=== PATIENT | female | born 1940 | race Caucasian/White ===

== ENCOUNTER → 2016-11-26 | Outpatient (CLI) | payer BC ==
[~2016-11-26] MED LIST: ALUMSUS2 PO; BIOT1CAP8 PO; CALC600T9 PO; CARV3.122 PO; CARV6.252 PO; CEFD1CAP14 PO; CHOL100010 PO; CMD/25 PO; FRS/40 PO; ISOS60TA25 PO; LEVO1TAB33 PO; METH4PAK PO; MULT-610 PO; NYSS/ PO; NYSS5 PO; OMEGCAP2 PO; POTA20TA16 PO; VNTHFA/IN PO; WARF5TAB90 PO
== END | disposition home or self-care (01) ==
LOC: C.LABSPEC 13:14
PROVIDERS: ATTEND Obstetrics & Gynecology
DX: Z01.89 Encounter for other specified special examinations (principal)

== ENCOUNTER → 2016-12-24 | Outpatient (CLI) | payer BC | END | disposition home or self-care (01) | LOC: C.PAPS 14:25 | PROVIDERS: ATTEND Obstetrics & Gynecology | DX: Z85.42 Personal history of malignant neoplasm of other parts of uterus (principal) ==

== ENCOUNTER → 2017-04-18 | Outpatient (CLI) | payer BC ==
--- NOTE | 2017-04-18 14:05 | MAMMOGRAPHY REPORT ---
BILATERAL DIGITAL DIAGNOSTIC MAMMOGRAM TOMOSYNTHESIS WITH CAD AND TARGETED RIGHT ULTRASOUND: 7 CLINICAL HISTORY: 76-year-old woman who presents with approximately one week of diffuse right breast swelling and redness. No palpable lump or nipple discharge. Recent benign left breast biopsy in Aug. Patient has a pacemaker but reports she usually sleeps on her left side and her CHF is c ontrolled with Lasix. The patient recently started antibiotics but reports the erythema and swelling has not decreased. She denies right breast warmth, pain and fever/chills. TECHNIQUE: Bilateral breast tomosynthesis in addition to standard 2D mammography was performed. Spot magnification left CC and ML views were also performed to reassess groupings of microcalcifications. Current study was also evaluated with a Computer Aided Detection (CAD) system. COMPARISON: Comparison is made to exams dated: 09/15/2016 mammogram, 09/08/2016 ultrasound, 08/31/20 16 mammogram, 08/28/2015 mammogram, 08/27/2014 mammogram, and 06/28/2013 mammogram - [facility]. BREAST COMPOSITION: The tissue of both breasts is heterogeneously dense, which may obscure small mas ses. FINDINGS: A pacemaker projects over the left pectoralis muscle on the MLO view. There is a stable ri bbon shaped metallic biopsy marker in the 12:00 middle one third of the left breast. There are a few scattered round benign-appearing microcalcifications and a coarse calcification in the left breast. There are 3 stable groupings of punctate microcalcifications in the posterior left breast on the spo t magnification CC view, which have not significantly changed compared to the spot magnification view s obtained 09/08/2016. Given the stability on prior full-field mammograms dating back to 2011, these are considered benign. There is new diffuse right breast skin thickening most prominent in the anterior aspect of the breast measuring 7.5 mm in thickness based on the CC view, and there is also diffuse right breast trabecula r edema. There is a subtle area of architectural distortion in the 12:00 anterior right breast, for which further evaluation with ultrasound was performed. There are a few benign coarse calcifications and minimal vascular calcification in the right breast. No suspicious mass, architectural distortio n or cluster of microcalcifications is seen. Targeted ultrasound was performed throughout the right breast, with particular attention to the 12:00 axis. In the 12:00 breast, 2 cm from the nipple, there is a subtle hypoechoic area of architectural distortion. Upon visual inspection this distortion is seen deep to a horizontal 1 cm surgical scar in the skin, confirming that it is postsurgical in nature. No other discrete solid or cystic right b reast mass is identified. There is diffuse skin thickening of the right breast noted on ultrasound, measuring up to 4 mm in the 6:00 axis of the breast. No drainable fluid collection is identified. IMPRESSION: ACR BI-RADS CATEGORY 4: SUSPICIOUS, TARGETED ULTRASOUND ACR BI-RADS CATEGORY 4: SUSPICIO US 1. There is new diffuse right breast skin thickening and trabecular edema without evidence of new simmons spicious breast mass or drainable fluid collection. Differential considerations include diffuse mast itis and inflammatory breast cancer. Given that there is no targetable finding on mammogram or ultra sound, would recommend surgical consultation for a skin punch biopsy for definitive evaluation. 2. Stable mammographic appearance of the left breast including post biopsy changes in the 12:00 axis , and stable groupings of benign-appearing punctate microcalcifications. These might calcifications are stable based on prior spot magnification views from August 2016, and also likely stable dating back to 2011, therefore considered benign. 3. Pending pathology results from skin punch biopsy, if the results are benign, would recommend repe at imaging of the right breast at resolution of symptoms. These results and recommendations were discussed with the patient at the time of the exam. Approximately 10% of breast cancers are not detected with mammography. A negative mammographic report should not delay biopsy if a clinically suggestive mass is present. Heather Nam M.D. ay/:04/18/2017 10:15:20 Boat Oar Maker: Shelley FOX(Yi)(Jacki), [facility] letter sent: Abnormal 4/5 BI-RADS Code: ACR BI-RADS Category 4: Suspicious Ultrasound BI-RADS: ACR BI-RADS Category 4: Suspici ous
== END | disposition home or self-care (01) ==
LOC: C.MAMM 08:48
PROVIDERS: ATTEND Obstetrics & Gynecology
DX: N63 Unspecified lump in breast (principal); R92.8 Other abnormal and inconclusive findings on diagnostic imaging of breast

== ENCOUNTER → 2017-04-25 | Outpatient (CLI) | payer BC | END | disposition home or self-care (01) | LOC: C.PATHSPEC 17:06 | PROVIDERS: ATTEND Surgery | DX: N63 Unspecified lump in breast (principal) ==

== ENCOUNTER → 2017-05-11 | Outpatient (CLI) | payer BC ==
[2017-05-11 18:59] LABS: BLOOD UREA NITROGEN 28 mg/dl (7-18); BUN/CREATININE RATIO 21.5 (10-20); CALCIUM 9.1 mg/dl (8.5-10.1); CARBON DIOXIDE 33 mmol/L (21-32); CHLORIDE 99 mmol/L (98-107); GLUCOSE 104 mg/dl (70-99); MAGNESIUM 2.3 mg/dl (1.8-2.4); POTASSIUM 3.8 mmol/L (3.5-5.1); SODIUM 135 mmol/L (136-145)
== END | disposition home or self-care (01) ==
LOC: C.LAB 18:14
PROVIDERS: ATTEND Physician Assistant Medical
DX: I42.9 Cardiomyopathy, unspecified (principal)

== ENCOUNTER → 2017-05-17 | Outpatient (CLI) | payer BC ==
[2017-05-17 09:55] LABS: ALT/SGPT 28 U/L (12-78); BLOOD UREA NITROGEN 24 mg/dl (7-18); BUN/CREATININE RATIO 26.2 (10-20); CALCIUM 9.1 mg/dl (8.5-10.1); CARBON DIOXIDE 28 mmol/L (21-32); CHLORIDE 104 mmol/L (98-107); CHOLESTEROL 159 mg/dl (0-200); GLUCOSE 90 mg/dl (70-99); POTASSIUM 4.3 mmol/L (3.5-5.1); SODIUM 138 mmol/L (136-145)
[2017-05-17 09:57] LABS: BASO % 0.9 %; BASO ABS # 0.04 K/uL (0-0.2); COMPLETE YES; HEMATOCRIT 36.8 % (37-47); IG% 0.2 %; LYMPH ABS # 1.09 K/uL (1.2-3.4); MEAN CORPUSCULAR HEMOGLOBIN 28.5 pg (25-34); MEAN PLATELET VOLUME 9.9 fL (7.4-10.4); MONO % 16.9 %; PLATELET COUNT 221 K/uL (130-400); RED BLOOD COUNT 4.38 M/uL (4.2-5.4); WHITE BLOOD COUNT 4.55 K/uL (4.8-10.8)
[2017-05-17 10:05] LABS: ALB/GLOB RATIO 0.9 (0.9-2); ALKALINE PHOSPHATASE 77 U/L (45-117); AST/SGOT 28 U/L (15-37); CHOLESTEROL/HDL RATIO 2.2; HDL CHOLESTEROL 73 mg/dl; LDL CHOLESTEROL CALCULATED 77 mg/dl; TRIGLYCERIDES 45 mg/dl (0-150); VERY LOW DENSITY LIPOPROT CALC 9 mg/dl
== END | disposition home or self-care (01) ==
LOC: C.LAB 06:58
PROVIDERS: ATTEND Nurse Practitioner Family
DX: I42.9 Cardiomyopathy, unspecified (principal); I35.1 Nonrheumatic aortic (valve) insufficiency; E04.1 Nontoxic single thyroid nodule; Z13.220 Encounter for screening for lipoid disorders; Z79.01 Long term (current) use of anticoagulants

== ENCOUNTER → 2017-05-26 | Outpatient (CLI) | payer BC ==
--- NOTE | 2017-05-26 15:28 | DIAGNOSTIC IMAGING REPORT ---
TWO VIEW CHEST CLINICAL HISTORY: Cough. FINDINGS: PA and lateral chest radiographs are compared to study dated 06/21/2016 and correlated with chest CT dated 01/27/2016. The PA view is degraded by patient rotation. A 3-lead cardiac pacemaker is unchanged in position and partially secures the left mid chest. The heart is mildly enlarged. The pulmonary vasculature is noncongested. Emphysema and chronic interstitial thickening are similar to previous. There are trace pleural effusions with bibasilar consolidation, right greater than left. There is no pneumothorax. The skeletal structures are osteopenic. Degenerative change and scoliosis are noted in the thoracic spine. IMPRESSION: 1. Cardiomegaly and cardiac pacemaker. There is no radiographic evidence of congestive failure. 2. Emphysema. 3. There are trace pleural effusions with bibasilar consolidation, right greater than left. This could represent atelectasis versus an infectious/inflammatory pneumonitis. Clinical correlation will be required and radiographic follow-up to resolution is recommended. Electronically signed by: Venkat Cole M.D. 05/26/2017 3:27 PM Dictated Date/Time: 05/26/2017 3:25 PM
== END | disposition home or self-care (01) ==
LOC: C.RAD 14:51
PROVIDERS: ATTEND Nurse Practitioner Family
DX: R05 Cough (principal); I51.7 Cardiomegaly; Z95.0 Presence of cardiac pacemaker; J43.9 Emphysema, unspecified; J90 Pleural effusion, not elsewhere classified

== ENCOUNTER 2017-05-28 03:39 | Inpatient (IN) | payer BC, OTHER ==
[~2017-05-28] VITALS: Ht 162.6 cm; Wt 66.1 kg
[2017-05-28] VITALS (12 sets, daily range): BP systolic 121–143; BP diastolic 67–83; PULSE 76–91; TEMP 36.3–37; O2SAT 85–95; Ht 162.6 cm; Wt 66.1 kg
[~2017-05-28 03:39] MED LIST changes: -CARV6.252 PO; -CEFD1CAP14 PO; -METH4PAK PO; -NYSS5 PO; -VNTHFA/IN PO
--- NOTE | 2017-05-28 04:13 | EMERGENCY ROOM VISIT NOTE ---
History Report prepared by Shannon: Kingsley Garcias Under the Supervision of: Dr. Obinna Roberts D.O. First contact with patient: 03:56 Chief Complaint: RESPIRATORY PROBLEMS Stated Complaint: SOB,CONGESTION,LUNGS FULL History of Present Illness The patient is a 76 year old female who presents to the Emergency Room with complaints of worsening respiratory symptoms that began 5 days ago. At this time , the patient began to run a fever with a clear sputum productive cough and congestion. Two days ago, she went to her PCP, received a chest x-ray, and was diagnosed with pneumonia in her lower right lobe. She was placed on Levaquin. Her noticed her condition worsening secondary to the patient unable to lie down and sleep. She denies any other symptoms. Source of History: patient Onset: 5 days ago Position: other (Respiratory System) Symptom Intensity: moderate Quality: other (Shortness of breath) Timing: worsening Modifying Factors (Worsening): rest Associated Symptoms: + fevers, + cough Note: She denies any other complaints. Review of Systems See HPI for pertinent positives and negatives. A total of ten systems were reviewed and were otherwise negative. 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 (3) Lyme disease (4) Mitral valve regurgitation (5) Nonischemic cardiomyopathy (6) Pacemaker (7) Pneumonia Family History Cancer Social History Smoking Status: Never Smoker Alcohol Use: none Drug Use: none Marital Status: Housing Status: lives alone Occupation Status: unemployed Current/Historical Medications Scheduled Carvedilol (Coreg), 6.25 MG PO BID Furosemide (Lasix), 40 MG PO Q2D Levofloxacin (Levaquin), 500 MG PO DAILY Nystatin (Nystatin Suspension), 1 DOSE PO UD Potassium Ext Rel (Klor-Con), 20 MEQ PO Q2D Warfarin Sod (Coumadin), 2.5 MG PO DAILY Scheduled PRN Albuterol Hfa (Ventolin Hfa), 2 PUFFS PO QID PRN for SOB/Wheezing Allergies Coded Allergies: Sulfamethoxazole w/Trimethoprim (Verified Allergy, Severe, MOUTH SORES, 05/28/17) Adhesives (Verified Allergy, Unknown, "Adhesive tape" -- blisters, 05/28/17) Physical Exam Vital Signs Date Time Temp Pulse Resp B/P (MAP) Pulse Ox O2 Delivery O2 Flow Rate FiO2 05/28/17 05:09 81 14 92 Room Air 05/28/17 05:00 126/83 05/28/17 04:39 77 13 93 Room Air 05/28/17 04:30 132/71 05/28/17 04:16 82 05/28/17 04:08 130/76 05/28/17 04:07 91 Room Air 05/28/17 04:00 91 Room Air 05/28/17 03:45 36.7 91 22 133/75 91 Room Air Physical Exam GENERAL: Awake, alert, well-appearing, in no distress HENT: Normocephalic, atraumatic. Oropharynx unremarkable. EYES: Normal conjunctiva. Sclera non-icteric. NECK: Supple. No nuchal rigidity. FROM. No JVD. RESPIRATORY: Rhonchi bilaterally, right greater than left. CARDIAC: Regular rate, normal rhythm. Extremities warm and well perfused. Pulses equal. ABDOMEN: Soft, non-distended. No tenderness to palpation. No rebound or guarding. No masses. RECTAL: Deferred. MUSCULOSKELETAL: Chest examination reveals no tenderness. The back is symmetrical on inspection without obvious abnormality. There is no CVA tenderness to palpation. No joint edema. LOWER EXTREMITIES: Calves are equal size bilaterally and non-tender. No edema. No discoloration. NEURO: Normal sensorium. No sensory or motor deficits noted. SKIN: No rash or jaundice noted. Medical Decision & Procedures ER Provider Diagnostic Interpretation: Radiology results as stated below per my review: CHEST X-RAY 1 VIEW: RLL infiltrate, pacemaker in place. Per me. Laboratory Results 05/28/17 04:11 Red Blood Count 4.30, Mean Corpuscular Volume 83.7, Mean Corpuscular Hemoglobin 27.9, Mean Corpuscular Hemoglobin Concent 33.3, Mean Platelet Volume 9.3, Neutrophils (%) (Auto) 60.2, Lymphocytes (%) (Auto) 18.0, Monocytes (%) (Auto) 19.4, Eosinophils (%) (Auto) 1.9, Basophils (%) (Auto) 0.3, Neutrophils # (Auto ) 3.50, Lymphocytes # (Auto) 1.05, Monocytes # (Auto) 1.13, Eosinophils # (Auto ) 0.11, Basophils # (Auto) 0.02 05/28/17 04:11 Test 05/28/17 04:09 05/28/17 04:11 Bedside Troponin I < 0.030 ng/ml (0-0.045) White Blood Count 5.82 K/uL (4.8-10.8) Red Blood Count 4.30 M/uL (4.2-5.4) Hemoglobin 12.0 g/dL (12.0-16.0) Hematocrit 36.0 % (37-47) Mean Corpuscular Volume 83.7 fL (80-100) Mean Corpuscular Hemoglobin 27.9 pg (25-34) Mean Corpuscular Hemoglobin Concent 33.3 g/dl (32-36) Platelet Count 314 K/uL (130-400) Mean Platelet Volume 9.3 fL (7.4-10.4) Neutrophils (%) (Auto) 60.2 % Lymphocytes (%) (Auto) 18.0 % Monocytes (%) (Auto) 19.4 % Eosinophils (%) (Auto) 1.9 % Basophils (%) (Auto) 0.3 % Neutrophils # (Auto) 3.50 K/uL (1.4-6.5) Lymphocytes # (Auto) 1.05 K/uL (1.2-3.4) Monocytes # (Auto) 1.13 K/uL (0.11-0.59) Eosinophils # (Auto) 0.11 K/uL (0-0.5) Basophils # (Auto) 0.02 K/uL (0-0.2) RDW Standard Deviation 42.6 fL (36.4-46.3) RDW Coefficient of Variation 13.8 % (11.5-14.5) Immature Granulocyte % (Auto) 0.2 % Immature Granulocyte # (Auto) 0.01 K/uL (0.00-0.02) Anion Gap 7.0 mmol/L (3-11) Est Creatinine Clear Calc Drug Dose 55.0 ml/min Estimated GFR () 90.6 Estimated GFR (Non- 78.1 BUN/Creatinine Ratio 25.5 (10-20) Calcium Level 8.6 mg/dl (8.5-10.1) Total Bilirubin 0.3 mg/dl (0.2-1) Aspartate Amino Transf (AST/SGOT) 26 U/L (15-37) Alanine Aminotransferase (ALT/SGPT) 27 U/L (12-78) Alkaline Phosphatase 71 U/L (45-117) Pro-B-Type Natriuretic Peptide 433 pg/ml (0-1800) Total Protein 7.2 gm/dl (6.4-8.2) Albumin 2.7 gm/dl (3.4-5.0) Globulin 4.5 gm/dl (2.5-4.0) Albumin/Globulin Ratio 0.6 (0.9-2) Laboratory results reviewed by me Medications Administered Medications (Trade) Dose Ordered Sig/Marcellus Route Start Time Stop Time Status Last Admin Dose Admin Albuterol/ Ipratropium (Duoneb) 3 ml ONE STAT INH 05/28/17 05:14 05/28/17 05:15 DC 05/28/17 05:27 3 ML Ceftriaxone Sodium (Rocephin Inj) 1 gm NOW STAT IV 05/28/17 05:15 05/28/17 05:17 DC 05/28/17 05:27 1 GM ECG Indication: SOB/dyspnea Rate (beats per minute): 89 Rhythm: other (Paced rhythm) Findings: PVC, no acute ischemic change ED Course 0356: The patient was evaluated in room C8. A complete history and physical exam was performed. 0514: Ordered DuoNeb 3 ml INH 0515: Ordered Azithromycin 500 mg/ Dextrose 255 ml @ 125 mls/hr IV, Rocephin Inj 1 gm IV 0526: Upon reexamination, the patient was resting. I discussed the test results and treatment plan with her. I discussed the patient's case with Dr. Mark of the [facility] [place]. The patient will be evaluated for further management. Medical Decision Differential diagnosis: Etiologies such as infections, reactive airway disease, pneumonia, pneumothorax , COPD, CHF, cardiac ischemia, pulmonary embolism, musculoskeletal, gastrointestinal, as well as others were entertained. Started on iv antibx; low pulse ox; not better; offered admit; spoke with hospitalist for admit 545am Medication Reconcilliation Current Medication List: was personally reviewed by me Blood Pressure Screening Patient's blood pressure: Normal blood pressure Blood pressure disposition: Did not require urgent referral Consults Time Called: 0520 Consulting Physician: Dr. Mark - [facility] [place] Returned Call: 0526 Discussed the patient's case. The patient will be evaluated for further treatment and disposition. Impression Primary Impression: RLL pneumonia Scribe Attestation The scribe's documentation has been prepared under my direction and personally reviewed by me in its entirety. I confirm that the note above accurately reflects all work, treatment, procedures, and medical decision making performed by me. Departure Information Dispostion Being Evaluated By Hospitalist Referrals Say Garcia III, CRNP (PCP) Patient Instructions [facility]
[2017-05-28 04:31] LABS: BASO % 0.3 %; BASO ABS # 0.02 K/uL (0-0.2); COMPLETE YES; EOS % 1.9 %; IG% 0.2 %; LYMPH ABS # 1.05 K/uL (1.2-3.4); MEAN CELL VOLUME 83.7 fL (80-100); MEAN CORPUSCULAR HEMOGLOBIN 27.9 pg (25-34); MEAN CORPUSCULAR HGB CONC 33.3 g/dl (32-36); MEAN PLATELET VOLUME 9.3 fL (7.4-10.4); MONO % 19.4 %; NEUT % 60.2 %; PLATELET COUNT 314 K/uL (130-400); WHITE BLOOD COUNT 5.82 K/uL (4.8-10.8)
[2017-05-28 04:49] LABS: BUN/CREATININE RATIO 25.5 (10-20); CALCIUM 8.6 mg/dl (8.5-10.1); CREATININE 0.74 mg/dl (0.60-1.20); POTASSIUM 4.3 mmol/L (3.5-5.1)
[2017-05-28 04:54] LABS: ALB/GLOB RATIO 0.6 (0.9-2)
[2017-05-28] MEDS ORDERED: ALBUT/IPRATROP 3MG/0.5MG NEB 3 ML VIAL INH STA (05:14)
[2017-05-28] MEDS ORDERED: CEFTRIAXONE SOD INJ 1 GM ADDVIAL IV STA (05:15)
[2017-05-28] MEDS ORDERED: AZITHROMYCIN IV 500 MG in DEXTROSE 5% 250ML 250 ML IV ONE (05:15)
[2017-05-28] MEDS ORDERED: CARV6.252 PO (05:25)
[2017-05-28] MEDS ORDERED: VNTHFA/IN PO (05:27)
[2017-05-28] MEDS ORDERED: NITROGLYCERIN 0.4 MG SL PER TAB CHARGE SL PRN (05:45)
[2017-05-28] MEDS ORDERED: ACETAMINOPHEN 325 MG TAB PO PRN (05:45)
[2017-05-28] MEDS ORDERED: ZOLPIDEM TARTRATE 5 MG TAB PO PRN (05:45)
[2017-05-28] MEDS ORDERED: ONDANSETRON INJ 2 MG/ML 2 ML VIAL IV PRN (06:00)
[2017-05-28] MEDS ORDERED: IPRATROPIUM BROMIDE NEB SOLN 0.02% 2.5 ML VIAL INH PRN (06:15)
[2017-05-28] MEDS ORDERED: LEVALBUTEROL 1.25MG/0.5ML NEB INH PRN (06:15)
--- NOTE | 2017-05-28 06:35 | History and Physical ---
History & Physical Date & Time of Service: May 28, 2017 at 06:29 Chief Complaint: Sob,Congestion,Lungs Full Primary Care Physician: Say Garcia III, CRNP History of Present Illness Source: patient, hospital records The patient is a 76-year-old female who presents emergency department with worsening shortness of breath and harsh cough over the past 5 days. Today she developed a fever and worsening congestion, despite being started on levofloxacin for right lower lobe pneumonia diagnosed at her PCPs office 2 days ago. Past Medical/Surgical History Medical Problems: (1) Deep venous thrombosis of left upper extremity Status: Resolved (2) Lyme disease Status: Resolved (3) Mitral valve regurgitation Status: Chronic (4) Pacemaker Status: Chronic Family History Cancer Social History Smoking Status: Never Smoker Smokeless Tobacco Use: No Alcohol Use: none Drug Use: none Marital Status: Housing status: lives with significant other Occupational Status: unemployed Immunizations History of Influenza Vaccine: No History of Tetanus Vaccine?: No History of Pneumococcal: Yes History of Hepatitis B Vaccine: No Multi-Drug Resistant Organisms History of MDRO: No Allergies Coded Allergies: Sulfamethoxazole w/Trimethoprim (Verified Allergy, Severe, MOUTH SORES, 05/28/17) Adhesives (Verified Allergy, Unknown, "Adhesive tape" -- blisters, 05/28/17) Home Medications Scheduled Carvedilol (Coreg), 6.25 MG PO BID Furosemide (Lasix), 40 MG PO Q2D Levofloxacin (Levaquin), 500 MG PO DAILY Nystatin (Nystatin Suspension), 1 DOSE PO UD Potassium Ext Rel (Klor-Con), 20 MEQ PO Q2D Warfarin Sod (Coumadin), 2.5 MG PO DAILY Scheduled PRN Albuterol Hfa (Ventolin Hfa), 2 PUFFS PO QID PRN for SOB/Wheezing Review of Systems The patient denies palpitations, lower extremity swelling, vision change, hearing change, sore throat, chills, sweats, weight change, fatigue, nausea, vomiting, diarrhea or constipation, abdominal pain, pelvic pain, blood in urine or stool, dysuria, urinary frequency or urgency, lightheadedness, dizziness, headache, memory loss, rash, abnormal bruising or bleeding, imbalance, focal or generalized weakness, numbness or tingling in arms or legs, generalized arthralgias or myalgias, back or neck pain, night sweats. The review of systems is otherwise negative other than for that already noted above, and at least 10 systems have been reviewed. Physical Exam Vital Signs Date Time Temp Pulse Resp B/P (MAP) Pulse Ox O2 Delivery O2 Flow Rate FiO2 05/28/17 05:09 81 14 92 Room Air 05/28/17 05:00 126/83 05/28/17 04:39 77 13 93 Room Air 05/28/17 04:30 132/71 05/28/17 04:16 82 05/28/17 04:08 130/76 05/28/17 04:07 91 Room Air 05/28/17 04:00 91 Room Air 05/28/17 03:45 36.7 91 22 133/75 91 Room Air The patient is awake, well-developed and adequately nourished, alert and oriented 3, normocephalic and atraumatic, lying in bed and in moderate acute distress during paroxysmal coughing. HEENT--PERRL, EOMI, mucous membranes and oropharynx dry. Neck--supple, no JVD or bruits, thyroid normal, trachea midline, no adenopathy. Heart--normal S1 and S2, no extra beats, no murmurs, rubs or gallops. Lungs--coarse breath sounds at right base, scattered wheezes bilaterally, no respiratory distress, no accessory muscle use. Abdomen--normal bowel sounds and soft, nontender and nondistended, no hernias or masses, no organomegaly. Extremities--no cyanosis, clubbing or edema. There are good distal pulses b/l. Dermatologic--normal skin turgor, normal color, warm and dry, no abnormal lymph nodes, no rash. Neurologic--cranial nerves II through XII grossly intact, motor and sensory examination normal. Rheumatologic--normal range of motion, nontender, muscles and joints. Psychiatric--normal affect. Diagnostics Laboratory Results Results Past 24 Hours Test 05/28/17 04:09 05/28/17 04:11 Range/Units Bedside Troponin I < 0.030 0-0.045 ng/ml White Blood Count 5.82 4.8-10.8 K/uL Red Blood Count 4.30 4.2-5.4 M/uL Hemoglobin 12.0 12.0-16.0 g/dL Hematocrit 36.0 37-47 % Mean Corpuscular Volume 83.7 80-100 fL Mean Corpuscular Hemoglobin 27.9 25-34 pg Mean Corpuscular Hemoglobin Concent 33.3 32-36 g/dl Platelet Count 314 130-400 K/uL Mean Platelet Volume 9.3 7.4-10.4 fL Neutrophils (%) (Auto) 60.2 % Lymphocytes (%) (Auto) 18.0 % Monocytes (%) (Auto) 19.4 % Eosinophils (%) (Auto) 1.9 % Basophils (%) (Auto) 0.3 % Neutrophils # (Auto) 3.50 1.4-6.5 K/uL Lymphocytes # (Auto) 1.05 1.2-3.4 K/uL Monocytes # (Auto) 1.13 0.11-0.59 K/uL Eosinophils # (Auto) 0.11 0-0.5 K/uL Basophils # (Auto) 0.02 0-0.2 K/uL RDW Standard Deviation 42.6 36.4-46.3 fL RDW Coefficient of Variation 13.8 11.5-14.5 % Immature Granulocyte % (Auto) 0.2 % Immature Granulocyte # (Auto) 0.01 0.00-0.02 K/uL Sodium Level 131 136-145 mmol/L Potassium Level 4.3 3.5-5.1 mmol/L Chloride Level 100 98-107 mmol/L Carbon Dioxide Level 24 21-32 mmol/L Anion Gap 7.0 3-11 mmol/L Blood Urea Nitrogen 19 7-18 mg/dl Creatinine 0.74 0.60-1.20 mg/dl Est Creatinine Clear Calc Drug Dose 55.0 ml/min Estimated GFR () 90.6 Estimated GFR (Non- 78.1 BUN/Creatinine Ratio 25.5 10-20 Random Glucose 103 70-99 mg/dl Calcium Level 8.6 8.5-10.1 mg/dl Total Bilirubin 0.3 0.2-1 mg/dl Aspartate Amino Transf (AST/SGOT) 26 15-37 U/L Alanine Aminotransferase (ALT/SGPT) 27 12-78 U/L Alkaline Phosphatase 71 45-117 U/L Pro-B-Type Natriuretic Peptide 433 0-1800 pg/ml Total Protein 7.2 6.4-8.2 gm/dl Albumin 2.7 3.4-5.0 gm/dl Globulin 4.5 2.5-4.0 gm/dl Albumin/Globulin Ratio 0.6 0.9-2 Microbiology Results 05/28/17 Blood Culture, Received Pending 05/28/17 Blood Culture, Received Pending Impression Assessment and Plan Right middle and right lower lobe pneumonia-- Patient will be admitted to the telemetry unit for close oxygen monitoring. Ceftriaxone 1 g IV daily Levofloxacin 500 mg IV every 24 hours Xopenex/Atrovent nebulizer to use every 6 hours while awake and every 2 hours when necessary. Guaifenesin extended release 600 mg by mouth twice a day. Solu-Medrol 40 mg IV every 8 hours. Nasal cannula 2 L of oxygen, titrating to keep pulse ox greater than or equal to 94%. CAD/hypertension/nonischemic cardiomyopathy/ status post AICD-- Continue carvedilol 6.25 mg by mouth twice a day, isosorbide mononitrate ER 60 mg by mouth every morning, Klor-Con 20 mEq by mouth daily, furosemide 120 mg by mouth daily. DVT history--continue warfarin, check a PT and INR. Level of Care Telemetry Advanced Directives Existing Advance Directive: No Existing Living Will: No Existing Power of Hall Tender: No Resuscitation Status FULL RESUSCITATION VTE Prophylaxis VTE Risk Assessment Done? Y/N: Yes Risk Level: Moderate Given or contraindicated: Warfarin (Coumadin) Social Service Consult None Apply
--- NOTE | 2017-05-28 06:51 | DIAGNOSTIC IMAGING REPORT ---
CHEST ONE VIEW PORTABLE CLINICAL HISTORY: sob dyspnea COMPARISON STUDY: 05/26/2017 FINDINGS: Bipolar cardiac pacemaker in good position. No evidence for cardiac enlargement. Moderate improvement in aeration right lung base. Minimal residual infiltrative change medially. Lungs otherwise appear clear. IMPRESSION: 1. Improved aeration right base. 2. Residual infiltrative change medial right base. The above report was generated using voice recognition software. It may contain grammatical, syntax or spelling errors. Electronically signed by: Bakari Moctezuma M.D. 05/28/2017 6:49 AM Dictated Date/Time: 05/28/2017 6:49 AM
[2017-05-28 06:53] LABS: INR 2.8 (0.9-1.1); PROTHROMBIN TIME (PATIENT) 31.5 SECONDS (9.0-12.0)
[2017-05-28] MEDS: METHYLPREDNISOLONE IV 40 MG in SYRINGE 0 ML IV SCH ×3 (08:10→23:12)
[2017-05-28] MEDS: GUAIFENESIN 600 MG TABCR PO SCH ×2 (08:10→21:08)
[2017-05-28] MEDS: LEVOFLOXACIN / D5W 500 MG in PREMIXED IN D5W 100 ML IV SCH (08:10)
[2017-05-28] MEDS: NYSTATIN SUSP 500,000 U/5 ML UDC PO SCH ×4 (08:10→21:09)
[2017-05-28] MEDS: CARVEDILOL 6.25 MG TAB PO SCH ×2 (08:10→21:09)
[2017-05-28] MEDS: LEVALBUTEROL 1.25MG/0.5ML NEB INH SCH ×3 (08:16→19:45)
[2017-05-28] MEDS: IPRATROPIUM BROMIDE NEB SOLN 0.02% 2.5 ML VIAL INH SCH ×3 (08:16→19:45)
[2017-05-28] MEDS ORDERED: LEVALBUTEROL/IPRATROPIUM NEB INH SCH (09:00)
[2017-05-28 09:33] LABS: MANUAL MICROSCOPIC REQUIRED? NO; REVIEW REQ? NO; URINE APPEARANCE CLEAR (CLEAR); URINE BILIRUBIN NEG (NEG); URINE COLOR YELLOW; URINE EPITHELIAL CELL AUTO >30 /lpf (0-5); URINE NITRITE NEG (NEG); URINE PH 5.5 (4.5-7.5); UROBILINOGEN NEG (NEG)
[2017-05-28] MEDS ORDERED: WARFARIN SOD 2.5 MG TAB PO SCH (16:00)
[2017-05-29] VITALS (12 sets, daily range): BP systolic 123–150; BP diastolic 73–77; PULSE 62–98; TEMP 36.4–36.6; O2SAT 91–93
[2017-05-29] MEDS: IPRATROPIUM BROMIDE NEB SOLN 0.02% 2.5 ML VIAL INH SCH ×3 (02:17→14:04)
[2017-05-29] MEDS: LEVALBUTEROL 1.25MG/0.5ML NEB INH SCH ×3 (02:17→14:04)
[2017-05-29] MEDS ORDERED: CEFTRIAXONE SOD INJ 1 GM in DEXTROSE 5% ADD-VANTAGE 50ML 50 ML IV SCH (06:00)
[2017-05-29] MEDS: LEVOFLOXACIN / D5W 500 MG in PREMIXED IN D5W 100 ML IV SCH (07:58)
[2017-05-29] MEDS: METHYLPREDNISOLONE IV 40 MG in SYRINGE 0 ML IV SCH (07:58)
[2017-05-29] MEDS: CARVEDILOL 6.25 MG TAB PO SCH (07:58)
[2017-05-29] MEDS: GUAIFENESIN 600 MG TABCR PO SCH (07:58)
[2017-05-29] MEDS: NYSTATIN SUSP 500,000 U/5 ML UDC PO SCH ×2 (07:59→13:05)
[2017-05-29 08:03] LABS: BASO % 0.1 %; BASO ABS # 0.01 K/uL (0-0.2); COMPLETE YES; HEMATOCRIT 36.6 % (37-47); IG% 0.3 %; LYMPH % 11.6 %; LYMPH ABS # 0.81 K/uL (1.2-3.4); MEAN CELL VOLUME 82.2 fL (80-100); MEAN CORPUSCULAR HEMOGLOBIN 28.5 pg (25-34); MEAN CORPUSCULAR HGB CONC 34.7 g/dl (32-36); MEAN PLATELET VOLUME 9.2 fL (7.4-10.4); PLATELET COUNT 389 K/uL (130-400); RED BLOOD COUNT 4.45 M/uL (4.2-5.4); WHITE BLOOD COUNT 6.98 K/uL (4.8-10.8)
[2017-05-29 08:22] LABS: INR 3.3 (0.9-1.1); PARTIAL THROMBOPLASTIN RATIO 1.8; PROTHROMBIN TIME (PATIENT) 36.6 SECONDS (9.0-12.0)
[2017-05-29 08:42] LABS: BUN/CREATININE RATIO 23.2 (10-20); CALCIUM 9.2 mg/dl (8.5-10.1); CREATININE 0.77 mg/dl (0.60-1.20); MAGNESIUM 2.4 mg/dl (1.8-2.4)
[2017-05-29] MEDS ORDERED: CEFD1CAP14 PO (12:35)
[2017-05-29] MEDS ORDERED: METH4PAK PO (12:35)
--- NOTE | 2017-05-29 12:38 | Discharge Instructions ---
Discharge Instructions Date of Service May 29, 2017. Admission Reason for Admission: Rll Pneumonia Discharge Discharge Diagnosis / Problem: Pneumonia Discharge Goals Goal(s): Decrease discomfort, Improve function, Increase independence, Improve disease control, Learn about illness, Diagnostic testing, Therapeutic intervention, Prevent Disease Progression Activity Recommendations Activity Limitations: resume your previous activity Exercise/Sports Limitations: as tolerated . Instructions / Follow-Up Instructions / Follow-Up Patient to be discharged home Patient found to have right lower lobe pneumonia Please take omnicef antibiotic 300 mg tablet twice a day for next 7 days Please also take prednisone taper as directed Follow up with Say Garcia in 1-2 weeks Follow up with Dr Lena Parker in 1-2 weeks as well If worsening shortness of breath, fever or chest pain please report to ER Current Hospital Diet Patient's current hospital diet: AHA Diet (Heart Healthy) Discharge Diet Recommended Diet: AHA Diet (Heart Healthy) Pending Studies Studies pending at discharge: no Laboratory Results Lipid Panel Test 05/17/17 07:06 Range/Units Triglycerides Level 45 0-150 mg/dl Cholesterol Level 159 0-200 mg/dl HDL Cholesterol 73 mg/dl Cholesterol/HDL Ratio 2.2 LDL Cholesterol, Calculated 77 mg/dl Medical Emergencies . Who to Call and When: Medical Emergencies: If at any time you feel your situation is an emergency, please call 911 immediately. . Non-Emergent Contact Non-Emergency issues call your: Primary Care Provider Call Non-Emergent contact if: you have a fever, your pain is worsening . . "Provider Documentation" section prepared by Jose Warner. . VTE Core Measure Inpt VTE Proph given/why not?: Warfarin (Coumadin)
[2017-05-29] MEDS ORDERED: NYSS5 PO (14:29)
--- NOTE | 2017-05-29 15:34 | Discharge Summary ---
Discharge Summary Date of Service May 29, 2017. Discharge Summary Admission Date: May 28, 2017 at 05:44 Discharge Date: May 29, 2017 Discharge Disposition: Home Principal Diagnosis: Right lower lobe PNA Immunizations: Have You Had Influenza Vaccine: No History of Tetanus Vaccine?: No History of Pneumococcal: Yes History of Hepatitis B Vaccine: No Medication Reconciliation New Medications: Cefdinir (Omnicef) 300 Mg Cap 300 MG PO Q12H for 7 Days, #14 CAP Methylprednisolone (Medrol Dosepak) 4 Mg Leno 0 PO DAILY, #1 PKT Nystatin (Nystatin) 5 Ml Susp 5 ML PO QID for 7 Days, #1 BTL Continued Medications: Albuterol Hfa (Ventolin Hfa) 200 Puffs/75798 Mcg Aers 2 PUFFS PO QID PRN for SOB/Wheezing Carvedilol (Coreg) 6.25 Mg Tab 6.25 MG PO BID Furosemide (Lasix) 40 Mg Tab 40 MG PO Q2D Nystatin (Nystatin Suspension) 1 Ml Susp 1 DOSE PO UD for 3 Days Potassium Ext Rel (Klor-Con) 20 Meq Tabcr 20 MEQ PO Q2D Warfarin Sod (Coumadin) 2.5 Mg Tab 2.5 MG PO DAILY, 3 Refills Discontinued Medications: Levofloxacin (Levaquin) 500 Mg Tab 500 MG PO DAILY, #10 Discharge Exam Review of Systems: Constitutional: No fever, No chills, No sweats, No weakness ENT: No hearing loss, No unusual epistaxis, No nasal symptoms, No sore throat Respiratory: + cough, No sputum, No wheezing, No shortness of breath Cardiovascular: No chest pain, No orthopnea, No PND, No edema Abdomen: No pain, No nausea, No vomiting, No diarrhea Musculoskeletal: No joint pain, No muscle pain, No swelling, No calf pain Genitourinary - Female: No dysuria, No urinary frequency, No urinary urgency , No urinary incontinence Neurologic: No memory loss, No paralysis, No weakness, No numbness/tingling Psychiatric: No depression symptoms, No anhedonism, No anxiety, No insomnia Endocrine: No fatigue, No excessive thirst Integumentary: No rash, No itch Physical Exam: General Appearance: WD/WN, no apparent distress Eyes: normal inspection, PERRL, EOMI, sclerae normal Neck: supple, no adenopathy, thyroid normal, no JVD Respiratory/Chest: chest non-tender, lungs clear, normal breath sounds, no respiratory distress Cardiovascular: regular rate, rhythm, no edema, no gallop, no JVD Abdomen / GI: normal bowel sounds, non tender, soft, no organomegaly Extremities: normal inspection, no calf tenderness, normal capillary refill , no pedal edema Neurologic/Psychiatric: no motor/sensory deficits, alert, normal mood/affect , oriented x 3 Skin: normal color, warm/dry, no rash Lymphatic: no adenopathy Hospital Course Right middle and right lower lobe pneumonia-- Patient was admitted to the telemetry unit for close oxygen monitoring. Ceftriaxone 1 g IV daily Levofloxacin 500 mg IV every 24 hours Xopenex/Atrovent nebulizer to use every 6 hours while awake and every 2 hours when necessary. Guaifenesin extended release 600 mg by mouth twice a day. Solu-Medrol 40 mg IV every 8 hours. Nasal cannula 2 L of oxygen, titrating to keep pulse ox greater than or equal to 94%. No leukocytosis or fevers noted, DC home on omnicef 300 mg PO BID for 7 days in addition to pred taper CAD/hypertension/nonischemic cardiomyopathy/ status post AICD-- Continue carvedilol 6.25 mg by mouth twice a day, isosorbide mononitrate ER 60 mg by mouth every morning, Klor-Con 20 mEq by mouth daily, furosemide 120 mg by mouth daily. DVT history--continue warfarin, check a PT and INR. Total Time Spent: Greater than 30 minutes This includes examination of the patient, discharge planning, medication reconciliation, and communication with other providers. Discharge Instructions Please refer to the electronic Patient Visit Report (Discharge Instructions) for additional information. Additional Copies To Say Garcia III, CRNP
[2017-06-04] MEDS ORDERED: CEFD1CAP14 PO (10:24)
[2017-06-04] MEDS ORDERED: FRS/40 PO (10:24)
[2017-06-04] MEDS ORDERED: POTA20TA16 PO (10:24)
== END 2017-05-29 14:42 | disposition home or self-care (01) | DRG 194 ==
LOC: C.EDB 03:41 → C.MED 05:44 → ENRESERV 06:37
PROVIDERS: ADMIT Hospitalist; ATTEND Hospitalist
DX: J18.9 Pneumonia, unspecified organism (principal); I42.9 Cardiomyopathy, unspecified; Z86.718 Personal history of other venous thrombosis and embolism; I25.10 Atherosclerotic heart disease of native coronary artery without angina pectoris; I34.0 Nonrheumatic mitral (valve) insufficiency; Z95.810 Presence of automatic (implantable) cardiac defibrillator; Z87.01 Personal history of pneumonia (recurrent); I51.7 Cardiomegaly; Z95.0 Presence of cardiac pacemaker; J43.9 Emphysema, unspecified; J90 Pleural effusion, not elsewhere classified

== ENCOUNTER 2017-05-31 05:10 | Inpatient (IN) | payer BC, OTHER ==
[~2017-05-31] VITALS: Ht 162.6 cm; Wt 63.1 kg
[~2017-05-31 05:10] MED LIST changes: -ALUMSUS2 PO; -BIOT1CAP8 PO; -CALC600T9 PO; -CARV3.122 PO; +CARV6.252 PO; +CEFD1CAP14 PO; -CHOL100010 PO; -ISOS60TA25 PO; -LEVO1TAB33 PO; +METH4PAK PO; -MULT-610 PO; +NYSS5 PO; -OMEGCAP2 PO; +VNTHFA/IN PO; -WARF5TAB90 PO
[2017-05-31] MEDS ORDERED: ALBUT/IPRATROP 3MG/0.5MG NEB 3 ML VIAL INH STA (05:27)
[2017-05-31] MEDS ORDERED: SODIUM CHLORIDE 0.9% 1000ML 1,000 ML IV STA (05:27)
--- NOTE | 2017-05-31 05:44 | EMERGENCY ROOM VISIT NOTE ---
History Report prepared by Shannon: Jose Painter Under the Supervision of: Dr. Obinna Choi M.D. First contact with patient: 05:20 Chief Complaint: RESPIRATORY PROBLEMS Stated Complaint: CAN'T BREATHE,THROAT HURTS History of Present Illness The patient is a 76 year old female who presents to the Emergency Room with complaints of worsening shortness of breath beginning the other day. The patient states that she was just discharged from the hospital yesterday. She reports that she was diagnosed with pneumonia. The patient notes that she is very anxious and cannot lie down or walk without her symptoms worsening. She states that she does not have oxygen at home, and she does not feel better while on 2L of NC oxygen in the room. The patient reports that she developed chest pain around 30 minutes ago. She denies a history of COPD, lung problems, and abdominal pain. She notes that she has not had her Lasix in over a week. The patient states her face, breast, and arms are all experiencing edema which are consistent with her CHF. She reports that she took a dose of Lasix this morning, but she did not urinate. EMR states that patient was discharged yesterday on Omnicef and Prednisone. It reports she is currently on Coumadin. Source of History: patient Onset: the other day Position: chest Quality: other (SOB) Timing: worsening Modifying Factors (Worsening): movement, other (lying down) Associated Symptoms: + chest pain, No abdominal pain Review of Systems See HPI for pertinent positives & negatives. A total of 10 systems reviewed and were otherwise negative. 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 (3) Lyme disease (4) Mitral valve regurgitation (5) Nonischemic cardiomyopathy (6) Pacemaker (7) Pneumonia Family History Cancer Social History Smoking Status: Never Smoker Alcohol Use: none Drug Use: none Marital Status: Housing Status: lives alone Occupation Status: unemployed Current/Historical Medications Scheduled Carvedilol (Coreg), 6.25 MG PO BID Cefdinir (Omnicef), 300 MG PO Q12H Furosemide (Lasix), 40 MG PO Q2D Methylprednisolone (Medrol Dosepak), 0 PO DAILY Nystatin (Nystatin Suspension), 1 DOSE PO UD Nystatin (Nystatin), 5 ML PO QID Potassium Ext Rel (Klor-Con), 20 MEQ PO Q2D Warfarin Sod (Coumadin), 2.5 MG PO DAILY Scheduled PRN Albuterol Hfa (Ventolin Hfa), 2 PUFFS PO QID PRN for SOB/Wheezing Allergies Coded Allergies: Sulfamethoxazole w/Trimethoprim (Verified Allergy, Severe, MOUTH SORES, 09/04) Adhesives (Verified Allergy, Unknown, "Adhesive tape" -- blisters, 05/31/17 ) Physical Exam Vital Signs Date Time Temp Pulse Resp B/P (MAP) Pulse Ox O2 Delivery O2 Flow Rate FiO2 05/31/17 08:49 86 20 141/79 92 Nasal Cannula 3.0 05/31/17 07:45 82 16 153/88 95 Nasal Cannula 05/31/17 07:30 82 16 154/81 94 Nasal Cannula 3.0 05/31/17 06:59 91 14 158/93 93 Nasal Cannula 3.0 05/31/17 06:58 87 Room Air 05/31/17 06:04 96 Nasal Cannula 2.0 05/31/17 06:03 83 20 142/88 96 Nebulizer 5.0 05/31/17 05:40 93 Nasal Cannula 2.0 05/31/17 05:22 97 05/31/17 05:14 36.4 93 28 146/85 90 Room Air Physical Exam GENERAL: Patient is anxious appearing and in moderate distress. HEENT: No acute trauma, normocephalic atraumatic, mucous membranes moist, no nasal congestion, no scleral icterus. NECK: No stridor, no adenopathy, no meningismus, trachea is midline. LUNGS: Dyspneic and typhinic. Diffuse wheezing with tight lung sounds, no rhonchi. HEART: Regular rate and rhythm. No murmurs, rubs, gallops appreciated. ABDOMEN: Soft, nontender, bowel sounds positive, no masses appreciated, no peritonitis. BACK: No midline tenderness, no CVA tenderness EXTREMITIES: Normal motion all extremities, no cyanosis, edema to the arms bilaterally. NEUROLOGIC: Alert and oriented, no acute motor or sensory deficits, no focal weakness, cranial nerves grossly intact. SKIN: No rash, no jaundice, no diaphoresis. Medical Decision & Procedures ER Provider Diagnostic Interpretation: X ray results are stated below per my interpretation: Chest: 1 view: Increasing bilateral congestion worsening from previous chest x- ray on 05/28/17. ICD with leads intact, unchanged mediastinum, no pneumothorax. Laboratory Results 05/31/17 05:42 Red Blood Count 4.45, Mean Corpuscular Volume 82.7, Mean Corpuscular Hemoglobin 28.8, Mean Corpuscular Hemoglobin Concent 34.8, Mean Platelet Volume 8.9, Neutrophils (%) (Auto) 68.9, Lymphocytes (%) (Auto) 14.3, Monocytes (%) (Auto) 14.8, Eosinophils (%) (Auto) 1.6, Basophils (%) (Auto) 0.2, Neutrophils # (Auto ) 5.91, Lymphocytes # (Auto) 1.23, Monocytes # (Auto) 1.27, Eosinophils # (Auto ) 0.14, Basophils # (Auto) 0.02 Test 05/31/17 05:42 05/31/17 05:46 05/31/17 05:51 White Blood Count 8.59 K/uL (4.8-10.8) Red Blood Count 4.45 M/uL (4.2-5.4) Hemoglobin 12.8 g/dL (12.0-16.0) Hematocrit 36.8 % (37-47) Mean Corpuscular Volume 82.7 fL (80-100) Mean Corpuscular Hemoglobin 28.8 pg (25-34) Mean Corpuscular Hemoglobin Concent 34.8 g/dl (32-36) Platelet Count 391 K/uL (130-400) Mean Platelet Volume 8.9 fL (7.4-10.4) Neutrophils (%) (Auto) 68.9 % Lymphocytes (%) (Auto) 14.3 % Monocytes (%) (Auto) 14.8 % Eosinophils (%) (Auto) 1.6 % Basophils (%) (Auto) 0.2 % Neutrophils # (Auto) 5.91 K/uL (1.4-6.5) Lymphocytes # (Auto) 1.23 K/uL (1.2-3.4) Monocytes # (Auto) 1.27 K/uL (0.11-0.59) Eosinophils # (Auto) 0.14 K/uL (0-0.5) Basophils # (Auto) 0.02 K/uL (0-0.2) RDW Standard Deviation 41.8 fL (36.4-46.3) RDW Coefficient of Variation 13.7 % (11.5-14.5) Immature Granulocyte % (Auto) 0.2 % Immature Granulocyte # (Auto) 0.02 K/uL (0.00-0.02) Activated Partial Thromboplast Time 47.0 SECONDS (21.0-31.0) Partial Thromboplastin Ratio 1.8 Pro-B-Type Natriuretic Peptide 316 pg/ml (0-1800) Bedside Lactic Acid Venous 0.59 mmol/L (0.90-1.70) Bedside Hemoglobin 13.3 g/dl (12.0-16.0) Bedside Hematocrit 39 % (37-47) Bedside Sodium 131 mEq/L (135-144) Bedside Potassium 4.0 mEq/L (3.3-5.0) Bedside Chloride 96 mEq/L (101-112) Bedside Total CO2 24 mEq/l (24-31) Bedside Blood Urea Nitrogen 22 mg/dl (7-18) Bedside Creatinine 0.8 mg/dl (0.6-1.3) Bedside Glucose (other) 93 mg/dl (70-99) Bedside Ionized Calcium ([place]) 1.17 mmol/l (1.12-1.32) Laboratory results as reviewed by me. Medications Administered Medications (Trade) Dose Ordered Sig/Marcellus Route Start Time Stop Time Status Last Admin Dose Admin Sodium Chloride 1,000 ml @ 75 mls/hr [id number] STAT IV 05/31/17 05:27 05/31/17 11:12 DC 05/31/17 06:00 75 MLS/HR Albuterol/ Ipratropium (Duoneb) 3 ml NOW STAT INH 05/31/17 05:27 05/31/17 05:28 DC 05/31/17 05:59 3 ML ECG Indication: SOB/dyspnea Rate (beats per minute): 87 Rhythm: other (Atrial-sensed vetnricular paced) Findings: no acute ischemic change, no ectopy ED Course 0523: The patient was evaluated in room A02. A complete history and physical exam was performed. 0527: Ordered Duoneb 3ml INH, Sodium Chloride 1000 ml @ 75 mls/hr IV 0623: I reevaluated the patient. She has shown improvement in her lung exam, but she is still somewhat dyspneic. I discussed the pros and cons of a CT of the chest. She has agreed to proceed. 0652: The patient ambulated to the restroom. On return, she had worsening shortness of breath, and her O2Sat was 87 on room air. 0710: I discussed the patient's case with [facility] Hospitalist Service. The patient will be evaluated for further treatment. Medical Decision Differential: Infectious, CHF, COPD, ACS, Pulmonary Embolism, amongst other etiologies entertained. 76 yr old female arrives for shortness of breath evaluation. Patient with 1 week worsening SHOB. Initially treated with Levaquin, no improvement and thus admitted with further abx and discharged 2 days ago on Omnicef and Prednisone. Notes stopping lasix last week when this started. Worsening facial, arm, chest swelling. Now to point where unable to lay flat nor ambulate without severe SHOB. Admits some mild CP with exertion this morning. Did have some mild diffuse wheezing on arrival which improved though minimal lung sounds remain. CXR with worsening CHF findings. With persistent symptoms went ahead with CT chest revealing moderated bilateral effusion, superior vena cava syndrome, diffuse edema. Given her becoming hypoxic and requiring NC O2 will bring in for further evaluation/treatment. I do not feel this is PE given therapeutic INR. No evidence this is ACS as trop negative and this is ongoing x 1 week. No clear evidence infection at this time thus hold further abx. As just got IV contrast will defer decision on Lasix/dosing to hospitalist. Medication Reconcilliation Current Medication List: was personally reviewed by me Blood Pressure Screening Patient's blood pressure: Elevated blood pressure Blood pressure disposition: Elevated BP felt to be situational Consults Consulting Physician: [facility] Hospitalist Service Returned Call: 0710 I discussed the patient's case with [facility] Hospitalist Service. The patient will be evaluated for further treatment. Impression Primary Impression: Pleural effusion, bilateral Additional Impressions: Congestive heart failure Superior vena cava syndrome Hypoxia Scribe Attestation The scribe's documentation has been prepared under my direction and personally reviewed by me in its entirety. I confirm that the note above accurately reflects all work, treatment, procedures, and medical decision making performed by me. Departure Information Dispostion Being Evaluated By Hospitalist Referrals Say Garcia III, CRNP (PCP) Patient Instructions My [facility] Problem Qualifiers Additional Impressions: Congestive heart failure Congestive heart failure chronicity: acute
[2017-05-31 05:54] LABS: BASO % 0.2 %; BASO ABS # 0.02 K/uL (0-0.2); COMPLETE YES; EOS % 1.6 %; HEMATOCRIT 36.8 % (37-47); IG% 0.2 %; LYMPH % 14.3 %; LYMPH ABS # 1.23 K/uL (1.2-3.4); MEAN CELL VOLUME 82.7 fL (80-100); MEAN CORPUSCULAR HEMOGLOBIN 28.8 pg (25-34); MEAN CORPUSCULAR HGB CONC 34.8 g/dl (32-36); MEAN PLATELET VOLUME 8.9 fL (7.4-10.4); MONO % 14.8 %; NEUT % 68.9 %; PLATELET COUNT 391 K/uL (130-400); RED BLOOD COUNT 4.45 M/uL (4.2-5.4); WHITE BLOOD COUNT 8.59 K/uL (4.8-10.8)
[2017-05-31 06:04] LABS: ISTAT CREATININE 0.8 mg/dl (0.6-1.3); ISTAT HEMOGLOBIN 13.3 g/dl (12.0-16.0); ISTAT IONIZED CALCIUM 1.17 mmol/l (1.12-1.32)
[2017-05-31 06:11] LABS: PARTIAL THROMBOPLASTIN RATIO 1.8; PROTHROMBIN TIME (PATIENT) 40.5 SECONDS (9.0-12.0)
[2017-05-31 06:14] LABS: BLOOD UREA NITROGEN 23 mg/dl (7-18); CALCIUM 8.7 mg/dl (8.5-10.1); CARBON DIOXIDE 26 mmol/L (21-32); CHLORIDE 99 mmol/L (98-107); CREATININE 0.78 mg/dl (0.60-1.20); GLUCOSE 96 mg/dl (70-99); SODIUM 132 mmol/L (136-145)
[2017-05-31 06:18] LABS: INR 3.6 (0.9-1.1)
[2017-05-31] MEDS ORDERED: OPTIRAY 320 IV PRN (06:30)
--- NOTE | 2017-05-31 06:33 | DIAGNOSTIC IMAGING REPORT ---
CHEST ONE VIEW PORTABLE CLINICAL HISTORY: Atypical chest pain and shortness of breath COMPARISON STUDY: 05/28/2017 FINDINGS: The heart is the upper limits of normal in size. There is a left subclavian dual-chamber central venous pacemaker present. There are increasing bilateral pleural effusions. There are associated basal airspace opacities. Mild pulmonary vascular congestion is suspected.[ IMPRESSION: Mild pulmonary vascular congestion with increasing bilateral pleural effusions and associated basilar airspace opacities Electronically signed by: Ovi Verma M.D. 05/31/2017 6:32 AM Dictated Date/Time: 05/31/2017 6:31 AM
--- NOTE | 2017-05-31 07:03 | DIAGNOSTIC IMAGING REPORT ---
CT OF THE CHEST WITH IV CONTRAST CLINICAL HISTORY: Shortness of breath. Hypoxia. COMPARISON STUDY: Chest x-ray dated 05/31/2017, CT scan dated 01/27/2016 TECHNIQUE: Following the IV administration of 92 mL of Optiray-320, CT of the thorax was performed from the thoracic inlet to the lung bases. Images are reviewed in the axial, sagittal, and coronal planes. IV contrast was administered without complication. A dose lowering technique was utilized adhering to the principles of ALARA. CT DOSE: 231.60 mGy.cm FINDINGS: Thyroid: There is a multinodular thyroid gland including a dominant 27 mm right lobe nodule. Thoracic aorta: The ascending thoracic aorta measures 35 mm in diameter. Pulmonary vasculature: The pulmonary trunk is normal in caliber. There are no central filling defects identified to suggest pulmonary embolus. Note that this examination was not protocoled for the evaluation of pulmonary emboli. HEART: There is a left subclavian dual-chamber central venous pacemaker present. There is suspected occlusion superior vena cava with multiple mediastinal and chest wall collaterals. Lungs and pleural spaces: There are moderate bilateral pleural effusions right greater than left. There is mild respiratory motion artifact. Dependent airspace opacities likely representing compressive atelectasis. Mediastinum: There is no mediastinal lymphadenopathy. Kaylin: There is no evidence of pathologic hilar adenopathy Axilla: Clear. Upper abdomen: Partially visualized upper abdominal viscera is within normal limits. Skeletal structures: There is diffuse body wall edema/anasarca. No destructive lesions are visualized. IMPRESSION: 1. Multinodular thyroid goiter 2. 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 3. Suspected fluid overload/congestive failure with moderate bilateral pleural effusions] and left. Bibasilar opacities are likely atelectatic 4. Generalized body wall edema Electronically signed by: Ovi Verma M.D. 05/31/2017 7:02 AM Dictated Date/Time: 05/31/2017 6:55 AM
[2017-05-31] MEDS ORDERED: ALBUT/IPRATROP 3MG/0.5MG NEB 3 ML VIAL INH PRN (08:45)
[2017-05-31] MEDS ORDERED: ALUMINUM/MAGNESIUM/SIMETH (MAALOX MAX) 30 ML UDC PO PRN (08:45)
[2017-05-31] MEDS ORDERED: POTASSIUM CHLORIDE 20 MEQ TABCR PO SCH (08:45)
[2017-05-31] MEDS ORDERED: ONDANSETRON INJ 2 MG/ML 2 ML VIAL IV PRN (08:45)
[2017-05-31] MEDS ORDERED: ACETAMINOPHEN 325 MG TAB PO PRN (08:45)
[2017-05-31] MEDS ORDERED: METHYLPREDNISOLONE 4MG TAB, 6 DAY TAPER PO SCH (08:45)
[2017-05-31] MEDS ORDERED: ALBUTEROL HFA 8 GM INHALER INH PRN (08:45)
[2017-05-31] MEDS ORDERED: MAGNESIUM HYDROXIDE SUSP 30 ML UDC PO PRN (08:45)
[2017-05-31] MEDS ORDERED: NITROGLYCERIN 0.4 MG SL PER TAB CHARGE SL PRN (08:45)
[2017-05-31] MEDS ORDERED: POLYETHYLENE (MIRALAX) 17 GM PACK PO PRN (08:45)
--- NOTE | 2017-05-31 09:21 | History and Physical ---
History & Physical Date & Time of Service: May 31, 2017 at 09:03 Chief Complaint: Can't Breathe,Throat Hurts Primary Care Physician: Say Garcia III, CRNP History of Present Illness Source: patient, clinic records, hospital records Patient is a pleasant 76 y/o female, with PMHx of CAD, nonischemic cardiomyopathy, heart block s/p AICD, HTN, and h/o DVT, who presented to the ED because of worsening SOB that started last PM. Patient was most recently admitted to [facility] on 05/28-05/29 for RLL PNA. She was discharged home on Tuesday with Omnicef x7 days and Medrol dose leno. She has not started her Medrol Dose Leno yet. She did NOT receive any Lasix during her admission. She states it has been about 1 week since taking Lasix. She did take her dose of Lasix yesterday morning, with little UO. She admits to associated facial swelling and R breast swelling. She notes symptoms are similar to past presentations of CHF. She follows w Dr. Webber. +cough. +chest pressure that comes and goes. Patient denies any fever, chills, sweats, lightheadedness, dizziness, vision changes, palpitations, wheezing, abdominal pain, nausea, vomiting, diarrhea, urinary symptoms, melena, numbness/tingling, weakness, muscle/joint pain, anxiety/ depression, active bleeding, or new skin discoloration/changes. Past Medical/Surgical History Medical Problems: CAD nonischemic cardiomyopathy heart block s/p AICD HTN h/o DVT Surgical History: R knee replacement Hysterectomy s/p AICD Family History Cancer Social History Smoking Status: Never Smoker Alcohol Use: none Drug Use: none Marital Status: Housing status: lives with significant other Occupational Status: unemployed Immunizations History of Influenza Vaccine: No History of Tetanus Vaccine?: No History of Pneumococcal: Yes History of Hepatitis B Vaccine: No Multi-Drug Resistant Organisms History of MDRO: No Allergies Coded Allergies: Sulfamethoxazole w/Trimethoprim (Verified Allergy, Severe, MOUTH SORES, 09/04) Adhesives (Verified Allergy, Unknown, "Adhesive tape" -- blisters, 05/31/17 ) Home Medications Scheduled Carvedilol (Coreg), 6.25 MG PO BID Cefdinir (Omnicef), 300 MG PO Q12H Furosemide (Lasix), 40 MG PO Q2D Methylprednisolone (Medrol Dosepak), 0 PO DAILY Nystatin (Nystatin Suspension), 1 DOSE PO UD Nystatin (Nystatin), 5 ML PO QID Potassium Ext Rel (Klor-Con), 20 MEQ PO Q2D Warfarin Sod (Coumadin), 2.5 MG PO DAILY Scheduled PRN Albuterol Hfa (Ventolin Hfa), 2 PUFFS PO QID PRN for SOB/Wheezing Physical Exam Vital Signs Date Time Temp Pulse Resp B/P (MAP) Pulse Ox O2 Delivery O2 Flow Rate FiO2 05/31/17 08:49 86 20 141/79 92 Nasal Cannula 3.0 05/31/17 07:45 82 16 153/88 95 Nasal Cannula 05/31/17 07:30 82 16 154/81 94 Nasal Cannula 3.0 05/31/17 06:59 91 14 158/93 93 Nasal Cannula 3.0 05/31/17 06:58 87 Room Air 05/31/17 06:04 96 Nasal Cannula 2.0 05/31/17 06:03 83 20 142/88 96 Nebulizer 5.0 05/31/17 05:40 93 Nasal Cannula 2.0 05/31/17 05:22 97 05/31/17 05:14 36.4 93 28 146/85 90 Room Air General Appearance: no apparent distress Head: normocephalic, atraumatic Eyes: PERRL, + pertinent finding (swollen face ) ENT: hearing grossly normal Neck: supple Respiratory/Chest: lungs clear, no respiratory distress, no accessory muscle use Cardiovascular: regular rate, rhythm Abdomen/GI: normal bowel sounds, non tender, soft Back: normal inspection Extremities/Musculoskelatal: no calf tenderness, no pedal edema Neurologic/Psych: alert, normal mood/affect, oriented x 3 Skin: normal color, warm/dry, no rash Diagnostics Laboratory Results Results Past 24 Hours Test 05/31/17 05:42 05/31/17 05:46 05/31/17 05:51 Range/Units White Blood Count 8.59 4.8-10.8 K/uL Red Blood Count 4.45 4.2-5.4 M/uL Hemoglobin 12.8 12.0-16.0 g/dL Hematocrit 36.8 37-47 % Mean Corpuscular Volume 82.7 80-100 fL Mean Corpuscular Hemoglobin 28.8 25-34 pg Mean Corpuscular Hemoglobin Concent 34.8 32-36 g/dl Platelet Count 391 130-400 K/uL Mean Platelet Volume 8.9 7.4-10.4 fL Neutrophils (%) (Auto) 68.9 % Lymphocytes (%) (Auto) 14.3 % Monocytes (%) (Auto) 14.8 % Eosinophils (%) (Auto) 1.6 % Basophils (%) (Auto) 0.2 % Neutrophils # (Auto) 5.91 1.4-6.5 K/uL Lymphocytes # (Auto) 1.23 1.2-3.4 K/uL Monocytes # (Auto) 1.27 0.11-0.59 K/uL Eosinophils # (Auto) 0.14 0-0.5 K/uL Basophils # (Auto) 0.02 0-0.2 K/uL RDW Standard Deviation 41.8 36.4-46.3 fL RDW Coefficient of Variation 13.7 11.5-14.5 % Immature Granulocyte % (Auto) 0.2 % Immature Granulocyte # (Auto) 0.02 0.00-0.02 K/uL Prothrombin Time 40.5 9.0-12.0 SECONDS Prothromb Time International Ratio 3.6 0.9-1.1 Activated Partial Thromboplast Time 47.0 21.0-31.0 SECONDS Partial Thromboplastin Ratio 1.8 Sodium Level 132 136-145 mmol/L Potassium Level 4.0 3.5-5.1 mmol/L Chloride Level 99 98-107 mmol/L Carbon Dioxide Level 26 21-32 mmol/L Anion Gap 7.0 16.0 16-25 mmol/L Blood Urea Nitrogen 23 7-18 mg/dl Creatinine 0.78 0.60-1.20 mg/dl Est Creatinine Clear Calc Drug Dose 57.8 ml/min Estimated GFR () 85.0 Estimated GFR (Non- 73.3 BUN/Creatinine Ratio 29.0 10-20 Random Glucose 96 70-99 mg/dl Calcium Level 8.7 8.5-10.1 mg/dl Troponin I < 0.015 0-0.045 ng/ml Pro-B-Type Natriuretic Peptide 316 0-1800 pg/ml Bedside Lactic Acid Venous 0.59 0.90-1.70 mmol/L Bedside Hemoglobin 13.3 12.0-16.0 g/dl Bedside Hematocrit 39 37-47 % Bedside Sodium 131 135-144 mEq/L Bedside Potassium 4.0 3.3-5.0 mEq/L Bedside Chloride 96 101-112 mEq/L Bedside Total CO2 24 24-31 mEq/l Bedside Blood Urea Nitrogen 22 7-18 mg/dl Bedside Creatinine 0.8 0.6-1.3 mg/dl Bedside Glucose (other) 93 70-99 mg/dl Bedside Ionized Calcium ([place]) 1.17 1.12-1.32 mmol/l Diagnostic Radiology CT OF THE CHEST WITH IV CONTRAST CLINICAL HISTORY: Shortness of breath. Hypoxia. COMPARISON STUDY: Chest x-ray dated 05/31/2017, CT scan dated 01/27/2016 TECHNIQUE: Following the IV administration of 92 mL of Optiray-320, CT of the thorax was performed from the thoracic inlet to the lung bases. Images are reviewed in the axial, sagittal, and coronal planes. IV contrast was administered without complication. A dose lowering technique was utilized adhering to the principles of ALARA. CT DOSE: 231.60 mGy.cm FINDINGS: Thyroid: There is a multinodular thyroid gland including a dominant 27 mm right lobe nodule. Thoracic aorta: The ascending thoracic aorta measures 35 mm in diameter. Pulmonary vasculature: The pulmonary trunk is normal in caliber. There are no central filling defects identified to suggest pulmonary embolus. Note that this examination was not protocoled for the evaluation of pulmonary emboli. HEART: There is a left subclavian dual-chamber central venous pacemaker present. There is suspected occlusion superior vena cava with multiple mediastinal and chest wall collaterals. Lungs and pleural spaces: There are moderate bilateral pleural effusions right greater than left. There is mild respiratory motion artifact. Dependent airspace opacities likely representing compressive atelectasis. Mediastinum: There is no mediastinal lymphadenopathy. Kaylin: There is no evidence of pathologic hilar adenopathy Axilla: Clear. Upper abdomen: Partially visualized upper abdominal viscera is within normal limits. Skeletal structures: There is diffuse body wall edema/anasarca. No destructive lesions are visualized. IMPRESSION: 1. Multinodular thyroid goiter 2. 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 3. Suspected fluid overload/congestive failure with moderate bilateral pleural effusions] and left. Bibasilar opacities are likely atelectatic 4. Generalized body wall edema Electronically signed by: Ovi Verma M.D. 05/31/2017 7:02 AM Dictated Date/Time: 05/31/2017 6:55 AM The status of this report is Signed. Draft = Not yet reviewed or approved by Radiologist. Signed = Reviewed and approved by Radiologist. CHEST ONE VIEW PORTABLE CLINICAL HISTORY: Atypical chest pain and shortness of breath COMPARISON STUDY: 05/28/2017 FINDINGS: The heart is the upper limits of normal in size. There is a left subclavian dual-chamber central venous pacemaker present. There are increasing bilateral pleural effusions. There are associated basal airspace opacities. Mild pulmonary vascular congestion is suspected.[ IMPRESSION: Mild pulmonary vascular congestion with increasing bilateral pleural effusions and associated basilar airspace opacities Electronically signed by: Ovi Verma M.D. 05/31/2017 6:32 AM Dictated Date/Time: 05/31/2017 6:31 AM The status of this report is Signed. Draft = Not yet reviewed or approved by Radiologist. Signed = Reviewed and approved by Radiologist. EKG JAMES CANNONJA ID:[id number] 31-MAY-2017 05:46:10 [facility] Atrial-sensed ventricular-paced rhythm with intrinsic complexes Abnormal ECG When compared with ECG of 29-MAY-2017 09:05, Vent. rate has decreased BY 13 BPM 25mm/s 10mm/mV 150Hz 8.0 SP2 12SL 241 RACHELLE: 10 Referred by: Referred Self Unconfirmed Vent. rate 87 BPM ME interval 130 ms QRS duration 130 ms QT/QTc 416/500 ms P-R-T axes 58 235 52 1940 (76 yr) Female 74in 1lb Room:A2 Loc:15 Pmo Manager:TRACE Michelle ind: Impression Assessment and Plan Patient is a pleasant 76 y/o female, with PMHx of CAD, nonischemic cardiomyopathy, heart block s/p AICD, HTN, and h/o DVT, who presented to the ED because of worsening SOB that started last PM. 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 Franklin to discuss w/ vascular surgery CAD, nonischemic cardiomyopathy, heart block s/p AICD, HTN- follows w/ Dr. Webber: - Continue Coreg 6.25 mg BID - KCL 20 mEq Q2D increased to daily due to IV Lasix as above RLL PNA: - Continue Omnicef 300 mg BID- last day of treatment 06/04 - Start Medrol Dose Leno - Continue Albuterol QID PRN, and DuoNebs PRN Thrush: Continue Nystatin QID x3 more days of treatment h/o DVT: - Hold Coumadin 2.5 mg daily due to supratherapeutic INR at 3.6 - Follow PT/INR and adjust Coumadin PRN for INR goal of 2-3 Multinodular goiter: Per patient, biopsied in past and benign DVT prophylaxis: Coumadin Code Status: LEVEL I, FULL Dispo: From home, lives w/ - no discharge needs anticipated Level of Care Telemetry Resuscitation Status FULL RESUSCITATION VTE Prophylaxis VTE Risk Assessment Done? Y/N: Yes Risk Level: Moderate Given or contraindicated: Warfarin (Coumadin), T.E.D. Stockings, SCD's Note Attending Admission Note & Attestation: Pt seen/examined, chart reviewed, care plan d/w TAIWO Fernando. I agree w/ the ortega components of her admission documentation except - patient is s/p pacemaker for complete heart block, not AICD. 76yo female with prior h/o systolic CHF, now with normalized EF but has chronic diastolic dysfunction, complete heart block s/p pacemaker, chronic coumadin usage due to prior LUE DVT following her pacemaker placement, HTN, and recent hospital stay for suspected RLL pneumonia - presenting with worsening dyspnea, weight gain, and orthopnea. Has not had any lasix for about 7 days. She also reports 2 months of facial swelling and b/l breast swelling, worse in the morning when she awakens. Her skin color has also changed on the face. In the ER today had CT chest showing CHF (effusions, interstitial edema) as well as ? of SVC occlusion. PMH, PSH, allergies, meds, sochx, famhx, ros - reviewed VSS no fever gen - NAD, no respiratory distress face - generalized swelling, mild plethora neck - JVD present heart - RRR, s1, s2 lungs - decreased BS bases, mild rales, no wheeze abd - soft, NT, no HSM ext - no edema skin - face, neck, upper chest with mild plethora vs other parts of her body labs - Na 131 IN[address] chest - pertinent findings as above EKG - atrial sensed ventricular paced rhythm A/P: 1. acute/chronic diastolic CHF 2. ? SVC syndrome; if present - cause? 3. question of recent RLL pneumonia 4. pacemaker status 5. hyponatremia 6. h/o LUE DVT complicating pacemaker placement, on coumadin, with supratherapeutic INR agree with IV diuretics continue all home cardiac meds finish abx course +/- steroids spoke with Dr. James with vascular; he recommends MRV or CTV of Superior vena cava to r/o SVC syndrome; pacer is not MRI compatible will order CTV tomorrow if creatinine is stable repeat labs in am updated Philippe Franklin MD
[2017-05-31] MEDS ORDERED: IV FLUIDS COMPLETED PRN (10:30)
[2017-05-31 11:04] VITALS: BP 148/75; PULSE 94; TEMP 36.5; O2SAT 94; Ht 162.6 cm; Wt 63.1 kg
[2017-05-31 12:00] VITALS: O2SAT 94
[2017-05-31] MEDS ORDERED: POTASSIUM CHLORIDE 20 MEQ TABCR PO ONE (12:00)
[2017-05-31] MEDS ORDERED: FUROSEMIDE INJ 40 MG in SYRINGE 0 ML IV SCH ×2 (12:00→17:00)
[2017-05-31] MEDS ORDERED: CEFDINIR 300 MG CAP PO ONE (12:00)
[2017-05-31] MEDS: METHYLPREDNISOLONE 4 MG TAB PO SCH ×4 (12:02→23:04)
[2017-05-31] MEDS: NYSTATIN SUSP 500,000 U/5 ML UDC PO SCH ×3 (12:03→20:56)
[2017-05-31 15:09] VITALS: BP 132/78; PULSE 88; TEMP 36.7; O2SAT 91
[2017-05-31 19:09] VITALS: BP 100/60; PULSE 101; TEMP 37; O2SAT 93
[2017-05-31] MEDS: CARVEDILOL 6.25 MG TAB PO SCH (20:57)
[2017-05-31] MEDS: CEFDINIR 300 MG CAP PO SCH (20:57)
[2017-05-31 21:00] VITALS: BP 128/79; PULSE 97; O2SAT 93
[2017-05-31 23:58] VITALS: BP 144/67; PULSE 82; TEMP 36.6; O2SAT 97
[2017-06-01 03:49] VITALS: BP 125/73; PULSE 77; TEMP 36.9; O2SAT 94
[2017-06-01] MEDS ORDERED: NURSING DECISION MEDICATION ORDER SCH (04:30)
[2017-06-01 06:09] LABS: INR 2.5 (0.9-1.1); PROTHROMBIN TIME (PATIENT) 27.3 SECONDS (9.0-12.0)
[2017-06-01 06:29] LABS: BUN/CREATININE RATIO 28.2 (10-20); CALCIUM 8.9 mg/dl (8.5-10.1); CREATININE 0.68 mg/dl (0.60-1.20); MAGNESIUM 2.3 mg/dl (1.8-2.4); POTASSIUM 4.1 mmol/L (3.5-5.1)
[2017-06-01] MEDS ORDERED: SODIUM CHLORIDE 0.65% NA SOLN 45 ML (OCEAN) PRN (06:30)
[2017-06-01] MEDS: METHYLPREDNISOLONE 4 MG TAB PO SCH ×3 (06:38→18:23)
[2017-06-01 08:08] VITALS: BP 117/73; PULSE 97; TEMP 36.5; O2SAT 93
[2017-06-01] MEDS: NYSTATIN SUSP 500,000 U/5 ML UDC PO SCH ×4 (08:10→20:27)
[2017-06-01] MEDS: POTASSIUM CHLORIDE 20 MEQ TABCR PO SCH (08:10)
[2017-06-01] MEDS: CEFDINIR 300 MG CAP PO SCH ×2 (08:10→20:27)
[2017-06-01] MEDS: FUROSEMIDE INJ 40 MG in SYRINGE 0 ML IV SCH (08:10)
[2017-06-01] MEDS: CARVEDILOL 6.25 MG TAB PO SCH ×2 (08:10→20:28)
[2017-06-01] MEDS ORDERED: OPTIRAY 320 IV PRN (10:15)
--- NOTE | 2017-06-01 10:38 | DIAGNOSTIC IMAGING REPORT ---
CT CHEST VENOGRAM WITH INTRAVENOUS CONTRAST HISTORY: Possible SVC syndrome. Abnormal chest CT. TECHNIQUE: Multiaxial CT images of the chest were performed following the use of intravenous contrast to evaluate the major venous structures. Maximal intensity projection images of the chest were performed at the workstation by the radiologist. COMPARISON STUDY: Chest CT 05/31/2017. FINDINGS: Multinodular thyroid gland is again noted. Dominant nodule on the right measures 2.3 cm. Focal filling defect within the left internal jugular vein may represent nonocclusive thrombus. Left-sided pacemaker. No contrast identified within the left brachiocephalic vein which could be chronically occluded. Filling defect within the superior vena cava surrounding the pacemaker wires. This measures 1.7 diameter. This favors thrombosis. This results in complete occlusion of the SVC. Venous drainage is through multiple right peritracheal collaterals and the azygos/hemiazygos vein with contrast extending to the left renal vein and IVC. Moderate right and small left pleural effusions persist. The central pulmonary arteries are patent. The ascending thoracic aorta measures up to 3.5 cm in diameter. No evidence for aortic dissection. The heart is normal in size. Small to moderate anterior pericardial effusion has increased in size. This demonstrates a maximal thickness of 1 cm. No significant mediastinal or hilar lymphadenopathy. Soft tissue edema within the mediastinum may be due to the abnormal venous drainage. Multiple chest wall collaterals and diffuse body wall edema. No acute fractures within the visualized osseous structures. No pneumothorax. Bibasilar densities favor atelectasis. This remains unchanged. Mild interlobular septal thickening suggestive of mild pulmonary edema. This remains unchanged. IMPRESSION: 1. Confirmation of the occlusive filling defect within the distended IVC which measures 1.8 cm in diameter. This filling defect surrounds the pacemaker wires and is suggestive of an acute thrombus. 2. Nonocclusive filling defect within the left internal jugular vein which may represent an additional site of thrombus. 3. Diminutive/nonvisualized left brachiocephalic vein which may be chronically thrombosed. 4. Multiple mediastinal and chest wall venous collaterals with body wall and mediastinal edema consistent with the SVC thrombosis/syndrome. 5. Moderate right and small left pleural effusions as well as mild edema persist. 6. Increase in the small to moderate anterior pericardial effusion. 7. Multinodular thyroid gland is again noted. Electronically signed by: Jaxson Velasco M.D. 06/01/2017 10:36 AM Dictated Date/Time: 06/01/2017 10:26 AM
[2017-06-01 11:33] VITALS: BP 113/69; PULSE 59; TEMP 36.8; O2SAT 97
--- NOTE | 2017-06-01 13:20 | ECHOCARDIOGRAM REPORT ---
*NOTICE TO RECEIVING DEMOCRAT AGENCY This information is strictly Confidential and protected under [place] law. [place] law prohibits you from making any further disclosure of this information unless further disclosure is expressly permitted by the written consent of the person to whom it pertains or is authorized by law. A general authorization for the release of medical or other information is not sufficient for this purpose. Hospital accepts no responsibility if the information is made available to any other person, INCLUDING THE PATIENT. Interpretation Summary * Name: MARIPOSA CANNON Study Date: 06/01/2017 07:20 AM BP: 125/73 mmHg * Patient Location: [facility]\S\N281\S\1 HR: 113 * : 1940 (M/d/yyyy) Gender: Female Height: 64 in * Age: 76 yrs Ethnicity: CA Weight: 153 lb * Ordering Physician: Steph Fernando * Performed By: Meagan Vazquez * * Reason For Study: CHF * BSA: 1.7 m2 * -- Conclusions -- * There is mild asymmetric left ventricular hypertrophy. * Left ventricular systolic function is normal. * The right ventricular systolic function is reduced as assessed by tricuspid annular plane systolic excursion (TAPSE) (TAPSE <1.6 cm). * There is moderate mitral annular calcification. * Right ventricular systolic pressure is normal. * Small pericardial effusion. * Compared to a study from 11/2015, there is now a small pericardial effusion. No mitral regurgitation is identified currently. Procedure Details * A complete two-dimensional transthoracic echocardiogram was performed (2D, M-mode, Doppler and color flow Doppler). Left Ventricle * The left ventricle is normal in size. * There is mild asymmetric left ventricular hypertrophy. * Ejection Fraction = >70 %. * Left ventricular systolic function is normal. * The left ventricular wall motion is normal. Right Ventricle * The right ventricular cavity size is normal (basal dimension <4.2 cm in right ventricular apical 4-chamber view). * There is a pacemaker lead in the right ventricle. * The right ventricular systolic function is mildly reduced. * The right ventricular systolic function is reduced as assessed by tricuspid annular plane systolic excursion (TAPSE) (TAPSE <1.6 cm). Atria * The left atrial size is normal. * Right atrial size is normal. * There is a catheter/pacemaker lead seen in the right atrium. Mitral Valve * There is moderate mitral annular calcification. * Significant mitral regurgitation is absent. Tricuspid Valve * The tricuspid valve is not well visualized, but is grossly normal. * There is trace tricuspid regurgitation. * Right ventricular systolic pressure is normal. Aortic Valve * The aortic valve is normal in structure and function. * No hemodynamically significant valvular aortic stenosis. * There is no significant aortic regurgitation. * Trace aortic regurgitation. Pericardium/Pleural * Small pericardial effusion. * There are no echocardiographic indications of cardiac tamponade. Great Vessels * Normal inferior vena cava diameter and respiratory variation suggests normal central venous pressure. MMode 2D Measurements and Calculations IVSd 1.1 cm IVSs 2.0 cm LVIDd 3.4 cm LVIDs 1.9 cm LVPWd 1.4 cm LVPWs 1.8 cm IVS/LVPW 0.79 FS 43.5 % EDV(Teich) 49.0 ml ESV(Teich) 11.9 ml EF(Teich) 75.8 % EDV(cubed) 40.9 ml ESV(cubed) 7.4 ml EF(cubed) 82.0 % % IVS thick 75.0 % % LVPW thick 25.5 % LV mass(C)d 144.7 grams LV mass(C)dI 82.9 grams/m\S\2 LV mass(C)s 147.1 grams LV mass(C)sI 84.3 grams/m\S\2 SV(Teich) 37.1 ml SI(Teich) 21.3 ml/m\S\2 SV(cubed) 33.5 ml SI(cubed) 19.2 ml/m\S\2 ACS 1.6 cm LA dimension 3.0 cm LVOT diam 1.9 cm LVOT area 2.8 cm\S\2 LVAd ap4 20.8 cm\S\2 LVLd ap4 6.5 cm EDV(MOD-sp4) 54.5 ml EDV(sp4-el) 55.9 ml LVAs ap4 10.3 cm\S\2 LVLs ap4 5.0 cm ESV(MOD-sp4) 19.0 ml ESV(sp4-el) 18.0 ml EF(MOD-sp4) 65.1 % EF(sp4-el) 67.8 % LVAd ap2 23.1 cm\S\2 LVLd ap2 6.5 cm EDV(MOD-sp2) 70.4 ml EDV(sp2-el) 70.0 ml LVAs ap2 10.8 cm\S\2 LVLs ap2 5.5 cm ESV(MOD-sp2) 17.1 ml ESV(sp2-el) 18.1 ml EF(MOD-sp2) 75.8 % EF(sp2-el) 74.1 % LVLd %diff -1.13 % EDV(MOD-bp) 62.1 ml LVLs %diff 8.2 % ESV(MOD-bp) 18.5 ml EF(MOD-bp) 70.2 % SV(MOD-sp4) 35.5 ml SI(MOD-sp4) 20.3 ml/m\S\2 SV(MOD-sp2) 53.4 ml SI(MOD-sp2) 30.6 ml/m\S\2 SV(MOD-bp) 43.6 ml SI(MOD-bp) 25.0 ml/m\S\2 SV(sp4-el) 37.9 ml SI(sp4-el) 21.7 ml/m\S\2 SV(sp2-el) 51.9 ml SI(sp2-el) 29.7 ml/m\S\2 Doppler Measurements and Calculations MV E max kimberly 123.5 cm/sec MV dec time 0.22 sec Ao V2 max 112.5 cm/sec Ao max PG 5.1 mmHg Ao max PG (full) 2.2 mmHg NISHI(V,A) 2.1 cm\S\2 NISHI(V,D) 2.1 cm\S\2 AI max kimberly 313.7 cm/sec AI max PG 39.4 mmHg AI dec slope 218.1 cm/sec\S\2 AI P1/2t 421.2 msec LV V1 max PG 2.9 mmHg LV V1 max 85.2 cm/sec PA V2 max 57.7 cm/sec PA max PG 1.3 mmHg TR max kimberly 244.5 cm/sec
--- NOTE | 2017-06-01 13:41 | Hospitalist Progress Note ---
Hospitalist Progress Note Date of Service Jun 01, 2017. (Steph Fernando ., PA-C) Subjective Pt evaluation today including: conversation w/ patient, physical exam, lab review, review of studies, review of inpatient medication list Voiding: no voiding problems Patient states she feels slightly better than at admission. Slept better throughout the night. Still requiring O2 supplementation. +SOB Eating and drinking OK. Discussed SVC syndrome. Has had facial/right breast swelling since shortly after pacemaker implantation. On Coumadin due to extensive DVT from procedure. States her INR is usually in goal range 2-3, but during last admission it was supratherapeutic. Denies frequent subtherapeutic INR. Patient denies any fever, chills, sweats, lightheadedness, dizziness, vision changes, CP, palpitations, edema, wheezing, cough, abdominal pain, nausea, vomiting, diarrhea, urinary symptoms, melena, numbness/tingling, weakness, muscle/joint pain, anxiety/depression, active bleeding, or new skin discoloration/changes. (Steph Fernando ., TAIWO-C) Medications Current Inpatient Medications Medications (Trade) Dose Ordered Sig/Marcellus Route Start Time Stop Time Status Last Admin Dose Admin Ioversol (Optiray 320) 100 ml UD PRN IV 05/31/17 06:30 06/04/17 06:29 Acetaminophen (Tylenol Tab) 650 mg Q4H PRN PO 05/31/17 08:45 06/30/17 08:44 Al Hydrox/Mg Hydrox/Simethicone (Maalox Max Susp) 15 ml Q4H PRN PO 05/31/17 08:45 06/30/17 08:44 Magnesium Hydroxide (Milk Of Magnesia Susp) 30 ml Q12H PRN PO 05/31/17 08:45 06/30/17 08:44 Ondansetron HCl (Zofran Inj) 4 mg Q6H PRN IV 05/31/17 08:45 06/30/17 08:44 Nitroglycerin (Nitrostat Tab) 0.4 mg UD PRN SL 05/31/17 08:45 06/30/17 08:44 Polyethylene (Miralax Powder Packet) 17 gm DAILY PRN PO 05/31/17 08:45 06/30/17 08:44 Albuterol/ Ipratropium (Duoneb) 3 ml Q4R PRN INH 05/31/17 08:45 06/30/17 08:44 Furosemide 40 mg/ Syringe 4 ml @ 4 mls/min DAILY IV 06/01/17 09:00 07/01/17 08:59 06/01/17 08:10 4 MLS/MIN Albuterol (Ventolin Hfa Inhaler) 2 puffs QID PRN INH 05/31/17 08:45 06/30/17 08:44 Carvedilol (Coreg Tab) 6.25 mg BID PO 05/31/17 21:00 06/30/17 20:59 06/01/17 08:10 6.25 MG Cefdinir (Omnicef Cap) 300 mg Q12 PO 05/31/17 21:00 06/04/17 23:59 06/01/17 08:10 300 MG Nystatin (Mycostatin Susp) 5 ml QID PO 05/31/17 13:00 06/10/17 12:59 06/01/17 08:10 5 ML Potassium Chloride (Klor-Con Tab) 20 meq DAILY PO 06/01/17 09:00 07/01/17 08:59 06/01/17 08:10 20 MEQ Miscellaneous (Iv Fluids Completed) 1 ea PRN PRN N/A 05/31/17 10:30 05/31/18 10:29 Methylprednisolone (Medrol Tab) 4 mg 07,13,18 PO 06/01/17 07:00 06/01/17 18:01 06/01/17 06:38 4 MG Methylprednisolone (Medrol Tab) 8 mg HS PO 06/01/17 21:00 06/01/17 21:01 Methylprednisolone (Medrol Tab) 4 mg 07,13,18,21 PO 06/02/17 07:00 06/02/17 21:01 Methylprednisolone (Medrol Tab) 4 mg 07,13,21 PO 06/03/17 07:00 06/03/17 21:01 Methylprednisolone (Medrol Tab) 4 mg 07,21 PO 06/04/17 07:00 06/04/17 21:01 Methylprednisolone (Medrol Tab) 4 mg 07 PO 06/05/17 07:00 06/05/17 07:01 Sodium Chloride (Theodore Nasal [place]) 1 sprays PRN PRN NA 06/01/17 06:30 07/01/17 06:29 Ioversol (Optiray 320) 100 ml UD PRN IV 06/01/17 10:15 06/05/17 10:14 Warfarin Sodium (Coumadin Tab) 2.5 mg DAILY@1600 PO 06/01/17 16:00 07/01/17 15:59 (Steph Fernando, TAIWO-C) Objective Vital Signs Date Time Temp Pulse Resp B/P (MAP) Pulse Ox O2 Delivery O2 Flow Rate FiO2 06/01/17 12:00 Nasal Cannula 3.0 06/01/17 11:33 36.8 59 16 113/69 (84) 97 Nasal Cannula 3.0 06/01/17 08:08 36.5 97 18 117/73 (88) 93 Nasal Cannula 3.0 06/01/17 08:00 Nasal Cannula 3.0 06/01/17 04:00 Nasal Cannula 3.0 06/01/17 03:49 36.9 77 18 125/73 (90) 94 3.0 06/01/17 00:00 Nasal Cannula 3.0 05/31/17 23:58 36.6 82 20 144/67 (92) 97 Nasal Cannula 3.0 05/31/17 21:00 97 16 128/79 (95) 93 Nasal Cannula 3.0 05/31/17 20:00 Nasal Cannula 3.0 05/31/17 19:09 37.0 101 20 100/60 (73) 93 Nasal Cannula 3.0 05/31/17 16:00 Nasal Cannula 3.0 05/31/17 15:09 36.7 88 18 132/78 (96) 91 Nasal Cannula 3.0 (Steph Fernando, TAIWO-C) Physical Exam General Appearance: no apparent distress, + pertinent finding (3L O2 NC ) Eyes: normal inspection, PERRL, + pertinent finding (Swollen face ) ENT: hearing grossly normal Neck: supple Respiratory/Chest: lungs clear, no respiratory distress, no accessory muscle use, + decreased breath sounds (bilateral lung bases ) Cardiovascular: regular rate, rhythm Abdomen: normal bowel sounds, non tender, soft Extremities: no pedal edema, no calf tenderness Neurologic/Psychiatric: alert, normal mood/affect, oriented x 3 Skin: normal color, warm/dry, no rash (Steph Fernando, TAIWO-C) Laboratory Results Last 24 Hours Test 06/01/17 05:22 Prothrombin Time 27.3 SECONDS Prothromb Time International Ratio 2.5 Sodium Level 133 mmol/L Potassium Level 4.1 mmol/L Chloride Level 99 mmol/L Carbon Dioxide Level 27 mmol/L Anion Gap 7.0 mmol/L Blood Urea Nitrogen 19 mg/dl Creatinine 0.68 mg/dl Est Creatinine Clear Calc Drug Dose 66.3 ml/min Estimated GFR () 97.8 Estimated GFR (Non- 84.4 BUN/Creatinine Ratio 28.2 Random Glucose 114 mg/dl Calcium Level 8.9 mg/dl Magnesium Level 2.3 mg/dl (Steph Fernando, YESSY) Diagnostic Results CT CHEST VENOGRAM WITH INTRAVENOUS CONTRAST HISTORY: Possible SVC syndrome. Abnormal chest CT. TECHNIQUE: Multiaxial CT images of the chest were performed following the use of intravenous contrast to evaluate the major venous structures. Maximal intensity projection images of the chest were performed at the workstation by the radiologist. COMPARISON STUDY: Chest CT 05/31/2017. FINDINGS: Multinodular thyroid gland is again noted. Dominant nodule on the right measures 2.3 cm. Focal filling defect within the left internal jugular vein may represent nonocclusive thrombus. Left-sided pacemaker. No contrast identified within the left brachiocephalic vein which could be chronically occluded. Filling defect within the superior vena cava surrounding the pacemaker wires. This measures 1.7 diameter. This favors thrombosis. This results in complete occlusion of the SVC. Venous drainage is through multiple right peritracheal collaterals and the azygos/hemiazygos vein with contrast extending to the left renal vein and IVC. Moderate right and small left pleural effusions persist. The central pulmonary arteries are patent. The ascending thoracic aorta measures up to 3.5 cm in diameter. No evidence for aortic dissection. The heart is normal in size. Small to moderate anterior pericardial effusion has increased in size. This demonstrates a maximal thickness of 1 cm. No significant mediastinal or hilar lymphadenopathy. Soft tissue edema within the mediastinum may be due to the abnormal venous drainage. Multiple chest wall collaterals and diffuse body wall edema. No acute fractures within the visualized osseous structures. No pneumothorax. Bibasilar densities favor atelectasis. This remains unchanged. Mild interlobular septal thickening suggestive of mild pulmonary edema. This remains unchanged. IMPRESSION: 1. Confirmation of the occlusive filling defect within the distended IVC which measures 1.8 cm in diameter. This filling defect surrounds the pacemaker wires and is suggestive of an acute thrombus. 2. Nonocclusive filling defect within the left internal jugular vein which may represent an additional site of thrombus. 3. Diminutive/nonvisualized left brachiocephalic vein which may be chronically thrombosed. 4. Multiple mediastinal and chest wall venous collaterals with body wall and mediastinal edema consistent with the SVC thrombosis/syndrome. 5. Moderate right and small left pleural effusions as well as mild edema persist. 6. Increase in the small to moderate anterior pericardial effusion. 7. Multinodular thyroid gland is again noted. Electronically signed by: Jaxson Velasco M.D. 06/01/2017 10:36 AM Dictated Date/Time: 06/01/2017 10:26 AM The status of this report is Signed. Draft = Not yet reviewed or approved by Radiologist. Signed = Reviewed and approved by Radiologist. (Steph Fernando, PA-C) Assessment and Plan Patient is a pleasant 76 y/o female, with PMHx of CAD, nonischemic cardiomyopathy, heart block s/p AICD, HTN, and h/o DVT, who presented to the ED because of worsening SOB that started last PM. Acute on chronic diastolic CHF: - Admit to tele for cardiac monitoring - Trend cardiac enzymes x2- negative - ECHO: * There is mild asymmetric left ventricular hypertrophy. * Left ventricular systolic function is normal. * The right ventricular systolic function is reduced as assessed by tricuspid annular plane systolic excursion (TAPSE) (TAPSE <1.6 cm). * There is moderate mitral annular calcification. * Right ventricular systolic pressure is normal. * Small pericardial effusion. * Compared to a study from 11/2015, there is now a small pericardial effusion. No mitral regurgitation is identified currently. 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 Webber: - Continue Coreg 6.25 mg BID - KCL 20 mEq Q2D increased to daily due to IV Lasix as above RLL PNA: - Continue Omnicef 300 mg BID- last day of treatment 06/04 - Start Medrol Dose Leno - Continue Albuterol QID PRN, and DuoNebs PRN Thrush: Continue Nystatin QID- last day of treatment 06/03 h/o DVT: Follow PT/INR and adjust Coumadin PRN for INR goal of 2-3- currently on 2.5 mg daily at home Multinodular goiter: Per patient, biopsied in past and benign DVT prophylaxis: Coumadin Code Status: LEVEL I, FULL Dispo: From home, lives w/ - no discharge needs anticipated (Steph Fernando ., PA-C) Attending Attestation: Pt seen/examined, chart reviewed, care plan d/w TAIWO Fernando. I agree w/ the ortega components of her documentation. Pt states "I'm feeling better" Less dyspnea and orthopnea Tele with paced rhythm VSS no fever net neg fluid balance gen - NAD neck - JVD present face - swollen, plethoric heart - RRR, s1, s2, 2/6 systolic murmur lungs - crackles w/ decreased BS bases abd - soft, NT, no HSM ext - no edema labs - Cr stable Na 133 INR 2.5 A/P: 1. acute/chronic diastolic CHF - improving. cont IV lasix, BB 2. hyponatremia - improving with Rx of #1 - daily BMP 3. 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
[2017-06-01 15:16] VITALS: BP 132/75; PULSE 93; TEMP 37; O2SAT 96
--- NOTE | 2017-06-01 15:16 | Surgery Consultation ---
Consultation Date of Service Jun 01, 2017. (Yandy Pedro, YESSY) Chief Complaint SVC syndrome (Yandy Pedro PA-C) History of Present Illness The patient is a 76 year old female with hx of CAD, CHF, pacemaker, seen in consultation today for SVC syndrome after CT scan confirmation of SVC occlusion. Pt states she was told of a "clot" in the veins around her pacemaker wires shortly after having her pacemaker inserted in 2014 and was started on coumadin, but it was stopped at a later time. After developing another clot in her L arm, she was restarted on coumadin and kept on it currently. States after her pacemaker insertion, had some facial swelling, but has waxed and waned since that time. States recently had worsening of her facial edema, but also had not been taking her lasix for about 1 week prior to admission. Denies TIAN, fever, chills, chest pain, abd pain, N/V, rest pain, claudication, other complaints. (Yandy Pedro, YESSY) Vitals Vital Signs Past 12 Hours Date Time Temp Pulse Resp B/P (MAP) Pulse Ox O2 Delivery O2 Flow Rate FiO2 06/01/17 12:00 Nasal Cannula 3.0 06/01/17 11:33 36.8 59 16 113/69 (84) 97 Nasal Cannula 3.0 06/01/17 08:08 36.5 97 18 117/73 (88) 93 Nasal Cannula 3.0 06/01/17 08:00 Nasal Cannula 3.0 06/01/17 04:00 Nasal Cannula 3.0 06/01/17 03:49 36.9 77 18 125/73 (90) 94 3.0 (Yandy Pedro, LUIS FELIPEC) Allergies Coded Allergies: Sulfamethoxazole w/Trimethoprim (Verified Allergy, Severe, MOUTH SORES, 09/04) Adhesives (Verified Allergy, Unknown, "Adhesive tape" -- blisters, 05/31/17 ) Home Medications Scheduled Carvedilol (Coreg), 6.25 MG PO BID Cefdinir (Omnicef), 300 MG PO Q12H Furosemide (Lasix), 40 MG PO Q2D Methylprednisolone (Medrol Dosepak), 0 PO DAILY Nystatin (Nystatin Suspension), 1 DOSE PO UD Nystatin (Nystatin), 5 ML PO QID Potassium Ext Rel (Klor-Con), 20 MEQ PO Q2D Warfarin Sod (Coumadin), 2.5 MG PO DAILY Scheduled PRN Albuterol Hfa (Ventolin Hfa), 2 PUFFS PO QID PRN for SOB/Wheezing Problem List Medical Problems: (1) Chest pain (2) Deep venous thrombosis of left upper extremity (3) Lyme disease (4) Mitral valve regurgitation (5) Nonischemic cardiomyopathy (6) Pacemaker (7) Pneumonia (Yandy Pedro, LUIS FELIPEC) Surgical / Medical History Hx Cardiac Surgery: Yes (Pacemaker) Hx Abdominal Surgery: Yes (Hysterectomy) Hx Cancer Surgery: No Hx Thoracic Surgery: No Hx Orthopedic: Yes (Knee Replacement.) Hx Urinary Tract Surgery: No HX Other Surgery: No Past Medical/Surgical History: Heart Disease, Hypertension, Pacemaker (Yandy Pedro, LUIS FELIPEC) Family History Cancer (Yandy Pedro PA-C) Cancer (Elvis James M.D.) Social History Smoking Status: Never Smoker Hx Tobacco Use In Past Year?: No Hx Alcohol Use - Type & Amnt: No Hx Substance Use -Type & Amnt: No (Yandy Pedro, LUIS FELIPEC) Review of Systems Constitutional: No chills, No fever, No malaise Skin: No change in color Eyes: No visual changes ENMT: No sore throat Respiratory: + cough, + PURVIS, + short of breath, No hemoptysis Cardiovascular: No chest pain, No palpitations, No syncope Gastrointestinal: No abdominal pain, No nausea, No vomiting Genitourinary - Female: No dysuria, No hematuria Neurologic: No dizziness, No lethargy, No numbness, No tingling (Yandy Pedro, PAMariselaC) Physical Exam Constitutional: General Apperance: well-nourished, well-developed Level of Distress: NAD, chronically ill Psychiatric: Mental Status: active & alert, normal mood, normal affect Orientation: oriented except where noted, to time, to place, to person Memory: recent memory normal, remote memory normal Head: normocephalic, atraumatic Eyes: EOM: EOMI ENMT: normal ENT inspection, hearing grossly normal Neck: supple, trachea midline Lungs: Respiratory effort: no dyspnea Auscultation: no wheezing, no rhonchi, decreased breath sounds Cardiovascular: Apical Impulse: not displaced Heart Auscultation: RRR, no rubs, no gallops Peripheral Pulses: Pulses: full and equal, in all extremities except if noted Bruits: none appreciated Carotid Pulse: normal on the left, normal on the right Brachial Pulses: normal on the left, normal on the right Radial Pulse: normal on the left, normal on the right Femoral Pulse: normal on the left, normal on the right Posterior Tibialis Pulse: decreased on the left, decreased on the right Dorsalis Pedis Pulse: decreased on the left, decreased on the right Abdomen: Bowel Sounds: normal Inspection & Palpation: soft, non-distended, no tenderness, guarding & rebound Musculoskeletal: normal strength (5/5 throughout), normal tone Extremities: Upper Right: no cyanosis, no edema, no varicosities Upper Left: no cyanosis, no edema, no varicosities Lower Right: no cyanosis, no edema, no varicosities Lower Left: no cyanosis, no edema, no varicosities Neurologic: Cranial Nerves: grossly intact Sensation: grossly intact (Yandy Pedro, PA-C) Assessment and Plan ASSESSMENT and PLAN: 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 After discussion with Dr James, does not recommend vacular surgical intervention at this time. Pt aware. Please call if needed. (Yandy Pedro, PA-C) Patient was seen, examined, and chart reviewed. Agree with exam and treatment plan of the Vascular PA. Thank you very much for letting me participate in the care of this patient. (Elvis James M.D.)
[2017-06-01] MEDS: WARFARIN SOD 2.5 MG TAB PO SCH (16:13)
[2017-06-01 20:02] VITALS: BP 111/69; PULSE 102; TEMP 36.8; O2SAT 92
[2017-06-01 20:30] VITALS: BP 106/66; PULSE 90
[2017-06-01] MEDS ORDERED: METHYLPREDNISOLONE 4 MG TAB PO SCH (21:00)
[2017-06-02] VITALS (12 sets, daily range): BP systolic 114–145; BP diastolic 63–83; PULSE 79–100; TEMP 36.4–36.9; O2SAT 90–96
[2017-06-02] MEDS: METHYLPREDNISOLONE 4 MG TAB PO SCH ×4 (06:04→20:09)
--- NOTE | 2017-06-02 06:59 | DIAGNOSTIC IMAGING REPORT ---
CHEST ONE VIEW PORTABLE CLINICAL HISTORY: 76 years-old Female presenting with ?worsening pulmonary edema / pleural effusions. TECHNIQUE: Portable upright AP view of the chest was obtained. COMPARISON: 05/31/2017. FINDINGS: Left-sided cardiac pacer with leads to the right atrium and right ventricular apex and coronary sinus. Cardiac silhouette normal in size. Persistent bibasilar opacities. Interval increase in right pleural effusion. No pneumothorax. Osseous structures normal. Upper abdomen normal. IMPRESSION: 1. Persistent bibasilar opacities with interval increase in right pleural effusion. This most likely represents pulmonary edema, although underlying infection cannot be excluded. Electronically signed by: Shivam Thorne M.D. 06/02/2017 6:57 AM Dictated Date/Time: 06/02/2017 6:56 AM
[2017-06-02 07:02] LABS: INR 2.2 (0.9-1.1); PROTHROMBIN TIME (PATIENT) 24.3 SECONDS (9.0-12.0)
[2017-06-02 07:20] LABS: CALCIUM 8.9 mg/dl (8.5-10.1); CREATININE 0.66 mg/dl (0.60-1.20); POTASSIUM 4.1 mmol/L (3.5-5.1)
[2017-06-02] MEDS: CEFDINIR 300 MG CAP PO SCH ×2 (08:00→20:09)
[2017-06-02] MEDS: CARVEDILOL 6.25 MG TAB PO SCH ×2 (08:00→20:09)
[2017-06-02] MEDS: NYSTATIN SUSP 500,000 U/5 ML UDC PO SCH ×4 (08:00→20:08)
[2017-06-02] MEDS: FUROSEMIDE INJ 40 MG in SYRINGE 0 ML IV SCH ×2 (08:00→17:46)
[2017-06-02] MEDS: POTASSIUM CHLORIDE 20 MEQ TABCR PO SCH (08:00)
--- NOTE | 2017-06-02 13:34 | Hospitalist Progress Note ---
Hospitalist Progress Note Date of Service Jun 02, 2017. (Steph Fernando ., PA-C) Subjective Pt evaluation today including: conversation w/ patient, physical exam, lab review, review of studies, review of inpatient medication list Voiding: no voiding problems Patient feeling well. SOB continues- still requiring 2-3L O2 supplement Repeat CXR shows mild-moderate bilateral pleural effusions Feel cough is improving and able to produce more sputum production- sputum white in color. Eating and drinking OK. +daily BMs. Discussed SVC occlusion- no questions/concerns Patient denies any fever, chills, sweats, lightheadedness, dizziness, vision changes, CP, palpitations, edema, wheezing, abdominal pain, nausea, vomiting, diarrhea, urinary symptoms, melena, numbness/tingling, weakness, muscle/joint pain, anxiety/depression, active bleeding, or new skin discoloration/changes. (Steph Fernando ., PA-C) Medications Current Inpatient Medications Medications (Trade) Dose Ordered Sig/Marcellus Route Start Time Stop Time Status Last Admin Dose Admin Ioversol (Optiray 320) 100 ml UD PRN IV 05/31/17 06:30 06/04/17 06:29 Acetaminophen (Tylenol Tab) 650 mg Q4H PRN PO 05/31/17 08:45 06/30/17 08:44 Al Hydrox/Mg Hydrox/Simethicone (Maalox Max Susp) 15 ml Q4H PRN PO 05/31/17 08:45 06/30/17 08:44 Magnesium Hydroxide (Milk Of Magnesia Susp) 30 ml Q12H PRN PO 05/31/17 08:45 06/30/17 08:44 Ondansetron HCl (Zofran Inj) 4 mg Q6H PRN IV 05/31/17 08:45 06/30/17 08:44 Nitroglycerin (Nitrostat Tab) 0.4 mg UD PRN SL 05/31/17 08:45 06/30/17 08:44 Polyethylene (Miralax Powder Packet) 17 gm DAILY PRN PO 05/31/17 08:45 06/30/17 08:44 Albuterol/ Ipratropium (Duoneb) 3 ml Q4R PRN INH 05/31/17 08:45 06/30/17 08:44 06/02/17 05:26 3 ML Albuterol (Ventolin Hfa Inhaler) 2 puffs QID PRN INH 05/31/17 08:45 06/30/17 08:44 Carvedilol (Coreg Tab) 6.25 mg BID PO 05/31/17 21:00 06/30/17 20:59 06/02/17 08:00 6.25 MG Cefdinir (Omnicef Cap) 300 mg Q12 PO 05/31/17 21:00 06/04/17 23:59 06/02/17 08:00 300 MG Nystatin (Mycostatin Susp) 5 ml QID PO 05/31/17 13:00 06/10/17 12:59 06/02/17 12:36 5 ML Potassium Chloride (Klor-Con Tab) 20 meq DAILY PO 06/01/17 09:00 07/01/17 08:59 06/02/17 08:00 20 MEQ Miscellaneous (Iv Fluids Completed) 1 ea PRN PRN N/A 05/31/17 10:30 05/31/18 10:29 Methylprednisolone (Medrol Tab) 4 mg 07,13,18,21 PO 06/02/17 07:00 06/02/17 21:01 06/02/17 12:36 4 MG Methylprednisolone (Medrol Tab) 4 mg 07,13,21 PO 06/03/17 07:00 06/03/17 21:01 Methylprednisolone (Medrol Tab) 4 mg 07,21 PO 06/04/17 07:00 06/04/17 21:01 Methylprednisolone (Medrol Tab) 4 mg 07 PO 06/05/17 07:00 06/05/17 07:01 Sodium Chloride ([place] Nasal Purcell) 1 sprays PRN PRN NA 06/01/17 06:30 07/01/17 06:29 Ioversol (Optiray 320) 100 ml UD PRN IV 06/01/17 10:15 06/05/17 10:14 Warfarin Sodium (Coumadin Tab) 2.5 mg DAILY@1600 PO 06/01/17 16:00 07/01/17 15:59 06/01/17 16:13 2.5 MG Furosemide 40 mg/ Syringe 4 ml @ 4 mls/min BID17 IV 06/02/17 17:00 07/02/17 16:59 (Murarik, Steph ., PA-C) Objective Vital Signs Date Time Temp Pulse Resp B/P (MAP) Pulse Ox O2 Delivery O2 Flow Rate FiO2 06/02/17 11:26 36.9 79 18 119/70 (86) 93 Nasal Cannula 3.0 06/02/17 08:00 Nasal Cannula 3.0 06/02/17 07:40 36.7 95 16 114/69 (84) 96 Nasal Cannula 3.0 06/02/17 05:45 36.4 84 19 145/82 (103) 91 Nasal Cannula 4.0 06/02/17 05:27 87 22 96 Nasal Cannula 4.0 06/02/17 04:00 Nasal Cannula 3.0 06/02/17 00:21 36.5 81 20 121/63 (82) 93 2.0 06/02/17 00:00 Nasal Cannula 3.0 06/01/17 20:30 90 106/66 (79) 06/01/17 20:02 36.8 102 18 111/69 (83) 92 Nasal Cannula 3.0 06/01/17 20:00 Nasal Cannula 3.0 06/01/17 16:00 Nasal Cannula 3.0 06/01/17 15:16 37.0 93 16 132/75 (94) 96 Nasal Cannula 3.0 (Steph Fernando PA-C) Physical Exam General Appearance: no apparent distress, + obese, + pertinent finding (3L O2 NC; facial swelling ) Eyes: normal inspection, PERRL ENT: hearing grossly normal Neck: supple Respiratory/Chest: lungs clear, no respiratory distress, no accessory muscle use, + decreased breath sounds, + crackles (fine crackles to bilateral lung bases ) Cardiovascular: regular rate, rhythm Abdomen: normal bowel sounds, non tender, soft Extremities: no pedal edema, no calf tenderness Neurologic/Psychiatric: alert, normal mood/affect, oriented x 3 Skin: normal color, warm/dry, no rash (Steph Fernando, LUIS FELIPEC) Laboratory Results Last 24 Hours Test 06/02/17 06:12 Prothrombin Time 24.3 SECONDS Prothromb Time International Ratio 2.2 Sodium Level 131 mmol/L Potassium Level 4.1 mmol/L Chloride Level 99 mmol/L Carbon Dioxide Level 28 mmol/L Anion Gap 4.0 mmol/L Blood Urea Nitrogen 18 mg/dl Creatinine 0.66 mg/dl Est Creatinine Clear Calc Drug Dose 67.8 ml/min Estimated GFR () 98.8 Estimated GFR (Non- 85.2 BUN/Creatinine Ratio 27.0 Random Glucose 104 mg/dl Calcium Level 8.9 mg/dl (Steph Fernando, PAMariselaC) Assessment and Plan Patient is a pleasant 76 y/o female, with PMHx of CAD, nonischemic cardiomyopathy, heart block s/p AICD, HTN, and h/o DVT, who presented to the ED because of worsening SOB that started last PM. Acute on chronic diastolic CHF: - Admit to tele for cardiac monitoring- no acute events, transfer to med/surg - Trend cardiac enzymes x2- negative - ECHO: * There is mild asymmetric left ventricular hypertrophy. * Left ventricular systolic function is normal. * The right ventricular systolic function is reduced as assessed by tricuspid annular plane systolic excursion (TAPSE) (TAPSE <1.6 cm). * There is moderate mitral annular calcification. * Right ventricular systolic pressure is normal. * Small pericardial effusion. * Compared to a study from 11/2015, there is now a small pericardial effusion. No mitral regurgitation is identified currently. 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 Webber: - Continue Coreg 6.25 mg BID - KCL 20 mEq Q2D increased to daily due to IV Lasix as above RLL PNA: - Continue Omnicef 300 mg BID- last day of treatment 06/04 - Start Medrol Dose Leno - Continue Albuterol QID PRN, and DuoNebs PRN Thrush: Continue Nystatin QID- last day of treatment 06/03 h/o DVT: Follow PT/INR and adjust Coumadin PRN for INR goal of 2-3- currently on 2.5 mg daily at home Multinodular goiter: Per patient, biopsied in past and benign DVT prophylaxis: Coumadin Code Status: LEVEL I, FULL Dispo: From home, lives w/ - no discharge needs anticipated (Steph Fernando ., PAMariselaC) Attending Attestation: Pt seen/examined, chart reviewed, care plan d/w TAIWO Fernando. I agree w/ the ortega components of her documentation. During my visit her O2 was off and she felt well. Eating dinner. No significant dyspnea. VSS no fever tele stable (paced rhythm) gen - NAD neck - JVD resolved face - swollen, plethoric heart - RRR, s1, s2, 2/6 systolic murmur lungs - crackles w/ decreased BS bases - modestly improved abd - soft, NT, no HSM ext - no edema labs - Cr stable Na 131 INR 2.2 A/P: 1. acute/chronic diastolic CHF - improving. cont IV lasix but increase to BID dosing; daily labs; continue beta jud 2. hyponatremia - 2nd to #1 - repeat BMP am 3. 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 h/o multiple upper extremity DVTs - coumadin for life due to SVC syndrome ok to d/c tele grand-daughter updated at bedside Philippe Franklin MD (Philippe Franklin MD)
[2017-06-02] MEDS: WARFARIN SOD 2.5 MG TAB PO SCH (15:48)
[2017-06-03 06:52] LABS: INR 2.2 (0.9-1.1); PROTHROMBIN TIME (PATIENT) 24.3 SECONDS (9.0-12.0)
[2017-06-03 07:15] LABS: BUN/CREATININE RATIO 30.7 (10-20); CALCIUM 8.7 mg/dl (8.5-10.1); CREATININE 0.86 mg/dl (0.60-1.20); POTASSIUM 4.2 mmol/L (3.5-5.1)
[2017-06-03 07:25] VITALS: BP 147/76; PULSE 81; TEMP 36.8; O2SAT 94
[2017-06-03 08:57] VITALS: O2SAT 92
[2017-06-03] MEDS: CARVEDILOL 6.25 MG TAB PO SCH ×2 (08:58→21:00)
[2017-06-03] MEDS: METHYLPREDNISOLONE 4 MG TAB PO SCH ×3 (08:58→20:59)
[2017-06-03] MEDS: POTASSIUM CHLORIDE 20 MEQ TABCR PO SCH (08:59)
[2017-06-03] MEDS: CEFDINIR 300 MG CAP PO SCH ×2 (08:59→20:59)
[2017-06-03] MEDS: FUROSEMIDE INJ 40 MG in SYRINGE 0 ML IV SCH ×2 (08:59→17:10)
[2017-06-03] MEDS: NYSTATIN SUSP 500,000 U/5 ML UDC PO SCH ×4 (09:00→20:59)
[2017-06-03 11:04] VITALS: O2SAT 93
[2017-06-03 15:35] VITALS: BP 109/69; PULSE 83; TEMP 36.5; O2SAT 90
[2017-06-03 15:49] VITALS: O2SAT 93
[2017-06-03] MEDS: WARFARIN SOD 2.5 MG TAB PO SCH (15:55)
[2017-06-04 00:06] VITALS: BP 114/69; PULSE 85; TEMP 36.8; O2SAT 93
[2017-06-04] MEDS ORDERED: METHYLPREDNISOLONE 4 MG TAB PO SCH (07:00)
[2017-06-04 07:11] VITALS: BP 118/75; PULSE 93; TEMP 36.6; O2SAT 94
[2017-06-04 08:21] LABS: INR 2.2 (0.9-1.1); PROTHROMBIN TIME (PATIENT) 23.8 SECONDS (9.0-12.0)
[2017-06-04 08:41] LABS: BUN/CREATININE RATIO 32.5 (10-20); CALCIUM 9.1 mg/dl (8.5-10.1); CREATININE 0.69 mg/dl (0.60-1.20); MAGNESIUM 2.2 mg/dl (1.8-2.4); POTASSIUM 3.6 mmol/L (3.5-5.1)
--- NOTE | 2017-06-04 08:46 | Progress Note ---
Subjective Date of Service: Jun 03, 2017. Subjective Pt evaluation today including: conversation w/ patient, physical exam, chart review, lab review, review of inpatient medication list Pain: none PO Intake: normal Voiding: no voiding problems feels good denies any cough, sob, dyspnea on exertion, orthopnea, PND swelling in face is better Problem List Medical Problems: (1) Acute kidney injury Status: Acute (2) Atypical chest pain Status: Acute (3) Congestive heart failure Status: Acute (4) Dyspnea Status: Acute (5) Hypokalemia Status: Acute (6) Hypoxia Status: Acute (7) Pleural effusion, bilateral Status: Acute (8) Precordial chest pain Status: Acute (9) RLL pneumonia Status: Acute (10) Superior vena cava syndrome Status: Acute Review of Systems Constitutional: No fever Cardiac: No chest pain Abdomen: No pain Objective Vital Signs Date Time Temp Pulse Resp B/P (MAP) Pulse Ox O2 Delivery O2 Flow Rate FiO2 06/03/17 20:07 Room Air 06/03/17 15:49 93 Room Air 06/03/17 15:35 36.5 83 18 109/69 (82) 90 Room Air 06/03/17 11:04 93 Room Air 06/03/17 08:57 92 Room Air 06/03/17 08:10 Nasal Cannula 2.0 06/03/17 07:25 36.8 81 20 147/76 (99) 94 Nasal Cannula 2.0 06/03/17 00:00 Nasal Cannula 2.0 06/02/17 23:40 36.9 86 17 145/83 (103) 96 Room Air 2.0 Physical Exam General Appearance: no apparent distress ENT: pharynx normal Neck: no JVD Respiratory/Chest: no respiratory distress, no accessory muscle use, + decreased breath sounds (right base) Cardiovascular: regular rate, rhythm, no gallop Abdomen: normal bowel sounds, non tender, soft, no organomegaly Extremities: no pedal edema Neurologic/Psychiatric: alert, oriented x 3 Skin: + pertinent finding (mild plethora of face - improved; edema of face also improved) Laboratory Results Last 24 Hours Test 06/03/17 06:11 Prothrombin Time 24.3 SECONDS Prothromb Time International Ratio 2.2 Sodium Level 135 mmol/L Potassium Level 4.2 mmol/L Chloride Level 99 mmol/L Carbon Dioxide Level 30 mmol/L Anion Gap 6.0 mmol/L Blood Urea Nitrogen 26 mg/dl Creatinine 0.86 mg/dl Est Creatinine Clear Calc Drug Dose 47.3 ml/min Estimated GFR () 75.5 Estimated GFR (Non- 65.2 BUN/Creatinine Ratio 30.7 Random Glucose 93 mg/dl Calcium Level 8.7 mg/dl Assessment and Plan 76yo female - 1. acute/chronic diastolic CHF - approaching euvolemia. 1 more dose of IV lasix later today then stop. Repeat labs in am. Cont BB. 2. hyponatremia - 2nd to #1 - repeat BMP am. Stable. 3. 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 She developed this due to chronic thrombus from prior pacemaker insertion. 4. h/o multiple upper extremity DVTs - coumadin for life due to SVC syndrome INR in am. INR 2.2 today and stable. 5. pacemaker status - stable on tele since admission. 6. recent RLL pneumonia - clinically resolved. Finish abx course Anticipate d/c tomorrow Continued [facility] stay due to: multiple IV medications needed Discharge planning: home
[2017-06-04] MEDS: CEFDINIR 300 MG CAP PO SCH (09:15)
[2017-06-04] MEDS: POTASSIUM CHLORIDE 20 MEQ TABCR PO SCH (09:15)
[2017-06-04] MEDS: CARVEDILOL 6.25 MG TAB PO SCH (09:16)
[2017-06-04] MEDS: NYSTATIN SUSP 500,000 U/5 ML UDC PO SCH (09:16)
--- NOTE | 2017-06-04 10:19 | Progress Note ---
Progress Note Date of Service Jun 04, 2017. Progress Note time - 1015 S: feels good no pulmonary complaints O: VSS weight 138 # = dry baseline weight gen - nad neck - no JVD heart - RRR lungs - no rales, slightly decreased bs right base A/P: 1. acute/chronic diastolic CHF - resolved. d/c home lasix 40mg daily with K/mag supplementation. 2. SVC syndrome - cont coumadin for thrombus, INR 2.2 today spoke with Walter MARAVILLA her primary appeals referee - he will see her next week ok to d/c home Duke RAMIRES MD
[2017-06-04] MEDS ORDERED: CEFD1CAP14 PO (10:24)
[2017-06-04] MEDS ORDERED: POTA20TA16 PO (10:24)
[2017-06-04] MEDS ORDERED: FRS/40 PO (10:24)
[2017-06-04] MEDS ORDERED: FUROSEMIDE 20 MG TAB PO ONE (10:30)
--- NOTE | 2017-06-04 10:34 | Discharge Instructions ---
Discharge Instructions Date of Service Jun 04, 2017. Admission Reason for Admission: Congestive Heart Failure, Superior Vena Cava ("SVC") Syndrome Discharge Discharge Diagnosis / Problem: 1. Congestive Heart Failure - improved. 2. SVC syndrome - ongoing. Discharge Goals Goal(s): Learn about illness, Diagnostic testing, Therapeutic intervention Activity Recommendations Activity Limitations: resume your previous activity . Instructions / Follow-Up Instructions / Follow-Up From Dr. Franklin: 1. Congestive heart failure - * your weight today is 138 pounds which is your baseline "dry weight" * upon return home please check your weight every morning on the same scale * if you notice any weight gain of more than 2-3 pounds over 1-2 days please contact Mr. Walter Monterroso at the cardiology office right away as he may want to increase your lasix * start lasix 40mg once daily TOMORROW MORNING on 06/05/17 * be sure to take your potassium supplement with the lasix * again you can skip any additional lasix today 2. Recent pneumonia - * this appears resolved * take 1 more dose of antibiotic TONIGHT then discontinue it (you can throw away any remaining pills); the antibiotic given was called "omnicef" (cefdinir) * you can stop any remaining steroids - I would also throw away any extra pills 3. Coumadin - * Your INR today is 2.2 which is right where we want it * take your coumadin every day as previous; there is no change in the dose at this time 4. "SVC syndrome" - * the SVC - superior vena cava - is a large vein that drains into the top portion of the heart * the SVC is blocked due to blood clots * you were evaluated by Dr. James and at this time there is no need for surgery or any other intervention * simply continue on your coumadin as previous 5. Other congestive heart failure instructions: Call your Primary Care doctor or program evaluator if any of the following symptoms or problems start or get worse: * Shortness of breath or difficulty breathing * Wake up at night short of breath * Chest pain * Cough * Swelling of your hands, feet, or legs * More fatigued or tired with your normal activity * Palpitations - sudden fast heart beats WEIGHT * Weigh yourself every morning after using the bathroom. * Use the same scale. * Wear the same amount of clothing. * Write your weight down on a chart. * Call the cardiology office if you gain more than 2-3 pounds in 1-2 days. MEDICATIONS * Use this discharge instruction sheet for medication instructions. * Take your medications at the time your doctor ordered. * Do not skip a dose of your medicines. * If you miss a dose of medicine, take it as soon as possible, but DO NOT DOUBLE A DOSE. * Read your medicine information when you get home. * Know all of the side effects of your medicine. If in doubt, ask your pharmacist * Call your Primary Care doctor's office if you have any side effects. * Be sure all of your doctors know what medicine and herbs you take (including cold, flu, and herbal medicine). Take the following with you to your follow-up doctor appointments: * Weight Chart * Medication List * List of questions Do not drink excessive alcohol, beer or wine. 6. Follow-up appointments - * see Say Garcia as scheduled on June 14 * see TAIWO Saldana - cardiology - within 1 week Current Hospital Diet Patient's current hospital diet: AHA Diet (Heart Healthy), Low Sodium Diet (2gm Na) Discharge Diet Recommended Diet: AHA Diet (Heart Healthy), Low Sodium Diet (2gm Na) Fluid Restriction: 1500 ml (6 cups) Procedures Procedures Performed: CAT scan of the chest confirming the presence of "SVC syndrome". Pending Studies Studies pending at discharge: no Laboratory Results Lipid Panel Test 05/17/17 07:06 Range/Units Triglycerides Level 45 0-150 mg/dl Cholesterol Level 159 0-200 mg/dl HDL Cholesterol 73 mg/dl Cholesterol/HDL Ratio 2.2 LDL Cholesterol, Calculated 77 mg/dl Medical Emergencies . Who to Call and When: Call 911 or go to the Emergency Room if: * If at any time you feel your situation is an emergency * You have tightness or pain in your chest that does not go away with rest or Nitroglycerin * You are very short of breath even with rest . Non-Emergent Contact Non-Emergency issues call your: Primary Care Provider, Cash Processor Call Non-Emergent contact if: you have any medication questions . . "Provider Documentation" section prepared by Philippe Franklin. . VTE Core Measure Inpt VTE Proph given/why not?: Warfarin (Coumadin), T.E.D. Stockings, SCD's
[2017-06-04 11:28] VITALS: BP 118/75; PULSE 93; TEMP 36.6; O2SAT 94
[2017-06-05] MEDS ORDERED: METHYLPREDNISOLONE 4 MG TAB PO SCH (07:00)
--- NOTE | 2017-06-06 11:16 | Discharge Summary ---
Discharge Summary Date of Service Jun 06, 2017. Discharge Summary Admission Date: May 31, 2017 at 20:53 Discharge Date: Jun 04, 2017 Discharge Disposition: Home Principal Diagnosis: acute/chronic diastolic CHF Problems/Secondary Diagnoses: 1. 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 chronic coumadin use due to left arm DVT following pacemaker insertion 2 years ago 3. hyponatremia 4. pacemaker status 5. HTN 6. recent RLL pneumonia Immunizations: Have You Had Influenza Vaccine: No History of Tetanus Vaccine?: No History of Pneumococcal: Yes History of Hepatitis B Vaccine: No Procedures: 1. echocardiogram: * -- Conclusions -- * There is mild asymmetric left ventricular hypertrophy. * Left ventricular systolic function is normal. * The right ventricular systolic function is reduced as assessed by tricuspid annular plane systolic excursion (TAPSE) (TAPSE <1.6 cm). * There is moderate mitral annular calcification. * Right ventricular systolic pressure is normal. * Small pericardial effusion. * Compared to a study from 11/2015, there is now a small pericardial effusion. No mitral regurgitation is identified currently. 2. CT chest: IMPRESSION: 1. Multinodular thyroid goiter 2. 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 3. Suspected fluid overload/congestive failure with moderate bilateral pleural effusions. Bibasilar opacities are likely atelectatic 4. Generalized body wall edema 3. CT venogram of the chest: IMPRESSION: 1. Confirmation of the occlusive filling defect within the distended IVC which measures 1.8 cm in diameter. This filling defect surrounds the pacemaker wires and is suggestive of an acute thrombus. 2. Nonocclusive filling defect within the left internal jugular vein which may represent an additional site of thrombus. 3. Diminutive/nonvisualized left brachiocephalic vein which may be chronically thrombosed. 4. Multiple mediastinal and chest wall venous collaterals with body wall and mediastinal edema consistent with the SVC thrombosis/syndrome. 5. Moderate right and small left pleural effusions as well as mild edema persist. 6. Increase in the small to moderate anterior pericardial effusion. 7. Multinodular thyroid gland is again noted. Consultations: vascular surgery - Elvis James MD PT, OT Medication Reconciliation Changed Medications: Cefdinir (Omnicef) 300 Mg Cap 300 MG PO once, #1 CAP (Changed from: Q12H; 14; Removed Days) take evening of 06/04/17 then stop. Furosemide (Lasix) 40 Mg Tab 40 MG PO QAM, #30 TAB 5 Refills (Changed from: Q2D; Refills: ) Potassium Ext Rel (Klor-Con) 20 Meq Tabcr 20 MEQ PO QAM, #30 TAB 5 Refills (Changed from: Q2D; Refills: ) Continued Medications: Albuterol Hfa (Ventolin Hfa) 200 Puffs/81259 Mcg Aers 2 PUFFS PO QID PRN for SOB/Wheezing Carvedilol (Coreg) 6.25 Mg Tab 6.25 MG PO BID Warfarin Sod (Coumadin) 2.5 Mg Tab 2.5 MG PO DAILY, 3 Refills Discontinued Medications: Methylprednisolone (Medrol Dosepak) 4 Mg Leno 0 PO DAILY, #1 PKT Nystatin (Nystatin Suspension) 1 Ml Susp 1 DOSE PO UD for 3 Days Nystatin (Nystatin) 5 Ml Susp 5 ML PO QID for 7 Days, #1 BTL Referrals At Discharge Follow up Referrals: Special Educator Referral - Within 1 Week with Walter MonterrosoPMyaAMya Discharge Exam Physical Exam: General Appearance: WD/WN, no apparent distress ENT: pharynx normal, + pertinent finding (facial swelling - improved; with mild plethora) Neck: no JVD Respiratory/Chest: lungs clear, no respiratory distress, no accessory muscle use, + decreased breath sounds (right base, mild) Cardiovascular: regular rate, rhythm, no gallop, no murmur, normal peripheral pulses Abdomen / GI: normal bowel sounds, non tender, soft, no organomegaly Extremities: no pedal edema Neurologic/Psychiatric: alert, oriented x 3 Hospital Course HISTORY OF PRESENT ILLNESS: Patient is a pleasant 76 y/o female, with PMHx of nonischemic cardiomyopathy, chronic diastolic CHF, complete heart block s/p pacemaker, HTN, and h/o DVT, who presented to the ED because of worsening SOB that started last PM. Patient was most recently admitted to [facility] on 05/28-05/29 for RLL pneumonia. She was discharged home on Tuesday with Omnicef x7 days and Medrol dose leno. She has not started her Medrol Dose Leno yet. She did NOT receive any Lasix during her admission. She states it has been about 1 week since taking Lasix. She did take her dose of Lasix yesterday morning, with little urine output. She admits to associated facial swelling and R breast swelling. She notes symptoms are similar to past presentations of CHF. She follows w Dr. Webber. +cough. + chest pressure that comes and goes. Patient denies any fever, chills, sweats, lightheadedness, dizziness, vision changes, palpitations, wheezing, abdominal pain, nausea, vomiting, diarrhea, urinary symptoms, melena, numbness/tingling, weakness, muscle/joint pain, anxiety/depression, active bleeding, or new skin discoloration/changes. HOSPITAL COURSE: The patient's acute/chronic diastolic CHF responded nicely to IV diuretic therapy. She lost at least 10 pounds while hospitalized and was 138 pounds on day of discharge which is her chronic dry weight. We recommended that she continue her beta jud and resume lasix 40mg once daily until she sees her primary registered dental hygienist, Mr. Walter Monterroso. Cardiac enzymes and telemetry were normal while here. ECHO was completed with findings as noted above. The patient was formally diagnosed with SVC syndrome during this admission although it has been present for quite some time. We suspect that she had thrombosed the SVC in the past, perhaps when she developed DVTs in the left arm following her pacemaker insertion. She remains on chronic coumadin and INR on day of discharge was 2.2. She was seen in consult by Dr. Elvis James, vascular surgery, who did NOT recommend surgical intervention given the chronic nature of the problem as well as the presence of compensating collaterals seen on imaging. Imaging did NOT show evidence of a tumor process causing the SVC syndrome. The patient was continued on her omnicef for her recently diagnosed RLL pneumonia. She had no infectious symptoms her entire stay. All other medical problems remained stable during her stay. PT/OT evaluated the patient and cleared her for home. Total Time Spent: Greater than 30 minutes This includes examination of the patient, discharge planning, medication reconciliation, and communication with other providers. Discharge Instructions Please refer to the electronic Patient Visit Report (Discharge Instructions) for additional information. Follow-Up 1. PATEL Cyr - TuesdayJune 14 at 11:00 AM 2. TAIWO Saldana - June 08 Additional Copies To Say Garcia III, CRNP; Walter Monterroso,P.AMya; Elvis James M.D.
== END 2017-06-04 12:03 | disposition home or self-care (01) | DRG 291 ==
LOC: C.EDB 05:11 → C.MED 09:02 → ENRESERV 10:06 → OBSVTOIN 20:53 → C.MS4W 06-02 18:29
PROVIDERS: ADMIT Internal Medicine; ATTEND Internal Medicine
DX: I50.33 Acute on chronic diastolic (congestive) heart failure (principal); J18.9 Pneumonia, unspecified organism; E87.1 Hypo-osmolality and hyponatremia; I82.210 Acute embolism and thrombosis of superior vena cava; B37.0 Candidal stomatitis; I87.1 Compression of vein; I82.502 Chronic embolism and thrombosis of unspecified deep veins of left lower extremity; I42.0 Dilated cardiomyopathy; I11.0 Hypertensive heart disease with heart failure; I25.10 Atherosclerotic heart disease of native coronary artery without angina pectoris; Z95.810 Presence of automatic (implantable) cardiac defibrillator; Z79.01 Long term (current) use of anticoagulants; Z79.899 Other long term (current) drug therapy

== ENCOUNTER → 2017-06-20 | Outpatient (CLI) | payer BC, OTHER ==
[~2017-06-20] MED LIST changes: -METH4PAK PO; -NYSS/ PO; -NYSS5 PO
--- NOTE | 2017-06-22 09:39 | POLYSOMNOGRAPH REPORT ---
CLINICAL DATA: 76-year-old female with BMI of 25 referred by Walter Monterroso PA-C for evaluation of possible sleep apnea. She does have a pacemaker. She has history of snoring and witnessed apnea. On the evening of 06/20/2017, a home sleep apnea test was performed using a ExoYou type 3 monitor. RECORDING RESULTS: Total recording time was 10 hours. The patient's monitoring time and estimated sleep time was 6.4 hours. RESPIRATORY DATA: Severe sleep apnea was documented. The ALIREZA was 34.5. There were 95 obstructive, 109 mixed, and 3 central apneic episodes. There were 14 hypopneic episodes. The longest respiratory event was 60 seconds. OXIMETRY DATA: Nocturnal hypoxemia was seen. Oxygen alber was 81%. Mean saturation was 93%. Time below 89% was 9 minutes. HEART RATE DATA: Heart rates ranged from 47-79 beats per minute. SNORING DATA: Snoring was recorded throughout the night. HEEL CUTTER'S COMMENTS: The patient did demonstrate snoring throughout the test. Hypopneas and apneas, many mixed, were seen. IMPRESSION: Severe sleep apnea/hypopnea with mild nocturnal hypoxemia. RECOMMENDATIONS: The patient may benefit from sleep medicine consultation or a repeat sleep study with CPAP. Clinical correlation is needed. SHELLIE
== END | disposition home or self-care (01) ==
LOC: C.NEUR 13:52
PROVIDERS: ATTEND Physician Assistant Medical
DX: G47.30 Sleep apnea, unspecified (principal)

== ENCOUNTER → 2017-08-02 | Outpatient (CLI) | payer BC ==
--- NOTE | 2017-08-03 06:14 | PAP/PSG TECHNICIAN REPORT ---
[facility] Revenue Stamp Clerk Polysomnogram Report Study name: None Report date: 08/03/2017 Study date: 08/02/2017 Referring Physician: DR. GREEN Name: MARIPOSA CANNON Interpreting Physician: Olivier Green M.D. Date of : 1940 Revenue Stamp Clerk: CRISS Winston. Sex: Female Age: 76 StudyType: PSG PAP Weight: 141 lbs 15 INCHES Height: 76 years, Height 5' 4.5" Neck Circum: BMI: 23.83 Medications: CARVEDILOL 6.25 MG, FUROSEMIDE 40 MG, METOLAZONE 5 MG, POTASSIUM CHLORIDE SYD ER 20 MEQ, VENTOLIN HFA 108 90 BASE, WARFARIN SODIUM 2.5 MG Patient History PATIENT HAS HISTORY OF WITNESSED APNEAS, LOUD SNORING AND DAYTIME FATIGUE. SHE HAD A HOME SLEEP STUDY THAT SHOWED SEVERE APNEA. SHE IS HERE TODAY FOR A CPAP TITRATION. RM 3 Parameters Monitored NPSG: E1-M2, E2-M1, Fp1-M2, Fp2-M1, F3-M2, F4-M2, F4-M1, C3-M2, C4-M2, C4-M1, O1-M2, O2-M2, O2-M1, T3-M2, T4-M1, P3-M2, P4-M1, CHIN1, CHIN2, HR, EKG, Legs, PFLOW, SNOR, FLOW, CFLOW, Tidal Volume, THOR, ABDO, SpO2, PLTH, CPRESS, ETCO2 Wave, ETCO2, pH Sleep Architecture Sleep Stages Time at Lights Off 10:45:44 PM STAGES Time (min.) TST (%) Time at Lights On 5:48:14 AM Wake 168.5 -- Total Recording Time (TRT) 423.00 min. N1 28.5 11 Total Sleep Period (TSP) 395.5 min. N2 135.5 53 Total Sleep Time (TST) 254.0min. N3 17.0 7 Awake Time 168.5 min. REM 73.0 29 Wake after Sleep Onset 141.5 min. Sleep Efficiency (SE) 60 % Sleep Onset Latency (LEE) 27.0 min. Number of Stage 1 Shifts None Awakenings 56 Stage Changes 139 Number of REM periods 3 REM 73.0 29 REM Latency 79.5 min. NREM 181.0 71 Body Position Analysis Supine Right Left Side Prone Vertical Total Sleep Time (min.) 70.3 69.7 161.0 230.72 0.0 0.0 Total Sleep Time (%) 9% 27% 63% 91 0% N/A% Total Sleep Time REM (min.) 0.0 12.0 61.0 None 0.0 0.0 Total Sleep Time NREM (min.) 23.3 57.7 100.0 None 0.0 0.0 Intermittent Wake (min.) 47.0 71.5 50.0 None 0.0 0.0 Total Sleep Period (%) 17% None None None None None Arousals Myoclonus (PLM) * Events Count Index Events Count Index Spontaneous 18 4 Events Awake (PLMW) 82 29.2 Respiratory 36 8.7 Events Asleep w/ Arousal (PLMA) 9 2.1 PLM 8 2 Events Asleep w/o Arousal (PLMS) 121 28.6 Snoring 8 2 Total Asleep 130 30.7 Total 70 17 Total 212 30 Respiratory Analysis * CA OA MA CH H RERA Total Count 14 11 22 0 11 2 58 Index 3.3 2.6 5.2 0 2.6 0 14.2 Mean Duration 20.1 24.2 44.9 0.00 26.1 21.2 31.1 Longest Duration 28.7 38.7 68.4 0.00 68.4 21.7 68.4 Respiratory Event Summary Total Supine ~Supine Right Left Prone REM NREM Apneas Count 47 21 26 6 20 N/A 0 47 Index 11.1 54 7 5.2 7.5 N/A 0 16 Hypopneas (4% Desat) Count 11 0 11 6 5 N/A 1 10 Index 2.6 0.0 3 5.2 1.9 N/A 0.8 3.3 Apneas & All Hypopneas Count 58 21 37 12 25 N/A 1 57 Index 13.7 54 10 10 9 N/A 0.8 18.9 Respiratory Events (Food Mixer Assembler+All Hyp+RERA) Count 58 21 39 12 27 N/A 1 57 Index 14.2 54 10 10.3 10.1 N/A 0.8 19.6 Respiratory Related Arousal Count 36 21 24 6 18 N/A 0 37 Index 8.7 34 6 5 7 N/A 0 12 Snoring Analysis Supine Right Left Prone REM NREM Total Snore duration 12.3 min Snores count 54 51 405 N/A 17 493 510 Snore mean duration 1.4 Sec Snores index 139 44 151 N/A 14.0 163.4 120.5 TST with snoring (%) 4.8% Desaturation Event Summary: Minimum %SpO2 Event Count Mean/Min/Max Duration(sec.) Desaturation Index % Time In Bed > 90 76 38.9 / 12.8 / 98.7 11.4 97.1 86 - 90 0 N/A 0.0 2.9 81 - 85 0 N/A 0.0 0.0 76 - 80 0 N/A 0.0 0.0 71 - 75 0 N/A 0.0 0.0 66 - 70 0 N/A 0.0 0.0 61 - 65 0 N/A 0.0 0.0 56 - 60 0 N/A 0.0 0.0 51 - 55 0 N/A 0.0 0.0 < 50 0 N/A 0.0 0.0 Total REM NREM Awake <50% 0.0 min. 0.0 min. 0.0 min. 0.0 min. 51 - 60% 0.0 min. 0.0 min. 0.0 min. 0.0 min. 61 - 70% 0.0 min. 0.0 min. 0.0 min. 0.0 min. 71 - 80% 0.0 min. 0.0 min. 0.0 min. 0.0 min. 81 - 90% 11.8 min. 0.0 min. 2.9 min. 8.9 min. 91 - 100% 400.3 min. 73.0 min. 175.6 min. 151.8 min. Average 94 93 94 94 Minimum SpO2 86 91 87 86 Desaturation Event Index 10.8 0.8 21.2 5.0 # Desat. Events below 89% 13 N/A 12 1 Time(%) with Saturation below 89% 0.7 0.0 0.2 0.5 Time(min.) with Saturation below 89% 2.9 0.0 0.7 2.3 Time (mins) REM (mins) NREM (mins) % of TST SpO2 Below 90% 31 N/A N31 0.6 SpO2 Below 88% 6 0 0 0 Heart Rate Analysis Min (bpm) Max (bpm) Average (bpm) Awake 48 107 79 NREM 50 100 78 REM 53 96 80 Overall 50 100 78 Supplemental O2 Values Minimum O2 level: None Value Start Time End Time Revenue Stamp Clerk Comments Mrs. Cannon slept in the right, left and supine positions. Irregular EKG noted at times. Leg movements noted. No bruxism noted. CPAP was initiated at +4 CMH2O and up-titrated to a level of 7CMH2O, BIPAP was started around 1:30 am due to the majority of events seen were mixed and central related. BIPAP was started at 8/4 and up-titrated to 16/11. A rate of 14 was added around 3:13 and was increased to 16 due to continued mixed apneas. A [employer] Simplus size small full face mask was used during titration Mrs. Cannon awoke to use the restroom 1 time during the night. Mrs. Cannon stated I did not sleep as well as I do when I am in my own bed. The final report will be interpreted and signed by a sleep physician. The completed physician report will then be placed in the patient medical record. Therapy Event: Therapy (cm H20) 4 6 7 8 8/4 9/5 10/6 Total Time at Pressure (min.) 49.5 13.9 79.0 31.7 46.4 47.7 6.5 TST at Pressure (min.) 7.0 2.9 71.0 8.6 5.4 7.7 5.0 # Periods 1 1 1 1 1 1 1 Sleep Onset (min.) 27.0 0.0 0.0 0.0 3.0 0.0 0.0 REM Onset (min.) N/A N/A 43.1 N/A N/A N/A N/A Sleep Efficiency % 14 20 89 27 11 16 77 Wakefulness (%) 85.8 79.3 10.1 72.8 88.3 83.8 22.9 Wakefulness (min.) 42.5 11.0 8.0 23.0 41.0 40.0 1.5 NREM 1 (%) 13.1 10.2 2.0 12.6 10.8 11.5 7.6 NREM 1 (min.) 6.5 1.4 1.6 4.0 5.0 5.5 0.5 NREM 2 (%) 1.1 10.5 43.5 14.6 0.9 4.6 69.5 NREM 2 (min.) 0.5 1.5 34.4 4.6 0.4 2.2 4.5 NREM 3 (%) 0.0 0.0 16.5 0.0 0.0 0.0 0.0 NREM 3 (min.) 0.0 0.0 13.0 0.0 0.0 0.0 0.0 REM (%) 0.0 0.0 27.9 0.0 0.0 0.0 0.0 REM (min.) 0.0 0.0 22.0 0.0 0.0 0.0 0.0 # Arousals 8 1 4 12 5 5 4 Arousal Index 68.1 20.9 3.4 83.5 55.5 38.9 47.5 # Snore 3 1 70 6 4 6 6 Snore Index 25.5 20.9 59.2 41.8 44.4 46.7 71.3 AHI 59.6 83.6 4.2 34.8 33.3 62.3 59.4 AHI Supine 87.9 63.0 N/A 53.1 128.3 51.3 N/A AHI Non-Supine 48.0 93.9 4.2 28.3 13.4 79.2 59.4 NREM AHI 59.6 83.6 6.1 34.8 33.3 62.3 59.4 REM AHI N/A N/A 0.0 N/A N/A N/A N/A RDI 59.6 83.6 5.1 34.8 33.3 62.3 59.4 # Obstructive 2 0 1 3 1 0 1 # Central Ap 2 3 1 1 2 5 0 # Mixed 2 1 2 1 0 3 2 # Hypopneas 1 0 1 0 0 0 2 RERAS 0 0 1 0 0 0 0 Total Respiratory Events 7 4 6 5 3 8 5 Time Below SpO2 89.00% (min.) 0.0 0.0 0.0 0.2 0.0 0.2 0.1 Mean NREM SpO2 (%) 93 94 93 94 93 93 94 Mean REM SpO2 (%) N/A N/A 93 N/A N/A N/A N/A Mean Sleep SpO2 (%) 93 94 93 94 93 93 94 Min NREM SpO2 (%) 90 92 89 87 89 87 88 Min REM SpO2 (%) N/A N/A 92 N/A N/A N/A N/A Position Supine (min.) 2.0 1.0 0.0 2.3 0.9 4.7 0.0 Position Non-supine (min.) 5.0 1.9 71.0 6.4 4.5 3.0 5.0 LM Index Sleep 8.5 0.0 54.1 27.8 33.3 15.6 0.0 LM Index NREM 8.5 0.0 38.0 27.8 33.3 15.6 0.0 LM Index REM N/A N/A 90.0 N/A N/A N/A N/A Mean Heart Rate (bpm) 74 76 78 81 77 74 72 Min Heart Rate (bpm) 59 60 53 51 59 60 62 Therapy (cm H20) 07/26 12 13 13 14 15 1611 Total Time at Pressure (min.) 8.6 8.3 63.4 5.6 16.2 18.4 27.4 TST at Pressure (min.) 8.6 8.3 62.4 5.6 15.7 18.4 27.4 # Periods 1 1 1 1 1 1 1 Sleep Onset (min.) 0.0 0.0 0.0 0.0 0.0 0.0 0.0 REM Onset (min.) N/A N/A 16.9 N/A N/A N/A 15.4 Sleep Efficiency % 100 100 98 100 96 100 100 Wakefulness (%) 0.0 0.0 1.6 0.0 3.1 0.0 0.0 Wakefulness (min.) 0.0 0.0 1.0 0.0 0.5 0.0 0.0 NREM 1 (%) 5.8 0.0 2.4 0.0 6.2 5.4 0.0 NREM 1 (min.) 0.5 0.0 1.5 0.0 1.0 1.0 0.0 NREM 2 (%) 94.2 100.0 28.2 100.0 90.8 94.6 56.1 NREM 2 (min.) 8.1 8.3 17.9 5.6 14.7 17.4 15.4 NREM 3 (%) 0.0 0.0 6.3 0.0 0.0 0.0 0.0 NREM 3 (min.) 0.0 0.0 4.0 0.0 0.0 0.0 0.0 REM (%) 0.0 0.0 61.5 0.0 0.0 0.0 43.9 REM (min.) 0.0 0.0 39.0 0.0 0.0 0.0 12.0 # Arousals 2 0 9 3 5 11 1 Arousal Index 14.0 0.0 8.7 32.3 19.1 35.9 2.2 # Snore 51 88 199 20 34 22 0 Snore Index 355.9 635.7 191.3 215.5 129.6 71.8 0.0 AHI 14.0 0.0 6.7 43.1 19.1 9.8 0.0 AHI Supine N/A N/A 43.8 43.1 43.9 N/A N/A AHI Non-Supine 14.0 0.0 4.1 N/A 13.8 9.8 0.0 NREM AHI 14.0 0.0 15.4 43.1 19.1 9.8 0.0 REM AHI N/A N/A 1.5 N/A N/A N/A 0.0 RDI 20.9 0.0 6.7 43.1 19.1 9.8 0.0 # Obstructive 1 0 1 0 0 1 0 # Central Ap 0 0 0 0 0 0 0 # Mixed 0 0 5 4 2 0 0 # Hypopneas 1 0 1 0 3 2 0 RERAS 1 0 0 0 0 0 0 Total Respiratory Events 3 0 7 4 5 3 0 Time Below SpO2 89.00% (min.) 0.1 0.0 0.0 0.0 0.0 0.0 0.0 Mean NREM SpO2 (%) 93 93 93 94 95 95 95 Mean REM SpO2 (%) N/A N/A 93 N/A N/A N/A 95 Mean Sleep SpO2 (%) 93 93 93 94 95 95 95 Min NREM SpO2 (%) 88 91 90 90 92 91 93 Min REM SpO2 (%) N/A N/A 91 N/A N/A N/A 94 Position Supine (min.) 0.0 0.0 4.1 5.6 2.7 0.0 0.0 Position Non-supine (min.) 8.6 8.3 58.3 0.0 13.0 18.4 27.4 LM Index Sleep 0.0 0.0 5.8 0.0 0.0 13.1 100.9 LM Index NREM 0.0 0.0 0.0 0.0 0.0 13.1 113.3 LM Index REM N/A N/A 9.2 N/A N/A N/A 85.0 Mean Heart Rate (bpm) 74 77 79 76 79 81 81 Min Heart Rate (bpm) 56 62 53 60 59 64 50
--- NOTE | 2017-08-05 13:44 | POLYSOMNOGRAPH REPORT ---
CLINICAL DATA: A 76-year-old female with BMI of 23.83 referred by myself and Walter Monterroso and Say Garcia for severe sleep apnea and underlying cardiac disease. She has witnessed apnea, loud snoring, and daytime fatigue. She had a home sleep apnea test which showed severe sleep apnea. SLEEP ARCHITECTURE: Total sleep period was 395.5 minutes. Total sleep time was 254 minutes divided between 181 minutes of non-REM sleep and 73 minutes of REM sleep. Sleep onset latency was 27 minutes. REM latency was 79.5 minutes. Sleep efficiency was 60%. Awake after sleep onset was elevated at 141.5 minutes. Sleep consisted of stage N1 11%, stage N2 53%, stage N3 7%, and REM 29%. AROUSAL DATA: Seventy arousals recorded for an index of 17 per hour. PLM DATA: Mildly elevated limb movements during sleep were noted. There are 130 limb movements during sleep noted for an index of 30.7 per hour with arousal index of 2.1 per hour. RESPIRATORY DATA: The AHI was 13.7. There were 14 central, 11 obstructive, and 22 mixed apneic episodes. The longest duration of apnea was 68.4 seconds. There were 11 hypopneic episodes. The mean duration of hypopnea was 26.1 seconds. OXIMETRY DATA: Mild nocturnal hypoxemia was seen. Oxygen alber was 87% during non-REM sleep. The mean saturation was 94%. Time below 88% was 6 minutes. EKG: Heart rates ranged from 50 to 100 beats per minute. TOWER ERECTOR'S COMMENTS AND TREATMENT SUMMARY: The patient slept in the right, left, and supine positions. CPAP was started at 4 cm of water pressure and was titrated to 7 cm water pressure. However, she had mixed and central apneic episodes indicating treatment onset central apnea so she was switched to BIPAP initially 8/4 and then eventually titrated up to 16/11 with a backup rate of 14 which was eventually increased to 16 due to mixed apneic episodes. She used a [employer] Simplus size small full facemask. At her final pressure setting of BiPAP 16/11 with backup rate of 16 the patient slept for 27.4 minutes with an AHI of 0. 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 RECOMMENDATIONS: The patient could be started on BiPAP at the above noted rate. However, auto CPAP as a trial for 4-6 weeks with review of compliance and effectiveness data may be effective. Clinical correlation is needed.
== END | disposition home or self-care (01) ==
LOC: C.NEUR 21:00
PROVIDERS: ATTEND Internal Medicine Pulmonary Disease
DX: I50.32 Chronic diastolic (congestive) heart failure (principal); G47.19 Other hypersomnia; G47.30 Sleep apnea, unspecified

== ENCOUNTER 2017-09-30 10:58 | Emergency (ER) | payer BC ==
[~2017-09-30] VITALS: Ht 167.6 cm; Wt 65.0 kg
[2017-09-30 11:00] VITALS: TEMP 36.9; Ht 167.6 cm; Wt 65.0 kg
[2017-09-30] MEDS ORDERED: GI COCKTAIL PO STA (11:11)
--- NOTE | 2017-09-30 11:20 | EMERGENCY ROOM VISIT NOTE ---
History Report prepared by Shannon: Kathy Lowery Under the Supervision of: Faizan LezamaO. First contact with patient: 11:09 Chief Complaint: CHEST PAIN Stated Complaint: CHEST PAINS History of Present Illness The patient is a 76 year old female who presents to the Emergency Room with complaints of persistent left chest pain that began at 0300. The patient states her pain is to the left of her sternum and does not radiate. The patient denies any shortness of breath or abdominal pain. The patient states she took Maalox prior to arrival, noting it did not relieve her symptoms. She notes she had a cardiac catheterization and stress test within the last year, denying any stents. The patient notes she has a place maker in place. She denies any heart attacks. Source of History: patient Onset: 0300 Position: chest (left) Quality: other (chest pain) Timing: other (persisent) Associated Symptoms: No SOB, No abdominal pain Review of Systems See HPI for pertinent positives & negatives. A total of 10 systems reviewed and were otherwise negative. 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 (3) Lyme disease (4) Mitral valve regurgitation (5) Nonischemic cardiomyopathy (6) Pacemaker (7) Pneumonia Family History Cancer Social History Smoking Status: Never Smoker Alcohol Use: none Drug Use: none Marital Status: Housing Status: lives alone Occupation Status: unemployed Current/Historical Medications Scheduled Carvedilol (Coreg), 6.25 MG PO BID Furosemide (Lasix), 40 MG PO QAM Potassium Ext Rel (Klor-Con), 20 MEQ PO QAM Warfarin Sod (Coumadin), 2.5 MG PO DAILY Allergies Coded Allergies: Sulfamethoxazole w/Trimethoprim (Verified Allergy, Severe, MOUTH SORES, 09/05) Adhesives (Verified Allergy, Unknown, "Adhesive tape" -- blisters, 09/30/17 ) Physical Exam Vital Signs Date Time Temp Pulse Resp B/P (MAP) Pulse Ox O2 Delivery O2 Flow Rate FiO2 09/30/17 12:30 71 18 125/75 98 Room Air 09/30/17 12:02 74 09/30/17 11:41 93 Room Air 09/30/17 11:00 36.9 93 18 118/74 94 Physical Exam GENERAL: Patient is awake, alert, and in no acute distress. Patient is resting comfortably and showing no signs of anxiety EYES: The conjunctivae are clear. The pupils are round and reactive. EARS, NOSE, MOUTH AND THROAT: The nose is without any evidence of any deformity. Mucous membranes are moist tongue is midline NECK: The neck is nontender and supple. RESPIRATORY: Normal respiratory effort is noted there is no evidence of wheezing rhonchi or rales CARDIOVASCULAR: Regular rate and rhythm noted there no murmurs rubs or gallops normal S1 normal S2 GASTROINTESTINAL: The abdomen is soft. Bowel sounds are present in all quadrants. Abdomen is nontender MUSCULOSKELETAL/EXTREMITIES: There is no evidence of gross deformity full range of motion is noted in the hips and shoulders SKIN: There is no obvious evidence of any rash. There are no petechiae, pallor or cyanosis noted. NEUROLOGIC: Patient is awake alert and oriented x3 strength is symmetric patellar reflexes are 2+ bilaterally Medical Decision & Procedures ER Provider Diagnostic Interpretation: Radiology results as stated below per my review and radiologist interpretation: CHEST ONE VIEW PORTABLE CLINICAL HISTORY: Pain, radiating to the abdomen. COMPARISON STUDY: 06/02/2017 FINDINGS: The heart is normal in size. There is a scoliosis. There is a left subclavian dual-chamber central venous pacemaker. There is no focal pulmonary consolidation. There are no significant pleural effusions. There is no failure. There is no free intraperitoneal air.[ IMPRESSION: No active disease in the chest. Electronically signed by: Ovi Verma M.D. 09/30/2017 11:41 AM Dictated Date/Time: 09/30/2017 11:41 AM Laboratory Results 09/30/17 11:24 Red Blood Count 4.59, Mean Corpuscular Volume 82.6, Mean Corpuscular Hemoglobin 28.3, Mean Corpuscular Hemoglobin Concent 34.3, Mean Platelet Volume 9.5, Neutrophils (%) (Auto) 51.6, Lymphocytes (%) (Auto) 31.4, Monocytes (%) (Auto) 14.2, Eosinophils (%) (Auto) 2.2, Basophils (%) (Auto) 0.6, Neutrophils # (Auto ) 2.62, Lymphocytes # (Auto) 1.59, Monocytes # (Auto) 0.72, Eosinophils # (Auto ) 0.11, Basophils # (Auto) 0.03 09/30/17 11:24 Test 09/30/17 11:24 09/30/17 12:30 White Blood Count 5.07 K/uL (4.8-10.8) Red Blood Count 4.59 M/uL (4.2-5.4) Hemoglobin 13.0 g/dL (12.0-16.0) Hematocrit 37.9 % (37-47) Mean Corpuscular Volume 82.6 fL (80-100) Mean Corpuscular Hemoglobin 28.3 pg (25-34) Mean Corpuscular Hemoglobin Concent 34.3 g/dl (32-36) Platelet Count 237 K/uL (130-400) Mean Platelet Volume 9.5 fL (7.4-10.4) Neutrophils (%) (Auto) 51.6 % Lymphocytes (%) (Auto) 31.4 % Monocytes (%) (Auto) 14.2 % Eosinophils (%) (Auto) 2.2 % Basophils (%) (Auto) 0.6 % Neutrophils # (Auto) 2.62 K/uL (1.4-6.5) Lymphocytes # (Auto) 1.59 K/uL (1.2-3.4) Monocytes # (Auto) 0.72 K/uL (0.11-0.59) Eosinophils # (Auto) 0.11 K/uL (0-0.5) Basophils # (Auto) 0.03 K/uL (0-0.2) RDW Standard Deviation 43.8 fL (36.4-46.3) RDW Coefficient of Variation 14.5 % (11.5-14.5) Immature Granulocyte % (Auto) 0.0 % Immature Granulocyte # (Auto) 0.00 K/uL (0.00-0.02) Prothrombin Time 26.1 SECONDS (9.0-12.0) Prothromb Time International Ratio 2.5 (0.9-1.1) Activated Partial Thromboplast Time 40.7 SECONDS (21.0-31.0) Partial Thromboplastin Ratio 1.6 Anion Gap 4.0 mmol/L (3-11) Est Creatinine Clear Calc Drug Dose 50.7 ml/min Estimated GFR () 74.5 Estimated GFR (Non- 64.3 BUN/Creatinine Ratio 31.3 (10-20) Calcium Level 8.7 mg/dl (8.5-10.1) Total Bilirubin 0.4 mg/dl (0.2-1) Direct Bilirubin < 0.1 mg/dl (0-0.2) Aspartate Amino Transf (AST/SGOT) 25 U/L (15-37) Alanine Aminotransferase (ALT/SGPT) 22 U/L (12-78) Alkaline Phosphatase 88 U/L (45-117) Troponin I < 0.015 ng/ml (0-0.045) Total Protein 7.1 gm/dl (6.4-8.2) Albumin 3.5 gm/dl (3.4-5.0) Lipase 306 U/L (73-393) Urine Color YELLOW Urine Appearance CLEAR (CLEAR) Urine pH 8.0 (4.5-7.5) Urine Specific [place] 1.010 (1.000-1.030) Urine Protein NEG (NEG) Urine Glucose (UA) NEG (NEG) Urine Ketones NEG (NEG) Urine Occult Blood NEG (NEG) Urine Nitrite NEG (NEG) Urine Bilirubin NEG (NEG) Urine Urobilinogen NEG (NEG) Urine Leukocyte Esterase NEG (NEG) Laboratory results per my review. Medications Administered Medications (Trade) Dose Ordered Sig/Marcellus Route Start Time Stop Time Status Last Admin Dose Admin Lidocaine HCl (Viscous Lidocaine 2% Soln) 20 ml STK-MED ONCE .ROUTE 09/30/17 11:38 09/30/17 11:39 DC 09/30/17 11:40 20 ML Al Hydroxide/Mg Hydroxide (Maalox Susp) 30 ml STK-MED ONCE .ROUTE 09/30/17 11:38 09/30/17 11:39 DC 09/30/17 11:41 30 ML ECG Indication: chest pain Rate (beats per minute): 73 Rhythm: other (ventricular pace maker) Findings: PVC (no PVC's noted), other (No rosebud beats noted) Change: no significant change (06/02/17) ED Course 1110: The patient was evaluated in room C5. A complete history and physical examination were performed. 1111: Ordered GI cocktail 24ml PO. 1222: I reevaluated the patient, who was resting comfortably. I discussed the results and treatment plan with her. She verbalized agreement of the treatment plan. The patient was discharged home. Medical Decision Prior records/ancillary studies reviewed. Triage Nursing notes reviewed. The patient's history was concerning for chest pain. Differential diagnosis: Etiologies such as cardiac ischemia, aortic dissection, pulmonary embolism, pneumonia, pneumothorax, musculoskeletal, infections, pericarditis, myocarditis , esophageal rupture, gastrointestinal, as well as others were entertained. The patient is a 76-year-old female who presented to the emergency department for an evaluation of chest discomfort. The patient has had similar episodes in the past with gastric pain but when she took her usual medications for this it did not improve. The patient had a catheterization which did not reveal any acute disease and this report was reviewed. I discussed the patient's laboratory and radiographic studies with her. Despite having ongoing pain her cardiac bio markers were not elevated and Her EKG did not show any acute changes. The patient was encouraged to rest and avoid any strenuous activity. I discussed the limitations of the emergency department workup for chest pain with her. She was encouraged to rest and avoid any strenuous activity. She was also encouraged to follow-up with her primary care physician for further evaluation but return to the emergency department immediately if symptoms change worsen or the need arises. Medication Reconcilliation Current Medication List: was personally reviewed by me Impression Primary Impression: Substernal chest pain Scribe Attestation The scribe's documentation has been prepared under my direction and personally reviewed by me in its entirety. I confirm that the note above accurately reflects all work, treatment, procedures, and medical decision making performed by me. Departure Information Dispostion Home / Self-Care Referrals Say Garcia III, CRNP (PCP) Forms Call Back Authorization, HOME CARE DOCUMENTATION FORM, IMPORTANT VISIT INFORMATION Patient Instructions [facility] Additional Instructions Continue all medications as prescribed. Rest and avoid extremes activity. Call your family to schedule a follow-up appointment. Return to the emergency department immediately if symptoms change worsen or need arises.
[2017-09-30] MEDS ORDERED: ALUMINUM/MAGNESIUM SUSP 30 ML UDC ONE (11:38)
[2017-09-30] MEDS ORDERED: LIDOCAINE HCL 2% VISC SOLN 20 ML UDC ONE (11:38)
--- NOTE | 2017-09-30 11:42 | DIAGNOSTIC IMAGING REPORT ---
CHEST ONE VIEW PORTABLE CLINICAL HISTORY: Pain, radiating to the abdomen. COMPARISON STUDY: 06/02/2017 FINDINGS: The heart is normal in size. There is a scoliosis. There is a left subclavian dual-chamber central venous pacemaker. There is no focal pulmonary consolidation. There are no significant pleural effusions. There is no failure. There is no free intraperitoneal air.[ IMPRESSION: No active disease in the chest. Electronically signed by: Ovi Verma M.D. 09/30/2017 11:41 AM Dictated Date/Time: 09/30/2017 11:41 AM
[2017-09-30 11:43] LABS: BASO % 0.6 %; BASO ABS # 0.03 K/uL (0-0.2); EOS % 2.2 %; EOS ABS # 0.11 K/uL (0-0.5); HEMATOCRIT 37.9 % (37-47); LYMPH % 31.4 %; LYMPH ABS # 1.59 K/uL (1.2-3.4); MEAN CELL VOLUME 82.6 fL (80-100); MEAN CORPUSCULAR HEMOGLOBIN 28.3 pg (25-34); MEAN CORPUSCULAR HGB CONC 34.3 g/dl (32-36); MEAN PLATELET VOLUME 9.5 fL (7.4-10.4); MONO % 14.2 %; MONO ABS # 0.72 K/uL (0.11-0.59); NEUT % 51.6 %; NEUT ABS # 2.62 K/uL (1.4-6.5); PLATELET COUNT 237 K/uL (130-400); RED CELL DISTRIBUTION WIDTH CV 14.5 % (11.5-14.5); RED CELL DISTRIBUTION WIDTH SD 43.8 fL (36.4-46.3); WHITE BLOOD COUNT 5.07 K/uL (4.8-10.8)
[2017-09-30 11:47] LABS: INR 2.5 (0.9-1.1); PTT PATIENT 40.7 SECONDS (21.0-31.0)
[2017-09-30 11:56] LABS: ALBUMIN 3.5 gm/dl (3.4-5.0); ALT/SGPT 22 U/L (12-78); AST/SGOT 25 U/L (15-37); BLOOD UREA NITROGEN 27 mg/dl (7-18); CALCIUM 8.7 mg/dl (8.5-10.1); CARBON DIOXIDE 29 mmol/L (21-32); CREATININE 0.87 mg/dl (0.60-1.20); GLUCOSE 98 mg/dl (70-99); LIPASE 306 U/L (73-393); SODIUM 134 mmol/L (136-145)
[2017-09-30 12:06] LABS: ALKALINE PHOSPHATASE 88 U/L (45-117); TOTAL PROTEIN 7.1 gm/dl (6.4-8.2)
[2017-09-30 12:30] VITALS: BP 125/75; PULSE 71; O2SAT 98
== END 2017-09-30 12:48 | disposition home or self-care (01) ==
LOC: C.EDB 10:59 → C.EDC 12:48
DX: R07.2 Precordial pain (principal); Z95.0 Presence of cardiac pacemaker; Z79.01 Long term (current) use of anticoagulants; Z51.81 Encounter for therapeutic drug level monitoring

== ENCOUNTER → 2018-01-17 | Outpatient (CLI) | payer BC ==
[~2018-01-17] MED LIST changes: -CEFD1CAP14 PO; +POTA-639 PO; -POTA20TA16 PO; -VNTHFA/IN PO
[2018-01-17 12:15] LABS: BASO % 0.9 %; BASO ABS # 0.04 K/uL (0-0.2); EOS % 2.6 %; EOS ABS # 0.12 K/uL (0-0.5); HEMATOCRIT 38.3 % (37-47); HEMOGLOBIN 13.3 g/dL (12.0-16.0); IG# 0.01 K/uL (0.00-0.02); LYMPH ABS # 1.36 K/uL (1.2-3.4); MEAN CELL VOLUME 83.1 fL (80-100); MEAN CORPUSCULAR HEMOGLOBIN 28.9 pg (25-34); MEAN CORPUSCULAR HGB CONC 34.7 g/dl (32-36); MEAN PLATELET VOLUME 9.6 fL (7.4-10.4); MONO ABS # 0.77 K/uL (0.11-0.59); NEUT % 49.3 %; NEUT ABS # 2.23 K/uL (1.4-6.5); PLATELET COUNT 237 K/uL (130-400); RED CELL DISTRIBUTION WIDTH CV 14.7 % (11.5-14.5); RED CELL DISTRIBUTION WIDTH SD 44.9 fL (36.4-46.3); WHITE BLOOD COUNT 4.53 K/uL (4.8-10.8)
[2018-01-17 12:32] LABS: ALBUMIN 3.7 gm/dl (3.4-5.0); ALT/SGPT 24 U/L (12-78); AST/SGOT 32 U/L (15-37); BLOOD UREA NITROGEN 27 mg/dl (7-18); CALCIUM 8.7 mg/dl (8.5-10.1); CARBON DIOXIDE 31 mmol/L (21-32); CREATININE 0.92 mg/dl (0.60-1.20); GLUCOSE 88 mg/dl (70-99); POTASSIUM 3.4 mmol/L (3.5-5.1); SODIUM 136 mmol/L (136-145)
[2018-01-17 12:42] LABS: ALKALINE PHOSPHATASE 92 U/L (45-117); TOTAL PROTEIN 7.6 gm/dl (6.4-8.2)
== END | disposition home or self-care (01) ==
LOC: C.LAB1850 11:28
PROVIDERS: ATTEND Nurse Practitioner Family
DX: I35.1 Nonrheumatic aortic (valve) insufficiency (principal); I50.32 Chronic diastolic (congestive) heart failure; I87.1 Compression of vein

== ENCOUNTER → 2018-04-19 | Outpatient (CLI) | payer BC ==
--- NOTE | 2018-04-19 14:55 | MAMMOGRAPHY REPORT ---
BILATERAL DIGITAL SCREENING MAMMOGRAM TOMOSYNTHESIS WITH CAD: 04/19/2018 CLINICAL HISTORY: Routine screening. Patient has no complaints. TECHNIQUE: The study was acquired using full field digital technology and interpreted from soft copy. Breast tomosynthesis in addition to standard 2D mammography was performed. Current study was also ev aluated with a Computer Aided Detection (CAD) system. COMPARISON: Comparison is made to exams dated: 04/18/2017 mammogram, 09/15/2016 mammogram, 09/08/2016 mammogram, 08/31/2016 mammogram, 08/28/2015 mammogram, and 04/18/2017 ultrasound - [facility]. BREAST COMPOSITION: The tissue of both breasts is heterogeneously dense, which may obscure small mass es. FINDINGS: A metallic cardiac device projects over the superior left breast and pectoralis muscle on t he MLO view. There is expected architectural distortion in each breast from prior surgery. Decrease d skin thickening of the right breast comparing to the 2017 mammograms. A stable ribbon-shaped biops y marker clip aligns with an area of architectural distortion in the left breast. There are mild to moderate vascular calcifications bilaterally. No new suspicious mass, developing asymmetry, unexpecte d architectural distortion or cluster of microcalcifications is seen. IMPRESSION: ACR BI-RADS CATEGORY 1: NEGATIVE There is no mammographic evidence of malignancy. A 1 year screening mammogram is recommended.( [id number]) The patient will receive written notification of the results. Some breast cancers are not detected with mammography. A negative mammographic report should not finn y biopsy if a clinically suggestive mass is present. Heather Nam M.D. 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
== END | disposition home or self-care (01) ==
LOC: C.MAMM 10:13
PROVIDERS: ATTEND Obstetrics & Gynecology
DX: Z12.31 Encounter for screening mammogram for malignant neoplasm of breast (principal)

== ENCOUNTER 2022-04-04 18:44 | Observation (INO) ==
[2022-04-04 19:21] LABS: Basophils # (auto) 0.06 K/uL (0-0.2); Basophils % (auto) 1.1 %; Eosinophils # (auto) 0.23 K/uL (0-0.50); Eosinophils % (auto) 4.4 %; Hemoglobin 14.6 g/dl (12.0-16.0); Immature Granulocytes # (auto) 0.01 K/uL (0.00-0.02); Immature Granulocytes % (auto) 0.2 %; Lymphocytes % (auto) 30.5 %; Mean Corpuscular Hgb Conc 33.2 g/dL (32.0-36.0); Mean Corpuscular Volume 87.3 fL (80.0-100.0); Mean Platelet Volume 10.8 fL (9.4-12.3); Monocytes # (auto) 0.56 K/uL (0.24-0.82); Monocytes % (auto) 10.7 %; Neutrophils # (auto) 2.78 K/uL (1.4-6.5); Neutrophils % (auto) 53.1 %; Platelet Count 217 K/uL (130-400); RDW Coefficient of Variation 13.7 % (11.5-14.5); RDW Standard Deviation 43.7 fL (36.4-46.3); Red Blood Count 5.04 M/uL (3.93-5.22); White Blood Count 5.24 K/ul (4.8-10.8)
--- NOTE | 2022-04-04 19:24 | Emergency Department Note ---
History of Present Illness General Chief complaint: Illness Stated complaint: illness x 3 days Time Seen by Provider: 04/04/22 19:01 Source: patient, EMS, RN notes reviewed and old records reviewed Mode of arrival: EMS Limitations: no limitations History of Present Illness Maximum Pain Intensity: 2 This patient is a 81-year-old female who was brought in by EMS after feeling weak and not well. She noticed this about 3 days ago after caring heavy groceries she started having some central chest pain that lasted up to about 5 minutes it went away and since then she says that she has been "lazy". She has been try not to exert herself denies any chest pain she has had some belching. She has felt very thirsty at times as well. She denies any shortness of breath or cough or fever. she has had some nausea. no focal numbness or weakness. feels generally tired though. Denies dysuria or hematuria. No change in vision. no difficulty speaking or swallowing no facial swelling. She has a minimal headache in the morning about 1-2 out of 10. 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 No trauma or injury. No blood or melena in her stool. Home Medications Medication Instructions Recorded Confirmed Type melatonin 5 mg tablet 5 mg PO HS 11/20/20 04/04/22 History metolazone 5 mg tablet 5 mg PO DAILY PRN Edema 11/20/20 04/04/22 History potassium chloride 20 mEq 20 meq PO QAM #90 tabs 12/23/20 04/04/22 Rx tablet,extended release carvedilol 6.25 mg tablet 6.25 mg PO QAM 04/04/22 04/04/22 History warfarin 2.5 mg tablet 2.5 mg PO DIRECTED 04/04/22 04/04/22 History Allergies Allergy/AdvReac Type Severity Reaction Status Date / Time adhesive Allergy Intermediate "Adhesive Verified 04/04/22 20:11 tape" -- blisters sulfamethoxazole Allergy Intermediate MOUTH SORES Verified 04/04/22 20:11 trimethoprim Allergy Intermediate MOUTH SORES Verified 04/04/22 20:11 Past Med/Surg History Medical History Aortic regurgitation Breast cancer ?? pt denies CHF (NYHA class II, ACC/AHA stage C) Complete heart block (10/28/14) ICD/pacer Complex sleep apnea syndrome does not use cpap as ordered Deep venous thrombosis of left upper extremity several yrs ago > post surgical PURVIS (dyspnea on exertion) Hearing deficit History of colon polyps History of deep vein thrombosis (DVT) of lower extremity was just torn muscle, not clot per pt History of endometrial cancer diagnosed 20yrs ago--sx History of kidney stones ICD (implantable cardioverter-defibrillator) in place placed 03/18/2016 @ [facility] by Dr. Webber Left bundle branch block correction current use of anticoagulant warfarin daily Mitral valve insufficiency Narrow angle glaucoma suspect of both eyes Osteoarthritis SNHL (sensorineural hearing loss) Superior vena cava syndrome reason for warfarin Surgical History History of breast biopsy per pt benign History of cardiac cath no stents History of cataract surgery B/L done 06/2021 and 08/2021 History of colonoscopy with polypectomy History of dilatation and curettage History of permanent cardiac pacemaker placement meditronic ICD placed by Dr. Webber at [facility] > last checked in Apr 2021 History of right cataract extraction 07/08/21 at [facility] [place]. Pt made ASA3. Given 2mg versed. History of tonsillectomy History of tooth extraction History of total abdominal hysterectomy and bilateral salpingo-oophorectomy History of total right knee replacement (TKR) History of wisdom tooth extraction S/P thyroid biopsy benign Family History Father Family hx of colon cancer Colorectal cancer Mother Family hx of colon cancer Colorectal cancer Aunt Family hx of colon cancer Other Family history non-contributory No family history of adverse response to anesthesia No significant family history Denies family history of Ovarian cancer Prostate cancer Myocardial infarction Breast cancer Social History Smoking Status: Never smoker Second Hand Exposure: Yes (in childhood); Hx Alcohol Use: No Hx Substance Use: No Preferred Language: German Communication Ability: Effective Visual Impairment: No Limitations Hearing Ability: Use of Hearing Aid 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: No Beliefs That Will Affect Care: None marital status: Current Living Situation: Spouse current occupational status: retired 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 Feels Safe at Home: Yes Childhood Exposure to Second-Hand Smoke: Yes Dental Care, Regularly: Yes Physical Activity Frequency: Does not Exercise Seatbelt Use: always Sunscreen Use: No Assistive Devices: Hearing Aid - Bilateral Review of Systems A total of 10 systems reviewed and were otherwise negative Physical Exam Vital Signs Vital Signs - 24 hr 04/04/22 18:55 04/04/22 19:05 04/04/22 19:25 Temperature 37.4 C Temperature Source Oral Pulse Rate 87 Pulse Rate [Bilateral Apical] 69 Pulse Rhythm Regular Pulse Strength Normal Respiratory Rate 20 20 Respiratory Effort / Characteristics Non-Labored Spontaneous Respiratory Depth Normal Respiratory Pattern Regular Blood Pressure 185/95 H Blood Pressure [Left Arm] 161/84 H Blood Pressure Mean 125 Blood Pressure Mean [Left Arm] 109 Blood Pressure Position Sitting Pulse Oximetry 98 97 96 Oxygen Delivery Method Room Air Room Air Room Air Sepsis Recent Fever Within 48 Hours No Sepsis New/Unexplained Change in Mental Status No Sepsis Action Taken by Nursing No Action Required 04/04/22 20:19 04/04/22 21:04 04/04/22 21:35 Temperature Temperature Source Pulse Rate Pulse Rate [Bilateral Apical] 63 67 65 Pulse Rhythm Pulse Strength Respiratory Rate 20 20 20 Respiratory Effort / Characteristics Respiratory Depth Respiratory Pattern Blood Pressure Blood Pressure [Left Arm] 149/84 H 159/82 H 152/83 H Blood Pressure Mean Blood Pressure Mean [Left Arm] 105 107 106 Blood Pressure Position Pulse Oximetry 95 96 96 Oxygen Delivery Method Room Air Room Air Room Air Sepsis Recent Fever Within 48 Hours Sepsis New/Unexplained Change in Mental Status Sepsis Action Taken by Nursing General: Well developed well nourished not ill-appearing older female who is hard of hearing but answers all questions appropriate is alert orient x3 in no acute distress, breathing comfortably on room air. Normal speech HEENT: Normal cephalic atraumatic. Pupils are equal round and reactive to light. Extraocular movements are intact. Oropharynx is pink with moist mucous membranes. No swelling of the mouth lips or tongue. No visible swelling to the face or neck. Neck: Supple with a midline trachea. No meningeal signs or stiffness, no JVD or bruits. No Stridor. Chest: Clear to auscultation bilaterally. No wheezes or rhonchi. No increased work of breathing. Pacemaker in left chest that is not red or tender or swollen Heart: Regular rate and rhythm without murmurs or gallops. Abdomen: Soft nontender, nondistended without rebound guarding or rigidity. Extremities: No cyanosis clubbing or edema. No calf tenderness or assymetry Spine/Back. Non tender to palpation. No CVA tenderness Skin: Good turgor without rashes. Neurologic exam: Cranial nerves two through 12 are intact. Motor and sensation are intact and symmetrical throughout. Medical Decision Making Differential Diagnosis Acute coronary syndrome, arrhythmia, infection, COVID, superior vena cava syndrome, intracranial process, anemia, GI bleed, vascular disease, CHF Medical Records Attestation: I reviewed the patient's medical records. Home Medications Current Medication List: was personally reviewed by me Laboratory Data Attestation: I reviewed the patient's lab results. Result diagrams: 04/04/22 18:37 04/04/22 18:37 Lab Results 04/04/22 04/04/22 04/04/22 Range/Units 18:37 18:37 18:37 WBC 5.24 (4.8-10.8) K/ul RBC 5.04 (3.93-5.22) M/uL Hgb 14.6 (12.0-16.0) g/dl Hct 44.0 (34.1-44.9) % MCV 87.3 (80.0-100.0) fL MCH 29.0 (25.0-34.0) pg MCHC 33.2 (32.0-36.0) g/dL RDW Std Deviation 43.7 (36.4-46.3) fL RDW Coeff of Blaise 13.7 (11.5-14.5) % Plt Count 217 (130-400) K/uL MPV 10.8 (9.4-12.3) fL Immature Gran % (Auto) 0.2 % Neut % (Auto) 53.1 % Lymph % (Auto) 30.5 % Gilliam % (Auto) 10.7 % Eos % (Auto) 4.4 % Baso % (Auto) 1.1 % Neut # (Auto) 2.78 (1.4-6.5) K/uL Lymph # (Auto) 1.60 (1.2-3.4) K/uL Gilliam # (Auto) 0.56 (0.24-0.82) K/uL Eos # (Auto) 0.23 (0-0.50) K/uL Baso # (Auto) 0.06 (0-0.2) K/uL Immature Gran # (Auto) 0.01 (0.00-0.02) K/uL PT 24.0 H (9.0-12.0) Seconds INR 2.4 H (0.9-1.1) APTT 37.1 H (21.0-31.0) Seconds PTT Ratio 1.3 Sodium 138 (136-145) mmol/L Potassium 3.8 (3.5-5.1) mmol/L Chloride 103 (98-107) mmol/L Carbon Dioxide 27 (21-32) mmol/L Anion Gap 8 (3-11) BUN 26 H (6-23) mg/dl Creatinine 0.98 (0.6-1.2) mg/dl Est Cr Clr Drug Dosing 42.4 ml/min Est GFR ( Amer) 62.3 ml/min Est GFR (Non-Af Amer) 53.7 ml/min BUN/Creatinine Ratio 26.5 H (10-20) Glucose 159 H (70-99(Fasting)) mg/dl Calcium 9.3 (8.5-10.1) mg/dl Total Bilirubin 0.5 (0.2-1.0) mg/dl AST 23 (13-39) U/L ALT 14 (7-52) U/L Alkaline Phosphatase 73 (34-104) U/L Troponin I High Sens 6.7 (0-14) pg/ml B-Natriuretic Peptide (0-100) pg/ml Total Protein 7.6 (6.0-8.3) gm/dl Albumin 4.4 (3.4-5.0) gm/dl Globulin 3.2 (2.5-4.0) gm/dl Albumin/Globulin Ratio 1.4 (0.9-2) Lipase 54 (11-82) U/L Urine Color Urine Appearance (Clear) Urine pH (4.5-7.5) Ur Specific [place] (1.000-1.030) Urine Protein (Negative) Urine Glucose (UA) (Negative) Urine Ketones (Negative) Urine Blood (Negative) Urine Nitrite (Negative) Urine Bilirubin (Negative) Urine Urobilinogen (Negative) Ur Leukocyte Esterase (Negative) SARS-CoV-2, RNA, NAAT (NEGATIVE) 04/04/22 04/04/22 04/04/22 Range/Units 19:28 19:30 19:30 WBC (4.8-10.8) K/ul RBC (3.93-5.22) M/uL Hgb (12.0-16.0) g/dl Hct (34.1-44.9) % MCV (80.0-100.0) fL MCH (25.0-34.0) pg MCHC (32.0-36.0) g/dL RDW Std Deviation (36.4-46.3) fL RDW Coeff of Blaise (11.5-14.5) % Plt Count (130-400) K/uL MPV (9.4-12.3) fL Immature Gran % (Auto) % Neut % (Auto) % Lymph % (Auto) % Gilliam % (Auto) % Eos % (Auto) % Baso % (Auto) % Neut # (Auto) (1.4-6.5) K/uL Lymph # (Auto) (1.2-3.4) K/uL [place] # (Auto) (0.24-0.82) K/uL Eos # (Auto) (0-0.50) K/uL Baso # (Auto) (0-0.2) K/uL Immature Gran # (Auto) (0.00-0.02) K/uL PT (9.0-12.0) Seconds INR (0.9-1.1) APTT (21.0-31.0) Seconds PTT Ratio Sodium (136-145) mmol/L Potassium (3.5-5.1) mmol/L Chloride (98-107) mmol/L Carbon Dioxide (21-32) mmol/L Anion Gap (3-11) BUN (6-23) mg/dl Creatinine (0.6-1.2) mg/dl Est Cr Clr Drug Dosing ml/min Est GFR ( Amer) ml/min Est GFR (Non-Af Amer) ml/min BUN/Creatinine Ratio (10-20) Glucose (70-99(Fasting)) mg/dl Calcium (8.5-10.1) mg/dl Total Bilirubin (0.2-1.0) mg/dl AST (13-39) U/L ALT (7-52) U/L Alkaline Phosphatase (34-104) U/L Troponin I High Sens (0-14) pg/ml B-Natriuretic Peptide 65 (0-100) pg/ml Total Protein (6.0-8.3) gm/dl Albumin (3.4-5.0) gm/dl Globulin (2.5-4.0) gm/dl Albumin/Globulin Ratio (0.9-2) Lipase (11-82) U/L Urine Color Yellow Urine Appearance Clear (Clear) Urine pH 5.0 (4.5-7.5) Ur Specific [place] 1.009 (1.000-1.030) Urine Protein Negative (Negative) Urine Glucose (UA) Negative (Negative) Urine Ketones Negative (Negative) Urine Blood Negative (Negative) Urine Nitrite Negative (Negative) Urine Bilirubin Negative (Negative) Urine Urobilinogen Negative (Negative) Ur Leukocyte Esterase Negative (Negative) SARS-CoV-2, RNA, NAAT NEGATIVE (NEGATIVE) Imaging Data Attestation: I personally reviewed and interpreted this imaging study as follows: My Impression: Chest x-ray Radiologist's Impression: Chest X-Ray 04/04/22 19:14 SINGLE VIEW CHEST CLINICAL HISTORY: Atypical chest pain. FINDINGS: 2 AP, portable, upright chest radiographs are compared to study dated 09/23/2020 and correlated with chest CT dated 04/16/2021. A 3-lead cardiac pacemaker is unchanged in position and largely obscures the left mid chest. The heart is enlarged noting atherosclerotic calcification of the thoracic aorta. The pulmonary vasculature is noncongested. Chronic interstitial thickening is similar to previous. There is bibasilar scarring/atelectasis. No airspace consolidation or large pleural effusion is identified. No pneumothorax is seen. The skeletal structures are osteopenic. The bony thorax is grossly intact. IMPRESSION: 1. Cardiomegaly and cardiac pacemaker without radiographic evidence of congestive failure. 2. No airspace consolidation or large pleural effusion is identified. ACT 112: Negative or not required by law. Electronically signed by: Venkat Cole M.D. 04/04/2022 8:05 PM ECG Data Attestation: I personally reviewed and interpreted this ECG as follows: Indication: + chest pain and + weakness Rate (beats per minute): 67 Rhythm: + other (Ventricular paced rhythm) ECG Intervals/blocks: + Normal QRS ECG [place]: + Left axis deviation ECG ST segments: + Normal ST segments ECG Findings: no PACs or no PVCs Comparison ECG Date: from (09/23/20) Change: no significant change MDM Narrative This patient comes in as described above. She has been feeling weak for the last several days she has a nonfocal neurologic exam she has stable vital signs. Her blood sugar was apparently 240 when checked by EMS she has no reported diabetes history. She did have chest pain several days ago and may have had some belching since then. EKG was obtained and shows a paced rhythm. Blood work was obtained as well as a chest x-ray and head CT. She has a history of having superior vena cava cava syndrome but she does not appear to be significantly swollen in her face or neck. Her troponin is not elevated. She has no significant electrolyte or metabolic abnormality. She has nothing to suggest infection or sepsis. She is not severely anemic. CAT scan of her head is unremarkable. I did interrogate her pacemaker and I talked to the [employer] rep and he told me that she had no significant arrhythmia either ventricle or atrial. I talked to the patient's daughter at length who is a microsoft office instructor and she said that she has not looked well for the last couple days off and on and she is concerned that she has had a lot of ectopy and indigestion and had a severe episode of chest pain a couple days ag.o I do think it would be beneficial to admitting/observing her in the hospital and doing further cardiac work-up and evaluation. I have consulted Dr. Ruma Bryson to see the patient in ER for these measures Continuous cardiac monitoring: An order was placed in the EMR for continuous cardiac monitoring. Upon my interpretation the patient was noted to be in a paced rhythm with a rate of 60 Impression & Plan Chest pain, Pacemaker, Weakness, Lab test negative for COVID-19 virus Discharge Plan Visit Data Chief Complaint: Illness Stated Complaint: illness x 3 days ED Provider: Papi Calvo Discharge Problem: Chest pain, Pacemaker, Weakness, Lab test negative for COVID-19 virus Forms Stand Alone Forms: My [facility] Prescriptions Prescriptions: No Action potassium chloride 20 mEq tablet extended release 20 meq PO QAM Qty: 90 3RF metolazone 5 mg tablet 5 mg PO DAILY PRN (Reason: Edema) melatonin 5 mg Tablet 5 mg PO HS carvedilol 6.25 mg tablet 6.25 mg PO QAM Rx Instructions: PER PT "ONLY TAKE IN AM". PER EXT MED HX ORDERED BID. warfarin 2.5 mg tablet 2.5 mg PO DIRECTED Protocol: Dose Management Condition: Tuesday (Week One) Dose/Route: 1.25 mg Instruction: 0.5 x 2.5 mg tablets Condition: Tuesday Dose/Route: 2.5 mg Instruction: 1 x 2.5 mg tablet Condition: Tuesday Dose/Route: 1.25 mg Instruction: 0.5 x 2.5 mg tablets Condition: Tuesday Dose/Route: 2.5 mg Instruction: 1 x 2.5 mg tablet Condition: Dose/Route: 1.25 mg Instruction: 0.5 x 2.5 mg tablets Condition: Tuesday Dose/Route: 2.5 mg Instruction: 1 x 2.5 mg tablet Condition: Tuesday Dose/Route: 2.5 mg Instruction: 1 x 2.5 mg tablet Condition: Tuesday (Week Two) Dose/Route: 1.25 mg Instruction: 0.5 x 2.5 mg tablets Condition: Tuesday Dose/Route: 2.5 mg Instruction: 1 x 2.5 mg tablet Condition: Tuesday Dose/Route: 2.5 mg Instruction: 1 x 2.5 mg tablet Condition: Tuesday Dose/Route: 2.5 mg Instruction: 1 x 2.5 mg tablet Condition: Dose/Route: 1.25 mg Instruction: 0.5 x 2.5 mg tablets Condition: Tuesday Dose/Route: 2.5 mg Instruction: 1 x 2.5 mg tablet Condition: Tuesday Dose/Route: 2.5 mg Instruction: 1 x 2.5 mg tablet Protocol Text: Adjustment Start Date: Tuesday03/16/22 INR Value: 3.4 INR Date: 03/16/22 Recheck Date: 03/30/22 Rx Instructions: DEPENDS ON INR TO WHAT DOSE SHE TAKES. Referrals Referrals: Say Garcia III, CRNP [Primary Care Provider] -
[2022-04-04 19:33] LABS: INR 2.4 (0.9-1.1); Partial Thromboplastin Ratio 1.3; Partial Thromboplastin Time 37.1 Seconds (21.0-31.0)
[2022-04-04 19:38] LABS: Troponin I High Sensitivity 6.7 pg/ml (0-14)
[2022-04-04 19:41] LABS: Appearance Urine Clear (Clear); Bilirubin Urine Negative (Negative); Blood Urine Negative (Negative); Color Urine Yellow; Glucose Urine UA Negative (Negative); Ketones Urine Negative (Negative); Leukocyte Esterase Urine Negative (Negative); Nitrite Urine Negative (Negative); Protein Urine Negative (Negative); Specific Gravity Urine 1.009 (1.000-1.030); Urobilinogen Urine Negative (Negative)
[2022-04-04 19:41] LABS: Albumin Globulin Ratio 1.4 (0.9-2); Albumin Level 4.4 gm/dl (3.4-5.0); BUN Creatinine Ratio 26.5 (10-20); Bilirubin,Total 0.5 mg/dl (0.2-1.0); Calcium 9.3 mg/dl (8.5-10.1); Creatinine Clr Calc Pharmacy 42.4 ml/min; Est GFR (African American) 62.3 ml/min; Est GFR (Non-African American) 53.7 ml/min; Globulin 3.2 gm/dl (2.5-4.0); Total Protein 7.6 gm/dl (6.0-8.3)
[2022-04-04 19:52] LABS: Potassium 3.8 mmol/L (3.5-5.1)
--- NOTE | 2022-04-04 20:07 | XRay Report ---
SINGLE VIEW CHEST CLINICAL HISTORY: Atypical chest pain. FINDINGS: 2 AP, portable, upright chest radiographs are compared to study dated 09/23/2020 and correlat ed with chest CT dated 04/16/2021. A 3-lead cardiac pacemaker is unchanged in position and largely obs cures the left mid chest. The heart is enlarged noting atherosclerotic calcification of the thoracic aorta. The pulmonary vasculature is noncongested. Chronic interstitial thickening is similar to previ ous. There is bibasilar scarring/atelectasis. No airspace consolidation or large pleural effusion is identified. No pneumothorax is seen. The skeletal structures are osteopenic. The bony thorax is gross ly intact. IMPRESSION: 1. Cardiomegaly and cardiac pacemaker without radiographic evidence of congestive failure. 2. No airspace consolidation or large pleural effusion is identified. ACT 112: Negative or not required by law. Electronically signed by: Venkat Cole M.D. 04/04/2022 8:05 PM
--- NOTE | 2022-04-04 21:56 | History & Physical Report ---
Date of Service April 04, 2022 Assessment & Plan (1) Weakness: Plan: 81yo female presenting with several days of weakness, lethargy, nausea and indigestion following an episode of acute chest pain/diaphoresis and palpitations 3 days ago. Workup thus far largely unremarkable to include HS- troponin within normal limits, no ischemia on EKG, normal electrolytes and negative Covid-19 test Device interrogation without significant arrhythmia, is concerning for possible volume overload - although patient does not appear to be hypervolemic on exam. ?cardiac event three days ago - would expect troponin to still be detectable in that case ?viral illness -Trend troponin -Check 2D echo -Check Mg and PO4 and replete as needed -Will check HgbA1C given report of several elevated blood sugars as well as increased thirst (2) Chest pain: Plan: Patient with isolated episode of chest pain 3 days ago -Repeat troponin -Check echo (3) Superior vena cava syndrome: Plan: Patient on Coumadin anticoagulation and has been compliant with this medication. INR adequate at 2.4 -Continue Coumadin 2.5mg po daily -Check INR in AM (4) Complex sleep apnea syndrome: Plan: Patient is non-compliant with her CPAP. She reports her machine was recalled and she has not been able to get a new machine. She reports waking with a daily headache. -CPAP qHS -Consider Case Management consultation to assist patient with obtaining a new device (5) Nonischemic cardiomyopathy: Plan: Patient appears euvolemic on exam -Continue Carvedilol - written for daily. Consider increasing to BID if patient continues to have frequent PVCs -Monitor I/Os, daily weights History of Present Illness Chief Complaint: Illness Primary Care Provider: Say Garcia III, PATEL Tasneem Kingsley is a pleasant 81yo female with history of heart block with bi- ventricular pacer in place, superior vena cava syndrome/multiple DVTs on Coumadin anticoagulation (INR=2.4), KHADRA (non-compliant with CPAP) presenting with three days of illness. Patient presents with her daughter today who is an EMT and assists with the history. Patient was carrying heavy bags of garbage three days ago when she developed acute substernal chest pain, shortness of breath, diaphoresis and palpitations. The pain lasted several moments then resolved. Since then she has not felt well. She has been extremely fatigued and has been having a lot of nausea and belching. She notified her daughter that she was feeling ill today - was having increased fatigue and lethargy as well as a feeling of impending doom. Her daughter picked her up in the ambulance and brought her to the ER. She noted frequent PVCs on monitor en route to the hospital. Patient additionally with several episodes of diarrhea yesterday as well as morning headache. No additional chest pain. Daughter reports patient's blood sugar has been high on several past occasions - 180 then 240. No history of DM. Patient reports increased thirst (which she attributes to not having her [place] water machine at home) Daughter also reports patient has been noncompliant with her medications at home. Also report of unintentional weight loss since August. Unable to quantify amount. 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 is becoming more difficult to handle at home and sometimes misses her medications due to caring for him. He has just been enrolled in home hospice and the family is hoping for more home support. Allergies Allergy/AdvReac Type Severity Reaction Status Date / Time adhesive Allergy Intermediate "Adhesive Verified 04/04/22 20:11 tape" -- blisters sulfamethoxazole Allergy Intermediate MOUTH SORES Verified 04/04/22 20:11 trimethoprim Allergy Intermediate MOUTH SORES Verified 04/04/22 20:11 Home Medications Medication Instructions Recorded Confirmed Type melatonin 5 mg tablet 5 mg PO HS 11/20/20 04/04/22 History metolazone 5 mg tablet 5 mg PO DAILY PRN Edema 11/20/20 04/04/22 History potassium chloride 20 mEq 20 meq PO QAM #90 tabs 12/23/20 04/04/22 Rx tablet,extended release carvedilol 6.25 mg tablet 6.25 mg PO QAM 04/04/22 04/04/22 History warfarin 2.5 mg tablet 2.5 mg PO DIRECTED 04/04/22 04/04/22 History Past Med/Surg History Medical History Aortic regurgitation Breast cancer ?? pt denies CHF (NYHA class II, ACC/AHA stage C) Complete heart block (10/28/14) ICD/pacer Complex sleep apnea syndrome does not use cpap as ordered Deep venous thrombosis of left upper extremity several yrs ago > post surgical PURVIS (dyspnea on exertion) Hearing deficit History of colon polyps History of deep vein thrombosis (DVT) of lower extremity was just torn muscle, not clot per pt History of endometrial cancer diagnosed 20yrs ago--sx History of kidney stones ICD (implantable cardioverter-defibrillator) in place placed 03/18/2016 @ [facility] by Dr. Webber Left bundle branch block FCI current use of anticoagulant warfarin daily Mitral valve insufficiency Narrow angle glaucoma suspect of both eyes Osteoarthritis SNHL (sensorineural hearing loss) Superior vena cava syndrome reason for warfarin Surgical History History of breast biopsy per pt benign History of cardiac cath no stents History of cataract surgery B/L done 06/2021 and 08/2021 History of colonoscopy with polypectomy History of dilatation and curettage History of permanent cardiac pacemaker placement meditronic ICD placed by Dr. Webber at [facility] > last checked in Apr 2021 History of right cataract extraction 07/08/21 at [facility] [place]. Pt made ASA3. Given 2mg versed. History of tonsillectomy History of tooth extraction History of total abdominal hysterectomy and bilateral salpingo-oophorectomy History of total right knee replacement (TKR) History of wisdom tooth extraction S/P thyroid biopsy benign Family History Father Family hx of colon cancer Colorectal cancer Mother Family hx of colon cancer Colorectal cancer Aunt Family hx of colon cancer Other Family history non-contributory No family history of adverse response to anesthesia No significant family history Denies family history of Ovarian cancer Prostate cancer Myocardial infarction Breast cancer Social History Smoking Status: Never smoker Second Hand Exposure: Yes (in childhood); Hx Alcohol Use: No Hx Substance Use: No Preferred Language: Ukrainian Communication Ability: Effective Visual Impairment: No Limitations Hearing Ability: Use of Hearing Aid Puttier Required: No Beliefs That Will Affect Care: None marital status: Current Living Situation: Spouse current occupational status: retired 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 Feels Safe at Home: Yes Childhood Exposure to Second-Hand Smoke: Yes Dental Care, Regularly: Yes Physical Activity Frequency: Does not Exercise Seatbelt Use: always Sunscreen Use: No Assistive Devices: Hearing Aid - Bilateral Review of Systems Review of Systems: All systems reviewed & are unremarkable except as noted in HPI & below Physical Exam Physical Exam: General: patient resting comfortably, NAD, non-toxic in appearance, AA&O x 4, hard of hearing Skin: warm, dry, intact, no rashes or lesions HEENT: NC/AT, PERRL, EOMI, anicteric sclera, conjunctiva without injection, external ear normal to inspection and nontender, nares patent, moist mucus membranes, dentition intact, no oropharyngeal lesions, neck supple, trachea midline, no LAD, no thyromegaly, no JVD Heart: +S1/S2, regular, 2/6 JASON across precordium, ventricular paced rhythm on monitor Lungs: equal air entry bilaterally, no rales/rhonchi/wheezes Abd: +BS, soft, NT/ND, no masses/organomegaly/ascites. Dilated tortuous vein on left abdomen Ext: warm, 2+ pulses in UE/LE bilaterally, no clubbing/cyanosis or edema Neuro: nonfocal, patient AA&O x 4, speech intact, no facial droop, moving all extremities on command with equal strength 5/5 Results & Data Results & Data ([facility]) Vital Signs (Past 12 Hours) Vital Signs Temp Pulse Pulse Resp BP BP Pulse Ox 04/04/22 21:35 65 20 152/83 H 96 04/04/22 21:04 67 20 159/82 H 96 04/04/22 20:19 63 20 149/84 H 95 04/04/22 19:25 96 04/04/22 19:05 69 20 161/84 H 97 04/04/22 18:55 37.4 C 87 20 185/95 H 98 O2 Del Method 04/04/22 21:35 Room Air 04/04/22 21:04 Room Air 04/04/22 20:19 Room Air 04/04/22 19:25 Room Air 04/04/22 19:05 Room Air 04/04/22 18:55 Room Air Laboratory Results Laboratory Results WBC 5.24 K/ul (4.8-10.8) 04/04/22 18:37 RBC 5.04 M/uL (3.93-5.22) 04/04/22 18:37 Hgb 14.6 g/dl (12.0-16.0) 04/04/22 18:37 Hct 44.0 % (34.1-44.9) 04/04/22 18:37 MCV 87.3 fL (80.0-100.0) 04/04/22 18:37 MCH 29.0 pg (25.0-34.0) 04/04/22 18:37 MCHC 33.2 g/dL (32.0-36.0) 04/04/22 18:37 RDW Std Deviation 43.7 fL (36.4-46.3) 04/04/22 18:37 RDW Coeff of Blaise 13.7 % (11.5-14.5) 04/04/22 18:37 Plt Count 217 K/uL (130-400) 04/04/22 18:37 MPV 10.8 fL (9.4-12.3) 04/04/22 18:37 Immature Gran % (Auto) 0.2 % 04/04/22 18:37 Neut % (Auto) 53.1 % 04/04/22 18:37 Lymph % (Auto) 30.5 % 04/04/22 18:37 [place] % (Auto) 10.7 % 04/04/22 18:37 Eos % (Auto) 4.4 % 04/04/22 18:37 Baso % (Auto) 1.1 % 04/04/22 18:37 Neut # (Auto) 2.78 K/uL (1.4-6.5) 04/04/22 18:37 Lymph # (Auto) 1.60 K/uL (1.2-3.4) 04/04/22 18:37 [place] # (Auto) 0.56 K/uL (0.24-0.82) 04/04/22 18:37 Eos # (Auto) 0.23 K/uL (0-0.50) 04/04/22 18:37 Baso # (Auto) 0.06 K/uL (0-0.2) 04/04/22 18:37 Immature Gran # (Auto) 0.01 K/uL (0.00-0.02) 04/04/22 18:37 PT 24.0 Seconds (9.0-12.0) H 04/04/22 18:37 INR 2.4 (0.9-1.1) H 04/04/22 18:37 APTT 37.1 Seconds (21.0-31.0) H 04/04/22 18:37 PTT Ratio 1.3 04/04/22 18:37 Sodium 138 mmol/L (136-145) 04/04/22 18:37 Potassium 3.8 mmol/L (3.5-5.1) 04/04/22 18:37 Chloride 103 mmol/L (98-107) 04/04/22 18:37 Carbon Dioxide 27 mmol/L (21-32) 04/04/22 18:37 Anion Gap 8 (3-11) 04/04/22 18:37 BUN 26 mg/dl (6-23) H 04/04/22 18:37 Creatinine 0.98 mg/dl (0.6-1.2) 04/04/22 18:37 Est Cr Clr Drug Dosing 42.4 ml/min 04/04/22 18:37 Est GFR ( Amer) 62.3 ml/min 04/04/22 18:37 Est GFR (Non-Af Amer) 53.7 ml/min 04/04/22 18:37 BUN/Creatinine Ratio 26.5 (10-20) H 04/04/22 18:37 Glucose 159 mg/dl (70-99(Fasting)) H 04/04/22 18:37 Calcium 9.3 mg/dl (8.5-10.1) 04/04/22 18:37 Total Bilirubin 0.5 mg/dl (0.2-1.0) 04/04/22 18:37 AST 23 U/L (13-39) 04/04/22 18:37 ALT 14 U/L (7-52) 04/04/22 18:37 Alkaline Phosphatase 73 U/L (34-104) 04/04/22 18:37 Troponin I High Sens 6.7 pg/ml (0-14) 04/04/22 18:37 B-Natriuretic Peptide 65 pg/ml (0-100) 04/04/22 19:28 Total Protein 7.6 gm/dl (6.0-8.3) 04/04/22 18:37 Albumin 4.4 gm/dl (3.4-5.0) 04/04/22 18:37 Globulin 3.2 gm/dl (2.5-4.0) 04/04/22 18:37 Albumin/Globulin Ratio 1.4 (0.9-2) 04/04/22 18:37 Lipase 54 U/L (11-82) 04/04/22 18:37 Urine Color Yellow 04/04/22 19:30 Urine Appearance Clear (Clear) 04/04/22 19:30 Urine pH 5.0 (4.5-7.5) 04/04/22 19:30 Ur Specific [place] 1.009 (1.000-1.030) 04/04/22 19:30 Urine Protein Negative (Negative) 04/04/22 19: Urine Glucose (UA) Negative (Negative) 04/04/22 19: Urine Ketones Negative (Negative) 04/04/22 19:30 Urine Blood Negative (Negative) 04/04/22 19:30 Urine Nitrite Negative (Negative) 04/04/22 19: Urine Bilirubin Negative (Negative) 04/04/22 19:30 Urine Urobilinogen Negative (Negative) 04/04/22 19:30 Ur Leukocyte Esterase Negative (Negative) 04/04/22 19:30 SARS-CoV-2, RNA, NAAT NEGATIVE (NEGATIVE) 04/04/22 19:30 Impressions Chest X-Ray 04/04/22 19:14 SINGLE VIEW CHEST CLINICAL HISTORY: Atypical chest pain. FINDINGS: 2 AP, portable, upright chest radiographs are compared to study dated 09/23/2020 and correlated with chest CT dated 04/16/2021. A 3-lead cardiac pacemaker is unchanged in position and largely obscures the left mid chest. The heart is enlarged noting atherosclerotic calcification of the thoracic aorta. The pulmonary vasculature is noncongested. Chronic interstitial thickening is similar to previous. There is bibasilar scarring/atelectasis. No airspace consolidation or large pleural effusion is identified. No pneumothorax is seen. The skeletal structures are osteopenic. The bony thorax is grossly intact. IMPRESSION: 1. Cardiomegaly and cardiac pacemaker without radiographic evidence of congestive failure. 2. No airspace consolidation or large pleural effusion is identified. ACT 112: Negative or not required by law. Electronically signed by: Venkat Cole M.D. 04/04/2022 8:05 PM Code Status & VTE Plan VTE Prophylaxis Plan VTE Prophylaxis will be ordered: Yes PG Care Time/CCT Total # of Minutes Spent Total Time Spent with Patient: Total time spent is greater than 50% in coordination of care (as documented) at patient's floor/unit and/or counseling patient: Coding Level of Care Code INT OBSERVATION CARE 50M LVL 2 Diagnoses Weakness R53.1 Chest pain R07.9 Chest pain type: unspecified Superior vena cava syndrome I87.1 Complex sleep apnea syndrome G47.31 Nonischemic cardiomyopathy I42.8 (1) Chest pain Chest pain type: unspecified Qualified Code(s): R07.9 - Chest pain, unspecified
[2022-04-04] MEDS ORDERED: ONDANSETRON INJ 2 MG/ML 2 ML VIAL IV PRN (22:58)
[2022-04-04] MEDS ORDERED: FAMOTIDINE 10 MG TABLET PO ONE (22:58)
[2022-04-04] MEDS ORDERED: ACETAMINOPHEN 325 MG TAB PO PRN (22:58)
[2022-04-04] MEDS ORDERED: Nursing to Pharmacy Communication SCH (23:30)
[2022-04-04] MEDS ORDERED: MELATONIN 3 MG TAB PO ONE (23:45)
[2022-04-04 23:50] LABS: Phosphorus 3.3 mg/dl (2.5-4.9)
[2022-04-04 23:54] LABS: Troponin I High Sensitivity 10.2 pg/ml (0-14)
[2022-04-05 07:02] LABS: Basophils # (auto) 0.05 K/uL (0-0.2); Eosinophils # (auto) 0.27 K/uL (0-0.50); Eosinophils % (auto) 5.2 %; Hematocrit (blood only) 39.7 % (34.1-44.9); Hemoglobin 13.5 g/dl (12.0-16.0); Immature Granulocytes # (auto) 0.01 K/uL (0.00-0.02); Immature Granulocytes % (auto) 0.2 %; Lymphocytes # (auto) 1.57 K/uL (1.2-3.4); Lymphocytes % (auto) 30.1 %; Mean Corpuscular Hemoglobin 28.9 pg (25.0-34.0); Mean Platelet Volume 10.9 fL (9.4-12.3); Monocytes # (auto) 0.72 K/uL (0.24-0.82); Monocytes % (auto) 13.8 %; Neutrophils # (auto) 2.59 K/uL (1.4-6.5); Neutrophils % (auto) 49.7 %; Platelet Count 198 K/uL (130-400); RDW Coefficient of Variation 13.6 % (11.5-14.5); RDW Standard Deviation 42.5 fL (36.4-46.3); Red Blood Count 4.67 M/uL (3.93-5.22); White Blood Count 5.21 K/ul (4.8-10.8)
--- NOTE | 2022-04-05 07:10 | CT Scan Report ---
CT head/brain wo con CLINICAL HISTORY: headache COMPARISON STUDY: 09/23/2020 CT DOSE: 687.98 mGy.cm TECHNIQUE: Standard CT of the Brain was performed without IV contrast. A dose lowering technique was utilized adhering to the principles of ALARA. FINDINGS: Extraaxial space: There is no evidence for subdural hematoma. There are no extra-axial fluid collecti ons. Ventricles and cisterns: The ventricles are mildly dilated bilaterally. There is no evidence for midl ine shift or mass effect. Parenchyma: There is no subarachnoid or intraparenchymal hemorrhage. There is no evidence for an acut e infarct or cerebral edema. There is mild cerebral cortical atrophy and decreased attenuation in the periventricular white matter representing remote small vessel disease. There are no gross mass lesio ns. Osseous structures: There is no evidence for an acute fracture. The visualized paranasal sinuses are clear. The mastoid air cells are clear bilaterally. Soft tissues: There is no evidence for focal soft tissue swelling. IMPRESSION: 1. No acute intracerebral pathology. 2. Atrophy and remote small vessel disease are again seen. ACT 112: Negative or not required by law. Electronically signed by: Luis Alberto Andrade M.D. 04/05/2022 7:09 AM
[2022-04-05 07:22] LABS: BUN Creatinine Ratio 31.8 (10-20); Creatinine Clr Calc Pharmacy 46.1 ml/min; Est GFR (Non-African American) 63.8 ml/min; Potassium 3.7 mmol/L (3.5-5.1)
[2022-04-05 07:35] LABS: Estimated Average Glucose 114 mg/dl; Hemoglobin A1C 5.6 % (4.5-5.6)
[2022-04-05] MEDS: FAMOTIDINE 10 MG TABLET PO SCH (07:53)
[2022-04-05 08:08] LABS: INR 2.4 (0.9-1.1); Prothrombin Time 24.1 Seconds (9.0-12.0)
[2022-04-05] MEDS ORDERED: carvediloL 6.25 MG TAB PO SCH (09:00)
--- NOTE | 2022-04-05 11:53 | XCELERA ---
[id number]
--- NOTE | 2022-04-05 12:42 | Electrocardiogram Report ---
Test Reason : Blood Pressure : / mmHG Vent. Rate : 067 BPM Atrial Rate : 068 BPM P-R Int : 130 ms QRS Dur : 144 ms QT Int : 450 ms P-R-T Axes : 083 251 071 degrees QTc Int : 475 ms Poor data quality, interpretation may be adversely affected AV sequential or dual chamber electronic pacemaker Right superior axis deviation Non-specific intra-ventricular conduction block Cannot rule out Anteroseptal infarct , age undetermined Abnormal ECG When compared with ECG of 23-SEP-2020 14:08, No significant change Confirmed by Josué Mayo ([id number]) on 04/05/2022 12:41:55 PM Referred By: REFERRED SELF Confirmed By:Josué Mayo
--- NOTE | 2022-04-05 14:03 | Hospitalist Progress Note ---
Date of Service April 05, 2022 Assessment & Plan (1) Weakness: Plan: Improved, await OT/PT; possible discharge (2) Chest pain: Plan: Troponins negative, echo nonacute,- observe (3) Superior vena cava syndrome: Plan: Patient on Coumadin anticoagulation and has been compliant with this medication. INR adequate at 2.4 -Continue Coumadin 2.5mg po daily -INR therapeutic (4) Complex sleep apnea syndrome: Plan: Patient is non-compliant with her CPAP. She reports her machine was recalled and she has not been able to get a new machine. She reports waking with a daily headache. -CPAP qHS -hotel front office manager consulted but might need to be addressed as outpatient via pulmonary/PCP (5) Nonischemic cardiomyopathy: Plan: Patient appears euvolemic on exam -Continue Carvedilol but switch to twice daily dosing at same total dose Admission and Anticipated Discharge Date Admission Date: April 04, 2022 Subjective Follow-up of presentation with chest pain, nausea: feels wellno symptoms Physical Exam Physical Exam: Constitutional and general: No acute distress, looks biologic age Head and face: No puffiness, atraumatic Eyes: No scleral icterus, extraocular movements normal Neck: Supple, no JVD Musculoskeletal: No acute joint swelling, no bony abnormalities Skin/dermatologic/integument: No rash, no purpura Hematologic and lymphatic: pallor none, no petechia Gastrointestinal/abdomen: Nondistended, soft, nonacute Neurologic: Cranial nerves intact, nonfocal Psychiatry: Awake, alert, pleasant, communicative Cardiovascular: Heart rhythm regular, no rub, no murmur, no gallop Respiratory: Chest movements equal, no use of accessory muscles, no adventitious sounds Extremities: No edema, no cyanosis Results & Data Results & Data ([facility]) Vital Signs (Past 12 Hours) Vital Signs Temp Pulse Pulse Resp BP Pulse Ox O2 Del Method 04/05/22 11:49 36.8 C 69 18 124/77 94 Room Air 04/05/22 08:00 Room Air 04/05/22 08:24 36.7 C 61 18 136/69 94 Room Air 04/05/22 07:15 60 04/05/22 03:27 36.5 C 67 18 119/72 96 Room Air Laboratory Results Laboratory Results - last 24 hr 04/04/22 04/04/22 04/04/22 18:37 18:37 18:37 WBC 5.24 RBC 5.04 Hgb 14.6 Hct 44.0 MCV 87.3 MCH 29.0 MCHC 33.2 RDW Std Deviation 43.7 RDW Coeff of Blaise 13.7 Plt Count 217 MPV 10.8 Immature Gran % (Auto) 0.2 Neut % (Auto) 53.1 Lymph % (Auto) 30.5 [place] % (Auto) 10.7 Eos % (Auto) 4.4 Baso % (Auto) 1.1 Neut # (Auto) 2.78 Lymph # (Auto) 1.60 [place] # (Auto) 0.56 Eos # (Auto) 0.23 Baso # (Auto) 0.06 Immature Gran # (Auto) 0.01 PT 24.0 H INR 2.4 H APTT 37.1 H PTT Ratio 1.3 Sodium 138 Potassium 3.8 Chloride 103 Carbon Dioxide 27 Anion Gap 8 BUN 26 H Creatinine 0.98 Est Cr Clr Drug Dosing 42.4 Est GFR ( Amer) 62.3 Est GFR (Non-Af Amer) 53.7 BUN/Creatinine Ratio 26.5 H Glucose 159 H Estimat Average Glucose Hemoglobin A1c Calcium 9.3 Phosphorus Magnesium Total Bilirubin 0.5 AST 23 ALT 14 Alkaline Phosphatase 73 Troponin I High Sens 6.7 B-Natriuretic Peptide Total Protein 7.6 Albumin 4.4 Globulin 3.2 Albumin/Globulin Ratio 1.4 Lipase 54 Urine Color Urine Appearance Urine pH Ur Specific [place] Urine Protein Urine Glucose (UA) Urine Ketones Urine Blood Urine Nitrite Urine Bilirubin Urine Urobilinogen Ur Leukocyte Esterase SARS-CoV-2, RNA, NAAT 04/04/22 04/04/22 04/04/22 19:28 19:30 19:30 WBC RBC Hgb Hct MCV MCH MCHC RDW Std Deviation RDW Coeff of Blaise Plt Count MPV Immature Gran % (Auto) Neut % (Auto) Lymph % (Auto) [place] % (Auto) Eos % (Auto) Baso % (Auto) Neut # (Auto) Lymph # (Auto) [place] # (Auto) Eos # (Auto) Baso # (Auto) Immature Gran # (Auto) PT INR APTT PTT Ratio Sodium Potassium Chloride Carbon Dioxide Anion Gap BUN Creatinine Est Cr Clr Drug Dosing Est GFR ( Amer) Est GFR (Non-Af Amer) BUN/Creatinine Ratio Glucose Estimat Average Glucose Hemoglobin A1c Calcium Phosphorus Magnesium Total Bilirubin AST ALT Alkaline Phosphatase Troponin I High Sens B-Natriuretic Peptide 65 Total Protein Albumin Globulin Albumin/Globulin Ratio Lipase Urine Color Yellow Urine Appearance Clear Urine pH 5.0 Ur Specific [place] 1.009 Urine Protein Negative Urine Glucose (UA) Negative Urine Ketones Negative Urine Blood Negative Urine Nitrite Negative Urine Bilirubin Negative Urine Urobilinogen Negative Ur Leukocyte Esterase Negative SARS-CoV-2, RNA, NAAT NEGATIVE 04/04/22 04/05/22 04/05/22 23:20 06:30 06:30 WBC 5.21 RBC 4.67 Hgb 13.5 Hct 39.7 MCV 85.0 MCH 28.9 MCHC 34.0 RDW Std Deviation 42.5 RDW Coeff of Blaise 13.6 Plt Count 198 MPV 10.9 Immature Gran % (Auto) 0.2 Neut % (Auto) 49.7 Lymph % (Auto) 30.1 [place] % (Auto) 13.8 Eos % (Auto) 5.2 Baso % (Auto) 1.0 Neut # (Auto) 2.59 Lymph # (Auto) 1.57 [place] # (Auto) 0.72 Eos # (Auto) 0.27 Baso # (Auto) 0.05 Immature Gran # (Auto) 0.01 PT INR APTT PTT Ratio Sodium Potassium Chloride Carbon Dioxide Anion Gap BUN Creatinine Est Cr Clr Drug Dosing Est GFR ( Amer) Est GFR (Non-Af Amer) BUN/Creatinine Ratio Glucose Estimat Average Glucose 114 Hemoglobin A1c 5.6 Calcium Phosphorus 3.3 Magnesium 2.0 Total Bilirubin AST ALT Alkaline Phosphatase Troponin I High Sens 10.2 B-Natriuretic Peptide Total Protein Albumin Globulin Albumin/Globulin Ratio Lipase Urine Color Urine Appearance Urine pH Ur Specific [place] Urine Protein Urine Glucose (UA) Urine Ketones Urine Blood Urine Nitrite Urine Bilirubin Urine Urobilinogen Ur Leukocyte Esterase SARS-CoV-2, RNA, NAAT 04/05/22 04/05/22 04/05/22 06:30 06:30 06:30 WBC RBC Hgb Hct MCV MCH MCHC RDW Std Deviation RDW Coeff of Blaise Plt Count MPV Immature Gran % (Auto) Neut % (Auto) Lymph % (Auto) [place] % (Auto) Eos % (Auto) Baso % (Auto) Neut # (Auto) Lymph # (Auto) [place] # (Auto) Eos # (Auto) Baso # (Auto) Immature Gran # (Auto) PT 24.1 H INR 2.4 H APTT PTT Ratio Sodium 137 Potassium 3.7 Chloride 104 Carbon Dioxide 28 Anion Gap 5 BUN 27 H Creatinine 0.85 Est Cr Clr Drug Dosing 46.1 Est GFR ( Amer) 74.0 Est GFR (Non-Af Amer) 63.8 BUN/Creatinine Ratio 31.8 H Glucose 97 Estimat Average Glucose Hemoglobin A1c Calcium 9.0 Phosphorus Magnesium Total Bilirubin AST ALT Alkaline Phosphatase Troponin I High Sens 7.3 B-Natriuretic Peptide Total Protein Albumin Globulin Albumin/Globulin Ratio Lipase Urine Color Urine Appearance Urine pH Ur Specific [place] Urine Protein Urine Glucose (UA) Urine Ketones Urine Blood Urine Nitrite Urine Bilirubin Urine Urobilinogen Ur Leukocyte Esterase SARS-CoV-2, RNA, NAAT PG Care Time/CCT Total # of Minutes Spent Total Time Spent with Patient: Total time spent is greater than 50% in coordination of care (as documented) at patient's floor/unit and/or counseling patient: Coding Level of Care Code 21378 Subseq Hosp Care Lvl 2 Diagnoses Weakness R53.1 Chest pain R07.9 Chest pain type: unspecified Superior vena cava syndrome I87.1 Complex sleep apnea syndrome G47.31 Nonischemic cardiomyopathy I42.8 (1) Chest pain Chest pain type: unspecified Qualified Code(s): R07.9 - Chest pain, unspecif ied
[2022-04-05] MEDS ORDERED: WARFARIN SOD 2.5 MG TAB PO SCH (16:00)
[2022-04-05] MEDS ORDERED: MELATONIN 3 MG TAB PO SCH (21:00)
[2022-04-06] MEDS: FAMOTIDINE 10 MG TABLET PO SCH (08:24)
[2022-04-06] MEDS ORDERED: carvediloL 3.125 MG TAB PO SCH (09:00)
--- NOTE | 2022-04-06 15:02 | Discharge Summary ---
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 Patient presents with her daughter today who is an EMT and assists with the history. Patient was carrying heavy bags of garbage three days ago when she developed ac [place] substernal chest pain, shortness of breath, diaphoresis and palpitations. The pain lasted several moments then resolved. Since then she has not felt well. She has been extremely fatigued and has been having a lot of nausea and belching. She notified her daughter that she was feeling ill today - was having increased fatigue and lethargy as well as a feeling of impending doom. Her daughter picked her up in the ambulance and brought her to the ER. She noted frequent PVCs on monitor en route to the hospital. Patient additionally with several episodes of diarrhea yesterday as well as mo rning headache. No additional chest pain. Daughter reports patient's blood sugar has been high on several past occasions - 180 then 240. No history of DM. Patient reports increased thirst (which she attributes to not having her [place] water machine at home) Daughter also reports patient has been noncompliant with her medications at home. Also report of unintentional weight loss since August. Unable to quantify amount. 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 is becoming more difficult to handle at home and sometimes misses her medications due to caring for him. He has just been enrolled in home hospice and the family is hoping for more home support. Principal Diagnosis Suspected noncardiac chest pain, weakness Discharge Exam Constitutional and general: No acute distress, looks biologic age Head and face: No puffiness, atraumatic Eyes: No scleral icterus, extraocular movements normal Neck: Supple, no JVD Musculoskeletal: No acute joint swelling, no bony abnormalities Skin/dermatologic/integument: No rash, no purpura Hematologic and lymphatic: pallor none, no petechia Gastrointestinal/abdomen: Nondistended, soft, nonacute Neurologic: Cranial nerves intact, nonfocal Psychiatry: Awake, alert, pleasant, communicative Cardiovascular: Heart rhythm regular, no rub, no murmur, no gallop Respiratory: Chest movements equal, no use of accessory muscles, no adventitious sounds Extremities: No edema, no cyanosis Discharge Data Allergies Allergy/AdvReac Type Severity Reaction Status Date / Time adhesive Allergy Intermediate "Adhesive Verified 04/04/22 20:11 tape" -- blisters sulfamethoxazole Allergy Intermediate MOUTH SORES Verified 04/04/22 20:11 trimethoprim Allergy Intermediate MOUTH SORES Verified 04/04/22 20:11 Consultations 04/04/22 20:59 ED Decision to Admit Stat Ordered Studies 04/04/22 19:14 CT head/brain wo con Urgent Hospital Course (1) Weakness: Improved, seen by OT PT and they recommended discharge to self-care; patient wants to go home (2) Chest pain: Troponins negative, echo nonacute; overall low suspicion for ACSfollow-up with PCP; can consider cardiology referral particularly if recurrencedefer to PCP (3) Superior vena cava syndrome: Patient on Coumadin anticoagulation and has been compliant with this medication. INR adequate at 2.4 -Continue Coumadin 2.5mg po daily -INR therapeutic (4) Complex sleep apnea syndrome: Patient is non-compliant with her CPAP. She reports her machine was recalled and she has not been able to get a new machine. may need reevaluationoutpatient pulmonary (5) Nonischemic cardiomyopathy: Apparent history of same but at present echo shows normal ejection fraction; was on as needed metolazonenot continued; reevaluate; as noted above, can consider cardiology referral (I do not see that she sees cardiology regularly) -Continued home Carvedilol but switch to twice daily dosing at same total dose (6) Pacemaker: Continue appropriate follow-up Total Time Total Time Spent Total Time Spent (In Minutes): 35 Discharge Plan Discharge Items Patient Disposition: Home - Self-Care Reason For Visit: ILLNESS, CHEST PAIN Discharge Diagnosis: Weakness, noncardiac chest pain Activity: Resume your previous activity Non-emergency contact: Primary Care Provider Call non-emergency contact if: your symptoms worsen Follow-up/Referrals: Say Garcia III, CRNP [Primary Care Provider] - (Within 1 week, posthospitalization follow-up) Jose Sandoval MD [Physician] - (History of reported complex sleep apnea syndrome, not on NIV "machine recalled"-likely needs reevaluation; within a month if possible ') Diet: Heart Healthy Addtl Attending Provider Instructions: Follow-up with your PCP in about a week Pending Studies at Discharge: No Stand-Alone Forms: My [facility] [employer], Smoking Cessation Medications and DC Order Prescriptions: New carvedilol 3.125 mg Tablet 3.125 mg PO BID Qty: 60 1RF Rx Instructions: New dose of this medication Continued melatonin 5 mg Tablet 5 mg PO HS warfarin 2.5 mg tablet 2.5 mg PO DIRECTED Protocol: Dose Management Condition: Tuesday (Week One) Dose/Route: 1.25 mg Instruction: 0.5 x 2.5 mg tablets Condition: Tuesday Dose/Route: 2.5 mg Instruction: 1 x 2.5 mg tablet Condition: Tuesday Dose/Route: 1.25 mg Instruction: 0.5 x 2.5 mg tablets Condition: Tuesday Dose/Route: 2.5 mg Instruction: 1 x 2.5 mg tablet Condition: Dose/Route: 1.25 mg Instruction: 0.5 x 2.5 mg tablets Condition: Tuesday Dose/Route: 2.5 mg Instruction: 1 x 2.5 mg tablet Condition: Tuesday Dose/Route: 2.5 mg Instruction: 1 x 2.5 mg tablet Condition: Tuesday (Week Two) Dose/Route: 1.25 mg Instruction: 0.5 x 2.5 mg tablets Condition: Tuesday Dose/Route: 2.5 mg Instruction: 1 x 2.5 mg tablet Condition: Tuesday Dose/Route: 2.5 mg Instruction: 1 x 2.5 mg tablet Condition: Tuesday Dose/Route: 2.5 mg Instruction: 1 x 2.5 mg tablet Condition: Dose/Route: 1.25 mg Instruction: 0.5 x 2.5 mg tablets Condition: Tuesday Dose/Route: 2.5 mg Instruction: 1 x 2.5 mg tablet Condition: Tuesday Dose/Route: 2.5 mg Instruction: 1 x 2.5 mg tablet Protocol Text: Adjustment Start Date: Tuesday03/16/22 INR Value: 3.4 INR Date: 03/16/22 Recheck Date: 03/30/22 Rx Instructions: DEPENDS ON INR TO WHAT DOSE SHE TAKES. Discontinued potassium chloride 20 mEq tablet extended release 20 meq PO QAM Qty: 90 3RF metolazone 5 mg tablet 5 mg PO DAILY PRN (Reason: Edema) carvedilol 6.25 mg tablet 6.25 mg PO QAM Rx Instructions: PER PT "ONLY TAKE IN AM". PER EXT MED HX ORDERED BID. Discharge Orders: Discharge Order (Routine); Ordered 04/06/22 Ordered By: Ervin Oconnor Admission Data Admit Date/Time: 04/04/22 21:55 Attending Provider: Ervin Oconnor Admit Provider: Ruma Bryson Primary Care Provider: Say Garcia III Other Providers: Ruma Bryson Coding Level of Care Code 57051 OBS Care - Discharge Diagnoses Weakness R53.1 Chest pain R07.9 Chest pain type: unspecified Superior vena cava syndrome I87.1 Complex sleep apnea syndrome G47.31 Nonischemic cardiomyopathy I42.8 Pacemaker Z95.0
== END 2022-04-06 15:30 | disposition home or self-care (01) ==
LOC: ED 18:44 → 2N 18:44 → SUATTDRO 21:55 → 2N 22:27

== ENCOUNTER 2022-11-27 05:45 | Inpatient (IN) ==
[2022-11-27] MEDS ORDERED: ONDANSETRON INJ 2 MG/ML 2 ML VIAL IV STA (06:40)
[2022-11-27] MEDS ORDERED: fentaNYL citrate 100 MCG/2 ML VIAL IV PRN (06:40)
[2022-11-27] MEDS ORDERED: ACETAMINOPHEN 1,000 MG/100 ML VIAL IV STA (06:40)
[2022-11-27 06:59] LABS: Basophils # (auto) 0.05 K/uL (0-0.2); Basophils % (auto) 0.8 %; Eosinophils # (auto) 0.23 K/uL (0-0.50); Eosinophils % (auto) 3.9 %; Hematocrit (blood only) 38.6 % (37.0-47.0); Hemoglobin 13.6 g/dl (12.0-16.0); Immature Granulocytes # (auto) 0.02 K/uL (0.01-0.20); Immature Granulocytes % (auto) 0.3 %; Lymphocytes # (auto) 1.26 K/uL (1.2-3.4); Lymphocytes % (auto) 21.4 %; Mean Corpuscular Hemoglobin 29.6 pg (25.0-34.0); Mean Corpuscular Hgb Conc 35.2 g/dL (32.0-36.0); Mean Corpuscular Volume 84.1 fL (80.0-100.0); Mean Platelet Volume 10.2 fL (9.4-12.4); Monocytes # (auto) 0.65 K/uL (0.11-0.59); Neutrophils # (auto) 3.68 K/uL (1.40-6.50); Neutrophils % (auto) 62.6 %; Platelet Count 198 K/uL (130-400); RDW Coefficient of Variation 14.3 % (11.5-14.5); RDW Standard Deviation 43.7 fL (36.4-46.3); Red Blood Count 4.59 M/uL (4.20-5.40); White Blood Count 5.89 K/ul (4.8-10.8)
[2022-11-27 07:14] LABS: Alanine Aminotransferase 14 U/L (7-52); Albumin Globulin Ratio 1.5 (0.9-2); Albumin Level 4.1 gm/dl (3.4-5.0); Alkaline Phosphatase 60 U/L (34-104); Anion Gap 4 (3-11); Aspartate Aminotransferase 24 U/L (13-39); BUN Creatinine Ratio 24.5 (10-20); Bilirubin,Total 0.5 mg/dl (0.2-1.0); Blood Urea Nitrogen 24 mg/dl (6-23); Calcium 9.4 mg/dl (8.5-10.1); Carbon Dioxide 28 mmol/L (21-32); Chloride 104 mmol/L (98-107); Est GFR (African American) 61.8 ml/min; Est GFR (Non-African American) 53.3 ml/min; Globulin 2.8 gm/dl (2.5-4.0); Glucose 102 mg/dl (70-99(Fasting)); Potassium 4.3 mmol/L (3.5-5.1); Sodium 136 mmol/L (136-145); Total Protein 6.9 gm/dl (6.0-8.3)
--- NOTE | 2022-11-27 07:17 | Emergency Department Note ---
Impression & Plan Chest pain, Dyspnea, Hypoxia, Subtherapeutic international normalized ratio (INR) ED Provider Note ED Provider Note NAME: MARIPOSA CANNON AGE:82 SEX: Female : 1940 ARRIVES VIA: EMS INFORMANT: Patient ED PROVIDER(s): Sarai Dhaliwal DO CHIEF COMPLAINT: Chest pain, left arm pain HPI: This is an 82-year-old female presents emergency department complaining of chest pain, left arm pain, shortness of breath, nausea. Patient states symptoms first began with nausea around 330 followed by chest pain around 4. Patient states the discomfort actually began in her proximal posterior left upper extremity and then seem to radiate into her chest additionally. She states she also has accompanying left-sided back pain. She denies neck or jaw pain. She states she has been intermittently lightheaded/dizzy over the course of the last month. Patient also noticed increased shortness of breath with any exertion. Family at bedside states they have noticed increased fatigue more recently or patient becomes very winded and tired with any exertion. Patient does have cardiac history including placement of a pacemaker several years ago. She follows with Dr. Álvarez of cardiology and her last visit with him was in April 2022. Patient is anticoagulated due to a history of an SVC clot, last INR per her report is 2.6. She denies fevers, chills, or recent cold. She states she has had a slight cough over the last week although states it is nonproductive. She denies any recent leg swelling. PAST MEDICAL HISTORY:See Below PAST SURGICAL HISTORY:See Below FAMILY HISTORY:See Below SOCIAL HISTORY:See Below HOME MEDICATIONS:See Below ALLERGIES:See Below VITALS:See Below PHYSICAL EXAMINATION: GENERAL: alert, uncomfortable appearing, well nourished, no distress, non-toxic EYE EXAM: normal conjunctiva, PERRL and EOM's grossly intact OROPHARYNX: no exudate, no erythema, lips, buccal mucosa, and tongue normal and mucous membranes are moist NECK: supple, no nuchal rigidity, no adenopathy, non-tender LUNGS: Clear to auscultation. Normal chest wall mechanics, no w/r/r, tachypnea with conversation, dyspnea with conversation HEART: no murmurs, S1 normal and S2 normal, no pain with palpation over the chest wall ABDOMEN: abdomen soft, non-tender, normo-active bowel sounds, no masses, no r ebound or guarding. BACK: Back is symmetrical on inspection and there is no deformity, no midline t enderness, no CVA tenderness. SKIN: no rashes, petechiae, orbruising UPPER EXTREMITIES: upper extremities are grossly normal. FROM, nml pulses b/l. No pain with palpation over the proximal left upper extremity. No deformities or evidence of trauma. LOWER EXTREMITIES: No pitting edema. FROM, nml pulses b/l. NEURO EXAM: Normal sensorium, cranial nerves II-XII grossly intact, normal speech, no facial droop,nogross weakness of arms, no gross weakness of legs. Gross sensation intact. No ataxia. Vital Signs: reviewed and remarkable Differential Diagnosis: Differential diagnoses includes but is not limited to acute coronary syndrome, p ericarditis, pulmonary embolus, aortic dissection, pneumonia, pneumothorax, musculoskeletal pain, GERD, occult trauma MEDICAL DECISION MAKING: This is an 82-year-old female presents to abrupt onset of chest pain as well as recently worsening shortness of breath with exertion as well as cough. Labs drawn and sent, IV established, EKG performed and interpreted by me at bedside, chest x-ray performed and interpreted by me at bedside, patient placed on telemetry. Patient with significant heart history including cardiomyopathy as well as pacer/AICD. Patient given minimal medication here with improvement of her pain although continued to have conversational dyspnea and was noted to drop to 87% while at rest. Labs reassuring although INR noted to be slightly subtherapeutic and given prior history of DVT, patient sent for CT angiography of the chest. CT angiography without any acute infiltrate, pulmonary edema, or PE noted. Patient's troponin negative and she had no recurrent pain while in the emergency room. Nasal swab negative for acute infectious etiology. Due to concern for dyspnea, abrupt onset chest pain, mild hypoxia noted, and patient significant cardiac history, case discussed with hospitalist for additional evaluation and management. All results discussed with patient and family at bedside who verbalized understanding and were in agreement with the plan. Consultation(s): 1011: Discussed with Dr. Trujillo ER Treatment Provided: See below 0750: Patient noted to drop her oxygen sats into the upper 80s when resting. Repeat evaluation at bedside, all well hypoxia appears improved on 2 L via nasal cannula, patient appears more dyspneic. We discussed all results at bedside and the need for additional imaging. Diagnostics Interpreted By Me: -ECG: Paced rhythm at 81, right bundle branch block, normal QTc, rightward axis, nonspecific ST/T wave changes; EKG from April 04, 2022 appears mostly AV paced, no other changes in morphology -Cardiac Monitoring: An order was placed for continuous cardiac monitoring. The monitor shows a rate of 78 with paced rhythm. -Laboratory studies: As stated above and show below. -Imaging studies: X-ray: Chest: A single view study of the chest was reviewed and was negative for cardiomegaly, focal infiltrate, effusion, pulmonary edema, or wide mediastinum. Pacer noted. Patient rotated. Triage Nursing Note Reviewed Prior/Outside Records Reviewed - reviewed cardiology visit from April Procedures: [] Critical Care: [] Past Med/Surg History Medical History Aortic regurgitation Breast cancer ?? pt denies Chest pain CHF (NYHA class II, ACC/AHA stage C) Complete heart block (10/28/14) ICD/pacer Complex sleep apnea syndrome does not use cpap as ordered Deep venous thrombosis of left upper extremity several yrs ago > post surgical PURVIS (dyspnea on exertion) Hearing deficit History of colon polyps History of deep vein thrombosis (DVT) of lower extremity was just torn muscle, not clot per pt History of endometrial cancer diagnosed 20yrs ago--sx History of kidney stones ICD (implantable cardioverter-defibrillator) in place placed 03/18/2016 @ [facility] by Dr. 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 Webber at [facility] > last checked in Apr 2021 History of right cataract extraction 07[place]08/21 [place] [facility] Pt made ASA3. Given 2mg versed. History of tonsillectomy History of tooth extraction History of total abdominal hysterectomy and bilateral salpingo-oophorectomy History of total right knee replacement (TKR) History of wisdom tooth extraction S/P thyroid biopsy benign Family History Father Family hx of colon cancer Colorectal cancer Mother Family hx of colon cancer Colorectal cancer Aunt Family hx of colon cancer Other Family history non-contributory No family history of adverse response to anesthesia No significant family history Denies family history of Ovarian cancer Prostate cancer Myocardial infarction Breast cancer Social History Smoking Status: Never smoker Second Hand Exposure: Yes (in childhood); Hx Alcohol Use: No Hx Substance Use: No Preferred Language: Senegalese Communication Ability: Effective Visual Impairment: No Limitations 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 Beliefs That Will Affect Care: None marital status: Current Living Situation: Spouse Current Living Situation Comment: daughter and her grandson also live with her right now current occupational status: retired 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 Feels Safe at Home: Yes Childhood Exposure to Second-Hand Smoke: Yes Dental Care, Regularly: Yes Physical Activity Frequency: Does not Exercise Seatbelt Use: always Sunscreen Use: No Assistive Devices: Glasses Allergies Allergies Allergy/AdvReac Type Severity Reaction Status Date / Time adhesive Allergy Intermediate "Adhesive Verified 11/27/22 10:06 tape" -- blisters sulfamethoxazole Allergy Intermediate MOUTH SORES Verified 11/27/22 10:06 trimethoprim Allergy Intermediate MOUTH SORES Verified 11/27/22 10:06 Home Meds Home Medications Medication Instructions Recorded Confirmed melatonin 5 mg tablet 5 mg PO HS 11/20/20 11/27/22 acetaminophen 500 mg tablet 500 mg PO QID PRN Back Pain 11/27/22 11/27/22 (Acetaminophen Extra Strength) cholecalciferol (vitamin D3) 10 10 mcg PO QPM 11/27/22 11/27/22 mcg (400 unit) capsule (Vitamin D3) multivitamin 1 tab PO QPM 11/27/22 11/27/22 potassium chloride 20 mEq 20 meq PO BID 11/27/22 11/27/22 tablet,extended release warfarin 2.5 mg tablet 0 mg PO DIRECTED 11/27/22 11/27/22 Previous Rx's Medication Instructions Recorded albuterol sulfate 2.5 mg/3 mL 2.5 mg (3 mL) inhalation QID PRN 09/14/22 (0.083 %) solution for nebulization shortness of breath or wheezing #90 mL carvedilol 6.25 mg tablet 6.25 mg PO BID #180 tabs 10/29/22 Results & Data (ED) Vital Signs Vital Signs - 24 hr 11/27/22 05:48 11/27/22 05:59 11/27/22 06:05 Temperature 36.4 C L Temperature Source Temporal Artery Scan Pulse Rate 89 71 Pulse Rate from SpO2 Sensor Respiratory Rate 18 Respiratory Effort / Characteristics Non-Labored Spontaneous Respiratory Depth Normal Respiratory Pattern Regular Blood Pressure 175/98 H Blood Pressure Mean 123 Blood Pressure Position Sitting Pulse Oximetry 95 Oxygen Delivery Method Room Air Oxygen Flow Rate Sepsis Recent Fever Within 48 Hours No Sepsis New/Unexplained Change in Mental Status N/A Sepsis Action Taken by Nursing No Action Required Oxygen Flow Rate - Titration Pulse Oximetry Post Tiitration 11/27/22 06:00 11/27/22 06:15 11/27/22 06:30 Temperature Temperature Source Pulse Rate 78 72 74 Pulse Rate from SpO2 Sensor Respiratory Rate 23 22 19 Respiratory Effort / Characteristics Respiratory Depth Respiratory Pattern Blood Pressure Blood Pressure Mean Blood Pressure Position Pulse Oximetry 94 93 94 Oxygen Delivery Method Room Air Room Air Room Air Oxygen Flow Rate Sepsis Recent Fever Within 48 Hours Sepsis New/Unexplained Change in Mental Status Sepsis Action Taken by Nursing Oxygen Flow Rate - Titration Pulse Oximetry Post Tiitration 11/27/22 06:32 11/27/22 06:45 11/27/22 07:22 Temperature Temperature Source Pulse Rate 75 77 Pulse Rate from SpO2 Sensor Respiratory Rate 19 21 Respiratory Effort / Characteristics Respiratory Depth Respiratory Pattern Blood Pressure 171/87 H Blood Pressure Mean 115 Blood Pressure Position Pulse Oximetry 94 93 87 L Oxygen Delivery Method Room Air Room Air Nasal Cannula Oxygen Flow Rate 0 Sepsis Recent Fever Within 48 Hours Sepsis New/Unexplained Change in Mental Status Sepsis Action Taken by Nursing Oxygen Flow Rate - Titration 2 Pulse Oximetry Post Tiitration 97 11/27/22 06:46 11/27/22 07:15 11/27/22 09:52 Temperature Temperature Source Pulse Rate 69 74 70 Pulse Rate from SpO2 Sensor 69 73 Respiratory Rate 17 16 Respiratory Effort / Characteristics Respiratory Depth Respiratory Pattern Blood Pressure 176/86 H 155/82 H Blood Pressure Mean 116 106 Blood Pressure Position Pulse Oximetry 96 90 Oxygen Delivery Method Oxygen Flow Rate Sepsis Recent Fever Within 48 Hours Sepsis New/Unexplained Change in Mental Status Sepsis Action Taken by Nursing Oxygen Flow Rate - Titration Pulse Oximetry Post Tiitration 11/27/22 07:30 11/27/22 08:00 11/27/22 08:30 Temperature Temperature Source Pulse Rate 65 65 68 Pulse Rate from SpO2 Sensor 68 66 66 Respiratory Rate 12 20 10 L Respiratory Effort / Characteristics Respiratory Depth Respiratory Pattern Blood Pressure 159/76 H 135/89 168/80 H Blood Pressure Mean 103 104 109 Blood Pressure Position Pulse Oximetry 97 96 94 Oxygen Delivery Method Oxygen Flow Rate Sepsis Recent Fever Within 48 Hours Sepsis New/Unexplained Change in Mental Status Sepsis Action Taken by Nursing Oxygen Flow Rate - Titration Pulse Oximetry Post Tiitration 11/27/22 09:00 11/27/22 09:30 11/27/22 10:00 Temperature Temperature Source Pulse Rate 70 69 65 Pulse Rate from SpO2 Sensor 71 69 64 Respiratory Rate 17 23 12 Respiratory Effort / Characteristics Respiratory Depth Respiratory Pattern Blood Pressure 156/90 H 142/80 H 159/80 H Blood Pressure Mean 112 100 106 Blood Pressure Position Pulse Oximetry 95 96 96 Oxygen Delivery Method Oxygen Flow Rate Sepsis Recent Fever Within 48 Hours Sepsis New/Unexplained Change in Mental Status Sepsis Action Taken by Nursing Oxygen Flow Rate - Titration Pulse Oximetry Post Tiitration 11/27/22 10:30 11/27/22 10:48 11/27/22 10:45 Temperature Temperature Source Pulse Rate 69 71 Pulse Rate from SpO2 Sensor 72 71 Respiratory Rate 17 20 Respiratory Effort / Characteristics Respiratory Depth Respiratory Pattern Blood Pressure 169/102 H 140/81 Blood Pressure Mean 124 100 Blood Pressure Position Pulse Oximetry 98 96 98 Oxygen Delivery Method Nasal Cannula Oxygen Flow Rate 2 Sepsis Recent Fever Within 48 Hours Sepsis New/Unexplained Change in Mental Status Sepsis Action Taken by Nursing Oxygen Flow Rate - Titration 1 Pulse Oximetry Post Tiitration 94 Laboratory Data 11/27/22 06:36 11/27/22 06:36 Lab Results 11/27/22 11/27/22 11/27/22 Range/Units 06:36 06:36 06:36 WBC 5.89 (4.8-10.8) K/ul RBC 4.59 (4.20-5.40) M/uL Hgb 13.6 (12.0-16.0) g/dl Hct 38.6 (37.0-47.0) % MCV 84.1 (80.0-100.0) fL MCH 29.6 (25.0-34.0) pg MCHC 35.2 (32.0-36.0) g/dL RDW Std Deviation 43.7 (36.4-46.3) fL RDW Coeff of Blaise 14.3 (11.5-14.5) % Plt Count 198 (130-400) K/uL MPV 10.2 (9.4-12.4) fL Immature Gran % (Auto) 0.3 % Neut % (Auto) 62.6 % Lymph % (Auto) 21.4 % Creek % (Auto) 11.0 % Eos % (Auto) 3.9 % Baso % (Auto) 0.8 % Neut # (Auto) 3.68 (1.40-6.50) K/uL Lymph # (Auto) 1.26 (1.2-3.4) K/uL Creek # (Auto) 0.65 H (0.11-0.59) K/uL Eos # (Auto) 0.23 (0-0.50) K/uL Baso # (Auto) 0.05 (0-0.2) K/uL Immature Gran # (Auto) 0.02 (0.01-0.20) K/uL PT 19.6 H (9.0-12.0) Seconds INR 1.9 H (0.9-1.1) Sodium 136 (136-145) mmol/L Potassium 4.3 (3.5-5.1) mmol/L Chloride 104 (98-107) mmol/L Carbon Dioxide 28 (21-32) mmol/L Anion Gap 4 (3-11) BUN 24 H (6-23) mg/dl Creatinine 0.98 (0.6-1.2) mg/dl Est Cr Clr Drug Dosing Not Reportable Est GFR ( Amer) 61.8 ml/min Est GFR (Non-Af Amer) 53.3 ml/min BUN/Creatinine Ratio 24.5 H (10-20) Glucose 102 H (70-99(Fasting)) mg/dl Calcium 9.4 (8.5-10.1) mg/dl Magnesium 2.0 (1.7-2.4) mg/dl Total Bilirubin 0.5 (0.2-1.0) mg/dl AST 24 (13-39) U/L ALT 14 (7-52) U/L Alkaline Phosphatase 60 (34-104) U/L Troponin I High Sens 9.3 (0-14) pg/ml B-Natriuretic Peptide (0-100) pg/ml Total Protein 6.9 (6.0-8.3) gm/dl Albumin 4.1 (3.4-5.0) gm/dl Globulin 2.8 (2.5-4.0) gm/dl Albumin/Globulin Ratio 1.5 (0.9-2) TSH (0.300-4.500) uIu/ml 11/27/22 11/27/22 Range/Units 06:36 06:36 WBC (4.8-10.8) K/ul RBC (4.20-5.40) M/uL Hgb (12.0-16.0) g/dl Hct (37.0-47.0) % MCV (80.0-100.0) fL MCH (25.0-34.0) pg MCHC (32.0-36.0) g/dL RDW Std Deviation (36.4-46.3) fL RDW Coeff of Blaise (11.5-14.5) % Plt Count (130-400) K/uL MPV (9.4-12.4) fL Immature Gran % (Auto) % Neut % (Auto) % Lymph % (Auto) % Creek % (Auto) % Eos % (Auto) % Baso % (Auto) % Neut # (Auto) (1.40-6.50) K/uL Lymph # (Auto) (1.2-3.4) K/uL Creek # (Auto) (0.11-0.59) K/uL Eos # (Auto) (0-0.50) K/uL Baso # (Auto) (0-0.2) K/uL Immature Gran # (Auto) (0.01-0.20) K/uL PT (9.0-12.0) Seconds INR (0.9-1.1) Sodium (136-145) mmol/L Potassium (3.5-5.1) mmol/L Chloride (98-107) mmol/L Carbon Dioxide (21-32) mmol/L Anion Gap (3-11) BUN (6-23) mg/dl Creatinine (0.6-1.2) mg/dl Est Cr Clr Drug Dosing Est GFR ( Amer) ml/min Est GFR (Non-Af Amer) ml/min BUN/Creatinine Ratio (10-20) Glucose (70-99(Fasting)) mg/dl Calcium (8.5-10.1) mg/dl Magnesium (1.7-2.4) mg/dl Total Bilirubin (0.2-1.0) mg/dl AST (13-39) U/L ALT (7-52) U/L Alkaline Phosphatase (34-104) U/L Troponin I High Sens (0-14) pg/ml B-Natriuretic Peptide 59 (0-100) pg/ml Total Protein (6.0-8.3) gm/dl Albumin (3.4-5.0) gm/dl Globulin (2.5-4.0) gm/dl Albumin/Globulin Ratio (0.9-2) TSH 1.598 (0.300-4.500) uIu/ml Administered Medications Carvedilol (Carvedilol 6.25 Mg Tab) 6.25 mg PO BID STEPHEN Stop: 12/27/22 12:57 Last Admin: 11/27/22 15:42 Dose: 6.25 mg Documented By: JUAN JOSE Discontinued Medications Albuterol (Albut/Ipratrop 3mg/0.5mg Neb 3 Ml Vial) 12 ml NEB ONE ONE; Protocol Stop: 11/27/22 10:52 Last Admin: 11/27/22 11:16 Dose: 12 ml Documented By: JAYSHREE Acetaminophen (Ofirmev) 1,000 mg in 100 mls @ 400 mls/hr IV NOW STA Stop: 11/27/22 06:54 Last Infusion: 11/27/22 07:15 Dose: 0 mls/hr Documented By: Admin: 11/27/22 06:57 Dose: 400 mls/hr Documented By: HARJIT Ioversol (Optiray 320 500ml) 114 ml IV ONCE ONE Stop: 11/27/22 08:17 Last Admin: 11/27/22 08:16 Dose: 114 ml Documented By: MOO Lidocaine (Lidocaine 5% 1 Patch) 1 patch TD NOW STA Stop: 11/27/22 11:46 Last Admin: 11/27/22 15:42 Dose: 1 patch Documented By: JUAN JOSE Ondansetron HCl (Ondansetron Inj 2 Mg/Ml 2 Ml Vial) 4 mg IV NOW STA Stop: 11/27/22 06:41 Last Admin: 11/27/22 06:57 Dose: 4 mg Documented By: HARJIT Pantoprazole Sodium (Pantoprazole 40 Mg Tab) 40 mg PO NOW ONE Stop: 11/27/22 12:01 Last Admin: 11/27/22 15:42 Dose: 40 mg Documented By: JUAN JOSE Warfarin Sodium (Warfarin Sod 5 Mg Tab) 5 mg PO NOW ONE Stop: 11/27/22 11:22 Last Admin: 11/27/22 15:41 Dose: 5 mg Documented By: JUAN JOSE Imaging Data Radiologist's Impression: Chest X-Ray 11/27/22 06:40 XR chest 1V portable CLINICAL HISTORY: cp TECHNIQUE: Single frontal radiograph of the chest was obtained. Comparison: Comparison is made to chest radiograph 04/04/2022 FINDINGS: Dual lead pacemaker is seen. The cardiomediastinal silhouette is normal. The lungs are clear. No evidence of pleural effusion or pneumothorax. IMPRESSION: No acute chest disease. ACT 112: Negative or not required by law. Electronically signed by: Yrn Rinaldi M.D. 11/27/2022 7:55 AM Chest CTA 11/27/22 07:45 CT angio chest PE protocol CLINICAL HISTORY: SOB/cp, INR 1.9, hx SVC clot TECHNIQUE: Multidetector row helical CT of the chest was performed with angiographic protocol. Coronal and sagittal reformations were obtained. Coronal and sagittal MIPS were obtained from the axial data set and were submitted for review. Automated dose lowering techniques and/or adjustment according to patient size were utilized for this exam. CT DOSE: 276.19 mGy.cm Comparison: Comparison is made to CT chest 04/16/2021 FINDINGS: Lungs and pleura: Atelectasis versus scarring is seen in the dependent portions of the lungs. No suspicious pulmonary nodules are seen. Heart and pericardium: Heart size is normal. No pericardial effusion. Vessels: No evidence of pulmonary embolism. Pulmonary trunk measures 33 mm in diameter. Incidental note is made of numerous venous collaterals in the chest wall likely due to narrowing left subclavian vein at the level of the first rib. Mediastinum and maninder: Numerous enlarged lymph nodes are seen measuring 12 mm in the right lower paratracheal station and 14 mm in subcarinal station. Chest wall and lower neck: Numerous thyroid nodules measure up to 19 mm. Abdomen: Unremarkable. Bones: Degenerative changes of the thoracic spine. Old healed rib fractures are seen. IMPRESSION: 1. No pulmonary embolus is seen. 2. Pulmonary hypertension is seen. 3. Thyroid nodules as above, nonemergent thyroid ultrasound is recommended if not previously evaluated. 4. Mediastinal lymph nodes may be reactive. ACT 112: Negative or not required by law. Electronically signed by: Yrn Rinaldi M.D. 11/27/2022 8:34 AM Discharge Plan Visit Data Chief Complaint: Chest Pain Stated Complaint: CHEST PAIN, SOB ED Provider: Sarai Dhaliwal Discharge Problem: Chest pain, Dyspnea, Hypoxia, Subtherapeutic international normalized ratio (INR) Patient Disposition: Admitted As Inpatient Discharge Instructions Interventions: ED Discharge Assessment Last Done: 11/27/22 11:48
[2022-11-27 07:20] LABS: Troponin I High Sensitivity 9.3 pg/ml (0-14)
[2022-11-27 07:32] LABS: INR 1.9 (0.9-1.1); Prothrombin Time 19.6 Seconds (9.0-12.0)
--- NOTE | 2022-11-27 07:56 | XRay Report ---
XR chest 1V portable CLINICAL HISTORY: cp TECHNIQUE: Single frontal radiograph of the chest was obtained. Comparison: Comparison is made to chest radiograph 04/04/2022 FINDINGS: Dual lead pacemaker is seen. The cardiomediastinal silhouette is normal. The lungs are clear. No evid ence of pleural effusion or pneumothorax. IMPRESSION: No acute chest disease. ACT 112: Negative or not required by law. Electronically signed by: Yrn Rinaldi M.D. 11/27/2022 7:55 AM
[2022-11-27] MEDS ORDERED: OPTIRAY 320 500ml IV ONE (08:16)
--- NOTE | 2022-11-27 08:37 | CT Scan Report ---
CT angio chest PE protocol CLINICAL HISTORY: SOB/cp, INR 1.9, hx SVC clot TECHNIQUE: Multidetector row helical CT of the chest was performed with angiographic protocol. Lucia l and sagittal reformations were obtained. Coronal and sagittal MIPS were obtained from the axial ayesha a set and were submitted for review. Automated dose lowering techniques and/or adjustment according to patient size were utilized for this exam. CT DOSE: 276.19 mGy.cm Comparison: Comparison is made to CT chest 04/16/2021 FINDINGS: Lungs and pleura: Atelectasis versus scarring is seen in the dependent portions of the lungs. No susp icious pulmonary nodules are seen. Heart and pericardium: Heart size is normal. No pericardial effusion. Vessels: No evidence of pulmonary embolism. Pulmonary trunk measures 33 mm in diameter. Incidental no te is made of numerous venous collaterals in the chest wall likely due to narrowing left subclavian v ein at the level of the first rib. Mediastinum and maninder: Numerous enlarged lymph nodes are seen measuring 12 mm in the right lower parat yolanda station and 14 mm in subcarinal station. Chest wall and lower neck: Numerous thyroid nodules measure up to 19 mm. Abdomen: Unremarkable. Bones: Degenerative changes of the thoracic spine. Old healed rib fractures are seen. IMPRESSION: 1. No pulmonary embolus is seen. 2. Pulmonary hypertension is seen. 3. Thyroid nodules as above, nonemergent thyroid ultrasound is recommended if not previously evaluat ed. 4. Mediastinal lymph nodes may be reactive. ACT 112: Negative or not required by law. Electronically signed by: Yrn Rinaldi M.D. 11/27/2022 8:34 AM
[2022-11-27 08:47] LABS: Influenza A virus by PCR Negative (Neg); Influenza B virus by PCR Negative (Neg); RSV by PCR Negative (Neg); SARS CoV2 RNA(COVID-19) Ceph NEGATIVE (Negative)
--- NOTE | 2022-11-27 10:14 | History & Physical Report ---
Date of Service November 27, 2022 Assessment & Plan (1) Hypoxia: Plan: -Admit to med/tele -The patient is currently afebrile, hemodynamically stable, and stable on 1L NC -At this time the etiology of her acute hypoxia is unknown but the differential includes and is not limited to viral URI, CHF, ACS, arrhythmia, anxiety, pacemaker malfunction -Chest xray and CTA of the chest were negative for focal consolidations, volume overload, CTA negative for PE but did show mediastinal lymphadenopathy thought to be reactive, no leukocytosis, inial high sensitivity trop WNL -Will obtain a repeat 2 hour high sen trop due to the length of her chest pain, full respiratory biofire, sputum culture and gram stain, repeat TTE, and pacemaker interrogation -Will give the patient an hour DuoNeb treatment now and monitor for improvement -Incentive spirometry, flutter therapy, prn Robitussin for cough, prn DuoNebs for wheezing -Will obtain speech eval to monitor for aspiration risk -Continue prn O2 to keep SpO2 at or above 95% -Continue to monitor on continuous ox and tele -BL SCDs, and Warfarin for DVT PPX -AM CBC, BMP, Mag, PT/INR (2) Chest pain: Plan: -See Hypoxia -Will repeat trop, interrogate pacer and speak with cardiology -Continue to monitor on tele (3) Superior vena cava syndrome: Plan: -Continue Warfarin for target INR of 2-3 -INR today is 1.9, will give 5 mg Warfarin now and then monitor am PT/INR to base continued dosing (4) Complex sleep apnea syndrome: Plan: -Has been without CPAP for past year due to recall -Will order HS CPAP while admitted Plan The patient was discussed with Dr. 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 In the ED the patient was found to be afebrile, hypertensive at 175/98, and hypoxic at 87% on RA. Labs were remarkable for a CBC WNL, stable cr at 0.98, stable electrolytes, initial high sensitivity trop of 9.3, BNP of 59, INR of 1.9, TSH WNL, and Covid 19/influenza/RSV negative. Chest xray was read as No acute chest disease.. CTA of the chest with PE protocol was read as No pulmonary embolus is seen. 2. Pulmonary hypertension is seen. 3. Thyroid nodules as above, nonemergent thyroid ultrasound is recommended if not previously evaluated. 4. Mediastinal lymph nodes may be reactive.. ECG Prior to admission the patient was given 50 mcg IV fentanyl, 4 mg IV Zofran, and 1gm IV Acetaminophen. AT the time of the exam the patient was sitting in bed in no acute distress with her daughter sitting bedside. History was obtained from both as the patient is hard of hearing and her Daughter is in EMS and is her primary caregiver. Her daughter lives with the patient and her as the patient's has dementia. They state that the patient has been more fatigued recently and not sleeping well. Part of this is due to the patient care for her and being up frequently during the night to care for him. She woke up this am at approximately 0330 with nausea; she has not vomited since the start of her nausea.Shortly after she developed a sharp pain which started in her left armpit and radiated down her left arm, to her left chest, and in her left back. This pain lasted for several hours and persisted upon arrival to the ED. She denies recent fevers, chills, abdominal pain, vomiting, dysuria, hematuria, melena, diarrhea, LE swelling and recent falls. When asked about recent cough, the patient and her daughter state that she has had a mildly productive cough for the past 1-2 months. The patient describes the sputum as yellow-brown. She does not have a history of respiratory disease and was never a smoker. Since arrival to the ED and placement of 2L NC the patient has been stable and her pain has resolved. She still feels SOB but it is much improved compared to being on RA. The patient has been taking all medications as prescribed, including her Warfarin. The patient has a history of KHADRA and was compliant with her HS CPAP until it was recalled approximately one year ago. They have been working for the past year to get a new machine, she has an appointment in the near future to get a new one. We discussed code status, the patient wishes to be a Full Code and for her children to make medical decisions for her if she can not make them herself. Please refer to Dr. Trujillo's attestation for any changes to the treatment plan Allergies Allergy/AdvReac Type Severity Reaction Status Date / Time adhesive Allergy Intermediate "Adhesive Verified 11/27/22 10:06 tape" -- blisters sulfamethoxazole Allergy Intermediate MOUTH SORES Verified 11/27/22 10:06 trimethoprim Allergy Intermediate MOUTH SORES Verified 11/27/22 10:06 Home Medications Medication Instructions Recorded Confirmed Type melatonin 5 mg tablet 5 mg PO HS 11/20/20 11/27/22 History albuterol sulfate 2.5 mg/3 mL 2.5 mg (3 mL) inhalation QID PRN 09/14/22 11/27/22 Rx (0.083 %) solution for nebulization shortness of breath or wheezing #90 mL carvedilol 6.25 mg tablet 6.25 mg PO BID #180 tabs 10/29/22 11/27/22 Rx acetaminophen 500 mg tablet 500 mg PO QID PRN Back Pain 11/27/22 11/27/22 History (Acetaminophen Extra Strength) cholecalciferol (vitamin D3) 10 10 mcg PO QPM 11/27/22 11/27/22 History mcg (400 unit) capsule (Vitamin D3) multivitamin 1 tab PO QPM 11/27/22 11/27/22 History potassium chloride 20 mEq 20 meq PO BID 11/27/22 11/27/22 History tablet,extended release warfarin 2.5 mg tablet 0 mg PO DIRECTED 11/27/22 11/27/22 History Past Med/Surg History Medical History Aortic regurgitation Breast cancer ?? pt denies Chest pain CHF (NYHA class II, ACC/AHA stage C) Complete heart block (10/28/14) ICD/pacer Complex sleep apnea syndrome does not use cpap as ordered Deep venous thrombosis of left upper extremity several yrs ago > post surgical PURVIS (dyspnea on exertion) Hearing deficit History of colon polyps History of deep vein thrombosis (DVT) of lower extremity was just torn muscle, not clot per pt History of endometrial cancer diagnosed 20yrs ago--sx History of kidney stones ICD (implantable cardioverter-defibrillator) in place placed 03/18/2016 @ [facility] by Dr. 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 Webber at [facility] > last checked in Apr 2021 History of right cataract extraction 07/08/21 at [facility] [place]. Pt made ASA3. Given 2mg versed. History of tonsillectomy History of tooth extraction History of total abdominal hysterectomy and bilateral salpingo-oophorectomy History of total right knee replacement (TKR) History of wisdom tooth extraction S/P thyroid biopsy benign Family History Father Family hx of colon cancer Colorectal cancer Mother Family hx of colon cancer Colorectal cancer Aunt Family hx of colon cancer Other Family history non-contributory No family history of adverse response to anesthesia No significant family history Denies family history of Ovarian cancer Prostate cancer Myocardial infarction Breast cancer Social History Smoking Status: Never smoker Second Hand Exposure: Yes (in childhood); Hx Alcohol Use: No Hx Substance Use: No Preferred Language: Polish Communication Ability: Effective Visual Impairment: No Limitations Hearing Ability: Use of Hearing Aid Die Presser Required: No Beliefs That Will Affect Care: None marital status: Current Living Situation: Spouse Current Living Situation Comment: daughter and her grandson also live with her right now current occupational status: retired 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 All systems have been reviewed and are otherwise negative. Physical Exam Physical Exam: Physical Exam: General: In no acute distress, stated age, chronically ill-appearing but non- toxic appearing HEENT: Normocephalic, atraumatic, no scleral icterus, pupils around round, symmetrical, and reactive to light, NC currently in place, moist mucus membranes, trachea midline, no thyromegaly Chest/Pulm: No reproducible chest pain on palpation, No respiratory distress, symmetrical chest expansion, expiratory wheezing noted throughout Cardiac: RRR, no murmurs noted Abdomen: Negative for ascites and bruising, normoactive bowel sounds, soft, non-tender to palpation throughout, no acute trauma noted on exam of the UE's, chest, and back Musculoskeletal: Symmetrical and without signs of acute trauma, upper and lower extremities with full ROM, no atrophy, spasticity, or flaccidity Extremities: Radial, dorsalis pedis, and posterior tibial pulses are intact and symmetrical, no edema noted in the LE's Skin: Warm, dry, no rashes , lesions, or scars noted Neuro: Alert and oriented to person, place, month, year, and president, no focal defects, CN II-XII tested and intact,no tremors noted Psych: No acute distress, calm and cooperative during the exam Results & Data Results & Data ([facility]) Vital Signs (Past 12 Hours) Vital Signs Temp Pulse Resp BP Pulse Ox O2 Del Method O2 Flow Rate 11/27/22 09:52 70 11/27/22 07:15 74 16 155/82 H 90 11/27/22 06:46 69 17 176/86 H 96 11/27/22 07:22 87 L Nasal Cannula 0 11/27/22 06:45 77 21 93 Room Air 11/27/22 06:32 75 19 171/87 H 94 Room Air 11/27/22 06:30 74 19 94 Room Air 11/27/22 06:15 72 22 93 Room Air 11/27/22 06:00 78 23 94 Room Air 11/27/22 06:05 Room Air 11/27/22 05:59 71 11/27/22 05:48 36.4 C L 89 18 175/98 H 95 Laboratory Results Abnormal lab results 11/27/22 11/27/22 11/27/22 Range/Units 06:36 06:36 06:36 Cherry # (Auto) 0.65 H (0.11-0.59) K/uL PT 19.6 H (9.0-12.0) Seconds INR 1.9 H (0.9-1.1) BUN 24 H (6-23) mg/dl BUN/Creatinine Ratio 24.5 H (10-20) Glucose 102 H (70-99(Fasting)) mg/dl Diagnostic Findings Chest X-Ray 11/27/22 06:40 XR chest 1V portable CLINICAL HISTORY: cp TECHNIQUE: Single frontal radiograph of the chest was obtained. Comparison: Comparison is made to chest radiograph 04/04/2022 FINDINGS: Dual lead pacemaker is seen. The cardiomediastinal silhouette is normal. The lungs are clear. No evidence of pleural effusion or pneumothorax. IMPRESSION: No acute chest disease. ACT 112: Negative or not required by law. Electronically signed by: Yrn Rinaldi M.D. 11/27/2022 7:55 AM Chest CTA 11/27/22 07:45 CT angio chest PE protocol CLINICAL HISTORY: SOB/cp, INR 1.9, hx SVC clot TECHNIQUE: Multidetector row helical CT of the chest was performed with angiographic protocol. Coronal and sagittal reformations were obtained. Coronal and sagittal MIPS were obtained from the axial data set and were submitted for review. Automated dose lowering techniques and/or adjustment according to patient size were utilized for this exam. CT DOSE: 276.19 mGy.cm Comparison: Comparison is made to CT chest 04/16/2021 FINDINGS: Lungs and pleura: Atelectasis versus scarring is seen in the dependent portions of the lungs. No suspicious pulmonary nodules are seen. Heart and pericardium: Heart size is normal. No pericardial effusion. Vessels: No evidence of pulmonary embolism. Pulmonary trunk measures 33 mm in diameter. Incidental note is made of numerous venous collaterals in the chest wall likely due to narrowing left subclavian vein at the level of the first rib. Mediastinum and maninder: Numerous enlarged lymph nodes are seen measuring 12 mm in the right lower paratracheal station and 14 mm in subcarinal station. Chest wall and lower neck: Numerous thyroid nodules measure up to 19 mm. Abdomen: Unremarkable. Bones: Degenerative changes of the thoracic spine. Old healed rib fractures are seen. IMPRESSION: 1. No pulmonary embolus is seen. 2. Pulmonary hypertension is seen. 3. Thyroid nodules as above, nonemergent thyroid ultrasound is recommended if not previously evaluated. 4. Mediastinal lymph nodes may be reactive. ACT 112: Negative or not required by law. Electronically signed by: Yrn Rinaldi M.D. 11/27/2022 8:34 AM ECG Additional Comments: Suspect unspecified pacemaker failure Sinus rhythm with Premature supraventricular complexes Right bundle branch block Anterior infarct , age undetermined Abnormal ECG When compared with ECG of 04-APR-2022 19:03, Sinus rhythm has replaced Electronic ventricular pacemaker Code Status & VTE Plan Code Status Full code VTE Prophylaxis Plan VTE Prophylaxis will be ordered: Yes Supervising Physician Co-Signing Physician Notes I personally saw and examined the patient. I verified all ortega points and agree with Chon Raygoza PA-C with the following exceptions and/or additions: 82 year old with chronic cough and progressive worsening shortness of breath. Wakes up in the morning and has to cough up lots of phlegm. No prior PFTs O/E A&Ox3, HS RRR, no murmurs, Chest no significant wheezing, no crackles or rhonchi, Abdo SNT A/P Reactive airway disease - improvement after duoneb, will add Breo Ellipta but no prednisone as do not suspect and acute exacerbation rather just not treating underlying disease. Recommend outpatient PFTs. Shortness of breath - suspect reactive airway disease as above. TTE to assess for cardiomyopathy contributing. Coughing/choking after dairy products - consult SLT to assess for aspirations as cause of her shortness of breath PG Care Time/CCT Total # of Minutes Spent Total Time Spent with Patient: Total time spent is greater than 50% in coordination of care (as documented) at patient's floor/unit and/or counseling patient: [place] [address] INT INP/OBS CARE 3/75MIN Patient Type Established Medical Decision Making High Complexity Diagnoses Hypoxia R09.02 Chest pain R07.9 Superior vena cava syndrome I87.1 Complex sleep apnea syndrome G47.31
[2022-11-27] MEDS ORDERED: ALBUT/IPRATROP 3MG/0.5MG NEB 3 ML VIAL NEB ONE (10:51)
[2022-11-27] MEDS ORDERED: guaiFENesin SUGAR FREE 200 MG/10 ML UDC PO PRN (10:52)
[2022-11-27] MEDS ORDERED: ACETAMINOPHEN 325 MG TAB PO PRN (11:04)
[2022-11-27] MEDS ORDERED: WARFARIN SOD 5 MG TAB PO ONE (11:21)
[2022-11-27] MEDS ORDERED: LIDOCAINE 5% 1 PATCH TD STA (11:45)
[2022-11-27] MEDS ORDERED: PANTOprazole 40 MG TAB PO ONE (12:00)
[2022-11-27 12:47] LABS: Adenovirus PCR Not Detected (NotDetected); Bordetella parapertussis PCR Not Detected (NotDetected); Bordetella pertussis PCR Not Detected (NotDetected); Chlamydia pneumoniae PCR Not Detected (NotDetected); Coronavirus 229E PCR Not Detected (NotDetected); Coronavirus CoV-2 (COVID19)PCR Not Detected (NotDetected); Coronavirus HKU1 PCR Not Detected (NotDetected); Coronavirus NL63 PCR Not Detected (NotDetected); Coronavirus OC43PCR Not Detected (NotDetected); Human Metapneumovirus PCR Not Detected (NotDetected); Influenza A PCR Not Detected (NotDetected); Influenza B PCR Not Detected (NotDetected); Mycoplasma pneumoniae PCR Not Detected (NotDetected); Parainfluenza Virus 1 PCR Not Detected (NotDetected); Parainfluenza Virus 2 PCR Not Detected (NotDetected); Parainfluenza Virus 3 PCR Not Detected (NotDetected); Parainfluenza Virus 4 PCR Not Detected (NotDetected); Respiratory Syncytial VirusPCR Not Detected (NotDetected); Rhinovirus/Enterovirus PCR Not Detected (NotDetected)
--- NOTE | 2022-11-27 14:32 | Electrocardiogram Report ---
Test Reason : Blood Pressure : / mmHG Vent. Rate : 081 BPM Atrial Rate : 081 BPM P-R Int : 132 ms QRS Dur : 138 ms QT Int : 404 ms P-R-T Axes : 075 257 076 degrees QTc Int : 469 ms Suspect unspecified pacemaker failure Sinus rhythm with Premature supraventricular complexes and atrial paced beats Bi V Pacing Abnormal ECG When compared with ECG of 04-APR-2022 19:03, Pac's are new Confirmed by Say Barrios ([id number]) on 11/27/2022 2:31:46 PM Referred By: Confirmed By:Say Barrios
[2022-11-27] MEDS: carvediloL 6.25 MG TAB PO SCH ×2 (15:42→21:10)
[2022-11-27] MEDS ORDERED: WARFARIN SOD 2.5 MG TAB PO SCH (16:00)
[2022-11-27] MEDS ORDERED: ALBUT/IPRATROP 3MG/0.5MG NEB 3 ML VIAL ONE (18:55)
[2022-11-27] MEDS ORDERED: MELATONIN 3 MG TAB PO SCH (21:00)
[2022-11-27] MEDS: POTASSIUM CHLORIDE CRTAB 20 MEQ TABCR PO SCH (21:10)
[2022-11-27] MEDS: FLUTICASONE/VILANTEROL 200/25MCG 14 PUFFS/INHALER INH SCH (21:50)
[2022-11-28] MEDS: ALBUT/IPRATROP 3MG/0.5MG NEB 3 ML VIAL NEB SCH ×2 (06:59→11:15)
[2022-11-28 07:52] LABS: Basophils # (auto) 0.06 K/uL (0-0.2); Basophils % (auto) 1.3 %; Eosinophils # (auto) 0.23 K/uL (0-0.50); Eosinophils % (auto) 4.9 %; Hematocrit (blood only) 38.4 % (37.0-47.0); Immature Granulocytes # (auto) 0.01 K/uL (0.01-0.20); Immature Granulocytes % (auto) 0.2 %; Lymphocytes # (auto) 1.02 K/uL (1.2-3.4); Lymphocytes % (auto) 21.7 %; Mean Corpuscular Hemoglobin 28.9 pg (25.0-34.0); Mean Corpuscular Hgb Conc 33.9 g/dL (32.0-36.0); Mean Corpuscular Volume 85.3 fL (80.0-100.0); Mean Platelet Volume 10.2 fL (9.4-12.4); Monocytes # (auto) 0.63 K/uL (0.11-0.59); Monocytes % (auto) 13.4 %; Neutrophils # (auto) 2.75 K/uL (1.40-6.50); Neutrophils % (auto) 58.5 %; Platelet Count 191 K/uL (130-400); RDW Coefficient of Variation 14.4 % (11.5-14.5); RDW Standard Deviation 45.1 fL (36.4-46.3)
[2022-11-28 08:09] LABS: INR 2.1 (0.9-1.1); Prothrombin Time 21.6 Seconds (9.0-12.0)
[2022-11-28] MEDS: carvediloL 6.25 MG TAB PO SCH (08:26)
[2022-11-28] MEDS: POTASSIUM CHLORIDE CRTAB 20 MEQ TABCR PO SCH (08:26)
[2022-11-28 08:49] LABS: Anion Gap 2 (3-11); BUN Creatinine Ratio 20.5 (10-20); Blood Urea Nitrogen 18 mg/dl (6-23); Calcium 9.1 mg/dl (8.5-10.1); Carbon Dioxide 29 mmol/L (21-32); Chloride 106 mmol/L (98-107); Est GFR (African American) 70.4 ml/min; Est GFR (Non-African American) 60.8 ml/min; Glucose 99 mg/dl (70-99(Fasting)); Potassium 4.4 mmol/L (3.5-5.1); Sodium 137 mmol/L (136-145)
[2022-11-28] MEDS ORDERED: UMECLIDINIUM BROMIDE 62.5MCG/BLISTER 7 PUFFS/INHALER INH SCH (09:00)
[2022-11-28] MEDS ORDERED: PANTOprazole 40 MG TAB PO SCH (09:00)
[2022-11-28] MEDS ORDERED: LIDOCAINE 5% 1 PATCH TD SCH (09:00)
[2022-11-28] MEDS: FLUTICASONE/VILANTEROL 200/25MCG 14 PUFFS/INHALER INH SCH (11:37)
--- NOTE | 2022-11-28 13:23 | Discharge Summary ---
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 In the ED the patient was found to be afebrile, hypertensive at 175/98, and hypoxic at 87% on RA. Labs were remarkable for a CBC WNL, stable cr at 0.98, stable electrolytes, initial high sensitivity trop of 9.3, BNP of 59, INR of 1.9, TSH WNL, and Covid 19/influenza/RSV negative. Chest xray was read as No acute chest disease.. CTA of the chest with PE protocol was read as No pulmonary embolus is seen. 2. Pulmonary hypertension is seen. 3. Thyroid nodules as above, nonemergent thyroid ultrasound is recommended if not previously evaluated. 4. Mediastinal lymph nodes may be reactive.. ECG Prior to admission the patient was given 50 mcg IV fentanyl, 4 mg IV Zofran, and 1gm IV Acetaminophen. AT the time of the exam the patient was sitting in bed in no acute distress with her daughter sitting bedside. History was obtained from both as the patient is hard of hearing and her Daughter is in EMS and is her primary caregiver. Her daughter lives with the patient and her as the patient's has dementia. They state that the patient has been more fatigued recently and not sleeping well. Part of this is due to the patient care for her and being up frequently during the night to care for him. She woke up this am at approximately 0330 with nausea; she has not vomited since the start of her nausea.Shortly after she developed a sharp pain which started in her left armpit and radiated down her left arm, to her left chest, and in her left back. This pain lasted for several hours and persisted upon arrival to the ED. She denies recent fevers, chills, abdominal pain, vomiting, dysuria, hematuria, melena, diarrhea, LE swelling and recent falls. When asked about recent cough, the patient and her daughter state that she has had a mildly productive cough for the past 1-2 months. The patient describes the sputum as yellow-brown. She does not have a history of respiratory disease and was never a smoker. Since arrival to the ED and placement of 2L NC the patient has been stable and her pain has resolved. She still feels SOB but it is much improved compared to being on RA. The patient has been taking all medications as prescribed, including her Warfarin. The patient has a history of KHADRA and was compliant with her HS CPAP until it was recalled approximately one year ago. They have been working for the past year to get a new machine, she has an appointment in the near future to get a new one. We discussed code status, the patient wishes to be a Full Code and for her children to make medical decisions for her if she can not make them herself. Principal Diagnosis Transient Hypoxia Discharge Exam The patient is awake, alert and oriented 3, well developed and well nourished, normocephalic and atraumatic, lying in bed and in no acute distress. HEENT--PERRL, EOMI, mucous membranes and oropharynx mildly dry Neck--supple. No JVD. No bruits. Thyroid normal, trachea midline, no adenopathy. Heart--normal S1 and S2. No murmurs, rubs or gallops. Lungs--clear bilaterally, no respiratory distress, no accessory muscle use. Abdomen--normal bowel sounds and soft. Mild epigastric and left sided abdominal pain Extremities--no cyanosis or clubbing. No edema. Dermatologic--normal skin turgor, normal color, no abnormal lymph nodes, no rash. Neurologic--cranial nerves II through XII grossly intact. Rheumatologic--normal range of motion. Psychiatric--normal affect. Discharge Data Allergies Allergy/AdvReac Type Severity Reaction Status Date / Time adhesive Allergy Intermediate "Adhesive Verified 11/27/22 10:06 tape" -- blisters sulfamethoxazole Allergy Intermediate MOUTH SORES Verified 11/27/22 10:06 trimethoprim Allergy Intermediate MOUTH SORES Verified 11/27/22 10:06 Consultations 11/27/22 10:43 ED Decision to Admit Stat Ordered Studies 11/27/22 07:45 CT angio chest PE protocol Stat Hospital Course (1) Hypoxia: -Transient Hypoxia, now resolved. 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, she has been asked to establish care with a lottery sales clerk for pulmonary function test (2) Chest pain: -Resolved -No ST changes on ekg, tropnins normal (3) Superior vena cava syndrome: -Continue Warfarin for target INR of 2-3 -INR today is 1.9, will give 5 mg Warfarin now and then monitor am PT/INR to base continued dosing (4) Complex sleep apnea syndrome: -Has been without CPAP for past year due to recall -Will order HS CPAP while admitted Plan d/c home Total Time Total Time Spent Total Time Spent (In Minutes): 35 Discharge Plan Discharge Items Patient Disposition: Home - Self-Care Reason For Visit: CHEST PAIN,SOB Discharge Diagnosis: Transient Hypoxia Activity: Resume your previous activity Non-emergency contact: Primary Care Provider and City Solicitor Call non-emergency contact if: you have any medication questions and your symptoms worsen Follow-up/Referrals: Say Garcia III, CRNP [Primary Care Provider] - 12/07/22 9:20 am Diet: Regular Addtl Attending Provider Instructions: Please ask your PCP to give you a referral to see a City Solicitor given your significant 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 Pending Studies at Discharge: No Stand-Alone Forms: My [employer], Smoking Cessation Medications and DC Order Prescriptions: Continued carvedilol 6.25 mg tablet 6.25 mg PO BID Qty: 180 1RF albuterol sulfate 2.5 mg /3 mL (0.083 %) solution for nebulization 2.5 mg inhalation QID PRN (Reason: shortness of breath or wheezing) Qty: 90 0RF melatonin 5 mg Tablet 5 mg PO HS multivitamin Tablet 1 tab PO QPM acetaminophen [Acetaminophen Extra Strength] 500 mg Tablet 500 mg PO QID PRN (Reason: Back Pain) cholecalciferol (vitamin D3) [Vitamin D3] 10 mcg (400 unit) Capsule 10 mcg PO QPM warfarin 2.5 mg tablet 0 mg PO DIRECTED Protocol: Dose Management Condition: Tuesday Dose/Route: 2.5 mg Instruction: 1 x 2.5 mg tablet Condition: Tuesday Dose/Route: 1.25 mg Instruction: 0.5 x 2.5 mg tablets Condition: Tuesday Dose/Route: 2.5 mg Instruction: 1 x 2.5 mg tablet Condition: Tuesday Dose/Route: 1.25 mg Instruction: 0.5 x 2.5 mg tablets Condition: Dose/Route: 2.5 mg Instruction: 1 x 2.5 mg tablet Condition: Tuesday Dose/Route: 1.25 mg Instruction: 0.5 x 2.5 mg tablets Condition: Tuesday Dose/Route: 2.5 mg Instruction: 1 x 2.5 mg tablet Protocol Text: Adjustment Start Date: Tuesday11/10/22 INR Value: 2.8 INR Date: 11/10/22 Recheck Date: 11/24/22 Rx Instructions: Dose depends on INR; Pt takes 1/2 pill 3x wk ( Tue,Tue,Tue) and whole pill 4x a wk (Tue,,,Tue) potassium chloride 20 mEq tablet extended release 20 meq PO BID Discharge Orders: Discharge Order (Routine); Ordered 11/28/22 Ordered By: Emma Oh Admission Data Admit Date/Time: 11/27/22 10:54 Attending Provider: Emma Oh Admit Provider: Philippe Trujillo Primary Care Provider: Say Garcia III Other Providers: Philippe Trujillo Other Interventions: Discharge Summary Assessment (RN) Last Done: 11/28/22 11:42 Coding Level of Care Code 10041 INP/OBS DISCH >30 MIN Diagnoses Hypoxia R09.02 Chest pain R07.9 Superior vena cava syndrome I87.1 Complex sleep apnea syndrome G47.31 Time Spent (min) 35
[2022-11-29] MEDS ORDERED: WARFARIN SOD 1.25 MG TAB PO SCH (16:00)
== END 2022-11-28 12:10 | disposition home or self-care (01) | DRG 206 ==
LOC: ED 05:45 → SUATTDRO 10:54 → 2N 10:54

== ENCOUNTER 2023-01-09 10:59 | Inpatient (IN) ==
[2023-01-09] MEDS ORDERED: cefTRIAXone SODIUM 2,000 MG/70 ML BAG IV STA (11:02)
--- NOTE | 2023-01-09 11:23 | XRay Report ---
XR chest 1V portable HISTORY: 82 years-old Female Sepsis acute sepsis COMPARISON: 01/08/2023 TECHNIQUE: AP view of the chest FINDINGS: Cardiac silhouette is enlarged. Left subclavian pacer. No pneumothorax. Pulmonary vascular congestion with mild interstitial coarsening again noted. Unchanged blunting of the costophrenic angles. Degene rative changes of the shoulders and spine. IMPRESSION: Cardiomegaly with suggestion of mild pulmonary edema and probable trace pleural effusions . ACT 112: Negative or not required by law. The above report was generated using voice recognition software. It may contain grammatical, syntax o r spelling errors. Electronically signed by: Caden Sloan M.D. 01/09/2023 11:22 AM
[2023-01-09] MEDS ORDERED: SODIUM CHLORIDE 0.9% 1000ML 1,000 ML IV ONE (11:30)
--- NOTE | 2023-01-09 11:35 | Emergency Department Note ---
Impression & Plan Infection of prosthetic joint, Bacteremia, Acute hyponatremia ED Provider Note NAME: MARIPOSA CANNON AGE: 82 SEX: F : 1940 ARRIVES VIA: Walk-In INFORMANT: Patient, ED PROVIDER(S): Josué Ch DO CHIEF COMPLAINT: Bacteremia HPI: The patient is an 82-year-old female who presented to the emergency department for an evaluation of bacteremia. The patient has a right knee which has been diagnosed with an infection after an aspiration with her primary orthopedic group through [facility]. The patient had redness in her entire leg. She was started on Keflex last week. The patient was seen by her primary care physician. She was seen in our facility overnight Tuesday into Tuesday. When she presented she had ongoing redness in her leg and was given a dose of Rocephin. The patient also had a septic work-up at that time. The patient has blood cultures that are positive for strep. She was called today and told to return. She states that she has had generalized weakness. She states that she feels lightheaded. Otherwise she has had no further fevers. She is been compliant with her outpatient medications. ROS: See above HPI for pertinent positives & negatives. A total of 10 systems reviewed and were otherwise negative. PAST MEDICAL HISTORY: See Below PAST SURGICAL HISTORY: See Below FAMILY HISTORY: See Below SOCIAL HISTORY: See Below HOME MEDICATIONS: See Below ALLERGIES: See Below VITALS: See Below PHYSICAL EXAMINATION: GENERAL: Patient is awake alert in no acute distress patient is resting comfortably and showing no signs of anxiety EYES: The conjunctivae are clear. The pupils are round and reactive. EARS, NOSE, MOUTH AND THROAT: The nose is without any evidence of any deformity. Mucous membranes are dry. NECK: The neck is nontender and supple. RESPIRATORY: Diminished breath sounds are noted at both bases. There is no tachypnea or conversational dyspnea. CARDIOVASCULAR: Regular rate and rhythm noted there no murmurs rubs or gallops normal S1 normal S2. GASTROINTESTINAL: The abdomen is soft. Abdomen is nontender. MUSCULOSKELETAL/EXTREMITIES: Erythema and joint effusion was noted over the right knee. Range of motion is painful. SKIN: Pedal edema was noted bilaterally. Skin was warm and dry. NEUROLOGIC: Patient is awake alert and oriented x3 MEDICAL DECISION MAKING: The patient is an 82-year-old female who presented to the emergency department for an evaluation of knee pain and swelling. The patient has a septic right knee. This is a known entity at this time and she was on oral antibiotics. The patient started developing worsening symptoms especially over the course of the last week. She was started on Keflex. She was seen in our facility overnight Tuesday into Tuesday. At that time she complained of fever. She had laboratory and radiographic studies obtained including a blood culture. Blood cultures were positive for gram-positive cocci in chains. For this reason she was told to come back to the emergency department. The patient returned and was treated with IV fluids and IV Rocephin. She was reevaluated multiple times. I discussed the patient's laboratory and radiographic studies with her. I discussed her condition with both our local orthopedic group as well as the or thopedic group at [facility] that is supposed to redo her right knee. The patient at this time is still pending disposition as the orthopedic group is deciding what best to do. The patient was reevaluated and is much more comfortable. Triage Nursing notes reviewed. Prior medical records reviewed Vital Signs: reviewed and remarkable for elevated blood pressure. Differential diagnosis: Viral syndrome, otitis, pharyngitis, pneumonia, influenza, meningitis, urinary tract infection, sepsis, bacteremia, as well as other pathologies. ER treatment provided: See below Diagnostics interpreted by me: ECG: EKG was obtained in the emergency department. My interpretation is trickier paced rhythm at 76 bpm. There were no PVCs or quileute beats appreciated. There appears to be some atrial sensing. This was compared to a tracing from January 08, 2023. No changes were noted. Cardiac Monitoring: An order was placed for continuous cardiac monitoring. The monitor shows a rate of 82 bpm with paced rhythm. Laboratory studies: As stated above and show below. Imaging studies: See below. Radiographic imaging was reviewed by myself Consultation(s): I discussed this case with Dr. Rivers who is on for orthopedics at [facility] covering for the patient's primary group. I discussed this case with Dr. Rivera who is on-call for orthopedics at [facility]. I discussed this case with Dr. Trujillo who is on for the [facility] hospitalist group. He is not comfortable keeping the patient in our facility without orthopedic backup. I discussed this case with Dr. Langley who is on-call for internal medicine. They will call back once the orthopedic physician is out of the OR for reconnect to determine at what point they can accept the patient. The case was signed out to Dr. Patterson at change of shift. Please see his note for further disposition. Past Med/Surg History Medical History Aortic regurgitation Breast cancer ?? pt denies Chest pain CHF (NYHA class II, ACC/AHA stage C) Complete heart block (10/28/14) ICD/pacer Complex sleep apnea syndrome does not use cpap as ordered Deep venous thrombosis of left upper extremity several yrs ago > post surgical PURVIS (dyspnea on exertion) Hearing deficit History of colon polyps History of deep vein thrombosis (DVT) of lower extremity was just torn muscle, not clot per pt History of endometrial cancer diagnosed 20yrs ago--sx History of kidney stones ICD (implantable cardioverter-defibrillator) in place placed 03/18/2016 @ [facility] by Dr. 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 Webber at [facility] > last checked in Apr 2021 History of right cataract extraction 07/08/21 at [facility]. Pt made ASA3. Given 2mg versed. History of tonsillectomy History of tooth extraction History of total abdominal hysterectomy and bilateral salpingo-oophorectomy History of total right knee replacement (TKR) History of wisdom tooth extraction S/P thyroid biopsy benign Family History Father Family hx of colon cancer Colorectal cancer Mother Family hx of colon cancer Colorectal cancer Aunt Family hx of colon cancer Other Family history non-contributory No family history of adverse response to anesthesia No significant family history Denies family history of Ovarian cancer Prostate cancer Myocardial infarction Breast cancer Social History Smoking Status: Never smoker Second Hand Exposure: Yes (in childhood); Hx Alcohol Use: No Hx Substance Use: No Preferred Language: Chinese Communication Ability: Effective Communication Ability Comment: [place] -- dog ate hearing aid -- will need family member present to relay info Visual Impairment: No Limitations Hearing Ability: Use of Hearing Aid Rebrander Required: No Beliefs That Will Affect Care: None marital status: Current Living Situation: Spouse Current Living Situation Comment: daughter and her grandson also live with her right now current occupational status: retired 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 Feels Safe at Home: Yes Childhood Exposure to Second-Hand Smoke: Yes Dental Care, Regularly: Yes Physical Activity Frequency: Does not Exercise Seatbelt Use: always Sunscreen Use: No Assistive Devices: Glasses Allergies Allergies Allergy/AdvReac Type Severity Reaction Status Date / Time adhesive Allergy Intermediate "Adhesive Verified 01/08/23 00:34 tape" -- blisters sulfamethoxazole Allergy Intermediate MOUTH SORES Verified 01/08/23 00:34 trimethoprim Allergy Intermediate MOUTH SORES Verified 01/08/23 00:34 Home Meds Home Medications Medication Instructions Recorded Confirmed melatonin 5 mg tablet 5 mg PO HS 11/20/20 01/08/23 acetaminophen 500 mg tablet 500 mg PO QID PRN Back Pain 11/27/22 01/08/23 (Acetaminophen Extra Strength) cholecalciferol (vitamin D3) 10 10 mcg PO QPM 11/27/22 01/08/23 mcg (400 unit) capsule (Vitamin D3) multivitamin 1 tab PO QPM 11/27/22 01/08/23 potassium chloride 20 mEq 20 meq PO BID 11/27/22 01/08/23 tablet,extended release nystatin 100,000 unit/mL oral 1 ml buccal DAILY 12/16/22 01/08/23 suspension Previous Rx's Medication Instructions Recorded carvedilol 6.25 mg tablet 6.25 mg PO BID #180 tabs 10/29/22 albuterol sulfate 2.5 mg/3 mL 2.5 mg (3 mL) inhalation QID PRN 11/30/22 (0.083 %) solution for nebulization shortness of breath or wheezing #90 mL warfarin 2.5 mg tablet See Rx Instructions PO DIRECTED 12/13/22 #100 tabs cephalexin 500 mg capsule 500 mg PO TID #21 caps 01/03/23 Results & Data (ED) Vital Signs Vital Signs - 24 hr 01/09/23 11:06 01/09/23 11:23 01/09/23 11:02 Temperature 36.5 C Temperature Source Temporal Artery Scan Pulse Rate 88 85 73 Pulse Rate from SpO2 Sensor Respiratory Rate 18 14 Blood Pressure 136/69 Blood Pressure Mean 91 Pulse Oximetry 95 92 Oxygen Delivery Method Room Air Sepsis Recent Fever Within 48 Hours No Sepsis New/Unexplained Change in Mental Status N/A Sepsis Action Taken by Nursing No Action Required 01/09/23 11:21 01/09/23 11:30 01/09/23 11:55 Temperature Temperature Source Pulse Rate 85 74 80 Pulse Rate from SpO2 Sensor 75 69 Respiratory Rate 20 22 16 Blood Pressure Blood Pressure Mean Pulse Oximetry 91 93 92 Oxygen Delivery Method Room Air Room Air Room Air Sepsis Recent Fever Within 48 Hours Sepsis New/Unexplained Change in Mental Status Sepsis Action Taken by Nursing 01/09/23 11:55 01/09/23 12:00 01/09/23 12:00 Temperature Temperature Source Pulse Rate 70 Pulse Rate from SpO2 Sensor Respiratory Rate 17 Blood Pressure 128/69 141/61 H Blood Pressure Mean 88 87 Pulse Oximetry Oxygen Delivery Method Sepsis Recent Fever Within 48 Hours Sepsis New/Unexplained Change in Mental Status Sepsis Action Taken by Nursing 01/09/23 12:41 01/09/23 13:00 01/09/23 13:30 Temperature Temperature Source Pulse Rate 75 69 82 Pulse Rate from SpO2 Sensor Respiratory Rate 17 14 14 Blood Pressure 131/79 125/82 142/80 H Blood Pressure Mean 96 96 100 Pulse Oximetry 92 93 91 Oxygen Delivery Method Room Air Room Air Room Air Sepsis Recent Fever Within 48 Hours Sepsis New/Unexplained Change in Mental Status Sepsis Action Taken by Alf Medications Current Medication List: was personally reviewed by me Laboratory Data Attestation: I reviewed the patient's lab results. 01/09/23 11:30 01/09/23 11:30 Lab Results 01/09/23 01/09/23 01/09/23 Range/Units 11:30 11:30 11:30 WBC 8.58 (4.8-10.8) K/ul RBC 3.62 L (4.20-5.40) M/uL Hgb 10.6 L (12.0-16.0) g/dl Hct 30.5 L (37.0-47.0) % MCV 84.3 (80.0-100.0) fL MCH 29.3 (25.0-34.0) pg MCHC 34.8 (32.0-36.0) g/dL RDW Std Deviation 42.9 (36.4-46.3) fL RDW Coeff of Blaise 13.8 (11.5-14.5) % Plt Count 402 H (130-400) K/uL MPV 9.6 (9.4-12.4) fL Immature Gran % (Auto) 0.3 % Neut % (Auto) 74.9 % Lymph % (Auto) 10.5 % [place] % (Auto) 13.9 % Eos % (Auto) 0.1 % Baso % (Auto) 0.3 % Neut # (Auto) 6.42 (1.40-6.50) K/uL Lymph # (Auto) 0.90 L (1.2-3.4) K/uL [place] # (Auto) 1.19 H (0.11-0.59) K/uL Eos # (Auto) 0.01 (0-0.50) K/uL Baso # (Auto) 0.03 (0-0.2) K/uL Immature Gran # (Auto) 0.03 (0.01-0.20) K/uL ESR (0-30) mm/hr PT 40.2 H (9.0-12.0) Seconds INR 4.0 H (0.9-1.1) APTT 54.7 H* (21.0-31.0) Seconds PTT Ratio 1.9 Sodium 128 L (136-145) mmol/L Potassium 4.2 (3.5-5.1) mmol/L Chloride 100 (98-107) mmol/L Carbon Dioxide 22 (21-32) mmol/L Anion Gap 6 (3-11) BUN 14 (6-23) mg/dl Creatinine 0.73 (0.6-1.2) mg/dl Est Cr Clr Drug Dosing 54.8 ml/min Est GFR ( Amer) 88.3 ml/min Est GFR (Non-Af Amer) 76.2 ml/min BUN/Creatinine Ratio 19.2 (10-20) Glucose 126 H (70-99(Fasting)) mg/dl Lactate (0.4-2.0) mmol/L Calcium 8.6 (8.6-10.3) mg/dl Magnesium 2.0 (1.7-2.4) mg/dl Total Bilirubin 0.5 (0.2-1.0) mg/dl Direct Bilirubin TNP AST 46 H (13-39) U/L ALT 53 H (7-52) U/L Alkaline Phosphatase 61 (34-104) U/L Troponin I High Sens 15.7 H D (0-14) pg/ml C-Reactive Protein 24.16 H (0-0.5) mg/dl Total Protein 6.7 (6.0-8.3) gm/dl Albumin 3.0 L (3.4-5.0) gm/dl Procalcitonin (0-0.5) ng/ml Urine Color Urine Appearance (Clear) Urine pH (4.5-7.5) Ur Specific [place] (1.000-1.030) Urine Protein (Negative) Urine Glucose (UA) (Negative) Urine Ketones (Negative) Urine Blood (Negative) Urine Nitrite (Negative) Urine Bilirubin (Negative) Urine Urobilinogen (Negative) Ur Leukocyte Esterase (Negative) SARS-CoV-2, RNA, NAAT (NEGATIVE) 01/09/23 01/09/23 01/09/23 Range/Units 11:30 11:30 11:30 WBC (4.8-10.8) K/ul RBC (4.20-5.40) M/uL Hgb (12.0-16.0) g/dl Hct (37.0-47.0) % MCV (80.0-100.0) fL MCH (25.0-34.0) pg MCHC (32.0-36.0) g/dL RDW Std Deviation (36.4-46.3) fL RDW Coeff of Blaise (11.5-14.5) % Plt Count (130-400) K/uL MPV (9.4-12.4) fL Immature Gran % (Auto) % Neut % (Auto) % Lymph % (Auto) % [place] % (Auto) % Eos % (Auto) % Baso % (Auto) % Neut # (Auto) (1.40-6.50) K/uL Lymph # (Auto) (1.2-3.4) K/uL [place] # (Auto) (0.11-0.59) K/uL Eos # (Auto) (0-0.50) K/uL Baso # (Auto) (0-0.2) K/uL Immature Gran # (Auto) (0.01-0.20) K/uL ESR 89 H (0-30) mm/hr PT (9.0-12.0) Seconds INR (0.9-1.1) APTT (21.0-31.0) Seconds PTT Ratio Sodium (136-145) mmol/L Potassium (3.5-5.1) mmol/L Chloride (98-107) mmol/L Carbon Dioxide (21-32) mmol/L Anion Gap (3-11) BUN (6-23) mg/dl Creatinine (0.6-1.2) mg/dl Est Cr Clr Drug Dosing ml/min Est GFR ( Amer) ml/min Est GFR (Non-Af Amer) ml/min BUN/Creatinine Ratio (10-20) Glucose (70-99(Fasting)) mg/dl Lactate 1.2 (0.4-2.0) mmol/L Calcium (8.6-10.3) mg/dl Magnesium (1.7-2.4) mg/dl Total Bilirubin (0.2-1.0) mg/dl Direct Bilirubin AST (13-39) U/L ALT (7-52) U/L Alkaline Phosphatase (34-104) U/L Troponin I High Sens (0-14) pg/ml C-Reactive Protein (0-0.5) mg/dl Total Protein (6.0-8.3) gm/dl Albumin (3.4-5.0) gm/dl Procalcitonin 0.20 (0-0.5) ng/ml Urine Color Urine Appearance (Clear) Urine pH (4.5-7.5) Ur Specific [place] (1.000-1.030) Urine Protein (Negative) Urine Glucose (UA) (Negative) Urine Ketones (Negative) Urine Blood (Negative) Urine Nitrite (Negative) Urine Bilirubin (Negative) Urine Urobilinogen (Negative) Ur Leukocyte Esterase (Negative) SARS-CoV-2, RNA, NAAT (NEGATIVE) 01/09/23 01/09/23 Range/Units 12:20 12:43 WBC (4.8-10.8) K/ul RBC (4.20-5.40) M/uL Hgb (12.0-16.0) g/dl Hct (37.0-47.0) % MCV (80.0-100.0) fL MCH (25.0-34.0) pg MCHC (32.0-36.0) g/dL RDW Std Deviation (36.4-46.3) fL RDW Coeff of Blaise (11.5-14.5) % Plt Count (130-400) K/uL MPV (9.4-12.4) fL Immature Gran % (Auto) % Neut % (Auto) % Lymph % (Auto) % [place] % (Auto) % Eos % (Auto) % Baso % (Auto) % Neut # (Auto) (1.40-6.50) K/uL Lymph # (Auto) (1.2-3.4) K/uL [place] # (Auto) (0.11-0.59) K/uL Eos # (Auto) (0-0.50) K/uL Baso # (Auto) (0-0.2) K/uL Immature Gran # (Auto) (0.01-0.20) K/uL ESR (0-30) mm/hr PT (9.0-12.0) Seconds INR (0.9-1.1) APTT (21.0-31.0) Seconds PTT Ratio Sodium (136-145) mmol/L Potassium (3.5-5.1) mmol/L Chloride (98-107) mmol/L Carbon Dioxide (21-32) mmol/L Anion Gap (3-11) BUN (6-23) mg/dl Creatinine (0.6-1.2) mg/dl Est Cr Clr Drug Dosing ml/min Est GFR ( Amer) ml/min Est GFR (Non-Af Amer) ml/min BUN/Creatinine Ratio (10-20) Glucose (70-99(Fasting)) mg/dl Lactate (0.4-2.0) mmol/L Calcium (8.6-10.3) mg/dl Magnesium (1.7-2.4) mg/dl Total Bilirubin (0.2-1.0) mg/dl Direct Bilirubin AST (13-39) U/L ALT (7-52) U/L Alkaline Phosphatase (34-104) U/L Troponin I High Sens (0-14) pg/ml C-Reactive Protein (0-0.5) mg/dl Total Protein (6.0-8.3) gm/dl Albumin (3.4-5.0) gm/dl Procalcitonin (0-0.5) ng/ml Urine Color Yellow Urine Appearance Clear (Clear) Urine pH 6.5 (4.5-7.5) Ur Specific [place] 1.013 (1.000-1.030) Urine Protein Negative (Negative) Urine Glucose (UA) Negative (Negative) Urine Ketones Negative (Negative) Urine Blood Negative (Negative) Urine Nitrite Negative (Negative) Urine Bilirubin Negative (Negative) Urine Urobilinogen Negative (Negative) Ur Leukocyte Esterase Negative (Negative) SARS-CoV-2, RNA, NAAT NEGATIVE (NEGATIVE) Administered Medications Discontinued Medications Ceftriaxone Sodium (Rocephin) 2,000 mg in 70 mls @ 140 mls/hr IV NOW STA Stop: 01/09/23 11:31 Last Admin: 01/09/23 11:33 Dose: 140 mls/hr Documented By: GERARD Sodium Chloride (Nss 1000ml) 1,000 mls @ 999 mls/hr IV .Q1H1M ONE Stop: 01/09/23 12:30 Last Admin: 01/09/23 11:53 Dose: 999 mls/hr Documented By: GERARD Imaging Data Attestation: I personally reviewed and interpreted this imaging study as follows: My Impression: 1 view chest x-ray was obtained in the emergency department. My interpretation is cardiomegaly, no definite infiltrate, final report below. Radiologist's Impression: Chest X-Ray 01/09/23 11:02 XR chest 1V portable HISTORY: 82 years-old Female Sepsis acute sepsis COMPARISON: 01/08/2023 TECHNIQUE: AP view of the chest FINDINGS: Cardiac silhouette is enlarged. Left subclavian pacer. No pneumothorax. Pulmonary vascular congestion with mild interstitial coarsening again noted. Unchanged blunting of the costophrenic angles. Degenerative changes of the shoulders and spine. IMPRESSION: Cardiomegaly with suggestion of mild pulmonary edema and probable trace pleural effusions. ACT 112: Negative or not required by law. The above report was generated using voice recognition software. It may contain grammatical, syntax or spelling errors. Electronically signed by: Caden Sloan M.D. 01/09/2023 11:22 AM Discharge Plan Visit Data Chief Complaint: Infection Stated Complaint: RIGHT LEG INFECTION ED Provider: Josué Ch Discharge Problem: Infection of prosthetic joint, Bacteremia, Acute hyponatremia Patient Disposition: Still a Patient Forms Stand Alone Forms: My [facility] [employer] Prescriptions Prescriptions: No Action carvedilol 6.25 mg tablet 6.25 mg PO BID Qty: 180 1RF nystatin 100,000 unit/mL suspension 1 ml buccal DAILY Rx Instructions: administer 1/2 of dose in each side of the mouth warfarin 2.5 mg tablet See Rx Instructions PO DIRECTED Qty: 100 0RF Protocol: Dose Management Condition: Tuesday (Week One) Dose/Route: 2.5 mg Instruction: 1 x 2.5 mg ta blet Condition: Tuesday Dose/Route: 1.25 mg Instruction: 0.5 x 2.5 mg tablets Condition: Tuesday Dose/Route: 2.5 mg Instruction: 1 x 2.5 mg tablet Condition: Tuesday Dose/Route: 1.25 mg Instruction: 0.5 x 2.5 mg tablets Condition: Dose/Route: 5 mg Instruction: 2 x 2.5 mg tablets Condition: Tuesday Dose/Route: 2.5 mg Instruction: 1 x 2.5 mg tablet Condition: Tuesday Dose/Route: 2.5 mg Instruction: 1 x 2.5 mg tablet Condition: Tuesday (Week Two) Dose/Route: 2.5 mg Instruction: 1 x 2.5 mg tablet Condition: Tuesday Dose/Route: 1.25 mg Instruction: 0.5 x 2.5 mg tablets Condition: Tuesday Dose/Route: 2.5 mg Instruction: 1 x 2.5 mg tablet Condition: Tuesday Dose/Route: 1.25 mg Instruction: 0.5 x 2.5 mg tablets Condition: Dose/Route: 2.5 mg Instruction: 1 x 2.5 mg tablet Condition: Tuesday Dose/Route: 1.25 mg Instruction: 0.5 x 2.5 mg tablets Condition: Tuesday Dose/Route: 2.5 mg Instruction: 1 x 2.5 mg tablet Protocol Text: Adjustment Start Date: 12/16/22 INR Value: 1.5 INR Date: 12/16/22 Recheck Date: 12/23/22 Rx Instructions: orally as directed; Dose depends on INR; Pt takes 1/2 pill 3x wk ( Mon,Wed,Tue) and whole pill 4x a wk (Tue,,,Tue) albuterol sulfate 2.5 mg /3 mL (0.083 %) solution for nebulization 2.5 mg inhalation QID PRN (Reason: shortness of breath or wheezing) Qty: 90 3RF cephalexin 500 mg capsule 500 mg PO TID Qty: 21 0RF Rx Instructions: STARTED 01/07/23 FOR 7 DAYS melatonin 5 mg Tablet 5 mg PO HS multivitamin Tablet 1 tab PO QPM acetaminophen [Acetaminophen Extra Strength] 500 mg Tablet 500 mg PO QID PRN (Reason: Back Pain) cholecalciferol (vitamin D3) [Vitamin D3] 10 mcg (400 unit) Capsule 10 mcg PO QPM potassium chloride 20 mEq tablet extended release 20 meq PO BID Referrals Referrals: Say Garcia III, CRNP [Primary Care Provider] - Infection of prosthetic joint Qualifiers: Encounter type: subsequent encounter Qualified Code(s): T84.50XD - Infection and inflammatory reaction due to unspecified internal joint prosthesis, subsequent encounter
[2023-01-09 12:13] LABS: Basophils # (auto) 0.03 K/uL (0-0.2); Basophils % (auto) 0.3 %; Eosinophils # (auto) 0.01 K/uL (0-0.50); Eosinophils % (auto) 0.1 %; Hematocrit (blood only) 30.5 % (37.0-47.0); Hemoglobin 10.6 g/dl (12.0-16.0); Immature Granulocytes # (auto) 0.03 K/uL (0.01-0.20); Immature Granulocytes % (auto) 0.3 %; Lymphocytes % (auto) 10.5 %; Mean Corpuscular Hemoglobin 29.3 pg (25.0-34.0); Mean Corpuscular Hgb Conc 34.8 g/dL (32.0-36.0); Mean Corpuscular Volume 84.3 fL (80.0-100.0); Mean Platelet Volume 9.6 fL (9.4-12.4); Monocytes # (auto) 1.19 K/uL (0.11-0.59); Monocytes % (auto) 13.9 %; Neutrophils # (auto) 6.42 K/uL (1.40-6.50); Neutrophils % (auto) 74.9 %; Platelet Count 402 K/uL (130-400); RDW Coefficient of Variation 13.8 % (11.5-14.5); RDW Standard Deviation 42.9 fL (36.4-46.3); Red Blood Count 3.62 M/uL (4.20-5.40); White Blood Count 8.58 K/ul (4.8-10.8)
[2023-01-09 12:47] LABS: Alanine Aminotransferase 53 U/L (7-52); Alkaline Phosphatase 61 U/L (34-104); Anion Gap 6 (3-11); Aspartate Aminotransferase 46 U/L (13-39); BUN Creatinine Ratio 19.2 (10-20); Bilirubin,Total 0.5 mg/dl (0.2-1.0); Blood Urea Nitrogen 14 mg/dl (6-23); C Reactive Protein 24.16 mg/dl (0-0.5); Calcium 8.6 mg/dl (8.6-10.3); Carbon Dioxide 22 mmol/L (21-32); Chloride 100 mmol/L (98-107); Creatinine Clr Calc Pharmacy 54.8 ml/min; Est GFR (African American) 88.3 ml/min; Est GFR (Non-African American) 76.2 ml/min; Glucose 126 mg/dl (70-99(Fasting)); Potassium 4.2 mmol/L (3.5-5.1); Sodium 128 mmol/L (136-145); Total Protein 6.7 gm/dl (6.0-8.3); Troponin I High Sensitivity 15.7 pg/ml (0-14)
[2023-01-09 12:53] LABS: Partial Thromboplastin Ratio 1.9; Prothrombin Time 40.2 Seconds (9.0-12.0)
[2023-01-09 12:56] LABS: Partial Thromboplastin Time 54.7 Seconds (21.0-31.0)
[2023-01-09 13:33] LABS: Appearance Urine Clear (Clear); Bilirubin Urine Negative (Negative); Blood Urine Negative (Negative); Color Urine Yellow; Glucose Urine UA Negative (Negative); Ketones Urine Negative (Negative); Leukocyte Esterase Urine Negative (Negative); Nitrite Urine Negative (Negative); Protein Urine Negative (Negative); Specific Gravity Urine 1.013 (1.000-1.030); Urobilinogen Urine Negative (Negative); pH Urine 6.5 (4.5-7.5)
[2023-01-09] MEDS ORDERED: SODIUM CHLORIDE 0.9% 1000ML 1,000 ML IV SCH (17:30)
--- NOTE | 2023-01-09 18:03 | Emergency Department Note ---
ED Visit Note I assumed care of the patient from Dr. Ch. The patient had presented due to concern for bacteremia but without overt sepsis who has received IV antibiotics. The patient was currently pending possible transfer to [facility] with the patient is followed with orthopedics as there is concern for a septic joint. Patient has been accepted by the medicine team at [facility] pending orthopedics consultation and possible transfer There was much additional discussion. I did speak with Dr. Rivers the with [facility] orthopedics who stated that if there was this great of a concern he would like the patient to have a washout or drain completed prior to transfer but would not accept the patient at this time. I did speak with Dr. Rivera on with on-call orthopedics and did explain the current circumstances. He did present and evaluated the patient. After further discussion with him he states that the patient has improved with antibiotics and he does not think that the patient requires operative washout at this time. I did rediscussed the case with [facility] orthopedics Dr. Rivers after further discussion he agrees that the patient may be continued on antibiotics at this time and does not think the patient requires transfer down to [place] at this time. I did convey these recommendations from Dr. Rivera as well as Dr. Lore Gomez to the inpatient hospital service. I did speak with Dr. Bryson. Patient was admitted to the medicine service. .
[2023-01-09] MEDS ORDERED: VANCOMYCIN HCL 1,750 MG in SODIUM CHLORIDE 0.9% 500 ML IV ONE (18:04)
[2023-01-09] MEDS ORDERED: VANCOMYCIN CONSULT ACTIVE PRN (18:04)
--- NOTE | 2023-01-09 20:48 | Orthopedic Consultation ---
Date of Consultation January 09, 2023 Assessment & Plan (1) Infection of total right knee replacement: She has a known infected right total knee arthroplasty, with symptoms for at least 2 weeks. She is already under the care of [facility] orthopedics, and has seen Dr. Hope here in [place] and Dr. King in [place]. She just saw Dr. King 3 days ago, and she is scheduled for stage I of a two-stage revision total knee arthroplasty with removal of her total knee components, debridement, and placement of an antibiotic cement spacer this coming Friday 01/12. She has had no worsening of her clinical appearance in the past week, and daughter notes that her knee pain, erythema, and swelling have all significantly improved over the past few days since receiving the Rocephin. She has normal vital signs here in the ER (BP 142/80, P 82), and is afebrile at 36.5C, and has no elevation in her white count (8.58). She was only called to the emergency room due to her blood cultures ordered by Dr. King turning positive today. I spoke with the on-call orthopedic surgeon at [facility] earlier this afternoon, who has refused to accept the patient in transfer prior to a knee washout procedure done here today. I see no indication that any urgent knee washout surgery is required. She needs the definitive revision surgery that is already scheduled for 3 days from now. I am not even sure she meets criteria for admission, since she has had no change in her clinical course over the past week, actually with some improvement. I will leave that decision to the emergency department and internal medicine physicians. [facility] will sign off at this point. She does not require follow-up with us. If she does get admitted here to [facility] and there are further concerns about her knee, please consult [facility] orthoped[facility]. History of Present Illness Reason for Consultation: Right knee infection Requesting Physician: Dr. Ch History of Present Illness Ms. Kingsley is an 82-year-old female with a known right infected total knee arthroplasty, already under the care of [facility] orthopedics. Much of the history is obtained from her daughter, who is an EMT and accompanied her today. She reports that she has had swelling, redness, and pain in her right knee for at least 2 weeks. She originally had her right total knee arthroplasty done by Dr. Mendieta at [facility] in [place]. She has not seen Dr. Mendieta in many years. She initially saw Dr. Diaz at [facility] orthopedics in [place] for these symptoms a little over a week ago on 12/31. This visit was previously unknown, as we do not have the records available from that visit. The daughter states that Dr. Diaz said that the knee looked okay, and that she should follow-up with [facility] orthopedics in [place]. The appearance of her knee and leg then significantly worsened over the following weekend, and she went to her primary care physician on 01/03, where the daughter noted that the knee and leg looked very bad, and she was started on Keflex for cellulitis. She then saw Dr. King at [facility] just 3 days ago on 01/06. He also stated that the knee looked quite bad at that point, and aspirated the knee. He also ordered blood work, but this could not be done at [place] since the appointment was too late in the day. She therefore had her labs drawn here at [facility] on 01/07. She did receive a dose of Rocephin during that visit. The labs were largely unremarkable, except that her blood cultures turned positive today. She was therefore called back to the emergency room due to these positive blood cultures. She and her daughter state that there has been no significant change in her clinical appearance over the past week, and they have actually noted improvement in her knee and leg pain, redness, and swelling over the weekend. Allergies Allergy/AdvReac Type Severity Reaction Status Date / Time adhesive Allergy Intermediate "Adhesive Verified 01/08/23 00:34 tape" -- blisters sulfamethoxazole Allergy Intermediate MOUTH SORES Verified 01/08/23 00:34 trimethoprim Allergy Intermediate MOUTH SORES Verified 01/08/23 00:34 Home Medications Medication Instructions Recorded Confirmed Type melatonin 5 mg tablet 5 mg PO HS 11/20/20 01/09/23 History carvedilol 6.25 mg tablet 6.25 mg PO BID #180 tabs 10/29/22 01/09/23 Rx acetaminophen 500 mg tablet 500 mg PO QID PRN Back Pain 11/27/22 01/09/23 History (Acetaminophen Extra Strength) cholecalciferol (vitamin D3) 10 10 mcg PO QPM 11/27/22 01/09/23 History mcg (400 unit) capsule (Vitamin D3) multivitamin 1 tab PO QPM 11/27/22 01/09/23 History potassium chloride 20 mEq 20 meq PO BID 11/27/22 01/09/23 History tablet,extended release albuterol sulfate 2.5 mg/3 mL 2.5 mg (3 mL) inhalation QID PRN 11/30/22 01/09/23 Rx (0.083 %) solution for nebulization shortness of breath or wheezing #90 mL warfarin 2.5 mg tablet See Rx Instructions PO DIRECTED 12/13/22 01/09/23 Rx #100 tabs nystatin 100,000 unit/mL oral 1 ml buccal DAILY 12/16/22 01/09/23 History suspension cephalexin 500 mg capsule 500 mg PO TID #21 caps 01/03/23 01/09/23 Rx Patient History Medical History Aortic regurgitation Breast cancer ?? pt denies Chest pain CHF (NYHA class II, ACC/AHA stage C) Complete heart block (10/28/14) ICD/pacer Complex sleep apnea syndrome does not use cpap as ordered Deep venous thrombosis of left upper extremity several yrs ago > post surgical PURVIS (dyspnea on exertion) Hearing deficit History of colon polyps History of deep vein thrombosis (DVT) of lower extremity was just torn muscle, not clot per pt History of endometrial cancer diagnosed 20yrs ago--sx History of kidney stones ICD (implantable cardioverter-defibrillator) in place placed 03/18/2016 @ [facility] by Dr. 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 Webber at [facility] > last checked in Apr 2021 History [place] right [place] [facility] [place] made ASA3. Given 2mg versed. History of tonsillectomy History of tooth extraction History of total abdominal hysterectomy and bilateral salpingo-oophorectomy History of total right knee replacement (TKR) History of wisdom tooth extraction S/P thyroid biopsy benign Family History Father Family hx of colon cancer Colorectal cancer Mother Family hx of colon cancer Colorectal cancer Aunt Family hx of colon cancer Other Family history non-contributory No family history of adverse response to anesthesia No significant family history Denies family history of Ovarian cancer Prostate cancer Myocardial infarction Breast cancer Social History Smoking Status: Never smoker Second Hand Exposure: Yes (in childhood); Hx Alcohol Use: No Hx Substance Use: No Preferred Language: Malay Communication Ability: Effective Communication Ability Comment: [place] -- dog ate hearing aid -- will need family member present to relay info Visual Impairment: No Limitations Hearing Ability: Use of Hearing Aid Assistant Business Manager Required: No Beliefs That Will Affect Care: None marital status: Current Living Situation: Spouse Current Living Situation Comment: daughter and her grandson also live with her right now current occupational status: retired 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 Examination of the right knee reveals a large knee effusion. Relatively mild erythema directly over the knee joint area, and no spreading erythema in the upper or lower leg. She has surprisingly good range of motion from at least 20 to 90 degrees with minimal discomfort. Motor and sensory function is intact distally. She is able to raise her leg off the bed with fairly good extension strength, although this is slightly limited due to the large knee effusion. Results & Data Vital Signs (Past 12 Hours) Vital Signs Temp Pulse Resp BP Pulse Ox O2 Del Method O2 Flow Rate 01/09/23 18:30 106 H 32 H 94 Nasal Cannula 2 01/09/23 18:30 124/56 L 01/09/23 18:00 107 H 19 95 Nasal Cannula 2 01/09/23 18:00 146/70 H 01/09/23 17:30 102 H 18 01/09/23 17:30 146/70 H 01/09/23 17:00 70 19 91 Room Air 01/09/23 17:00 163/74 H 01/09/23 16:30 94 H 17 91 Room Air 01/09/23 16:30 148/68 H 01/09/23 16:26 157/76 H 01/09/23 16:26 99 H 22 93 Room Air 01/09/23 16:00 93 H 18 119/72 96 Room Air 01/09/23 15:30 89 16 01/09/23 15:00 71 18 136/79 92 Room Air 01/09/23 14:30 88 14 93 Room Air 01/09/23 14:00 65 12 142/79 H 93 Room Air 01/09/23 13:30 82 14 142/80 H 91 Room Air 01/09/23 13:00 69 14 125/82 93 Room Air 01/09/23 12:41 75 17 131/79 92 Room Air 01/09/23 12:00 70 17 01/09/23 12:00 141/61 H 01/09/23 11:55 128/69 01/09/23 11:55 80 16 92 Room Air 01/09/23 11:30 74 22 93 Room Air 01/09/23 11:21 85 20 91 Room Air 01/09/23 11:02 73 14 92 Room Air 01/09/23 11:23 85 01/09/23 11:06 36.5 C 88 18 136/69 95 Laboratory Results WBC 8.58 Diagnostic Findings Right knee x-rays obtained yesterday reviewed. Total knee arthroplasty components are in place. There is a slight lucency under the lateral component of the tibia, but otherwise no significant osteolysis is noted. There are also calcifications noted on the lateral x-ray, 1 fairly large 1 in the suprapatellar pouch and another 1 in the quadriceps tendon just proximal to the patella. This certainly raises the possibility of patellar fracture and extensor mechanism failure, although she seems to have fairly good quadriceps strength on exam.
[2023-01-09] MEDS ORDERED: NON-FORMULARY MEDICATION (Melatonin 5 mg Tablet) PO SCH (21:00)
[2023-01-09] MEDS ORDERED: carvediloL 6.25 MG TAB PO SCH (21:00)
--- NOTE | 2023-01-09 21:58 | History & Physical Report ---
Date of Service January 09, 2023 Assessment & Plan (1) Bacteremia: Plan: 82yo female presenting with several weeks of generalized illness, intermittent fever/chills as well as nausea, vomiting and diarrhea. Progressive worsening of pain/redness and swelling of right knee - s/p TKA appx 13 years ago. She had fluid aspirated from the right knee joint on 01/06/23 which is consistent with infection, culture POSITIVE for Streptococcus Viridans. Also with POSITIVE Blood cultures from 01/08/23 GPC chains - PCR POSITIVE for Streptococcus species. Patient afebrile, tachycardic with HR of 106. Normal WBC count of 8.58, Normal Procalcitonin of 0.2. Elevated CRP=24.16 (slightly improved from 01/07/23 CRP=25.87). Symptoms of right knee pain have been ongoing x 12 days and were preceded by an acute febrile illness. Patient likely became bacteremic due to her recent febrile illness and seeded her knee - we have seen several cases of streptococcus bacteremia at [facility] recently. Ultimately, patient will need operative management for source control. Retention or removal of the prosthesis to be decided by Orthopedics with guidance from Infectious Disease services. -For now, will admit the patient to medical with telemetry. -Follow repeat cultures sent from the ER -Check RLE doppler for drainable collection, DVT -Continue Ceftriaxone 2gm IV daily -Probiotic at request of family (2) Infection of total right knee replacement: Plan: Right TKA in place. Patient with streptococcus bacteremia as well as streptococcus viridans POSITIVE joint aspirate. She is afebrile and mildly tachycardic on arrival -Ceftriaxone -Tylenol PRN -Orthopedics Surgery consultation placed - patient is known to [facility] Orthopedics -Infectious Disease consultation to be placed in AM (3) CHF (NYHA class II, ACC/AHA stage C): Plan: Patient with NICM. EF is normal size with EF of 55-60% per echo 11/27/22. She has a thickened and angulated basal septum consistent with sigmoid septum with mild LVH. 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 Patient is on CPAP. 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 Supratherapeutic INR=4. No bleeding -Hold Coumadin -Repeat INR in AM F/E/N - Heplock. Electrolytes WNL. Heart Healthy diet as tolerated Ppx - Monitor INR Code - Full per discussion with patient and daughter Dispo - Admit to medical with telemetry History of Present Illness Chief Complaint: Right knee infection Primary Care Provider: Say Garcia, AUDRA, PATEL Tasneem Kingsley is a pleasant 82yo female with history of VTE on Coumadin anticoagulation (supratherapeutic INR of 4), CHF, NICM presenting with redness, swelling and pain in the right knee. Patient is s/p right total knee arthroplasty performed approximately [address] Papi Mendieta in [place]. Patient began feeling ill on TuesdayDecember 29. She called her daughter and said she was feeling dizzy, weak and febrile with some abdominal complaints. She fell and landed on her knees on the carpet and was unable to get up. Her daughter went to her house and reports that the patient was ill in appearance. She helped her get up and get into bed. Patient continued to not feel well over the next couple of days with ongoing fever and chills, vomiting and diarrhea as well as worsening of her right knee pain and swelling. She was seen by [facility] Orthopedic Surgery on 12/31/22. Patient had a 3V X-ray of the right knee on 12/31/22 which revealed a fractured patella and large joint effusion. It was recommended to go to [facility] for further evaluation of the right knee fractured patella as it is likely to require surgery. Patient was scheduled for surgery 01/12/23 at [facility]. Daughter reports that patient's symptoms persisted. She was ill through the weekend with worsening edema and warmth of the RLE with redness extending into the thigh and foot. Patient was seen by her PCP on 01/03/23 with these symptoms. She was prescribed Keflex 500 mg po TID. She was seen at [facility] on 01/06/23 for pre-operative workup. She was seen by Cardiology, Anesthesia as well as Orthopedics - Dr. King. She had fluid aspirated from her right knee which was reported to be turbid upon collection. Sample has since grown Streptococcus viridans. Patient as seen in the ER on 01/08/23 with complaint of ongoing right knee redness, swelling and fever as well as worsening fatigue. ER workup with normal WBC count and Procalcitonin of 0.11. She had blood cultures obtained and was treated with Ceftriaxone 2gm IV. Patient's blood cultures from 01/08/23 have grown GRAM POSITIVE COCCI IN CHAINS in 2/2 ANAEROBIC and 1/2 AEROBIC bottles. Patient was notified of these results and was instructed to return to the ER for IV antibiotics. Orthopedic surgery at [facility] was contacted and refused to accept the patient for transfer to their facility until a knee washout is performed at [facility]. Orthopedic Surgery at [facility] was contacted and reported no urgent indication for a knee washout. Admission to medical service requested. Patient is doing well overall with no complaints. She is extremely hard of hearing. Daughter is an EMT and assists with the history. Patient denies chest pain, cough, SOB, abdominal pain. She has had some ongoing nausea and non-bloody/non-bilious vomiting with diarrhea as well. ER Course: NSS x 2L Ceftraixone 2gm IV Carvedilol 6.25mg po Tylenol 1000 mg Allergies Allergy/AdvReac Type Severity Reaction Status Date / Time adhesive Allergy Intermediate "Adhesive Verified 01/08/23 00:34 tape" -- blisters sulfamethoxazole Allergy Intermediate MOUTH SORES Verified 01/08/23 00:34 trimethoprim Allergy Intermediate MOUTH SORES Verified 01/08/23 00:34 Home Medications Medication Instructions Recorded Confirmed Type melatonin 5 mg tablet 5 mg PO HS 11/20/20 01/09/23 History carvedilol 6.25 mg tablet 6.25 mg PO BID #180 tabs 10/29/22 01/09/23 Rx acetaminophen 500 mg tablet 500 mg PO QID PRN Back Pain 11/27/22 01/09/23 History (Acetaminophen Extra Strength) cholecalciferol (vitamin D3) 10 10 mcg PO QPM 11/27/22 01/09/23 History mcg (400 unit) capsule (Vitamin D3) multivitamin 1 tab PO QPM 11/27/22 01/09/23 History potassium chloride 20 mEq 20 meq PO BID 11/27/22 01/09/23 History tablet,extended release albuterol sulfate 2.5 mg/3 mL 2.5 mg (3 mL) inhalation QID PRN 11/30/22 01/09/23 Rx (0.083 %) solution for nebulization shortness of breath or wheezing #90 mL warfarin 2.5 mg tablet See Rx Instructions PO DIRECTED 12/13/22 01/09/23 Rx #100 tabs nystatin 100,000 unit/mL oral 1 ml buccal DAILY 12/16/22 01/09/23 History suspension cephalexin 500 mg capsule 500 mg PO TID #21 caps 01/03/23 01/09/23 Rx Past Med/Surg History Medical History Aortic regurgitation Breast cancer ?? pt denies Chest pain CHF (NYHA class II, ACC/AHA stage C) Complete heart block (10/28/14) ICD/pacer Complex sleep apnea syndrome does not use cpap as ordered Deep venous thrombosis of left upper extremity several yrs ago > post surgical PURVIS (dyspnea on exertion) Hearing deficit History of colon polyps History of deep vein thrombosis (DVT) of lower extremity was just torn muscle, not clot per pt History of endometrial cancer diagnosed 20yrs ago--sx History of kidney stones ICD (implantable cardioverter-defibrillator) in place placed 03/18/2016 @ [facility] by Dr. Webber Left bundle branch block snf current use of anticoagulant warfarin daily Mitral valve insufficiency Narrow angle glaucoma suspect of both eyes Nonischemic cardiomyopathy Osteoarthritis SNHL (sensorineural hearing loss) Superior vena cava syndrome reason for warfarin Weakness Surgical History History of breast biopsy per pt benign History of cardiac cath no stents History of cataract surgery B/L done 06/2021 and 08/2021 History of colonoscopy with polypectomy History of dilatation and curettage History of permanent cardiac pacemaker placement meditronic ICD placed by Dr. Webber at [facility] > last checked in Apr 2021 History of right cataract [place] [facility] made ASA3. Given 2mg versed. History of tonsillectomy History of tooth extraction History of total abdominal hysterectomy and bilateral salpingo-oophorectomy History of total right knee replacement (TKR) History of wisdom tooth extraction S/P thyroid biopsy benign Family History Father Family hx of colon cancer Colorectal cancer Mother Family hx of colon cancer Colorectal cancer Aunt Family hx of colon cancer Other Family history non-contributory No family history of adverse response to anesthesia No significant family history Denies family history of Ovarian cancer Prostate cancer Myocardial infarction Breast cancer Social History Smoking Status: Never smoker Second Hand Exposure: Yes (in childhood); Hx Alcohol Use: No Hx Substance Use: No Preferred Language: Maori Communication Ability: Effective Communication Ability Comment: diomede -- dog ate hearing aid -- will need family member present to relay info Visual Impairment: No Limitations Hearing Ability: Use of Hearing Aid Dry Man Required: No Beliefs That Will Affect Care: None marital status: Current Living Situation: Spouse Current Living Situation Comment: daughter and her grandson also live with her right now current occupational status: retired 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 Feels Safe at Home: Yes Childhood Exposure to Second-Hand Smoke: Yes Dental Care, Regularly: Yes Physical Activity Frequency: Does not Exercise Seatbelt Use: always Sunscreen Use: No Assistive Devices: Glasses Review of Systems Review of Systems: All systems reviewed & are unremarkable except as noted in HPI & below Physical Exam Physical Exam: General: patient resting comfortably, NAD, non-toxic in appearance, alert, answers questions appropriately, extremely hard of hearing HEENT: NC/AT, PERRL, EOMI, anicteric sclera, conjunctiva without injection, external ear normal to inspection and nontender, nares patent, moist mucus membranes, dentition intact, no oropharyngeal lesions, neck supple, trachea midline, no LAD, no thyromegaly, no JVD Heart: +S1/S2, regular, tachycardic, no m/r/g Lungs: equal air entry bilaterally, no rales/rhonchi/wheezes Abd: +BS, soft, NT/ND, no masses/organomegaly/ascites Ext: warm, 2+ pulses in UE/LE bilaterally, warmth, redness and edema of RLE with swelling and effusion of the right knee Neuro: nonfocal, patient AA&O x 4, speech intact, no facial droop, moving all extremities on command with equal strength 5/5 Results & Data Results & Data Vital Signs (Past 12 Hours) Vital Signs Temp Pulse Resp BP Pulse Ox O2 Del Method O2 Flow Rate 01/09/23 18:30 106 H 32 H 94 Nasal Cannula 2 01/09/23 18:30 124/56 L 01/09/23 18:00 107 H 19 95 Nasal Cannula 2 01/09/23 18:00 146/70 H 01/09/23 17:30 102 H 18 01/09/23 17:30 146/70 H 01/09/23 17:00 70 19 91 Room Air 01/09/23 17:00 163/74 H 01/09/23 16:30 94 H 17 91 Room Air 01/09/23 16:30 148/68 H 01/09/23 16:26 157/76 H 01/09/23 16:26 99 H 22 93 Room Air 01/09/23 16:00 93 H 18 119/72 96 Room Air 01/09/23 15:30 89 16 01/09/23 15:00 71 18 136/79 92 Room Air 01/09/23 14:30 88 14 93 Room Air 01/09/23 14:00 65 12 142/79 H 93 Room Air 01/09/23 13:30 82 14 142/80 H 91 Room Air 01/09/23 13:00 69 14 125/82 93 Room Air 01/09/23 12:41 75 17 131/79 92 Room Air 01/09/23 12:00 70 17 01/09/23 12:00 141/61 H 01/09/23 11:55 128/69 01/09/23 11:55 80 16 92 Room Air 01/09/23 11:30 74 22 93 Room Air 01/09/23 11:21 85 20 91 Room Air 01/09/23 11:02 73 14 92 Room Air 01/09/23 11:23 85 01/09/23 11:06 36.5 C 88 18 136/69 95 Laboratory Results Laboratory Results WBC 8.58 K/ul (4.8-10.8) 01/09/23 11:30 RBC 3.62 M/uL (4.20-5.40) L 01/09/23 11:30 Hgb 10.6 g/dl (12.0-16.0) L 01/09/23 11:30 Hct 30.5 % (37.0-47.0) L 01/09/23 11:30 MCV 84.3 fL (80.0-100.0) 01/09/23 11:30 MCH 29.3 pg (25.0-34.0) 01/09/23 11:30 MCHC 34.8 g/dL (32.0-36.0) 01/09/23 11:30 RDW Std Deviation 42.9 fL (36.4-46.3) 01/09/23 11:30 RDW Coeff of Blaise 13.8 % (11.5-14.5) 01/09/23 11:30 Plt Count 402 K/uL (130-400) H 01/09/23 11:30 MPV 9.6 fL (9.4-12.4) 01/09/23 11:30 Immature Gran % (Auto) 0.3 % 01/09/23 11:30 Neut % (Auto) 74.9 % 01/09/23 11:30 Lymph % (Auto) 10.5 % 01/09/23 11:30 [place] % (Auto) 13.9 % 01/09/23 11:30 Eos % (Auto) 0.1 % 01/09/23 11:30 Baso % (Auto) 0.3 % 01/09/23 11:30 Neut # (Auto) 6.42 K/uL (1.40-6.50) 01/09/23 11:30 Lymph # (Auto) 0.90 K/uL (1.2-3.4) L 01/09/23 11:30 [place] # (Auto) 1.19 K/uL (0.11-0.59) H 01/09/23 11:30 Eos # (Auto) 0.01 K/uL (0-0.50) 01/09/23 11:30 Baso # (Auto) 0.03 K/uL (0-0.2) 01/09/23 11: Immature Gran # (Auto) 0.03 K/uL (0.01-0.20) 01/09/23 11: ESR 89 mm/hr (0-30) H 01/09/23 11:30 PT 40.2 Seconds (9.0-12.0) H 01/09/23 11:30 INR 4.0 (0.9-1.1) H 01/09/23 11:30 APTT 54.7 Seconds (21.0-31.0) H* 01/09/23 11:30 PTT Ratio 1.9 01/09/23 11:30 Sodium 128 mmol/L (136-145) L 01/09/23 11:30 Potassium 4.2 mmol/L (3.5-5.1) 01/09/23 11:30 Chloride 100 mmol/L (98-107) 01/09/23 11:30 Carbon Dioxide 22 mmol/L (21-32) 01/09/23 11:30 Anion Gap 6 (3-11) 01/09/23 11:30 BUN 14 mg/dl (6-23) 01/09/23 11:30 Creatinine 0.73 mg/dl (0.6-1.2) 01/09/23 11:30 Est Cr Clr Drug Dosing 54.8 ml/min 01/09/23 11:30 Est GFR ( Amer) 88.3 ml/min 01/09/23 11:30 Est GFR (Non-Af Amer) 76.2 ml/min 01/09/23 11:30 BUN/Creatinine Ratio 19.2 (10-20) 01/09/23 11:30 Glucose 126 mg/dl (70-99(Fasting)) H 01/09/23 11:30 Lactate 1.2 mmol/L (0.4-2.0) 01/09/23 11:30 Calcium 8.6 mg/dl (8.6-10.3) 01/09/23 11:30 Magnesium 2.0 mg/dl (1.7-2.4) 01/09/23 11:30 Total Bilirubin 0.5 mg/dl (0.2-1.0) 01/09/23 11:30 Direct Bilirubin TNP 01/09/23 11:30 AST 46 U/L (13-39) H 01/09/23 11:30 ALT 53 U/L (7-52) H 01/09/23 11:30 Alkaline Phosphatase 61 U/L (34-104) 01/09/23 11:30 Troponin I High Sens 15.7 pg/ml (0-14) H D 01/09/23 11:30 C-Reactive Protein 24.16 mg/dl (0-0.5) H 01/09/23 11:30 Total Protein 6.7 gm/dl (6.0-8.3) 01/09/23 11:30 Albumin 3.0 gm/dl (3.4-5.0) L 01/09/23 11:30 Procalcitonin 0.20 ng/ml (0-0.5) 01/09/23 11:30 Urine Color Yellow 01/09/23 12:43 Urine Appearance Clear (Clear) 01/09/23 12:43 Urine pH 6.5 (4.5-7.5) 01/09/23 12:43 Ur Specific [place] 1.013 (1.000-1.030) 01/09/23 12:43 Urine Protein Negative (Negative) 01/09/23 12:43 Urine Glucose (UA) Negative (Negative) 01/09/23 12:43 Urine Ketones Negative (Negative) 01/09/23 12:43 Urine Blood Negative (Negative) 01/09/23 12:43 Urine Nitrite Negative (Negative) 01/09/23 12:43 Urine Bilirubin Negative (Negative) 01/09/23 12:43 Urine Urobilinogen Negative (Negative) 01/09/23 12:43 Ur Leukocyte Esterase Negative (Negative) 01/09/23 12:43 SARS-CoV-2, RNA, NAAT NEGATIVE (NEGATIVE) 01/09/23 12:20 Impressions Chest X-Ray 01/09/23 11:02 XR chest 1V portable HISTORY: 82 years-old Female Sepsis acute sepsis COMPARISON: 01/08/2023 TECHNIQUE: AP view of the chest FINDINGS: Cardiac silhouette is enlarged. Left subclavian pacer. No pneumothorax. Pulmonary vascular congestion with mild interstitial coarsening again noted. Unchanged blunting of the costophrenic angles. Degenerative changes of the shoulders and spine. IMPRESSION: Cardiomegaly with suggestion of mild pulmonary edema and probable trace pleural effusions. ACT 112: Negative or not required by law. The above report was generated using voice recognition software. It may contain grammatical, syntax or spelling errors. Electronically signed by: Caden Sloan M.D. 01/09/2023 11:22 AM ECG Additional Comments: EKG with ventricular paced rhythm at 76bpm PG Care Time/CCT Total # of Minutes Spent Total Time Spent with Patient: Total time spent is greater than 50% in coordination of care (as documented) at patient's floor/unit and/or counseling patient: Coding Level of Care Code 43818 INT INP/OBS CARE 375MIN Diagnoses Bacteremia R78.81 Infection of total right knee replacement T84.53XA CHF (NYHA class II, ACC/AHA stage C) I50.9 Complex sleep apnea syndrome G47.31 Superior vena cava syndrome I87.1
[2023-01-09] MEDS ORDERED: ACETAMINOPHEN 500 MG TAB PO STA (22:33)
[2023-01-10] MEDS ORDERED: ONDANSETRON INJ 2 MG/ML 2 ML VIAL IV PRN (02:23)
[2023-01-10] MEDS ORDERED: ACETAMINOPHEN 500 MG TAB PO PRN (02:23)
[2023-01-10] MEDS ORDERED: ALBUTEROL 0.083% NEBU SOLN 3 ML VIAL INH PRN (02:23)
[2023-01-10] MEDS ORDERED: LIDOCAINE 5% 1 PATCH TD SCH (02:35)
[2023-01-10 07:25] LABS: Hematocrit (blood only) 29.5 % (37.0-47.0); Hemoglobin 10.5 g/dl (12.0-16.0); Mean Corpuscular Hemoglobin 29.2 pg (25.0-34.0); Mean Corpuscular Hgb Conc 35.6 g/dL (32.0-36.0); Mean Corpuscular Volume 81.9 fL (80.0-100.0); Mean Platelet Volume 9.4 fL (9.4-12.4); Platelet Count 390 K/uL (130-400); RDW Coefficient of Variation 13.9 % (11.5-14.5); RDW Standard Deviation 41.6 fL (36.4-46.3); White Blood Count 7.45 K/ul (4.8-10.8)
--- NOTE | 2023-01-10 07:25 | Ultrasound Report ---
RIGHT LOWER EXTREMITY VENOUS DOPPLER CLINICAL HISTORY: swelling RLE ?Abscess, DVT? COMPARISON STUDY: Right lower extremity venous Doppler ultrasound November 16, 2014. TECHNIQUE: Sonography of the deep venous system of the right lower extremity was performed. Compress ion and augmentation were evaluated. FINDINGS: The right common femoral, superficial femoral and popliteal veins were compressible. Augme ntation was normal. Flow was shown within the deep calf vessels. Prominent right inguinal lymph nodes have benign imaging characteristics. Note is made of a 7.4 x 1.7 x 3.3 cm complex fluid collection w ithin the right popliteal fossa. IMPRESSION: 1. No evidence of deep venous thrombus within the right lower extremity. 2. Complex 7.4 x 1.7 x 3.3 cm suspected right popliteal cyst. Sterility cannot be assessed by ultraso und. ACT 112: Negative or not required by law. Electronically signed by: Bart Monique M.D. 01/10/2023 7:24 AM
[2023-01-10 07:45] LABS: Albumin Level 2.9 gm/dl (3.4-5.0); BUN Creatinine Ratio 20.3 (10-20); Bilirubin Direct 0.1 mg/dl (0-0.2); Bilirubin,Total 0.5 mg/dl (0.2-1.0); Calcium 8.5 mg/dl (8.6-10.3); Creatinine Clr Calc Pharmacy 63.9 ml/min; Est GFR (African American) 95.6 ml/min; Est GFR (Non-African American) 82.5 ml/min; Potassium 3.5 mmol/L (3.5-5.1); Total Protein 6.3 gm/dl (6.0-8.3)
[2023-01-10 07:50] LABS: Troponin I High Sensitivity 15.7 pg/ml (0-14)
[2023-01-10 07:51] LABS: INR 3.4 (0.9-1.1); Prothrombin Time 34.7 Seconds (9.0-12.0)
--- NOTE | 2023-01-10 08:52 | Ultrasound Report ---
US extremity non-vascular ltd CLINICAL HISTORY: SWELLING RIGHT LOWER EXTREMITY, ?ABSCESS COMPARISON STUDY: Right knee radiograph 01/08/2023. FINDINGS: Real-time sonographic imaging of the right knee was performed. There is a complex suprapate llar collection within the right knee which favors a knee effusion. This measures 9 x 9 x 2 cm. This demonstrates increased peripheral vascularity. IMPRESSION: A moderate to large complex suprapatellar fluid collection which favors a right knee eff usion. Stability cannot be assessed by ultrasound. ACT 112: Negative or not required by law. Electronically signed by: Jaxson Velasco M.D. 01/10/2023 8:50 AM
[2023-01-10] MEDS ORDERED: SACCHAROMYCES BOULARDII 250 MG CAP PO SCH (09:00)
--- NOTE | 2023-01-10 10:32 | Orthopedic Consultation ---
Date of Consultation January 10, 2023 Assessment & Plan (1) Infection of total right knee replacement: Patient is bacteremic, but she is not hemodynamically unstable, has a normal WBC, is afebrile, and no changes to her mental status. Therefore, I don't think an irrigation and debridement of her knee needs to be done today, as this could hold up her transfer to [place], which is where she needs to be for definitive treatment, as he complex problem is outside my area of expertise. Plan is to transfer patient to [facility] for her scheduled upcoming procedure. If medicine feels that is appropriate patient can be admitted to the orthopedic service with Dr. King. However, if they feel the patient should be admitted under medicine at [place] that can be done as well and Dr. King will be consulted. Dr. King would like the patient's INR to be reversed before the transfer. Spoke with Dr. Young. She will see patient this AM and process transfer to [facility]. (2) Extensor mechanism malalignment of knee: Supervising Physician Co-Signing Physician Notes I saw and examined the patient, reviewed her labs, vitals, and imaging and performed the substantive portion of the visit. agree with the above note. History of Present Illness Reason for Consultation: Right knee septic arthritis Requesting Physician: Dr. 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 Patient was seen over the weekend by one of the other orthopedic provider groups in our area. She has been seen by Dr. Kent off in regards to her knee and has also been evaluated at [place] by Dr. King who is planning on scheduling a two-part procedure with removal of orthopedic hardware and antibiotic spacer placement before proceeding with right total knee arthroplasty revision. She was scheduled to have the first part of the surgery performed this coming January 12. Patient states that over the past 3 weeks she has had significant increase in swelling in her knee along with intermittent symptoms including fever, chills, sweats, nausea, vomiting and diar sweta. Today, she states that she is asymptomatic and that her knee feels much better than it had been yesterday. She is currently receiving IV antibiotics (Rocephin). Patient's biggest issue today is the pain that she has in her right shoulder which she states is chronic and due to a rotator cuff injury that she sustained over 20 years ago. Allergies Allergy/AdvReac Type Severity Reaction Status Date / Time adhesive Allergy Intermediate "Adhesive Verified 01/08/23 00:34 tape" -- blisters sulfamethoxazole Allergy Intermediate MOUTH SORES Verified 01/08/23 00:34 trimethoprim Allergy Intermediate MOUTH SORES Verified 01/08/23 00:34 Home Medications Medication Instructions Recorded Confirmed Type melatonin 5 mg tablet 5 mg PO HS 11/20/20 01/09/23 History carvedilol 6.25 mg tablet 6.25 mg PO BID #180 tabs 10/29/22 01/09/23 Rx acetaminophen 500 mg tablet 500 mg PO QID PRN Back Pain 11/27/22 01/09/23 History (Acetaminophen Extra Strength) cholecalciferol (vitamin D3) 10 10 mcg PO QPM 11/27/22 01/09/23 History mcg (400 unit) capsule (Vitamin D3) multivitamin 1 tab PO QPM 11/27/22 01/09/23 History potassium chloride 20 mEq 20 meq PO BID 11/27/22 01/09/23 History tablet,extended release albuterol sulfate 2.5 mg/3 mL 2.5 mg (3 mL) inhalation QID PRN 11/30/22 01/09/23 Rx (0.083 %) solution for nebulization shortness of breath or wheezing #90 mL warfarin 2.5 mg tablet See Rx Instructions PO DIRECTED 12/13/22 01/09/23 Rx #100 tabs Saccharomyces boulardii 250 mg 250 mg PO DAILY #30 caps 01/10/23 Rx capsule (Florastor) ceftriaxone 2 gram solution for 2 g IV DAILY #10 ea 01/10/23 Rx injection Patient History Medical History Aortic regurgitation Breast cancer ?? pt denies Chest pain CHF (NYHA class II, ACC/AHA stage C) Complete heart block (10/28/14) ICD/pacer Complex sleep apnea syndrome does not use cpap as ordered Deep venous thrombosis of left upper extremity several yrs ago > post surgical PURVIS (dyspnea on exertion) Hearing deficit History of colon polyps History of deep vein thrombosis (DVT) of lower extremity was just torn muscle, not clot per pt History of endometrial cancer diagnosed 20yrs ago--sx History of kidney stones ICD (implantable cardioverter-defibrillator) in place placed 03/18/2016 @ [facility] by Dr. Webber Left bundle branch block residential current use of anticoagulant warfarin daily Mitral valve insufficiency Narrow angle glaucoma suspect of both eyes Nonischemic cardiomyopathy Osteoarthritis SNHL (sensorineural hearing loss) Superior vena cava syndrome reason for warfarin Weakness Surgical History History of breast biopsy per pt benign History of cardiac cath no stents History of cataract surgery B/L done 06/2021 and 08/2021 History of colonoscopy with polypectomy History of dilatation and curettage History of permanent cardiac pacemaker placement meditronic ICD placed by Dr. Webber at [facility] > last checked in Apr 2021 History of right [place] [facility] [place] made ASA3. Given 2mg versed. History of tonsillectomy History of tooth extraction History of total abdominal hysterectomy and bilateral salpingo-oophorectomy History of total right knee replacement (TKR) History of wisdom tooth extraction S/P thyroid biopsy benign Family History Father Family hx of colon cancer Colorectal cancer Mother Family hx of colon cancer Colorectal cancer Aunt Family hx of colon cancer Other Family history non-contributory No family history of adverse response to anesthesia No significant family history Denies family history of Ovarian cancer Prostate cancer Myocardial infarction Breast cancer Social History Smoking Status: Never smoker Second Hand Exposure: No; Hx Alcohol Use: No Hx Substance Use: No Preferred Language: Latvian Communication Ability: Effective Communication Ability Comment: SUN'AQ Visual Impairment: No Limitations Hearing Ability: Use of Hearing Aid Professional System Administrator Required: No Beliefs That Will Affect Care: None marital status: Current Living Situation: Spouse and Family Current Living Situation Comment: Lives with , daughter, grandchild current occupational status: retired 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 Passive flexion is to 108 degrees. Patient has difficulty performing an active straight leg raise test. She is able to actively dorsi and plantarflex her foot without issue. Her calf is soft and supple nontender to palpation. She does have a significant sized effusion noted over the superolateral pouch as well as over the medial aspect of the knee near the patellar facet. She does have tenderness to palpation over the patella. Along with some medial joint line tenderness. Patient is neurovascularly intact in right lower extremity. Results & Data Vital Signs (Past 12 Hours) Vital Signs Temp Pulse Pulse Resp BP BP Pulse Ox 01/10/23 07:23 36.9 C 64 20 152/57 H 92 01/10/23 06:04 89 01/10/23 04:01 82 01/10/23 03:00 01/10/23 02:10 36.8 C 84 16 131/68 94 01/10/23 01:30 66 16 143/69 H 94 01/10/23 00:01 62 16 173/68 H 93 01/09/23 23:25 66 20 122/72 95 01/09/23 22:33 65 17 138/53 L 93 O2 Del Method 01/10/23 07:23 Room Air 01/10/23 06:04 01/10/23 04:01 01/10/23 03:00 CPAP 01/10/23 02:10 Room Air 01/10/23 01:30 01/10/23 00:01 CPAP 01/09/23 23:25 CPAP 01/09/23 22:33 CPAP Laboratory Results Blood cultures done over the weekend growing Strep. Diagnostic Findings Laboratory Results WBC 7.45 K/ul (4.8-10.8) 01/10/23 07:09 RBC 3.60 M/uL (4.20-5.40) L 01/10/23 07:09 Hgb 10.5 g/dl (12.0-16.0) L 01/10/23 07:09 Hct 29.5 % (37.0-47.0) L 01/10/23 07:09 MCV 81.9 fL (80.0-100.0) 01/10/23 07:09 MCH 29.2 pg (25.0-34.0) 01/10/23 07:09 MCHC 35.6 g/dL (32.0-36.0) 01/10/23 07:09 RDW Std Deviation 41.6 fL (36.4-46.3) 01/10/23 07:09 RDW Coeff of Blaise 13.9 % (11.5-14.5) 01/10/23 07:09 Plt Count 390 K/uL (130-400) 01/10/23 07:09 MPV 9.4 fL (9.4-12.4) 01/10/23 07:09 Immature Gran % (Auto) 0.3 % 01/09/23 11:30 Neut % (Auto) 74.9 % 01/09/23 11:30 Lymph % (Auto) 10.5 % 01/09/23 11:30 [place] % (Auto) 13.9 % 01/09/23 11:30 Eos % (Auto) 0.1 % 01/09/23 11:30 Baso % (Auto) 0.3 % 01/09/23 11:30 Neut # (Auto) 6.42 K/uL (1.40-6.50) 01/09/23 11:30 Lymph # (Auto) 0.90 K/uL (1.2-3.4) L 01/09/23 11:30 [place] # (Auto) 1.19 K/uL (0.11-0.59) H 01/09/23 11:30 Eos # (Auto) 0.01 K/uL (0-0.50) 01/09/23 11:30 Baso # (Auto) 0.03 K/uL (0-0.2) 01/09/23 11:30 Immature Gran # (Auto) 0.03 K/uL (0.01-0.20) 01/09/23 11:30 ESR 89 mm/hr (0-30) H 01/09/23 11:30 PT 34.7 Seconds (9.0-12.0) H 01/10/23 07:09 INR 3.4 (0.9-1.1) H 01/10/23 07:09 APTT 54.7 Seconds (21.0-31.0) H* 01/09/23 11:30 PTT Ratio 1.9 01/09/23 11:30 Sodium 135 mmol/L (136-145) L 01/10/23 07:09 Potassium 3.5 mmol/L (3.5-5.1) 01/10/23 07:09 Chloride 103 mmol/L (98-107) 01/10/23 07:09 Carbon Dioxide 25 mmol/L (21-32) 01/10/23 07:09 Anion Gap 7 (3-11) 01/10/23 07:09 BUN 13 mg/dl (6-23) 01/10/23 07:09 Creatinine 0.64 mg/dl (0.6-1.2) 01/10/23 07:09 Est Cr Clr Drug Dosing 63.9 ml/min 01/10/23 07:09 Est GFR ( Amer) 95.6 ml/min 01/10/23 07:09 Est GFR (Non-Af Amer) 82.5 ml/min 01/10/23 07:09 BUN/Creatinine Ratio 20.3 (10-20) H 01/10/23 07:09 Glucose 112 mg/dl (70-99(Fasting)) H 01/10/23 07:09 Lactate 1.2 mmol/L (0.4-2.0) 01/09/23 11:30 Calcium 8.5 mg/dl (8.6-10.3) L 01/10/23 07:09 Magnesium 2.0 mg/dl (1.7-2.4) 01/09/23 11:30 Total Bilirubin 0.5 mg/dl (0.2-1.0) 01/10/23 07:09 Direct Bilirubin 0.1 mg/dl (0-0.2) 01/10/23 07:09 AST 53 U/L (13-39) H 01/10/23 07:09 ALT 57 U/L (7-52) H 01/10/23 07:09 Alkaline Phosphatase 52 U/L (34-104) 01/10/23 07:09 Troponin I High Sens 15.7 pg/ml (0-14) H 01/10/23 07:09 C-Reactive Protein 24.16 mg/dl (0-0.5) H 01/09/23 11:30 Total Protein 6.3 gm/dl (6.0-8.3) 01/10/23 07:09 Albumin 2.9 gm/dl (3.4-5.0) L 01/10/23 07:09 Procalcitonin 0.20 ng/ml (0-0.5) 01/09/23 11:30 Urine Color Yellow 01/09/23 12:43 Urine Appearance Clear (Clear) 01/09/23 12:43 Urine pH 6.5 (4.5-7.5) 01/09/23 12:43 Ur Specific Evans 1.013 (1.000-1.030) 01/09/23 12:43 Urine Protein Negative (Negative) 01/09/23 12:43 Urine Glucose (UA) Negative (Negative) 01/09/23 12:43 Urine Ketones Negative (Negative) 01/09/23 12:43 Urine Blood Negative (Negative) 01/09/23 12:43 Urine Nitrite Negative (Negative) 01/09/23 12:43 Urine Bilirubin Negative (Negative) 01/09/23 12:43 Urine Urobilinogen Negative (Negative) 01/09/23 12:43 Ur Leukocyte Esterase Negative (Negative) 01/09/23 12:43 SARS-CoV-2, RNA, NAAT NEGATIVE (NEGATIVE) 01/09/23 12:20 Impressions Chest X-Ray 01/09/23 11:02 XR chest 1V portable HISTORY: 82 years-old Female Sepsis acute sepsis COMPARISON: 01/08/2023 TECHNIQUE: AP view of the chest FINDINGS: Cardiac silhouette is enlarged. Left subclavian pacer. No pneumothorax. Pulmonary vascular congestion with mild interstitial coarsening again noted. Unchanged blunting of the costophrenic angles. Degenerative changes of the shoulders and spine. IMPRESSION: Cardiomegaly with suggestion of mild pulmonary edema and probable trace pleural effusions. ACT 112: Negative or not required by law. The above report was generated using voice recognition software. It may contain grammatical, syntax or spelling errors. Electronically signed by: Caden Sloan M.D. 01/09/2023 11:22 AM Vascular Ultrasound 01/10/23 00:00 US extremity non-vascular ltd CLINICAL HISTORY: SWELLING RIGHT LOWER EXTREMITY, ?ABSCESS COMPARISON STUDY: Right knee radiograph 01/08/2023. FINDINGS: Real-time sonographic imaging of the right knee was performed. There is a complex suprapatellar collection within the right knee which favors a knee effusion. This measures 9 x 9 x 2 cm. This demonstrates increased peripheral vascularity. IMPRESSION: A moderate to large complex suprapatellar fluid collection which favors a right knee effusion. Stability cannot be assessed by ultrasound. ACT 112: Negative or not required by law. Electronically signed by: Jaxson Velasco M.D. 01/10/2023 8:50 AM Venous Doppler Study 01/10/23 02:23 RIGHT LOWER EXTREMITY VENOUS DOPPLER CLINICAL HISTORY: swelling RLE ?Abscess, DVT? COMPARISON STUDY: Right lower extremity venous Doppler ultrasound November 16, 2014. TECHNIQUE: Sonography of the deep venous system of the right lower extremity was performed. Compression and augmentation were evaluated. FINDINGS: The right common femoral, superficial femoral and popliteal veins were compressible. Augmentation was normal. Flow was shown within the deep calf vessels. Prominent right inguinal lymph nodes have benign imaging characteristics. Note is made of a 7.4 x 1.7 x 3.3 cm complex fluid collection within the right popliteal fossa. IMPRESSION: 1. No evidence of deep venous thrombus within the right lower extremity. 2. Complex 7.4 x 1.7 x 3.3 cm suspected right popliteal cyst. Sterility cannot be assessed by ultrasound. ACT 112: Negative or not required by law. Electronically signed by: Bart Monique M.D. 01/10/2023 7:24 AM
[2023-01-10] MEDS ORDERED: cefTRIAXone SODIUM 2,000 MG in DEXTROSE 5% 50 ML IV SCH (11:00)
--- NOTE | 2023-01-10 12:24 | Electrocardiogram Report ---
Test Reason : Blood Pressure : / mmHG Vent. Rate : 076 BPM Atrial Rate : 076 BPM P-R Int : 000 ms QRS Dur : 132 ms QT Int : 442 ms P-R-T Axes : 041 258 061 degrees QTc Int : 497 ms AV sequential or dual chamber electronic pacemaker Abnormal ECG When compared with ECG of 08-JAN-2023 00:04, Vent. rate has increased BY 3 BPM Confirmed by Josué Mayo ([id number]) on 01/10/2023 12:24:17 PM Referred By: REFERRED SELF Confirmed By:Josué Mayo
--- NOTE | 2023-01-10 12:45 | Discharge Summary ---
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 Patient is s/p right total knee arthroplasty performed approximately [address] Papi Mendieta in [place]. Patient began feeling ill on TuesdayDecember 29. She called her daughter and said she was feeling dizzy, weak and febrile with some abdominal complaints. She fell and landed on her knees on the carpet and was unable to get up. Her daughter went to her house and reports that the patient was ill in appearance. She helped her get up and get into bed. Patient continued to not feel well over the next couple of days with ongoing fever and chills, vomiting and diarrhea as well as worsening of her right knee pain and swelling. She was seen by [facility] on 12/31/22. Patient had a 3V X-ray of the right knee on 12/31/22 which revealed a fractured patella and large joint effusion. It was recommended to go to [facility] for further evaluation of the right knee fractured patella as it is likely to require surgery. Patient was scheduled for surgery 01/12/23 at [facility]. Daughter reports that patient's symptoms persisted. She was ill through the weekend with worsening edema and warmth of the RLE with redness extending into the thigh and foot. Patient was seen by her PCP on 01/03/23 with these symptoms. She was prescribed Keflex 500 mg po TID. She was seen at [facility] on 01/06/23 for pre-operative workup. She was seen by Cardiology, Anesthesia as well as Orthopedics - Dr. King. She had fluid aspirated from her right knee which was reported to be turbid upon collection. Sample has since grown Streptococcus viridans. Patient as seen in the ER on 01/08/23 with complaint of ongoing right knee redness, swelling and fever as well as worsening fatigue. ER workup with normal WBC count and Procalcitonin of 0.11. She had blood cultures obtained and was treated with Ceftriaxone 2gm IV. Patient's blood cultures from 01/08/23 have grown GRAM POSITIVE COCCI IN CHAINS in 2/2 ANAEROBIC and 1/2 AEROBIC bottles. Patient was notified of these results and was instructed to return to the ER for IV antibiotics. Orthopedic surgery at [facility] was contacted and refused to accept the patient for transfer to their facility until a knee washout is performed at [facility]. Orthopedic Surgery at [facility] was contacted and reported no urgent indication for a knee washout. Admission to medical service requested. Patient is doing well overall with no complaints. She is extremely hard of hearing. Daughter is an EMT and assists with the history. Patient denies chest pain, cough, SOB, abdominal pain. She has had some ongoing nausea and non-bloody/non-bilious vomiting with diarrhea as well. ER Course: NSS x 2L Ceftraixone 2gm IV Carvedilol 6.25mg po Tylenol 1000 mg Principal Diagnosis Strep bacteremia and right knee infection with prosthesis Discharge Exam Constitutional WD/WN, vitals as above Eyes + anicteric sclerae Respiratory normal respiratory effort, lungs clear to auscultation Cardiovascular Rate/Rhythm: regular rate and regular rhythm Heart Sounds: no murmur Vessels: dorsalis pedis pulses present Extremities: + edema (trace pitting edema right ankle) Chest (Breasts) Additional Comments: left chest wall pacer Musculoskeletal Knee: + knee abnormal to inspection (erythema and large effusion suprapatellar and prepatella) Discharge Data Allergies Allergy/AdvReac Type Severity Reaction Status Date / Time adhesive Allergy Intermediate "Adhesive Verified 01/08/23 00:34 tape" -- blisters sulfamethoxazole Allergy Intermediate MOUTH SORES Verified 01/08/23 00:34 trimethoprim Allergy Intermediate MOUTH SORES Verified 01/08/23 00:34 Consultations 01/09/23 18:45 Consult Orthopedic Surgery Stat 01/09/23 20:45 ED Decision to Admit Stat 01/10/23 02:23 Consult Orthopedic Surgery Routine 01/10/23 11:10 Consult Infectious Diseases Routine Ordered Studies 01/10/23 US extremity non-vascular ltd Routine 01/10/23 02:23 US venous doppler LE RT Routine Hospital Course (1) Bacteremia: 82yo female presenting with several weeks of generalized illness, intermittent fever/chills as well as nausea, vomiting and diarrhea. Progressive worsening of pain/redness and swelling of right knee - s/p TKA appx 13 years ago. She had fluid aspirated from the right knee joint on 01/06/23 which is consistent with infection, culture POSITIVE for Streptococcus Viridans. Also with POSITIVE Blood cultures from 01/08/23 GPC chains - PCR POSITIVE for Streptococcus species. Patient afebrile, tachycardic with HR of 106. Normal WBC count of 8.58, Normal Procalcitonin of 0.2. Elevated CRP=24.16 (slightly improved from 01/07/23 CRP=25.87). Symptoms of right knee pain have been ongoing x 12 days and were preceded by an acute febrile illness. Patient likely became bacteremic due to her recent febrile illness and seeded her knee - we have seen several cases of streptococcus bacteremia at [facility] recently. Ultimately, patient will need operative management for source control. Retention or removal of the prosthesis to be decided by Orthopedics with guidance from Infectious Disease services. -tachycardia improved, no events on tele, BPs stable -transfer to [facility] onto Hospitalist service Dr. Minor accepting physician with Dr. 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 Patient with streptococcus bacteremia as well as streptococcus viridans POSITIVE joint aspirate. She is afebrile and mildly tachycardic on arrival -Ceftriaxone -Tylenol PRN -Orthopedics Surgery consultation placed - patient is known to [facility] -Infectious Disease consultation as above (3) CHF (NYHA class II, ACC/AHA stage C): Patient with NICM. EF is normal size with EF of 55-60% per echo 11/27/22. She has a thickened and angulated basal septum consistent with sigmoid septum with mild LVH. Well compensated -Continue Carvedilol previous reduced EF improved after upgrade to BiV pacer in 2016 (4) Complex sleep apnea syndrome: Chronic. Patient is on CPAP. 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 No bleeding -Hold Coumadin -Repeat INR in AM -needs Vitamin K but defer to [facility] medical team as to when timing of surgery will be etc given high risk for SVC clot Plan Dispo-transfer to [facility] Total Time Total Time Spent Total Time Spent (In Minutes): Spent 60 min in time spent on transfer call with [place] and seeing patient, making arrangements, doing paperwork Discharge Plan Discharge Items Patient Disposition: Transfer Acute Care Hospital Reason For Visit: RIGHT KNEE INFECTION, BACTEREMIA Discharge Diagnosis: Streptococcus bacteremia and knee joint infection Condition on Discharge: Serious Activity: As commented below Exercise/Sports: Rest today Weightbearing: Right weightbearing Weightbearing Comment: as tolerated, with assistance Non-emergency contact: Primary Care Provider and Surgeon Call non-emergency contact if: you have any medication questions and your symptoms worsen Follow-up/Referrals: Say Garcia III, CRNP [Primary Care Provider] - Diet: Heart Healthy Addtl Attending Provider Instructions: Transferred to [facility] Pending Studies at Discharge: Yes Studies:: Blood cultures Stand-Alone Forms: My [facility] Skilled Items Patient informed of condition?: Yes DNR: No Discharge Level of Care: Other Communicable Disease: No Discharge Prognosis: Stable Lines: Peripheral IV Urinary Catheter: No Medications and DC Order Prescriptions: New Saccharomyces boulardii [Florastor] 250 mg Capsule 250 mg PO DAILY Qty: 30 0RF ceftriaxone 2 gram recon soln 2 g IV DAILY Qty: 10 0RF Continued carvedilol 6.25 mg tablet 6.25 mg PO BID Qty: 180 1RF albuterol sulfate 2.5 mg /3 mL (0.083 %) solution for nebulization 2.5 mg inhalation QID PRN (Reason: shortness of breath or wheezing) Qty: 90 3RF melatonin 5 mg Tablet 5 mg PO HS multivitamin Tablet 1 tab PO QPM acetaminophen [Acetaminophen Extra Strength] 500 mg Tablet 500 mg PO QID PRN (Reason: Back Pain) cholecalciferol (vitamin D3) [Vitamin D3] 10 mcg (400 unit) Capsule 10 mcg PO QPM potassium chloride 20 mEq tablet extended release 20 meq PO BID Held warfarin 2.5 mg tablet See Rx Instructions PO DIRECTED Qty: 100 0RF Hold Instructions: Resume on 01/14/23. to be determined when to restart Protocol: Dose Management Condition: Tuesday (Week One) Dose/Route: 2.5 mg Instruction: 1 x 2.5 mg tablet Condition: Tuesday Dose/Route: 1.25 mg Instruction: 0.5 x 2.5 mg tablets Condition: Tuesday Dose/Route: 2.5 mg Instruction: 1 x 2.5 mg tablet Condition: Tuesday Dose/Route: 1.25 mg Instruction: 0.5 x 2.5 mg tablets Condition: Dose/Route: 5 mg Instruction: 2 x 2.5 mg tablets Condition: Tuesday Dose/Route: 2.5 mg Instruction: 1 x 2.5 mg tablet Condition: Tuesday Dose/Route: 2.5 mg Instruction: 1 x 2.5 mg tablet Condition: Tuesday (Week Two) Dose/Route: 2.5 mg Instruction: 1 x 2.5 mg tablet Condition: Tuesday Dose/Route: 1.25 mg Instruction: 0.5 x 2.5 mg tablets Condition: Tuesday Dose/Route: 2.5 mg Instruction: 1 x 2.5 mg tablet Condition: Tuesday Dose/Route: 1.25 mg Instruction: 0.5 x 2.5 mg tablets Condition: Dose/Route: 2.5 mg Instruction: 1 x 2.5 mg tablet Condition: Tuesday Dose/Route: 1.25 mg Instruction: 0.5 x 2.5 mg tablets Condition: Tuesday Dose/Route: 2.5 mg Instruction: 1 x 2.5 mg tablet Protocol Text: Adjustment Start Date: 12/16/22 INR Value: 1.5 INR Date: 12/16/22 Recheck Date: 12/23/22 Rx Instructions: orally as directed; Dose depends on INR; Pt takes 1/2 pill 3x wk ( Tue,Tue,Tue) and whole pill 4x a wk (Tue,,,Tue) Discontinued nystatin 100,000 unit/mL suspension 1 ml buccal DAILY Rx Instructions: administer 1/2 of dose in each side of the mouth cephalexin 500 mg capsule 500 mg PO TID Qty: 21 0RF Rx Instructions: STARTED 01/07/23 FOR 7 DAYS Discharge Orders: Discharge Order (Routine); Ordered 01/10/23 Ordered By: Kristyn Young Admission Data Admit Date/Time: 01/09/23 21:57 Attending Provider: Kristyn Young Admit Provider: Ruma Bryson Primary Care Provider: Say Garcia III Other Providers: Dmitry Rivera ; Ruma Bryson ; Shivam Diaz ; Kira Silva Coding Level of Care Code 74683 INP/OBS DISCH >30 MIN Diagnoses Bacteremia R78.81 Infection of total right knee replacement T84.53XA CHF (NYHA class II, ACC/AHA stage C) I50.9 Complex sleep apnea syndrome G47.31 Superior vena cava syndrome I87.1
[2023-01-10] MEDS: carvediloL 6.25 MG TAB PO SCH ×2 (13:55→17:05)
--- NOTE | 2023-01-10 16:35 | Infectious Disease Progress Nt ---
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 She began feeling ill on 12/29, with dizziness, weakness, fever, GI complaints, then fell and landed on her knees on the carpet and was unable to get up. She continued to feel unwell for the next few days, and noted worsening R knee pain/swelling. She was seen by [facility] on 12/31, where she had an XR that showed a fractured patella and large joint effusion. She was scheduled for surgery 01/12/23 at [facility]. Her symptoms persisted, with worsening RLE edema, warmth, erythema extending into thigh/foot. She saw her PCP on 01/03 and was prescribed cephalexin 500 mg PO TID. She saw ortho again on 01/06 and underwent R knee aspiration which showed cloudy synovial fluid, and culture reportedly grew Strep viridans. She presented to [facility] on 01/08 with fever, increasing erythema, was given ceftriaxone, and BCx collected. She was discharged as there was already a plan in place for upcoming surgery. She was called back to the ED on 01/09 due to blood cultures positive for Strep, and was started on ceftriaxone. After what appears to be multiple conversations with Ortho at [facility] and [facility], pt was admitted to [facility]. Per ortho here, pt is scheduled for stage 1 of a two-stage revision TKA on 01/12, and is clinically stable and does not need an urgent I&D here as this could hold up a transfer to [place], where she should receive definitive treatment. She is now transferring to [facility]. 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 Please send cultures from OR -Follow-up 4/23 BCx for clearance -Will need 6 weeks of IV antibiotics before replacement of knee hardware Admission and Anticipated Discharge Date Admission Date: January 09, 2023 Subjective This patient recommendation is based on a telemedicine consult request which was completed asynchronously through chart review and information provided by the primary physician. The patient was not seen or examined today. The evaluation is consultative in nature and all patient care and treatment decisions can either be accepted or rejected by the patient's primary hospital-based treating physician using their own independent medical judgment for their patient. 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 She fell and landed on her knees on the carpet and was unable to get up. She continued to feel unwell for the next few days, with fevers, chills, vomiting, diarrhea, and worsening R knee pain/swelling. She was seen by [facility] on 12/31, where she had an XR that showed a fractured patella and large joint effusion. She was scheduled for surgery 01/12/23 at [facility]. Her symptoms persisted, with worsening edema and warmth of the RLE, with erythema extending into thigh/foot. She saw her PCP on 01/03 and was prescribed cephalexin 500 mg PO TID. She saw ortho again on 01/06 and underwent R knee aspiration which showed cloudy synovial fluid. There was concern for PJI. The aspiration culture grew Strep viridans. She then presented to the ED on 01/08 due to increasing erythema, fever. On presentation, she was afebrile, VSS. Labs showed WBC 7.55. BCx were collected. She was given a dose of ceftriaxone, then discharged as there was already a plan in place for upcoming surgery. She was called back to the ED on 01/09 due to blood cultures positive for Strep, and was started on ceftriaxone. After what appears to be multiple conversations with Ortho at [facility] and [facility], pt was admitted to [facility]. Per ortho here, pt is scheduled for stage 1 of a two-stage revision TKA on 01/12, and is clinically stable and does not need an urgent I&D here as this could hold up a transfer to [place], where she should receive definitive treatment. Today, US R knee showed a moderate to large complex suprapatellar fluid collection favoring R knee effusion. RLE venous doppler US shows no DVT, and a complex 7.4 x 1.7 x 3.3 cm suspected R popliteal cyst. Pt is transferring to [facility] today. Review of System Pt was not seen Physical Exam Physical Exam: Pt was not seen Results & Data Vital Signs (Past 12 Hours) Vital Signs Temp Pulse Pulse Resp BP BP Pulse Ox 01/10/23 14:15 72 01/10/23 14:54 36.7 C 89 18 152/57 H 146/66 H 90 01/10/23 10:52 36.7 C 89 18 146/66 H 90 01/10/23 07:23 36.9 C 64 20 152/57 H 92 01/10/23 06:04 89 O2 Del Method 01/10/23 14:15 01/10/23 14:54 01/10/23 10:52 Room Air 01/10/23 07:23 Room Air 01/10/23 06:04 Laboratory Results Short CBC 01/10/23 Range/Units 07:09 WBC 7.45 (4.8-10.8) K/ul Hgb 10.5 L (12.0-16.0) g/dl Hct 29.5 L (37.0-47.0) % Plt Count 390 (130-400) K/uL BMP 01/10/23 07:09 Sodium 135 L Potassium 3.5 Chloride 103 Carbon Dioxide 25 BUN 13 Creatinine 0.64 Glucose 112 H Calcium 8.5 L Liver Function 01/10/23 Range/Units 07:09 Total Bilirubin 0.5 (0.2-1.0) mg/dl Direct Bilirubin 0.1 (0-0.2) mg/dl AST 53 H (13-39) U/L ALT 57 H (7-52) U/L Alkaline Phosphatase 52 (34-104) U/L Albumin 2.9 L (3.4-5.0) gm/dl Diagnostic Findings Chest X-Ray 01/09/23 11:02 XR chest 1V portable HISTORY: 82 years-old Female Sepsis acute sepsis COMPARISON: 01/08/2023 TECHNIQUE: AP view of the chest FINDINGS: Cardiac silhouette is enlarged. Left subclavian pacer. No pneumothorax. Pulmonary vascular congestion with mild interstitial coarsening again noted. Unchanged blunting of the costophrenic angles. Degenerative changes of the shoulders and spine. IMPRESSION: Cardiomegaly with suggestion of mild pulmonary edema and probable trace pleural effusions. ACT 112: Negative or not required by law. The above report was generated using voice recognition software. It may contain grammatical, syntax or spelling errors. Electronically signed by: Caden Sloan M.D. 01/09/2023 11:22 AM Vascular Ultrasound 01/10/23 00:00 US extremity non-vascular ltd CLINICAL HISTORY: SWELLING RIGHT LOWER EXTREMITY, ?ABSCESS COMPARISON STUDY: Right knee radiograph 01/08/2023. FINDINGS: Real-time sonographic imaging of the right knee was performed. There is a complex suprapatellar collection within the right knee which favors a knee effusion. This measures 9 x 9 x 2 cm. This demonstrates increased peripheral vascularity. IMPRESSION: A moderate to large complex suprapatellar fluid collection which favors a right knee effusion. Stability cannot be assessed by ultrasound. ACT 112: Negative or not required by law. Electronically signed by: Jaxson Velasco M.D. 01/10/2023 8:50 AM Venous Doppler Study 01/10/23 02:23 RIGHT LOWER EXTREMITY VENOUS DOPPLER CLINICAL HISTORY: swelling RLE ?Abscess, DVT? COMPARISON STUDY: Right lower extremity venous Doppler ultrasound November 16, 2014. TECHNIQUE: Sonography of the deep venous system of the right lower extremity was performed. Compression and augmentation were evaluated. FINDINGS: The right common femoral, superficial femoral and popliteal veins were compressible. Augmentation was normal. Flow was shown within the deep calf vessels. Prominent right inguinal lymph nodes have benign imaging characteristics. Note is made of a 7.4 x 1.7 x 3.3 cm complex fluid collection within the right popliteal fossa. IMPRESSION: 1. No evidence of deep venous thrombus within the right lower extremity. 2. Complex 7.4 x 1.7 x 3.3 cm suspected right popliteal cyst. Sterility cannot be assessed by ultrasound. ACT 112: Negative or not required by law. Electronically signed by: Bart Monique M.D. 01/10/2023 7:24 AM Medications Administered Current Inpatient Medications Acetaminophen (Acetaminophen 500 Mg Tab) 500 mg PO QID PRN PRN Reason: Back Pain Stop: 02/09/23 02:22 Albuterol (Albuterol 0.083% Nebu Soln 3 Ml Vial) 2.5 mg INH QID PRN; Protocol PRN Reason: shortness of breath or wheezing Stop: 02/09/23 02:22 Carvedilol (Carvedilol 6.25 Mg Tab) 6.25 mg PO BIDM [facility] Stop: 02/09/23 12:49 Last Admin: 01/10/23 13:55 Dose: 6.25 mg Ceftriaxone Sodium 2,000 mg/ (Dextrose) 70 mls @ 100 mls/hr IV Q24H STEPHEN; Protocol Stop: 01/24/23 10:59 Last Infusion: 01/10/23 12:16 Dose: Infused Lidocaine (Lidocaine 5% 1 Patch) 1 patch TD QAM [facility] Stop: 02/09/23 02:34 Last Admin: 01/10/23 02:57 Dose: 1 patch Melatonin (Melatonin 3 Mg Tab) 4.5 mg PO HS [facility] Stop: 02/09/23 20:59 Miscellaneous (Remove Lidoderm Patch) 1 each N/A DAILY@2100 [facility] Stop: 02/09/23 14:34 Last Admin: 01/10/23 13:57 Dose: 1 each Ondansetron HCl (Ondansetron Inj 2 Mg/Ml 2 Ml Vial) 4 mg IV Q6H PRN PRN Reason: Nausea Stop: 02/09/23 02:22 Saccharomyces Boulardii (Saccharomyces Boulardii 250 Mg Cap) 250 mg PO DAILY [facility] Stop: 02/09/23 08:59 Last Admin: 01/10/23 08:16 Dose: 250 mg
[2023-01-10] MEDS ORDERED: MELATONIN 3 MG TAB PO SCH (21:00)
== END 2023-01-10 19:46 | disposition short-term general hospital (02) | DRG 560 ==
LOC: ED 10:59 → SUATTDRO 21:57 → 2W 21:57

== ENCOUNTER 2023-05-28 21:22 | Observation (INO) ==
[2023-05-28] MEDS ORDERED: FAMOTIDINE 20MG IV PUSH 20 MG/5 ML SYR IV STA (22:08)
[2023-05-28] MEDS ORDERED: SIMETHICONE 80 MG CHEW PO ONE (22:08)
[2023-05-28] MEDS ORDERED: NITROGLYCERIN SL 0.4 MG/TAB TAB SL STA (22:10)
[2023-05-28 22:16] LABS: Basophils # (auto) 0.05 K/uL (0.00-0.20); Eosinophils # (auto) 0.22 K/uL (0.00-0.50); Eosinophils % (auto) 4.3 %; Hematocrit (blood only) 36.2 % (37.0-47.0); Hemoglobin 12.3 g/dl (12.0-16.0); Lymphocytes # (auto) 1.64 K/uL (1.20-3.40); Lymphocytes % (auto) 32.4 %; Mean Corpuscular Hemoglobin 26.9 pg (25.0-34.0); Mean Platelet Volume 9.8 fL (9.4-12.4); Monocytes # (auto) 0.71 K/uL (0.11-0.59); Neutrophils # (auto) 2.44 K/uL (1.40-6.50); Neutrophils % (auto) 48.3 %; Platelet Count 207 K/uL (130-400); RDW Coefficient of Variation 15.7 % (11.5-14.5); RDW Standard Deviation 44.6 fL (36.4-46.3); Red Blood Count 4.58 M/uL (4.20-5.40); White Blood Count 5.06 K/ul (4.8-10.8)
--- NOTE | 2023-05-28 22:24 | Emergency Department Note ---
History of Present Illness General Chief complaint: Chest Pain Stated complaint: CHEST PAIN, SOB, INDIGESTION Time Seen by Provider: 05/28/23 22:02 History of Present Illness Maximum Pain Intensity: 2 This 79-year-old female on Eliquis for A-fib presents to the ER complaining of exertional chest pain and dyspnea for the past day and belching. She has a dual-chamber pacemaker. Patient states her chest pain and dyspnea gets worse with exertion and better with rest. Patient denies fever, chills, abdominal pain, leg pain or swelling, diaphoresis, nausea. She has not missed any doses of her Eliquis. Home Medications Medication Instructions Recorded Confirmed Type acetaminophen 500 mg tablet 500 mg PO QID PRN Back Pain 11/27/22 05/28/23 History (Acetaminophen Extra Strength) multivitamin 1 tab PO QPM 11/27/22 05/28/23 History potassium chloride 20 mEq 20 meq PO BID 11/27/22 05/28/23 History tablet,extended release famotidine 20 mg tablet (Acid 20 mg PO DAILY 03/02/23 05/28/23 History Adult Caregiver (famotidine)) melatonin 10 mg tablet 10 mg PO HS PRN Sleep 03/02/23 05/28/23 History potassium chloride 20 mEq 20 meq PO DAILY PRN hand cramping 03/02/23 05/28/23 Rx tablet,extended release(part/cryst) #30 tabs probulin total care probiotics 1 tab PO 1XD 03/02/23 05/28/23 History amoxicillin 875 mg tablet 875 mg PO DAILY 03/18/23 05/28/23 History furosemide 20 mg tablet (Lasix) 40 mg PO DAILY 03/18/23 05/28/23 History apixaban 5 mg tablet (Eliquis) 5 mg PO BID #60 tabs 03/21/23 05/28/23 Rx cholecalciferol (vitamin D3) 25 50 mcg PO DAILY 03/21/23 05/28/23 History mcg (1,000 unit) capsule levalbuterol tartrate 45 1 - 2 inh inhalation .Q4-6HRS PRN 05/28/23 05/28/23 History mcg/actuation aerosol inhaler shortness of breath or wheezing (Xopenex HFA) Allergies Allergy/AdvReac Type Severity Reaction Status Date / Time adhesive Allergy Intermediate "Adhesive Verified 05/28/23 22:54 tape" -- blisters sulfamethoxazole Allergy Intermediate MOUTH SORES Verified 05/28/23 22:54 trimethoprim Allergy Intermediate MOUTH SORES Verified 05/28/23 22:54 Past Med/Surg History Medical History Aortic regurgitation Breast cancer ?? 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 Webber at [facility] > last checked in Apr 2021 History of right cataract extraction 07/08/21 at [facility]. Pt made ASA3. Given 2mg versed. History of tonsillectomy History of tooth extraction History of total abdominal hysterectomy and bilateral salpingo-oophorectomy History of total right knee replacement (TKR) x2 History of wisdom tooth extraction S/P thyroid biopsy benign Family History Father Family hx of colon cancer Colorectal cancer Mother Family hx of colon cancer Colorectal cancer Aunt Family hx of colon cancer Other Family history non-contributory No family history of adverse response to anesthesia No significant family history Denies family history of Ovarian cancer Prostate cancer Myocardial infarction Breast cancer Social History Smoking Status: Never smoker Second Hand Exposure: No; Do You Dip or Chew Tobacco: No; Hx Alcohol Use: No Hx Substance Use: No Preferred Language: Botswanan Communication Ability: Effective Communication Ability Comment: CHILKOOT Visual Impairment: No Limitations Hearing Ability: Use of Hearing Aid Coremaker Apprentice Required: No Beliefs That Will Affect Care: None marital status: Current Living Situation: Spouse and Family Current Living Situation Comment: Lives with , daughter, grandchild current occupational status: retired 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 Feels Safe at Home: Yes Childhood Exposure to Second-Hand Smoke: Yes Diet: regular Dental Care, Regularly: Yes Physical Activity Frequency: Does not Exercise Seatbelt Use: always Sunscreen Use: No Assistive Devices: Cane, CPAP and Walker Review of Systems A total of 10 systems reviewed and were otherwise negative Physical Exam Vital Signs Vital Signs - 24 hr 05/28/23 21:26 05/28/23 22:20 05/28/23 22:25 Temperature 37.0 C Temperature Source Temporal Artery Scan Pulse Rate 84 73 73 Pulse Rate from SpO2 Sensor 76 76 Respiratory Rate 18 19 23 Respiratory Effort / Characteristics Non-Labored Spontaneous Respiratory Depth Normal Blood Pressure 144/78 H 107/65 119/57 L Blood Pressure Mean 100 79 77 Pulse Oximetry 93 94 92 Oxygen Delivery Method Room Air Room Air Room Air Sepsis Recent Fever Within 48 Hours No Sepsis New/Unexplained Change in Mental Status No Sepsis Action Taken by Nursing No Action Required 05/28/23 22:30 05/28/23 22:36 05/28/23 22:40 Temperature Temperature Source Pulse Rate 68 61 62 Pulse Rate from SpO2 Sensor 69 63 63 Respiratory Rate 24 23 21 Respiratory Effort / Characteristics Respiratory Depth Blood Pressure 122/57 L 129/57 L 112/57 L Blood Pressure Mean 78 81 75 Pulse Oximetry 92 93 94 Oxygen Delivery Method Room Air Room Air Room Air Sepsis Recent Fever Within 48 Hours Sepsis New/Unexplained Change in Mental Status Sepsis Action Taken by Nursing 05/28/23 22:45 05/28/23 22:50 05/28/23 22:08 Temperature Temperature Source Pulse Rate 71 67 63 Pulse Rate from SpO2 Sensor 71 65 Respiratory Rate 25 H 25 H Respiratory Effort / Characteristics Respiratory Depth Blood Pressure 120/70 129/70 Blood Pressure Mean 86 89 Pulse Oximetry 94 94 Oxygen Delivery Method Room Air Room Air Sepsis Recent Fever Within 48 Hours Sepsis New/Unexplained Change in Mental Status Sepsis Action Taken by Nursing 05/28/23 23:05 05/28/23 23:35 Temperature Temperature Source Pulse Rate 67 80 Pulse Rate from SpO2 Sensor 66 64 Respiratory Rate 23 23 Respiratory Effort / Characteristics Respiratory Depth Blood Pressure 125/70 149/63 H Blood Pressure Mean 88 91 Pulse Oximetry 94 96 Oxygen Delivery Method Room Air Room Air Sepsis Recent Fever Within 48 Hours Sepsis New/Unexplained Change in Mental Status Sepsis Action Taken by Nursing VITALS: Vitals are noted on the nurse's note and reviewed by myself. Vital signs stable. GENERAL: Pleasant female belching, in no acute distress, nondiaphoretic, well- developed well-nourished. SKIN: The skin was without rashes, erythema, edema, or bruising. There is no tenting of the skin. Capillary reflex less than 2 seconds. HEAD: Normocephalic atraumatic. EARS: External auditory canals clear, EYES: Pupils equal round and reactive to light and accommodation. Conjunctivae without injection, sclerae without icterus. Extraocular movements intact. NOSE: Patent, turbinates without inflammation or discharge. MOUTH: Mucous membranes moist. Pharynx without erythema or exudate. Uvula midline. Airway patent. Tongue does not deviate. NECK: Supple without nuchal rigidity. No lymphadenopathy. No thyromegaly. Cervical spine is nontender. No JVD. HEART: Regular rate and rhythm LUNGS: Clear to auscultation bilaterally without wheezes, rales or rhonchi. No retractions or accessory muscle use. ABDOMEN: Positive bowel sounds x 4. Normal tympanic percussion. Soft, nontender, without masses or organomegaly. Stratton sign negative. No guarding or rebound tenderness. No CVA tenderness MUSCULOSKELETAL: No muscle atrophy, erythema, or edema noted. NEURO: Patient was alert and oriented to person place and time. Normal sensation to light and sharp touch. No focal neurological deficits. Course Administered Medications Discontinued Medications Famotidine (Pepcid 20mg Iv Push) 20 mg in 5 mls @ 2.5 mls/min IV NOW STA Stop: 05/28/23 22:09 Last Admin: 05/28/23 22:15 Dose: 2.5 mls/min Documented By: GERARD Nitroglycerin (Nitroglycerin Sl 0.4 Mg/Tab Tab) 0.4 mg SL NOW STA Stop: 05/28/23 22:11 Last Admin: 05/28/23 22:16 Dose: 0.4 mg Documented By: GERARD Simethicone (Simethicone 80 Mg Chew) 80 mg PO NOW ONE Stop: 05/28/23 22:09 Last Admin: 05/28/23 22:18 Dose: 80 mg Documented By: ELIJAH Medical Decision Making Medical Records Attestation: I reviewed the patient's medical records. Home Medications Current Medication List: was personally reviewed by me Laboratory Data Attestation: I reviewed the patient's lab results. 05/28/23 21:36 05/28/23 21:36 Lab Results 05/28/23 05/28/23 05/28/23 Range/Units 21:36 21:36 21:36 WBC 5.06 (4.8-10.8) K/ul RBC 4.58 (4.20-5.40) M/uL Hgb 12.3 (12.0-16.0) g/dl Hct 36.2 L (37.0-47.0) % MCV 79.0 L (80.0-100.0) fL MCH 26.9 (25.0-34.0) pg MCHC 34.0 (32.0-36.0) g/dL RDW Std Deviation 44.6 (36.4-46.3) fL RDW Coeff of Blaise 15.7 H (11.5-14.5) % Plt Count 207 (130-400) K/uL MPV 9.8 (9.4-12.4) fL Immature Gran % (Auto) 0.0 % Neut % (Auto) 48.3 % Lymph % (Auto) 32.4 % Rooks % (Auto) 14.0 % Eos % (Auto) 4.3 % Baso % (Auto) 1.0 % Neut # (Auto) 2.44 (1.40-6.50) K/uL Lymph # (Auto) 1.64 (1.20-3.40) K/uL Rooks # (Auto) 0.71 H (0.11-0.59) K/uL Eos # (Auto) 0.22 (0.00-0.50) K/uL Baso # (Auto) 0.05 (0.00-0.20) K/uL Immature Gran # (Auto) 0.00 L (0.01-0.20) K/uL PT 10.6 (9.0-12.0) Seconds INR 1.0 (0.9-1.1) APTT 25.6 (21.0-31.0) Seconds PTT Ratio 0.9 Sodium 136 (136-145) mmol/L Potassium 4.2 (3.5-5.1) mmol/L Chloride 101 (98-107) mmol/L Carbon Dioxide 27 (21-32) mmol/L Anion Gap 8 (3-11) BUN 37 H (6-23) mg/dl Creatinine 1.05 (0.6-1.2) mg/dl Est Cr Clr Drug Dosing 38.1 ml/min Est GFR ( Amer) 56.9 ml/min Est GFR (Non-Af Amer) 49.1 ml/min BUN/Creatinine Ratio 35.2 H (10-20) Glucose 100 H (70-99(Fasting)) mg/dl Calcium 9.0 (8.6-10.3) mg/dl Magnesium 2.3 (1.7-2.4) mg/dl Total Bilirubin 0.3 (0.2-1.0) mg/dl AST 27 (13-39) U/L ALT 16 (7-52) U/L Alkaline Phosphatase 82 (34-104) U/L Troponin I High Sens 7.1 (0-14) pg/ml B-Natriuretic Peptide (0-100) pg/ml Total Protein 7.6 (6.0-8.3) gm/dl Albumin 4.1 (3.4-5.0) gm/dl Globulin 3.5 (2.5-4.0) gm/dl Albumin/Globulin Ratio 1.2 (0.9-2) TSH (0.300-4.500) uIu/ml 05/28/23 05/28/23 05/28/23 Range/Units 21:36 22:10 23:28 WBC (4.8-10.8) K/ul RBC (4.20-5.40) M/uL Hgb (12.0-16.0) g/dl Hct (37.0-47.0) % MCV (80.0-100.0) fL MCH (25.0-34.0) pg MCHC (32.0-36.0) g/dL RDW Std Deviation (36.4-46.3) fL RDW Coeff of Blaise (11.5-14.5) % Plt Count (130-400) K/uL MPV (9.4-12.4) fL Immature Gran % (Auto) % Neut % (Auto) % Lymph % (Auto) % Rooks % (Auto) % Eos % (Auto) % Baso % (Auto) % Neut # (Auto) (1.40-6.50) K/uL Lymph # (Auto) (1.20-3.40) K/uL Rooks # (Auto) (0.11-0.59) K/uL Eos # (Auto) (0.00-0.50) K/uL Baso # (Auto) (0.00-0.20) K/uL Immature Gran # (Auto) (0.01-0.20) K/uL PT (9.0-12.0) Seconds INR (0.9-1.1) APTT (21.0-31.0) Seconds PTT Ratio Sodium (136-145) mmol/L Potassium (3.5-5.1) mmol/L Chloride (98-107) mmol/L Carbon Dioxide (21-32) mmol/L Anion Gap (3-11) BUN (6-23) mg/dl Creatinine (0.6-1.2) mg/dl Est Cr Clr Drug Dosing ml/min Est GFR ( Amer) ml/min Est GFR (Non-Af Amer) ml/min BUN/Creatinine Ratio (10-20) Glucose (70-99(Fasting)) mg/dl Calcium (8.6-10.3) mg/dl Magnesium (1.7-2.4) mg/dl Total Bilirubin (0.2-1.0) mg/dl AST (13-39) U/L ALT (7-52) U/L Alkaline Phosphatase (34-104) U/L Troponin I High Sens 9.2 (0-14) pg/ml B-Natriuretic Peptide 30 (0-100) pg/ml Total Protein (6.0-8.3) gm/dl Albumin (3.4-5.0) gm/dl Globulin (2.5-4.0) gm/dl Albumin/Globulin Ratio (0.9-2) TSH 1.082 (0.300-4.500) uIu/ml Imaging Data Attestation: I personally reviewed and interpreted this imaging study as f mansi: LANCE Narrative Prior records/ancillary studies reviewed. Triage Nursing notes reviewed. Additional history obtained from family. The patient's history was concerning for chest pain. Differential diagnosis: Etiologies such as cardiac ischemia, aortic dissection, pulmonary embolism, pneumonia, pneumothorax, musculoskeletal, infections, pericarditis, myocarditis, esophageal rupture, gastrointestinal, as well as others were entertained. Physical examination: As above. ER treatment provided: An order was placed for continuous cardiac monitoring. The monitor shows a rate of 60-100 with a sinus rhythm per my interpretation. Nitroglycerin was ordered. Patient took aspirin already On reassessment the patient felt better. Diagnostic interpretation by me: The electrocardiogram was ordered for chest pain EKG: Normal sinus, right bundle, no acute ST-T wave changes, rate of 81. Impression right bundle branch block rate of 81 independently interpreted by myself The labs Independently Interpreted by myself revealed first troponin negative and repeat was ordered No worrisome leukocytosis Imaging studies: Chest x-ray with no acute consolidation, pneumothorax or free air per my independent rotation HEART SCORE: Hx: high/mod/low suspicion: 1 ECG: ST depression/nonspecific changes/normal: 1 Age: Greater than 65/45-64/less than 45: 2 Risk factors: (Hypertension, hyperlipidemia, diabetes, coronary disease, tobacco use, cocaine use): 2 Troponin: Greater than 2 times normal limits/1-2 times normal limits/normal: 0 Total: 6 Consultation: A consultation was placed with the hospitalist. The case was discussed and diagnostics were reviewed. The patient was evaluated in the ER for further treatment. Exam and history seem consistent with chest pain with concerns for cardiac in etiology. First troponin is negative. Patient felt better with nitroglycerin. Labs and diagnostics were independently interpreted by myself. Patient is agreeable to treatment plan of admission. Medicine was consulted and case was discussed. Patient will be admitted for cardiac rule out. By the evaluation outlined above emergent etiologies such as aortic dissection, pulmonary embolism, pneumonia, pneumothorax, infections, pericarditis, myocarditis, gastrointestinal, as well as others were deemed relatively unlikely. The pt/family informed about the findings as listed above. All questions were answered and pleased with the treatment. The chart was completed utilizing [employer] Speech voice recognition software. Grammatical errors, random word insertions, pronoun errors, and incomplete sentences are an occassional consequence of this system due to software limitations, ambient noise, and hardware issues. Any formal questions or concerns about the content, text, or information contained within the body of this dictation should be directly addressed to the physician assistant unit forester for clarification. Impression & Plan Chest pain Discharge Plan Visit Data Chief Complaint: Chest Pain Stated Complaint: CHEST PAIN, SOB, INDIGESTION ED Provider: Margarito Cobb ED Midlevel Provider: Karin Orellana Discharge Problem: Chest pain Patient Disposition: Admitted As Inpatient Discharge Instructions Interventions: ED Discharge Assessment Last Done: 05/29/23 00:12 Chest pain Qualifiers: Chest pain type: unspecified Qualified Code(s): R07.9 - Chest pain, unspecified
[2023-05-28 22:26] LABS: Albumin Globulin Ratio 1.2 (0.9-2); Albumin Level 4.1 gm/dl (3.4-5.0); BUN Creatinine Ratio 35.2 (10-20); Bilirubin,Total 0.3 mg/dl (0.2-1.0); Creatinine Clr Calc Pharmacy 38.1 ml/min; Est GFR (African American) 56.9 ml/min; Est GFR (Non-African American) 49.1 ml/min; Globulin 3.5 gm/dl (2.5-4.0); Magnesium 2.3 mg/dl (1.7-2.4); Potassium 4.2 mmol/L (3.5-5.1); Total Protein 7.6 gm/dl (6.0-8.3)
[2023-05-28 22:31] LABS: Troponin I High Sensitivity 7.1 pg/ml (0-14)
[2023-05-28 22:35] LABS: Partial Thromboplastin Ratio 0.9; Partial Thromboplastin Time 25.6 Seconds (21.0-31.0); Prothrombin Time 10.6 Seconds (9.0-12.0)
--- NOTE | 2023-05-28 23:32 | Emergency Department Note ---
ED Visit Note I was consulted by the Advanced Practice Provider. I saw the patient personally and performed a substantive portion of the visit. This includes aspects of the HPI, MDM, diagnostic interpretations, and disposition/plan. .
--- NOTE | 2023-05-28 23:48 | History & Physical Report ---
Date of Service May 28, 2023 Assessment & Plan (1) Chest pain: Plan: 82yo female with history of CHF, NICM, BiV ICD in place presenting with chest pain. EKG with PACs, no acute ischemic changes. 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 On chronic suppressive therapy with Amoxicillin daily. Patient was on BID before but her platelets decreased -Continue Amoxicillin 875mg po daily History of Present Illness Chief Complaint: chest pain Primary Care Provider: Say Garcia III, PATEL Tasneem Kingsley is an 82yo female with history of complete heart block s/p pacer placement which was upgraded to BiV ICD, NICM with recovered EF of 60-65% per echo from December 2022. She follows routinely with Cardiology - last seen by Dr. Webber on 04/26/23. At that time she was complaining of some intermittent chest discomfort - exertional left scapular discomfort which was concerning for typical anginal symptoms. She had a stress echo in 2016 which was abnormal due to the presence of a paced rhythm. She has been scheduled for a Cardiolite chemical stress test on 06/07/23 at 09:30. She had a cardiac catheterization performed in 2016 which was essentially normal. Patient presents today with complaint of left sided chest discomfort with radiation into her back and between her shoulder blades as well as increased belching. She has also noted increased dyspnea and decreased exercise evelio erance. No palpitations, diaphoresis, syncope or dizziness. She has been taking Nitro at home with improvement in her pain. Also improved with ASA. Her discomfort is somewhat exertional. Not pleuritic or positional in nature. No additional complaints - specifically no fever, chills, abdominal pain, nausea, vomiting, diarrhea or constipation. No urinary complaints. In the ER she is afebrile, HD stable ER Course: Pepcid 20mg IV Nitro 0.4mg SL Simethicone 80mg po Allergies Allergy/AdvReac Type Severity Reaction Status Date / Time adhesive Allergy Intermediate "Adhesive Verified 05/28/23 22:54 tape" -- blisters sulfamethoxazole Allergy Intermediate MOUTH SORES Verified 05/28/23 22:54 trimethoprim Allergy Intermediate MOUTH SORES Verified 05/28/23 22:54 Home Medications Medication Instructions Recorded Confirmed Type acetaminophen 500 mg tablet 500 mg PO QID PRN Back Pain 11/27/22 05/28/23 History (Acetaminophen Extra Strength) multivitamin 1 tab PO QPM 11/27/22 05/28/23 History potassium chloride 20 mEq 20 meq PO BID 11/27/22 05/28/23 History tablet,extended release famotidine 20 mg tablet (Acid 20 mg PO DAILY 03/02/23 05/28/23 History Splicer Operator (famotidine)) melatonin 10 mg tablet 10 mg PO HS PRN Sleep 03/02/23 05/28/23 History potassium chloride 20 mEq 20 meq PO DAILY PRN hand cramping 03/02/23 05/28/23 Rx tablet,extended release(part/cryst) #30 tabs probulin total care probiotics 1 tab PO 1XD 03/02/23 05/28/23 History amoxicillin 875 mg tablet 875 mg PO DAILY 03/18/23 05/28/23 History furosemide 20 mg tablet (Lasix) 40 mg PO DAILY 03/18/23 05/28/23 History apixaban 5 mg tablet (Eliquis) 5 mg PO BID #60 tabs 03/21/23 05/28/23 Rx cholecalciferol (vitamin D3) 25 50 mcg PO DAILY 03/21/23 05/28/23 History mcg (1,000 unit) capsule levalbuterol tartrate 45 1 - 2 inh inhalation .Q4-6HRS PRN 05/28/23 05/28/23 History mcg/actuation aerosol inhaler shortness of breath or wheezing (Xopenex HFA) Past Med/Surg History Medical History Aortic regurgitation Breast cancer ?? 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 Webber at [facility] > last checked in Apr 2021 History of right cataract extraction 07/08/21 at [facility] [place]. Pt made ASA3. Given 2mg versed. History of tonsillectomy History of tooth extraction History of total abdominal hysterectomy and bilateral salpingo-oophorectomy History of total right knee replacement (TKR) x2 History of wisdom tooth extraction S/P thyroid biopsy benign Family History Father Family hx of colon cancer Colorectal cancer Mother Family hx of colon cancer Colorectal cancer Aunt Family hx of colon cancer Other Family history non-contributory No family history of adverse response to anesthesia No significant family history Denies family history of Ovarian cancer Prostate cancer Myocardial infarction Breast cancer Social History Smoking Status: Never smoker Second Hand Exposure: No; Do You Dip or Chew Tobacco: No; Hx Alcohol Use: No Hx Substance Use: No Preferred Language: St Helenian Communication Ability: Effective Communication Ability Comment: ATKA Visual Impairment: No Limitations Hearing Ability: Use of Hearing Aid It Technical Specialist Required: No Beliefs That Will Affect Care: None marital status: Current Living Situation: Spouse and Family Current Living Situation Comment: Lives with , daughter, grandchild current occupational status: retired 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 Feels Safe at Home: Yes Childhood Exposure to Second-Hand Smoke: Yes Diet: regular Dental Care, Regularly: Yes Physical Activity Frequency: Does not Exercise Seatbelt Use: always Sunscreen Use: No Assistive Devices: Cane, CPAP and Walker Review of Systems Review of Systems: All systems reviewed & are unremarkable except as noted in HPI & below Physical Exam Physical Exam: General: patient resting comfortably, NAD, non-toxic in appearance, AA&O x 4 Skin: warm, dry, intact, no rashes or lesions HEENT: NC/AT, PERRL, EOMI, anicteric sclera, conjunctiva without injection, external ear normal to inspection and nontender, nares patent, moist mucus membranes, dentition intact, no oropharyngeal lesions, neck supple, trachea midline, no LAD, no thyromegaly, no JVD Heart: +S1/S2, regular, no m/r/g Lungs: equal air entry bilaterally, no rales/rhonchi/wheezes Abd: +BS, soft, NT/ND, no masses/organomegaly/ascites Ext: warm, 2+ pulses in UE/LE bilaterally, no clubbing/cyanosis or edema Neuro: nonfocal, patient AA&O x 4, speech intact, no facial droop, moving all extremities on command with equal strength 5/5 Results & Data Results & Data Vital Signs (Past 12 Hours) Vital Signs Temp Pulse Resp BP Pulse Ox O2 Del Method 05/28/23 23:05 67 23 125/70 94 Room Air 05/28/23 22:08 63 05/28/23 22:50 67 25 H 129/70 94 Room Air 05/28/23 22:45 71 25 H 120/70 94 Room Air 05/28/23 22:40 62 21 112/57 L 94 Room Air 05/28/23 22:36 61 23 129/57 L 93 Room Air 05/28/23 22:30 68 24 122/57 L 92 Room Air 05/28/23 22:25 73 23 119/57 L 92 Room Air 05/28/23 22:20 73 19 107/65 94 Room Air 05/28/23 21:26 37.0 C 84 18 144/78 H 93 Room Air Laboratory Results Laboratory Results WBC 5.06 K/ul (4.8-10.8) 05/28/23 21:36 RBC 4.58 M/uL (4.20-5.40) 05/28/23 21:36 Hgb 12.3 g/dl (12.0-16.0) 05/28/23 21:36 Hct 36.2 % (37.0-47.0) L 05/28/23 21:36 MCV 79.0 fL (80.0-100.0) L 05/28/23 21:36 MCH 26.9 pg (25.0-34.0) 05/28/23 21:36 MCHC 34.0 g/dL (32.0-36.0) 05/28/23 21:36 RDW Std Deviation 44.6 fL (36.4-46.3) 05/28/23 21:36 RDW Coeff of Blaise 15.7 % (11.5-14.5) H 05/28/23 21:36 Plt Count 207 K/uL (130-400) 05/28/23 21:36 MPV 9.8 fL (9.4-12.4) 05/28/23 21:36 Immature Gran % (Auto) 0.0 % 05/28/23 21:36 Neut % (Auto) 48.3 % 05/28/23 21:36 Lymph % (Auto) 32.4 % 05/28/23 21:36 Hartley % (Auto) 14.0 % 05/28/23 21:36 Eos % (Auto) 4.3 % 05/28/23 21:36 Baso % (Auto) 1.0 % 05/28/23 21:36 Neut # (Auto) 2.44 K/uL (1.40-6.50) 05/28/23 21:36 Lymph # (Auto) 1.64 K/uL (1.20-3.40) 05/28/23 21:36 Hartley # (Auto) 0.71 K/uL (0.11-0.59) H 05/28/23 21:36 Eos # (Auto) 0.22 K/uL (0.00-0.50) 05/28/23 21:36 Baso # (Auto) 0.05 K/uL (0.00-0.20) 05/28/23 21:36 Immature Gran # (Auto) 0.00 K/uL (0.01-0.20) L 05/28/23 21:36 PT 10.6 Seconds (9.0-12.0) 05/28/23 21:36 INR 1.0 (0.9-1.1) 05/28/23 21:36 APTT 25.6 Seconds (21.0-31.0) 05/28/23 21:36 PTT Ratio 0.9 05/28/23 21:36 Sodium 136 mmol/L (136-145) 05/28/23 21:36 Potassium 4.2 mmol/L (3.5-5.1) 05/28/23 21:36 Chloride 101 mmol/L (98-107) 05/28/23 21:36 Carbon Dioxide 27 mmol/L (21-32) 05/28/23 21:36 Anion Gap 8 (3-11) 05/28/23 21:36 BUN 37 mg/dl (6-23) H 05/28/23 21:36 Creatinine 1.05 mg/dl (0.6-1.2) 05/28/23 21:36 Est Cr Clr Drug Dosing 38.1 ml/min 05/28/23 21:36 Est GFR ( Amer) 56.9 ml/min 05/28/23 21:36 Est GFR (Non-Af Amer) 49.1 ml/min 05/28/23 21:36 BUN/Creatinine Ratio 35.2 (10-20) H 05/28/23 21:36 Glucose 100 mg/dl (70-99(Fasting)) H 05/28/23 21:36 Calcium 9.0 mg/dl (8.6-10.3) 05/28/23 21:36 Magnesium 2.3 mg/dl (1.7-2.4) 05/28/23 21:36 Total Bilirubin 0.3 mg/dl (0.2-1.0) 05/28/23 21:36 AST 27 U/L (13-39) 05/28/23 21:36 ALT 16 U/L (7-52) 05/28/23 21:36 Alkaline Phosphatase 82 U/L (34-104) 05/28/23 21:36 Troponin I High Sens 9.2 pg/ml (0-14) 05/28/23 23:28 B-Natriuretic Peptide 30 pg/ml (0-100) 05/28/23 22:10 Total Protein 7.6 gm/dl (6.0-8.3) 05/28/23 21:36 Albumin 4.1 gm/dl (3.4-5.0) 05/28/23 21:36 Globulin 3.5 gm/dl (2.5-4.0) 05/28/23 21:36 Albumin/Globulin Ratio 1.2 (0.9-2) 05/28/23 21:36 TSH 1.082 uIu/ml (0.300-4.500) 05/28/23 21:36 Diagnostic Findings CXR - per my interpretation - normal cardiac shadow, ICD in place, no PNA, PTX or infiltrate ECG Additional Comments: EKG with paced rhythm, PACs, no acute ischemic changes Code Status & VTE Plan VTE Prophylaxis Plan VTE Prophylaxis will be ordered: Yes PG Care Time/CCT Total # of Minutes Spent Total Time Spent with Patient: Total time spent is greater than 50% in coordination of care (as documented) at patient's floor/unit and/or counseling patient: Coding Level of Care Code 93180 INT INP/OBS CARE 2/55MIN Diagnoses Chest pain R07.9 Chest pain type: unspecified Pulmonary embolism I26.99 CHF (NYHA class II, ACC/AHA stage C) I50.9 Infection of total right knee replacement T84.53XS Encounter type: sequela (1) Chest pain Chest pain type: unspecified Qualified Code(s): R07.9 - Chest pain, unspecified (4) Infection of total right knee replacement Encounter type: sequela Qualified Code(s): T84.53XS - Infection and inflammatory reaction due to internal right knee prosthesis, sequela
[2023-05-29] MEDS ORDERED: NITROGLYCERIN SL 0.4 MG/TAB TAB SL PRN (00:13)
[2023-05-29] MEDS ORDERED: ONDANSETRON INJ 2 MG/ML 2 ML VIAL IV PRN (00:13)
[2023-05-29] MEDS ORDERED: ACETAMINOPHEN 500 MG TAB PO PRN (00:13)
[2023-05-29] MEDS ORDERED: LEVALBUTEROL TARTRATE 15 GM HFA.AER.AD INH PRN (00:13)
[2023-05-29] MEDS ORDERED: ALUMINUM/MAGNESIUM SUSP 30 ML UDC PO PRN (00:13)
[2023-05-29] MEDS ORDERED: MELATONIN 3 MG TAB PO PRN (00:32)
[2023-05-29] MEDS ORDERED: APIXABAN 5 MG TABLET PO ONE (00:35)
[2023-05-29 05:52] LABS: Hematocrit (blood only) 35.5 % (37.0-47.0); Hemoglobin 11.9 g/dl (12.0-16.0); Mean Corpuscular Hemoglobin 26.6 pg (25.0-34.0); Mean Corpuscular Hgb Conc 33.5 g/dL (32.0-36.0); Mean Corpuscular Volume 79.4 fL (80.0-100.0); Platelet Count 199 K/uL (130-400); RDW Coefficient of Variation 15.9 % (11.5-14.5); RDW Standard Deviation 45.2 fL (36.4-46.3); Red Blood Count 4.47 M/uL (4.20-5.40); White Blood Count 5.16 K/ul (4.8-10.8)
[2023-05-29 06:18] LABS: BUN Creatinine Ratio 30.8 (10-20); Calcium 8.9 mg/dl (8.6-10.3); Creatinine Clr Calc Pharmacy 37.4 ml/min; Est GFR (African American) 55.6 ml/min; Potassium 3.9 mmol/L (3.5-5.1)
[2023-05-29 06:24] LABS: Troponin I High Sensitivity 8.7 pg/ml (0-14)
--- NOTE | 2023-05-29 07:57 | XRay Report ---
XR chest 1V not portable HISTORY: Chest pain, nonspecific COMPARISON: Chest 02/06/2023. FINDINGS: No pneumothorax. No pleural effusions. No new focal lung consolidations to suggest a pneumo darinel. No evidence for pulmonary edema. Mild interstitial thickening which is likely chronic. The heart is normal in size. There is a left-sided pacemaker noted. Scoliosis. IMPRESSION: Mild interstitial thickening which is likely chronic. Otherwise, no acute process within the chest. ACT 112: Negative or not required by law. Electronically signed by: Jaxson Velasco M.D. 05/29/2023 7:56 AM
[2023-05-29 08:51] LABS: Influenza A virus by PCR Negative (Neg); Influenza B virus by PCR Negative (Neg); RSV by PCR Negative (Neg); SARS CoV2 RNA(COVID-19) Ceph NEGATIVE (Negative)
[2023-05-29] MEDS ORDERED: FUROSEMIDE 40 MG TAB PO SCH (09:00)
[2023-05-29] MEDS: APIXABAN 5 MG TABLET PO SCH ×2 (09:06→20:37)
[2023-05-29] MEDS: FAMOTIDINE 20 MG TAB PO SCH (09:06)
--- NOTE | 2023-05-29 09:23 | Electrocardiogram Report ---
Test Reason : Blood Pressure : / mmHG Vent. Rate : 082 BPM Atrial Rate : 082 BPM P-R Int : 136 ms QRS Dur : 140 ms QT Int : 448 ms P-R-T Axes : 086 251 068 degrees QTc Int : 523 ms Atrial sensing, ventricular pacing Right superior axis deviation Abnormal ECG When compared with ECG of 21-MAR-2023 11:20, (unconfirmed) Questionable change in initial forces of Septal leads Questionable change in initial forces of Lateral leads QT has lengthened Confirmed by Josué Mayo ([id number]) on 05/29/2023 9:23:20 AM Referred By: REFERRED SELF Confirmed By:Josué Mayo
[2023-05-29] MEDS: AMOXICILLIN 875 MG TAB PO SCH (09:42)
--- NOTE | 2023-05-29 12:13 | Cardiology Consultation ---
Date of Consultation May 29, 2023 Assessment & Plan (1) Chest pain: -her symptoms are concerning for angina pectoris. -have suggested we proceed with a cardiac catheterization, however, she refuses. -will perform a stress test tomorrow morning, exercise versus dobutamine to be decided. -will make Dr. Webber aware of her hospitalization. (2) Paroxysmal atrial fibrillation: -tolerating long-term anticoagulation without difficulty. -does not require rate controlling medications. (3) Biventricular cardiac pacemaker in situ: -placed in February 2016. -management per Dr. Webber. History of Present Illness Attending Physician: Yusra Baez MD History of Present Illness Mrs. Burris is an 82-year-old female admitted yesterday with a chest pain syndrome. This consultation was ordered to assist in her cardiac management. Of note, the patient typically follows with Dr. Webber in the outpatient setting. The patient's recent history began approximately 2 months ago when she began to notice substernal chest discomfort radiating to the left scapula with vigorous physical activity. Her symptoms would resolve with rest. When she met with Dr. Webber on April 26 and she was scheduled for a nuclear stress test (June 07). She was also given a prescription for nitroglycerin. She has used nitroglycerin on several occasions with success. She presented to the emergency room yesterday as her symptoms have become progressive. She has also been noticing significant exertional dyspnea and exercise intolerance. I have discussed proceeding with a cardiac catheterization, however, the patient is not interested in invasive procedures at this time. She would like to proceed with a stress test. The patient does have a history of a nonischemic cardiomyopathy which was diagnosed back in February 2016. She underwent a cardiac catheterization at that time which noted normal coronary arteries. She did have a dual-chamber pacemaker placed in October 2014 because of intermittent complete heart block. That device was upgraded to a biventricular ICD in February 2016 she was diagnosed with a nonischemic cardiomyopathy. Fortunately, an echocardiogram performed in December of this year noted normal left ventricular systolic function with ejection fraction of 60-65%. Currently, patient is resting comfortably in bed without complaints. Past medical and surgical history 1. Nonischemic cardiomyopathy-February 2016 2. Normal coronary arteries-February 2016 3. Hypertension 4. LBBB 5. Mild aortic insufficiency 6. Paroxysmal atrial fibrillation 7. History of complete heart block 8. DDD pacemaker-October 2014 9. Biventricular ICD-February 2016 10. Left upper extremity DVT-October 2014 11. Pulmonary embolism-October 2014 12. Nephrolithiasis 13. Obstructive sleep apnea 14. Hearing deficit 15. Colonic polyps 16. Endometrial carcinoma-2002 17. Glaucoma 18. DJD 19. Right TKR chronic infection 20. Bilateral intra-ocular lens implants 21. KENYON/BSO 22. Tonsillectomy 23. D&C Social history and lives with her No tobacco alcohol Family history Noncontributory Review of systems A 10 point review systems undertaken and negative except that described above Allergies Allergy/AdvReac Type Severity Reaction Status Date / Time adhesive Allergy Intermediate "Adhesive Verified 05/28/23 22:54 tape" -- blisters sulfamethoxazole Allergy Intermediate MOUTH SORES Verified 05/28/23 22:54 trimethoprim Allergy Intermediate MOUTH SORES Verified 05/28/23 22:54 Home Medications Medication Instructions Recorded Confirmed Type acetaminophen 500 mg tablet 500 mg PO QID PRN Back Pain 11/27/22 05/28/23 History (Acetaminophen Extra Strength) multivitamin 1 tab PO QPM 11/27/22 05/28/23 History potassium chloride 20 mEq 20 meq PO BID 11/27/22 05/28/23 History tablet,extended release famotidine 20 mg tablet (Acid 20 mg PO DAILY 03/02/23 05/28/23 History Director It (famotidine)) melatonin 10 mg tablet 10 mg PO HS PRN Sleep 03/02/23 05/28/23 History potassium chloride 20 mEq 20 meq PO DAILY PRN hand cramping 03/02/23 05/28/23 Rx tablet,extended release(part/cryst) #30 tabs probulin total care probiotics 1 tab PO 1XD 03/02/23 05/28/23 History amoxicillin 875 mg tablet 875 mg PO DAILY 03/18/23 05/28/23 History furosemide 20 mg tablet (Lasix) 40 mg PO DAILY 03/18/23 05/28/23 History apixaban 5 mg tablet (Eliquis) 5 mg PO BID #60 tabs 03/21/23 05/28/23 Rx cholecalciferol (vitamin D3) 25 50 mcg PO DAILY 03/21/23 05/28/23 History mcg (1,000 unit) capsule levalbuterol tartrate 45 1 - 2 inh inhalation .Q4-6HRS PRN 05/28/23 05/28/23 History mcg/actuation aerosol inhaler shortness of breath or wheezing (Xopenex HFA) Patient History Medical History Aortic regurgitation Breast cancer ?? pt denies Chest pain CHF (NYHA class II, ACC/AHA stage C) Complete heart block (10/28/14) ICD/pacer Complex sleep apnea syndrome does not use cpap as ordered Deep venous thrombosis of left upper extremity several yrs ago > post surgical PURVIS (dyspnea on exertion) Hearing deficit History of colon polyps History of deep vein thrombosis (DVT) of lower extremity was just torn muscle, not clot per pt History of endometrial cancer diagnosed 20yrs ago--sx History of kidney stones Infection of prosthetic joint Left bundle branch block MCC current use of anticoagulant warfarin daily Mitral valve insufficiency Narrow angle glaucoma suspect of both eyes Nonischemic cardiomyopathy Osteoarthritis SNHL (sensorineural hearing loss) 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 Webber at [facility] > last checked in Apr 2021 [place] of [place] [facility] Pt made ASA3. Given 2mg versed. History of tonsillectomy History of tooth extraction History of total abdominal hysterectomy and bilateral salpingo-oophorectomy History of total right knee replacement (TKR) x2 History of wisdom tooth extraction S/P thyroid biopsy benign Family History Father Family hx of colon cancer Colorectal cancer Mother Family hx of colon cancer Colorectal cancer Aunt Family hx of colon cancer Other Family history non-contributory No family history of adverse response to anesthesia No significant family history Denies family history of Ovarian cancer Prostate cancer Myocardial infarction Breast cancer Social History Smoking Status: Never smoker Second Hand Exposure: No; Do You Dip or Chew Tobacco: No; Hx Alcohol Use: No Hx Substance Use: No Preferred Language: Kazakh Communication Ability: Effective Communication Ability Comment: [place] Visual Impairment: No Limitations Hearing Ability: Use of Hearing Aid Telecommunications Technician Required: No Beliefs That Will Affect Care: None marital status: Current Living Situation: Family Current Living Situation Comment: Lives with , daughter, grandchild current occupational status: retired 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 HEENT exam is negative. Neck is supple with full carotid upstrokes. No carotid bruits. Jugular venous pressure is flat at 90. There is no thyromegaly. Cardiovascular exam reveals a regular rhythm with a normal S1 and S2. Heart sounds are distant. No obvious murmurs. Chest reveals a palpable device in left subclavicular region. Lungs are clear without rales, rhonchi, wheezes. Abdomen is soft and nontender without bruits. Extremities reveal intact radial artery pulses bilaterally. Trace pedal edema noted. Results & Data Vital Signs (Past 12 Hours) Vital Signs Temp Pulse Pulse Resp BP BP Pulse Ox 05/29/23 07:59 05/29/23 06:00 36.7 C 92 H 22 163/81 H 95 05/29/23 06:00 67 23 163/81 H 96 05/29/23 04:00 67 19 154/81 H 95 05/29/23 03:55 67 20 95 05/29/23 03:44 74 18 170/87 H 92 05/29/23 02:00 64 21 141/82 H 93 05/29/23 00:43 62 22 153/74 H 94 05/29/23 00:30 68 17 143/77 H 96 O2 Del Method 05/29/23 07:59 Room Air 05/29/23 06:00 Room Air 05/29/23 06:00 CPAP 05/29/23 04:00 CPAP 05/29/23 03:55 05/29/23 03:44 Room Air 05/29/23 02:00 Room Air 05/29/23 00:43 Room Air 05/29/23 00:30 Room Air Laboratory Results CBC notes hemoglobin 11.9, hematocrit 35.5, white count 5.2, platelet count [id number]. Electrolytes note a sodium 137, potassium 3.9, chloride 103, bicarb 29, BUN 33, creatinine 1.07, and glucose of 93. High sensitivity troponin on presentation was 7.1 with follow-up values of 9.2 and 8.7. TSH is normal 1.08. Diagnostic Findings EKG notes atrial sensing and ventricular pacing. There was a blocked PAC. Chest x-ray shows no acute disease. Device noted in the left subclavicular region. PG Care Time/CCT Total # of Minutes Spent Total Time Spent with Patient: Total time spent is greater than 50% in coordination of care (as documented) at patient's floor/unit and/or counseling patient: Coding Level of Care Code 47855 INT INP/OBS CARE 3/75MIN Diagnoses Chest pain R07.9 Chest pain type: unspecified Paroxysmal atrial fibrillation I48.0 Biventricular cardiac pacemaker in situ Z95.0 (1) Chest pain Chest pain type: unspecified Qualified Code(s): R07.9 - Chest pain, unspecified
--- NOTE | 2023-05-29 13:53 | Hospitalist Progress Note ---
Date of Service May 29, 2023 Assessment & Plan (1) Chest pain: Plan: 82yo female with history of CHF, NICM, BiV ICD in place presenting with chest pain. EKG with PACs, no acute ischemic changes. Troponin x 2 unremarkable troponins negative keg header is concerned for angina symptoms. Recommended cardiac catheterization, however patient refused. She will let us go for stress test tomorrow. Made her n.p.o. postmidnight for stress test tomorrow. Stress test to be ordered by keg header. 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 On chronic suppressive therapy with Amoxicillin daily. Patient was on BID before but her platelets decreased -Continue Amoxicillin 875mg po daily Admission and Anticipated Discharge Date Admission Date: May 28, 2023 Subjective patient is wanting to go home to take care of her demented . She does not have chest pain at this time. Metal Mixer is recommending an ischemic work-up done before she leaves. Review of Systems Review of Systems: All systems reviewed & are unremarkable except as noted in Subjective Physical Exam Physical Exam: General: Awake, conversant Heart: S1, S2/regular rate and rhythm, no murmur rubs or gallops Lungs: Clear to auscultation bilaterally. Normal effort Abdomen: Soft/nontender/nondistended. No hepatosplenomegaly Extremities: No clubbing/cyanosis. No edema Behavior: Appropriate, cooperative Results & Data Results & Data Vital Signs (Past 12 Hours) Vital Signs Temp Pulse Pulse Resp BP BP Pulse Ox 05/29/23 12:32 36.5 C 80 24 152/72 H 95 05/29/23 07:59 05/29/23 06:00 36.7 C 92 H 22 163/81 H 95 05/29/23 06:00 67 23 163/81 H 96 05/29/23 04:00 67 19 154/81 H 95 05/29/23 03:55 67 20 95 05/29/23 03:44 74 18 170/87 H 92 05/29/23 02:00 64 21 141/82 H 93 O2 Del Method 05/29/23 12:32 Room Air 05/29/23 07:59 Room Air 05/29/23 06:00 Room Air 05/29/23 06:00 CPAP 05/29/23 04:00 CPAP 05/29/23 03:55 05/29/23 03:44 Room Air 05/29/23 02:00 Room Air Laboratory Results Abnormal lab results 05/28/23 05/28/23 05/29/23 Range/Units 21:36 21:36 05:12 Hgb 11.9 L (12.0-16.0) g/dl Hct 36.2 L 35.5 L (37.0-47.0) % MCV 79.0 L 79.4 L (80.0-100.0) fL RDW Coeff of [place] 15.7 H 15.9 H (11.5-14.5) % [place] # (Auto) 0.71 H (0.11-0.59) K/uL Immature Gran # (Auto) 0.00 L (0.01-0.20) K/uL BUN 37 H (6-23) mg/dl BUN/Creatinine Ratio 35.2 H (10-20) Glucose 100 H (70-99(Fasting)) mg/dl 05/29/23 Range/Units 05:12 Hgb (12.0-16.0) g/dl Hct (37.0-47.0) % MCV (80.0-100.0) fL RDW Coeff of [place] (11.5-14.5) % [place] # (Auto) (0.11-0.59) K/uL Immature Gran # (Auto) (0.01-0.20) K/uL BUN 33 H (6-23) mg/dl BUN/Creatinine Ratio 30.8 H (10-20) Glucose (70-99(Fasting)) mg/dl Diagnostic Findings Chest X-Ray 05/28/23 21:31 XR chest 1V not portable HISTORY: Chest pain, nonspecific COMPARISON: Chest 02/06/2023. FINDINGS: No pneumothorax. No pleural effusions. No new focal lung consolidations to suggest a pneumonia. No evidence for pulmonary edema. Mild interstitial thickening which is likely chronic. The heart is normal in size. There is a left-sided pacemaker noted. Scoliosis. IMPRESSION: Mild interstitial thickening which is likely chronic. Otherwise, no acute process within the chest. ACT 112: Negative or not required by law. Electronically signed by: Jaxson Velasco M.D. 05/29/2023 7:56 AM PG Care Time/CCT Total # of Minutes Spent Total Time Spent with Patient: Total time spent is greater than 50% in coordination of care (as documented) at patient's floor/unit and/or counseling patient: Coding Level of Care Code 33700 SUB INP/OBS CARE 2/35MIN Diagnoses Chest pain R07.9 Chest pain type: unspecified Pulmonary embolism I26.99 CHF (NYHA class II, ACC/AHA stage C) I50.9 Infection of total right knee replacement T84.53XS Encounter type: sequela (1) Chest pain Chest pain type: unspecified Qualified Code(s): R07.9 - Chest pain, unspecified (4) Infection of total right knee replacement Encounter type: sequela Qualified Code(s): T84.53XS - Infection and inflam matory reaction due to internal right knee prosthesis, sequela
[2023-05-30] MEDS: AMOXICILLIN 875 MG TAB PO SCH (09:37)
[2023-05-30] MEDS: APIXABAN 5 MG TABLET PO SCH (09:38)
[2023-05-30] MEDS: FAMOTIDINE 20 MG TAB PO SCH (09:38)
[2023-05-30] MEDS ORDERED: DOBUTamine HCL 12.5 MG/ML 20 ML VIAL IV ONE (10:29)
[2023-05-30] MEDS ORDERED: ATROPINE SULFATE 0.1 MG/ML 10ML SYR IV ONE (10:29)
[2023-05-30] MEDS ORDERED: METOPROLOL TARTRATE 1 MG/ML VIAL IV ONE (10:29)
--- NOTE | 2023-05-30 11:01 | Cardiology Progress Note ---
Date of Service May 30, 2023 Assessment & Plan (1) Chest pain: Plan: -her symptoms are concerning for angina pectoris. -have suggested we proceed with a cardiac catheterization, however, she refuses. -dobutamine stress echocardiogram this morning. -Dr. Webber aware of her hospitalization. (2) Paroxysmal atrial fibrillation: Plan: -tolerating long-term anticoagulation without difficulty. -does not require rate controlling medications. (3) Biventricular cardiac pacemaker in situ: Plan: -placed in February 2016. -management per Dr. Webber. Admission and Anticipated Discharge Date Admission Date: May 28, 2023 Subjective The patient is resting comfortably in bed complaints chest pain or dyspnea. Physical Exam Physical Exam: In general is a well-developed well-nourished elderly white female in no acute distress. HEENT exam is negative. Neck is supple with full carotid upstrokes. No carotid bruits. Jugular venous pressure is flat at 90. There is no thyromegaly. Cardiovascular exam reveals a regular rhythm with a normal S1 and S2. Heart sounds are distant. No obvious murmurs. Chest reveals a palpable device in left subclavicular region. Lungs are clear without rales, rhonchi, wheezes. Abdomen is soft and nontender without bruits. Extremities reveal intact radial artery pulses bilaterally. Trace pedal edema noted. Results & Data Vital Signs (Past 12 Hours) Vital Signs Temp Pulse Pulse Resp BP BP Pulse Ox 05/30/23 08:15 36.6 C 104 H 20 139/75 94 05/30/23 05:34 36.7 C 102 H 20 156/82 H 94 05/30/23 02:29 93 H 26 H 95 05/30/23 00:45 142/85 H 05/30/23 00:16 36.8 C 93 H 20 194/81 H 95 O2 Del Method 05/30/23 08:15 CPAP 05/30/23 05:34 BiPAP 05/30/23 02:29 05/30/23 00:45 05/30/23 00:16 BiPAP Diagnostic Findings pvc monitor notes atrial sensing and ventricular pacing. PG Care Time/CCT Total # of Minutes Spent Total Time Spent with Patient: Total time spent is greater than 50% in coordination of care (as documented) at patient's floor/unit and/or counseling patient: Coding Level of Care Code 61786 SUB INP/OBS CARE 50MIN Diagnoses Chest pain R07.9 Chest pain type: unspecified Paroxysmal atrial fibrillation I48.0 Biventricular cardiac pacemaker in situ Z95.0 (1) Chest pain Chest pain type: unspecified Qualified Code(s): R07.9 - Chest pain, unspe cified
--- NOTE | 2023-05-30 11:16 | Electrocardiogram Report ---
Test Reason : Blood Pressure : / mmHG Vent. Rate : 081 BPM Atrial Rate : 081 BPM P-R Int : 134 ms QRS Dur : 130 ms QT Int : 418 ms P-R-T Axes : 071 258 072 degrees QTc Int : 485 ms Atrial sensing, ventricular pacing Right bundle branch block Abnormal ECG When compared with ECG of 21-MAR-2023 11:20, (unconfirmed) Premature atrial complexes are no longer Present Questionable change in initial forces of Lateral leads Confirmed by Josué Mayo ([id number]) on 05/30/2023 11:16:21 AM Referred By: REFERRED SELF Confirmed By:Josué Mayo
--- NOTE | 2023-05-30 13:12 | Discharge Summary ---
Discharge Summary Date of Service May 30, 2023 Notes For Next Care Provider Follow CBC in 2-3 weeks Medication Changes From Visit Protonix 40mg po qday x 1 month Ferrous sulfate 325mg po qday Admission HPI Per Admitting Provider Tasneem Kingsley is an 82yo female with history of complete heart block s/p pacer placement which was upgraded to BiV ICD, NICM with recovered EF of 60-65% per echo from December 2022. She follows routinely with Cardiology - last seen by Dr. Webber on 04/26/23. At that time she was complaining of some intermittent chest discomfort - exertional left scapular discomfort which was concerning for typical anginal symptoms. She had a stress echo in 2015 which was abnormal due to the presence of a paced rhythm. She has been scheduled for a Cardiolite chemical stress test on 06/07/23 at 09:30. She had a cardiac catheterization performed in 2015 which was essentially normal. Patient presents today with complaint of left sided chest discomfort with radiation into her back and between her shoulder blades as well as increased belching. She has also noted increased dyspnea and decreased exercise tolerance. No palpitations, diaphoresis, syncope or dizziness. She has been taking Nitro at home with improvement in her pain. Also improved with ASA. Her discomfort is somewhat exertional. Not pleuritic or positional in nature. No additional complaints - specifically no fever, chills, abdominal pain, nausea, vomiting, diarrhea or constipation. No urinary complaints. In the ER she is afebrile, HD stable ER Course: Pepcid 20mg IV Nitro 0.4mg SL Simethicone 80mg po Principal Dx & Hospital Course #1 = Principal Diagnosis (1) Chest pain: 82yo female with history of CHF, NICM, BiV ICD in place presenting with chest pain that was tight in nature, through ot the back, associated with a lot of indigestion and stress, came on with exercise and went away with rest and nitroglycerin. EKG with PACs, no acute ischemic changes. 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 Recommended cardiac catheterization, however patient refused. She had a normal dobutamine stress test and had no recurrence of her pain Suspect acid reflux and esophageal spasm possibly start Protonix 40mg po daily x 1 month f/u with PCP (2) Pulmonary embolism: History of PE -Continue Eliquis (3) CHF (NYHA class II, ACC/AHA stage C): Patient appears compensated -Cotninue Lasix 40mg po daily, KCl -Monitor (4) Infection of total right knee replacement: Chronic. On chronic suppressive therapy with Amoxicillin daily -Continue Amoxicillin 875mg po daily follows with ID (5) Microcytic anemia: hgb 11.9 and MCV low at 79 while hgb is better than since her knee surgeries and sepsis, requiring transfusion in 01/2023, she should have been back to a normal hgb and MCV by now had EGD and colonoscopy 3-4 years ago with some polyps but nothing else abnormal she recalls no melena or hematochezia recommend starting FeSO4 325mg po daily and f/u CBC with PCP in a few weeks Plan DIspo-dc to home discussed care with daughter and granddaughter at bedside Discharge Exam Constitutional WD/WN, vitals as above Respiratory normal respiratory effort, lungs clear to auscultation Cardiovascular RRR, no murmur, no edema Gastrointestinal (Abdomen) normal bowel sounds, soft, nontender, no hepatosplenomegaly Psychiatric A+Ox3, euthymic affect Updated Medication List Medication Instructions Recorded Confirmed Type acetaminophen 500 mg tablet 500 mg PO QID PRN Back Pain 11/27/22 05/28/23 History (Acetaminophen Extra Strength) multivitamin 1 tab PO QPM 11/27/22 05/28/23 History potassium chloride 20 mEq 20 meq PO BID 11/27/22 05/28/23 History tablet,extended release famotidine 20 mg tablet (Acid 20 mg PO DAILY 03/02/23 05/28/23 History Certified Nurse Practitioner (famotidine)) melatonin 10 mg tablet 10 mg PO HS PRN Sleep 03/02/23 05/28/23 History potassium chloride 20 mEq 20 meq PO DAILY PRN hand cramping 03/02/23 05/28/23 Rx tablet,extended release(part/cryst) #30 tabs probulin total care probiotics 1 tab PO 1XD 03/02/23 05/28/23 History amoxicillin 875 mg tablet 875 mg PO DAILY 03/18/23 05/28/23 History furosemide 20 mg tablet (Lasix) 40 mg PO DAILY 06/30/23 09/09/23 History apixaban 5 mg tablet (Eliquis) 5 mg PO BID #60 tabs 03/21/23 05/28/23 Rx cholecalciferol (vitamin D3) 25 50 mcg PO DAILY 03/21/23 05/28/23 History mcg (1,000 unit) capsule levalbuterol tartrate 45 1 - 2 inh inhalation .Q4-6HRS PRN 05/28/23 05/28/23 History mcg/actuation aerosol inhaler shortness of breath or wheezing (Xopenex HFA) ferrous sulfate 325 mg (65 mg 325 mg PO DAILY #30 tabs 05/30/23 Rx iron) tablet pantoprazole 40 mg tablet,delayed 40 mg PO DAILY #30 tabs 05/30/23 Rx release (Protonix) Hospital Stay Data Consultations 05/28/23 23:22 ED Decision to Admit Stat 05/29/23 00:13 Consult Cardiology Routine Procedures Performed Dobutamine stress ECHO Pending Results Patient Have Any Pending Studies at Discharge: No Discharge Instructions Given to Patient (Per Discharging Provider) You were admitted for chest pain and had normal cardiac testing. The pain may be related to acid reflux and spasm of your esophagus. Please take Protonix 40mg once daily x 1 month to see if this improves. You are also mildly anemic and this is likely due to iron deficiency. While this could be residual from the blood loss you had several months ago during your knee surgery, you may also have some ongoing blood loss or otherwise are not getting enough iron in your diet. Please take an iron pill once daily and follow up with your PCP. Total Time Total Time Spent Total Time Spent (In Minutes): 35 min Total Time Includes: Examination of the Patient, Discharge Planning, Medication Reconciliation and Communication With Other Providers (Cardiology) Coding Level of Care Code 14151 INP/OBS DISCH >30 MIN Diagnoses Chest pain R07.9 Chest pain type: unspecified Pulmonary embolism I26.99 CHF (NYHA class II, ACC/AHA stage C) I50.9 Infection of total right knee replacement T84.53XS Encounter type: sequela Microcytic anemia D50.9
--- NOTE | 2023-05-30 14:32 | XCELERA ---
[id number]
== END 2023-05-30 14:21 | disposition home or self-care (01) ==
LOC: EDINP 21:22 → ED 21:22 → SUATTDRO 23:47 → 2N 05-29 14:12

== ENCOUNTER 2024-01-01 23:11 | Inpatient (IN) ==
[2024-01-01] MEDS: ONDANSETRON INJ 2 MG/ML 2 ML VIAL IV STA (23:36)
[2024-01-01] MEDS: ACETAMINOPHEN 1,000 MG/100 ML VIAL IV STA (23:36)
[2024-01-01] MEDS: SODIUM CHLORIDE 0.9% 1,000 ML IV ONE (23:37)
[2024-01-01] MEDS: PANTOprazole 80 MG in DEXTROSE 5% 100 ML IV STA (23:42)
[2024-01-01 23:48] LABS: Basophils # (auto) 0.06 K/uL (0.00-0.20); Basophils % (auto) 0.4 %; Eosinophils # (auto) 0.08 K/uL (0.00-0.50); Eosinophils % (auto) 0.5 %; Hematocrit (blood only) 34.2 % (37.0-47.0); Hemoglobin 11.2 g/dl (12.0-16.0); Immature Granulocytes # (auto) 0.07 K/uL (0.01-0.20); Immature Granulocytes % (auto) 0.5 %; Lymphocytes # (auto) 0.79 K/uL (1.20-3.40); Lymphocytes % (auto) 5.2 %; Mean Corpuscular Hemoglobin 25.7 pg (25.0-34.0); Mean Corpuscular Hgb Conc 32.7 g/dL (32.0-36.0); Mean Corpuscular Volume 78.4 fL (80.0-100.0); Mean Platelet Volume 9.4 fL (9.4-12.4); Monocytes # (auto) 1.14 K/uL (0.11-0.59); Monocytes % (auto) 7.5 %; Neutrophils # (auto) 13.12 K/uL (1.40-6.50); Neutrophils % (auto) 85.9 %; Platelet Count 223 K/uL (130-400); RDW Coefficient of Variation 15.9 % (11.5-14.5); RDW Standard Deviation 45.9 fL (36.4-46.3); Red Blood Count 4.36 M/uL (4.20-5.40); White Blood Count 15.26 K/ul (4.8-10.8)
--- NOTE | 2024-01-02 00:02 | Emergency Department Note ---
Impression & Plan Vomiting, Hypoxia ED Provider Note CHIEF COMPLAINT: Vomiting, fever HISTORY OF PRESENT ILLNESS: This 83-year-old female patient past medical history of AICD, paroxysmal atrial fibrillation, PE, pulmonary hypertension, septic right knee joint replacement, congestive heart failure, aortic regurgitation, SVC syndrome presents to the emergency department with complaints of 1 to 2 days of weakness and malaise. Today the patient had a deterioration of her symptoms, felt chills and sweats most of the day and started vomiting. She contacted her daughter who brought her to the emergency department for evaluation. He notes that the emesis was dark, but not necessarily coffee grounds. The patient is on Eliquis milligrams twice daily for history of atrial fibrillation and PE. Patient has been complaining of urinary symptoms for the last 3 days. She is on chronic amoxicillin secondary to infected joint replacement REVIEW OF SYSTEMS: A review of systems was performed with positives and pertinent negatives listed in the history of present illness. 10 systems were reviewed and are otherwise negative. Much of the history is obtained from the daughter at the bedside. ALLERGIES: see below MEDICATIONS: see below PMH: see below SOCIAL HISTORY: see below DDx: Sepsis, UTI, pneumonia, viral etiology, bowel obstruction, GI bleed, infected joint, cellulitis among others. PHYSICAL EXAM: Vital signs reviewed. Noted to be febrile, oxygen saturations in the low 90s on room air General: Chronically ill-appearing 83-year-old female, in no significant distress. HEENT: No scleral icterus, PERRLA, neck supple. Moist mucous membranes. Hard of hearing Cardiovascular: Regular rate and rhythm, no extra sounds. Pulmonary: Crackles to the bases bilaterally, normal work of breathing. Abdomen: Soft, nontender, nondistended, positive bowel sounds. Musculoskeletal: Atraumatic, no peripheral edema. Neurologic: Patient awake alert and oriented x 3, speech is clear Skin: Warm, dry, no rash EMERGENCY DEPARTMENT COURSE/MDM: This pt was evaluated and appeared to be in no distress. IV access was obtained and lab work was obtained. Pt was placed on the cardiac monitor technician and is noted to be in a demand atrially paced rhythm. Pt was hydrated with NSS. CXR reveals a possible L basilar infiltrate. KUB reveals no obstruction or FA. WBC is noted to be elevated, Hbg 11 at pt's baseline. Blood cultures were obtained and pt was medicated with IV ceftriaxone. UA is negative. Pt did have an O2 requirement after desats to 86%. It is unclear if the pt aspirated after vomiting. Case was d/w hospitalist for further management. MONITORING: An order for cardiac monitoring was placed and the patient is noted to be in a paced 100 beats per minute. RADIOLOGY: CXR to my interpretation reveals AICD in place, possible L basilar infiltrate. otherwise defer to radiology overread KUB to my interpretation reveals no obstruction or FA, otherwise defer to radiology overread EKG:to my interpretation reveals a demand atrially paced rhythm at 67 bpm, no significant change was found. DISPOSITION: Admit Past Med/Surg History Medical History (Updated 01/03/24 @ 22:32 by Susan Garcia MD) Chest pain Infection of prosthetic joint Weakness Chest pain History of colon polyps Hearing deficit Narrow angle glaucoma suspect of both eyes PURVIS (dyspnea on exertion) Osteoarthritis History of kidney stones History of endometrial cancer diagnosed 20yrs ago--sx History of deep vein thrombosis (DVT) of lower extremity was just torn muscle, not clot per pt SNHL (sensorineural hearing loss) Breast cancer ?? 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 Pt made ASA3. Given 2mg versed. History of dilatation and curettage History of total right knee replacement (TKR) x2 History of colonoscopy with polypectomy S/P thyroid biopsy benign History of tooth extraction History of wisdom tooth extraction History of tonsillectomy History of cardiac cath no stents History of breast biopsy per pt benign History of total abdominal hysterectomy and bilateral salpingo-oophorectomy History of permanent cardiac pacemaker placement meditronic ICD placed by Dr. Webber at [facility] > last checked in Apr 2021 Family History Father Family hx of colon cancer Colorectal cancer Mother Family hx of colon cancer Colorectal cancer Aunt Family hx of colon cancer Other Family history non-contributory No family history of adverse response to anesthesia No significant family history Denies family history of Ovarian cancer Prostate cancer Myocardial infarction Breast cancer Social History Smoking Status: Never smoker Second Hand Exposure: No; Do You Dip or Chew Tobacco: No; Hx Alcohol Use: No Hx Substance Use: No Preferred Language: Indonesian Communication Ability: Effective Communication Ability Comment: [place] Visual Impairment: No Limitations Hearing Ability: Use of Hearing Aid Registered Nursing Professor Required: No Beliefs That Will Affect Care: None marital status: Current Living Situation: Spouse Current Living Situation Comment: Lives with , daughter, grandchild current occupational status: retired 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 Feels Safe at Home: Yes Childhood Exposure to Second-Hand Smoke: Yes Diet: regular Dental Care, Regularly: Yes Physical Activity Frequency: Does not Exercise Seatbelt Use: always Sunscreen Use: No Assistive Devices: CPAP, Hearing Aid - Bilateral and Walker Allergies Allergies Allergy/AdvReac Type Severity Reaction Status Date / Time adhesive Allergy Intermediate "Adhesive Verified 01/02/24 12:33 tape" -- blisters sulfamethoxazole Allergy Intermediate MOUTH SORES Verified 01/02/24 12:33 trimethoprim Allergy Intermediate MOUTH SORES Verified 01/02/24 12:33 Home Meds Home Medications Medication Instructions Recorded Confirmed acetaminophen 500 mg tablet 500 mg PO QID PRN Back Pain 11/27/22 01/02/24 (Acetaminophen Extra Strength) multivitamin 1 tab PO QPM 11/27/22 01/02/24 melatonin 10 mg tablet 10 mg PO HS Sleep 03/02/23 01/02/24 cholecalciferol (vitamin D3) 25 50 mcg PO QAM 03/21/23 01/02/24 mcg (1,000 unit) capsule amoxicillin 875 mg tablet 875 mg PO QAM 01/01/24 01/01/24 Lactobacillus 40-Bifidobact 1 cap PO HS 01/02/24 01/02/24 3-S.thermophilus 100 billion cell capsule (Probiotic) furosemide 20 mg tablet (Lasix) 40 mg PO QAM 01/02/24 01/02/24 Previous Rx's Medication Instructions Recorded apixaban 5 mg tablet (Eliquis) 5 mg PO BID #180 tabs 06/20/23 potassium chloride 20 mEq 20 meq PO BID #60 tabs 07/27/23 tablet,extended release cefdinir 300 mg capsule 300 mg PO BID 5 days #10 caps 01/03/24 pantoprazole 40 mg tablet,delayed 40 mg PO QAM 30 days #30 tabs 01/03/24 release Results & Data (ED) Vital Signs Vital Signs - 24 hr 01/01/24 23:20 01/01/24 23:38 01/02/24 00:00 Temperature 37.9 C H Temperature Source Oral Pulse Rate 100 H 94 H 103 H Pulse Rate from SpO2 Sensor 100 H Pulse Rhythm Regular Respiratory Rate 18 19 Respiratory Effort / Characteristics Non-Labored Spontaneous Respiratory Depth Normal Blood Pressure 122/86 114/55 L Blood Pressure Mean 98 74 Pulse Oximetry 93 92 Oxygen Delivery Method Room Air Room Air Oxygen Flow Rate Sepsis Recent Fever Within 48 Hours No Sepsis New/Unexplained Change in Mental Status N/A Sepsis Action Taken by Nursing No Action Required 01/02/24 00:04 01/02/24 01:00 01/02/24 01:00 Temperature Temperature Source Pulse Rate 71 73 Pulse Rate from SpO2 Sensor 75 Pulse Rhythm Regular Respiratory Rate 18 22 Respiratory Effort / Characteristics Respiratory Depth Blood Pressure 115/70 Blood Pressure Mean 85 Pulse Oximetry 93 91 86 L Oxygen Delivery Method Room Air Nasal Cannula Room Air Oxygen Flow Rate 2 Sepsis Recent Fever Within 48 Hours Sepsis New/Unexplained Change in Mental Status Sepsis Action Taken by Nursing 01/02/24 02:00 Temperature Temperature Source Pulse Rate 77 Pulse Rate from SpO2 Sensor 77 Pulse Rhythm Respiratory Rate 12 Respiratory Effort / Characteristics Respiratory Depth Blood Pressure 121/51 L Blood Pressure Mean 74 Pulse Oximetry 97 Oxygen Delivery Method Nasal Cannula Oxygen Flow Rate 2 Sepsis Recent Fever Within 48 Hours Sepsis New/Unexplained Change in Mental Status Sepsis Action Taken by Skilled Nursing Medications Current Medication List: was personally reviewed by me Laboratory Data Attestation: I reviewed the patient's lab results. 01/03/24 06:07 01/03/24 06:07 Lab Results 01/01/24 01/01/24 01/02/24 Range/Units 23:26 23:55 00:55 WBC 15.26 H (4.8-10.8) K/ul RBC 4.36 (4.20-5.40) M/uL Hgb 11.2 L (12.0-16.0) g/dl Hct 34.2 L (37.0-47.0) % MCV 78.4 L (80.0-100.0) fL MCH 25.7 (25.0-34.0) pg MCHC 32.7 (32.0-36.0) g/dL RDW Std Deviation 45.9 (36.4-46.3) fL RDW Coeff of Blaise 15.9 H (11.5-14.5) % Plt Count 223 (130-400) K/uL MPV 9.4 (9.4-12.4) fL Immature Gran % (Auto) 0.5 % Neut % (Auto) 85.9 % Lymph % (Auto) 5.2 % [place] % (Auto) 7.5 % Eos % (Auto) 0.5 % Baso % (Auto) 0.4 % Neut # (Auto) 13.12 H (1.40-6.50) K/uL Lymph # (Auto) 0.79 L (1.20-3.40) K/uL [place] # (Auto) 1.14 H (0.11-0.59) K/uL Eos # (Auto) 0.08 (0.00-0.50) K/uL Baso # (Auto) 0.06 (0.00-0.20) K/uL Immature Gran # (Auto) 0.07 (0.01-0.20) K/uL Sodium 134 L (136-145) mmol/L Potassium 4.1 (3.5-5.1) mmol/L Chloride 103 (98-107) mmol/L Carbon Dioxide 23 (21-32) mmol/L Anion Gap 8 (3-11) BUN 31 H (6-23) mg/dl Creatinine 1.17 (0.6-1.2) mg/dl Est Cr Clr Drug Dosing 36.5 ml/min Est GFR ( Amer) 49.6 ml/min Est GFR (Non-Af Amer) 42.8 ml/min BUN/Creatinine Ratio 26.5 H (10-20) Glucose 122 H (70-99(Fasting)) mg/dl Lactate 0.9 (0.4-2.0) mmol/L Calcium 9.1 (8.6-10.3) mg/dl Total Bilirubin 0.3 (0.2-1.0) mg/dl AST 20 (13-39) U/L ALT 15 (7-52) U/L Alkaline Phosphatase 81 (34-104) U/L Troponin I High Sens 11.3 (0-14) pg/ml Total Protein 7.3 (6.0-8.3) gm/dl Albumin 3.9 (3.4-5.0) gm/dl Globulin 3.4 (2.5-4.0) gm/dl Albumin/Globulin Ratio 1.1 (0.9-2) Urine Color Yellow Urine Appearance Clear (Clear) Urine pH 6.0 (4.5-7.5) Ur Specific [place] 1.024 (1.000-1.030) Urine Protein Trace H (Negative) Urine Glucose (UA) Negative (Negative) Urine Ketones Trace H (Negative) Urine Blood Negative (Negative) Urine Nitrite Negative (Negative) Urine Bilirubin Negative (Negative) Urine Urobilinogen Negative (Negative) Ur Leukocyte Esterase Negative (Negative) Urine WBC (Auto) 0-5 (0-5) /hpf Urine RBC (Auto) 0-2 (0-2) /hpf U Hyaline Cast (Auto) 0-2 (0-2) /lpf U Epithel Cells (Auto) 0-2 (0-2) /hpf Urine Bacteria (Auto) None Seen (None Seen) Streptococcus sp PCR DETECTED A (NotDetected) Bld Cult ID Panel PCR See PCR Comment (NotDetected) Administered Medications Discontinued Medications Apixaban (Apixaban 5 Mg Tablet) 5 mg PO BID STEPHEN Stop: 02/01/24 20:59 Last Admin: 01/03/24 07:26 Dose: 5 mg Documented By: Admin: 01/02/24 21:12 Dose: 5 mg Documented By: EFK Furosemide (Furosemide 40 Mg Tab) 40 mg PO QAM STEPHEN Stop: 02/02/24 08:59 Last Admin: 01/03/24 07:27 Dose: 40 mg Documented By: WALDO Sodium Chloride (Nss) 1,000 mls @ 999 mls/hr IV .Q1H1M ONE Stop: 01/02/24 00:27 Last Infusion: 01/02/24 00:59 Dose: Infused Documented By: [facility] Admin: 01/01/24 23:37 Dose: 999 mls/hr Documented By: HEMANT Pantoprazole Sodium 80 mg/ (Dextrose) 120 mls @ 480 mls/hr IV ONE STA Stop: 01/01/24 23:42 Last Infusion: 01/02/24 00:07 Dose: Infused Documented By: [facility] Admin: 01/01/24 23:42 Dose: 480 mls/hr Documented By: HEMANT Acetaminophen (Ofirmev) 1,000 mg in 100 mls @ 400 mls/hr IV NOW STA Stop: 01/01/24 23:43 Last Infusion: 01/01/24 23:53 Dose: Infused Documented By: [facility] Admin: 01/01/24 23:36 Dose: 400 mls/hr Documented By: HEMANT Ceftriaxone Sodium (Rocephin) 2,000 mg in 50 mls @ 100 mls/hr IV NOW STA Stop: 01/02/24 00:24 Last Infusion: 01/02/24 01:42 Dose: Infused Documented By: [facility] Admin: 01/02/24 00:54 Dose: 100 mls/hr Documented By: HEMANT Acetaminophen (Ofirmev) 1,000 mg in 100 mls @ 400 mls/hr IV NOW STA Stop: 01/02/24 04:12 Last Admin: 01/02/24 05:12 Dose: Not Given Documented By: DARLIN Pantoprazole Sodium 40 mg/ (Syringe) 10 mls @ 5 mls/min IV DAILY@1100 [facility] Stop: 02/01/24 10:59 Last Admin: 01/02/24 11:41 Dose: 5 mls/min Documented By: ROGER Ceftriaxone Sodium 2,000 mg/ (Dextrose) 50 mls @ 100 mls/hr IV Q24H [facility]; Protocol Stop: 01/07/24 20:59 Last Infusion: 01/02/24 21:52 Dose: Infused Documented By: Admin: 01/02/24 21:13 Dose: 100 mls/hr Documented By: KARIME Sodium Chloride (Nss) 500 mls @ 15 mls/hr IV .Q24H [facility] Stop: 02/01/24 12:44 Last Infusion: 01/02/24 12:47 Dose: Infused Documented By: Admin: 01/02/24 12:45 Dose: 15 mls/hr Documented By: KYM Lidocaine HCl (Lidocaine 2% 2 Ml Vial/Amp(20mg/Ml)) Confirm Administered Dose 4 ml INFIL .STK-MED ONE Stop: 01/02/24 12:37 Last Admin: 01/02/24 14:06 Dose: Not Given Documented By: LMS Melatonin (Melatonin 3 Mg Tab) 9 mg PO HS [facility] Stop: 02/01/24 20:59 Last Admin: 01/02/24 21:12 Dose: 9 mg Documented By: EFK Metoclopramide HCl (Metoclopramide Hcl Inj 5 Mg/Ml 2 Ml Vial) 5 mg IV ONE ONE Stop: 01/02/24 11:18 Last Admin: 01/02/24 11:43 Dose: 5 mg Documented By: LMS Ondansetron HCl (Ondansetron Inj 2 Mg/Ml 2 Ml Vial) 4 mg IV NOW [facility] Stop: 01/01/24 23:27 Last Admin: 01/01/24 23:36 Dose: 4 mg Documented By: ML Ondansetron HCl (Ondansetron Inj 2 Mg/Ml 2 Ml Vial) Confirm Administered Dose 4 mg .ROUTE .STK-MED ONE Stop: 01/02/24 13:00 Last Admin: 01/02/24 14:07 Dose: Not Given Documented By: LMS Pantoprazole Sodium (Pantoprazole 40 Mg Tab) [facility] [place] Stop: 02/02/24 08:59 Last Admin: 01/03/24 07:26 Dose: 40 mg Documented By: C Propofol (Propofol Iv Emulsion 10 Mg/Ml 20 Ml Vial) Confirm Administered Dose 200 mg IV .STK-MED ONE Stop: 01/02/24 12:37 Last Admin: 01/02/24 14:06 Dose: Not Given Documented By: LMS Imaging Data Radiologist's Impression: Chest X-Ray 01/02/24 01:18 XR chest 1V portable HISTORY: vomiting, fever COMPARISON: Chest CT 06/04/2023. FINDINGS: No pneumothorax. No pleural effusions. The heart is mildly enlarged. Is left-sided dual-chamber pacemaker. Mild interstitial thickening most pronounced within the lung bases. This is similar to prior study and is likely chronic. Hazy appearance left lateral lung base may be due to overlapping soft tissues. A developing pneumonia could also have a similar appearance. IMPRESSION: Hazy appearance left lateral lung base may be due to overlapping soft tissues. A developing pneumonia could also have a similar appearance. ACT 112: Negative or not required by law. Electronically signed by: Jaxson Velasco M.D. 01/02/2024 6:52 AM KUB X-Ray 01/02/24 01:18 KUB CLINICAL HISTORY: Vomiting. COMPARISON STUDY: CT of the abdomen and pelvis June 04, 2023. FINDINGS: Left subclavian pacer is incidentally noted. The bowel gas pattern is normal. There is a moderate amount of stool within the colon and rectum. No evidence for free air on supine exam. IMPRESSION: No evidence for a bowel obstruction. ACT 112: Negative or not required by law. Electronically signed by: Bart Monique M.D. 01/02/2024 7:12 AM Discharge Plan Visit Data Chief Complaint: Vomiting Stated Complaint: CHILLS/POSSIBLE UTI/COFFEE GROUND EMISIS ED Provider: Susan Garcia Discharge Problem: Vomiting, Hypoxia Patient Disposition: Admitted As Inpatient Discharge Instructions Interventions: ED Discharge Assessment Last Done: 01/02/24 04:56
[2024-01-02 00:05] LABS: Albumin Globulin Ratio 1.1 (0.9-2); Albumin Level 3.9 gm/dl (3.4-5.0); BUN Creatinine Ratio 26.5 (10-20); Bilirubin,Total 0.3 mg/dl (0.2-1.0); Calcium 9.1 mg/dl (8.6-10.3); Creatinine Clr Calc Pharmacy 36.5 ml/min; Est GFR (African American) 49.6 ml/min; Est GFR (Non-African American) 42.8 ml/min; Globulin 3.4 gm/dl (2.5-4.0); Potassium 4.1 mmol/L (3.5-5.1); Total Protein 7.3 gm/dl (6.0-8.3)
[2024-01-02 00:11] LABS: Troponin I High Sensitivity 11.3 pg/ml (0-14)
[2024-01-02] MEDS: cefTRIAXone SODIUM 2,000 MG/50 ML BAG IV STA (00:54)
[2024-01-02 01:16] LABS: Appearance Urine Clear (Clear); Bacteria Urine Automated None Seen (None Seen); Bilirubin Urine Negative (Negative); Blood Urine Negative (Negative); Cast Urine Automated 0-2 /lpf (0-2); Color Urine Yellow; Epithelial Cell Urine Auto 0-2 /hpf (0-2); Glucose Urine UA Negative (Negative); Ketones Urine Trace (Negative); Leukocyte Esterase Urine Negative (Negative); Nitrite Urine Negative (Negative); Protein Urine Trace (Negative); RBC Urine Automated 0-2 /hpf (0-2); Specific Gravity Urine 1.024 (1.000-1.030); Urobilinogen Urine Negative (Negative); WBC Urine Automated 0-5 /hpf (0-5)
[2024-01-02 02:47] LABS: Influenza A virus by PCR Negative (Neg); Influenza B virus by PCR Negative (Neg); RSV by PCR Negative (Neg); SARS CoV2 RNA(COVID-19) Ceph NEGATIVE (Negative)
--- NOTE | 2024-01-02 03:20 | History & Physical Report ---
Date of Service January 02, 2024 Assessment & Plan (1) Vomiting: Plan: Pt is a 83 yo female with PMH of osteoarthritis, endometrial cancer, DVT, ?breast cancer, HFpEF, and complete heart block s/p BiV ICD presenting d/t vomiting. Vomiting - per pt's daughter, noted dark emesis w/o bright red blood - lab work significant for leukocytosis to 15.26, Hgb 11.2, CMP WNL aside from minimally elevated BUN/Cr ratio - CXR w/o signs of PNA or pulmonary edema; KUB showing distention of the bladder - blood cultures pending - suspect symptoms secondary to viral illness - will keep pt NPO and hold eliquis in the setting of possible upper GI blee d/Vibha [place] tear; advance diet as tolerated if no recurrence of bloody emesis - will continue with IV PPI - monitor AM CBC for worsening anemia Hx of HFpEF - last echo 12/2022 showed EF 60-65%, normal left ventricular function, and elevated PA pressures - negative stress echo 05/2023 - d/t increased SOB, will recheck echo, BNP - pt and pt's daughter unsure of why pt takes lasix (which she hasn't been taking for at least the last week); per record review, lasix appears to have been added 01/2023 d/t hypervolemia- if pt's echo WNL and SOB not thought to be cardiac/hypervolemic in origin, may consider reducing/discontinuing pt's lasix Urinary symptoms - pt endorses symptoms over the past 3-4 days including burning and frequency - UA w/o signs of infection; however, pt on chronic amoxicillin for suppression of a prosthetic joint infection which could alter UA results- will check urine cx - continue coverage with ceftriaxone (will hold jail ppx amoxicillin in the setting of ceftriaxone tx) ICD in place - paced rhythm Hx of afib and DVT - will hold eliquis in the setting of dark vomit - resume eliquis HANNA once able Hx of infected prosthetic joint - on chronic amoxicillin suppression therapy; will hold in the setting of UTI tx as above Diet: NPO VTE ppx: hold w/dark emesis Code: DNR/DNI Dispo: admit to med/tele (2) ICD (implantable cardioverter-defibrillator) in place: (3) Infection of total right knee replacement: (4) CHF (NYHA class II, ACC/AHA stage C): (5) Dark emesis: (6) Burning with urination: History of Present Illness Chief Complaint: vomiting Primary Care Provider: Say Garcia, III, [employer] Pt is a 83 yo female with PMH of osteoarthritis, endometrial cancer, DVT, ?breast cancer, HFpEF, and complete heart block s/p BiV ICD presenting d/t vomiting. Pt states for the last few days she has been feeling ill- generally tired and unwell and more SOB with activity. Last evening after dinner she began vomiting. She/her daughter noticed dark vomit but no bright red blood. Pt denies chest pain, diarrhea, or melena. Pt denies eating anything out of the ordinary. Pt also notes 3-4 days of urinary symptoms including frequency and burning. Pt's daughter notes that pt has not been taking her lasix for probably at least the last week as the pt does not like that it makes her urinate more. In the ER, pt was given 4 mg zofran x1, ceftriaxone x1, pantoprazole 80 mg x1, 1L NS, and tylenol x1. She felt better after Allergies Allergy/AdvReac Type Severity Reaction Status Date / Time adhesive Allergy Intermediate "Adhesive Verified 01/02/24 00:07 tape" -- blisters sulfamethoxazole Allergy Intermediate MOUTH SORES Verified 01/02/24 00:07 trimethoprim Allergy Intermediate MOUTH SORES Verified 01/02/24 00:07 Home Medications Medication Instructions Recorded Confirmed Type acetaminophen 500 mg tablet 500 mg PO QID PRN Back Pain 11/27/22 01/02/24 History (Acetaminophen Extra Strength) multivitamin 1 tab PO QPM 11/27/22 01/02/24 History melatonin 10 mg tablet 10 mg PO HS Sleep 03/02/23 01/02/24 History cholecalciferol (vitamin D3) 25 50 mcg PO QAM 03/21/23 01/02/24 History mcg (1,000 unit) capsule apixaban 5 mg tablet (Eliquis) 5 mg PO BID #180 tabs 06/20/23 01/02/24 Rx potassium chloride 20 mEq 20 meq PO BID #60 tabs 07/27/23 01/02/24 Rx tablet,extended release amoxicillin 875 mg tablet 875 mg PO QAM 01/01/24 01/01/24 History Lactobacillus 40-Bifidobact 1 cap PO HS 01/02/24 01/02/24 History 3-S.thermophilus 100 billion cell capsule (Probiotic) furosemide 20 mg tablet (Lasix) 40 mg PO QAM 01/02/24 01/02/24 History Past Med/Surg History Medical History Chest pain Infection of prosthetic joint Weakness Chest pain History of colon polyps Hearing deficit Narrow angle glaucoma suspect of both eyes PURVIS (dyspnea on exertion) Osteoarthritis History of kidney stones History of endometrial cancer diagnosed 20yrs ago--sx History of deep vein thrombosis (DVT) of lower extremity was just torn muscle, not clot per pt SNHL (sensorineural hearing loss) Breast cancer ?? 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 Pt made ASA3. Given 2mg versed. History of dilatation and curettage History of total right knee replacement (TKR) x2 History of colonoscopy with polypectomy S/P thyroid biopsy benign History of tooth extraction History of wisdom tooth extraction History of tonsillectomy History of cardiac cath no stents History of breast biopsy per pt benign History of total abdominal hysterectomy and bilateral salpingo-oophorectomy History of permanent cardiac pacemaker placement meditronic ICD placed by Dr. Webber at [facility] > last checked in Apr 2021 Family History Father Family hx of colon cancer Colorectal cancer Mother Family hx of colon cancer Colorectal cancer Aunt Family hx of colon cancer Other Family history non-contributory No family history of adverse response to anesthesia No significant family history Denies family history of Ovarian cancer Prostate cancer Myocardial infarction Breast cancer Social History Smoking Status: Never smoker Second Hand Exposure: No; Do You Dip or Chew Tobacco: No; Hx Alcohol Use: No Hx Substance Use: No Preferred Language: Irish Communication Ability: Effective Communication Ability Comment: [place] Visual Impairment: No Limitations Hearing Ability: Use of Hearing Aid Integration Director Required: No Beliefs That Will Affect Care: None marital status: Current Living Situation: Spouse Current Living Situation Comment: Lives with , daughter, grandchild current occupational status: retired 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 Respiratory: CTA bilaterally with decreased breath sounds in bilateral bases. Non labored breathing. No rhonchi, wheezing, or crackles. Cardiovascular: RRR. No murmurs noted. No LE edema. Gastrointestinal (Abdomen): Nontender, +BS. No masses noted. Skin: No rashes or skin lesions noted. Neurologic: Sensation grossly intact. No FND appreciated. Psychiatric: Speech of normal pace and content. Mood and affect congruent. Results & Data Results & Data Vital Signs (Past 12 Hours) Vital Signs Temp Pulse Resp BP Pulse Ox O2 Del Method O2 Flow Rate 01/02/24 02:00 77 12 121/51 L 97 Nasal Cannula 2 01/02/24 01:00 86 L Room Air 01/02/24 01:00 73 22 115/70 91 Nasal Cannula 2 01/02/24 00:04 71 18 93 Room Air 01/02/24 00:00 103 H 19 114/55 L 92 Room Air 01/01/24 23:38 94 H 01/01/24 23:20 37.9 C H 100 H 18 122/86 93 Room Air Supervising Physician Co-Signing Physician Notes Patient seen in C12B. Daughter at bedside. Both sleeping comfortably. Chart reviewed Labs significant for WBC=15.26 Stable anemia with Hgb=11.2, Hct=34.2 Stable BUN at 31 Treatment of UTI as above. Monitor UOP, straight cath as needed. Remainder as above Resident Activity Tracking Resident Involvement: Resident Care Provided Care Provided: Adult Hospital Medicine (3) Infection of total right knee replacement Encounter type: sequela Qualified Code(s): T84.53XS - Infection and inflammatory reaction due to internal right knee prosthesis, sequela
[2024-01-02] MEDS ORDERED: ACETAMINOPHEN 325 MG TAB PO PRN (04:08)
[2024-01-02] MEDS ORDERED: ONDANSETRON INJ 2 MG/ML 2 ML VIAL IV PRN (04:08)
[2024-01-02] MEDS ORDERED: MELATONIN 3 MG TAB PO PRN (04:08)
[2024-01-02] MEDS: ACETAMINOPHEN 1,000 MG/100 ML VIAL IV STA (05:12)
--- NOTE | 2024-01-02 06:35 | Billing Data ---
Date of Service January 02, 2024 Coding Level of Care Code 34702 INT INP/OBS CARE
--- NOTE | 2024-01-02 06:53 | XRay Report ---
XR chest 1V portable HISTORY: vomiting, fever COMPARISON: Chest CT 06/04/2023. FINDINGS: No pneumothorax. No pleural effusions. The heart is mildly enlarged. Is left-sided dual-cornel mber pacemaker. Mild interstitial thickening most pronounced within the lung bases. This is similar t o prior study and is likely chronic. Hazy appearance left lateral lung base may be due to overlapping soft tissues. A developing pneumonia could also have a similar appearance. IMPRESSION: Hazy appearance left lateral lung base may be due to overlapping soft tissues. A developing pneumonia could also have a similar appearance. ACT 112: Negative or not required by law. Electronically signed by: Jaxson Velasco M.D. 01/02/2024 6:52 AM
--- NOTE | 2024-01-02 07:13 | XRay Report ---
KUB CLINICAL HISTORY: Vomiting. COMPARISON STUDY: CT of the abdomen and pelvis June 04, 2023. FINDINGS: Left subclavian pacer is incidentally noted. The bowel gas pattern is normal. There is a mo derate amount of stool within the colon and rectum. No evidence for free air on supine exam. IMPRESSION: No evidence for a bowel obstruction. ACT 112: Negative or not required by law. Electronically signed by: Bart Monique M.D. 01/02/2024 7:12 AM
[2024-01-02 07:51] LABS: Hemoglobin 10.2 g/dl (12.0-16.0); Mean Corpuscular Hemoglobin 25.7 pg (25.0-34.0); Mean Corpuscular Hgb Conc 32.9 g/dL (32.0-36.0); Mean Corpuscular Volume 78.1 fL (80.0-100.0); Platelet Count 200 K/uL (130-400); RDW Coefficient of Variation 16.1 % (11.5-14.5); Red Blood Count 3.97 M/uL (4.20-5.40); White Blood Count 12.15 K/ul (4.8-10.8)
--- NOTE | 2024-01-02 08:42 | Hospitalist Progress Note ---
Date of Service January 02, 2024 Assessment & Plan (1) Vomiting: Plan: Pt is a 83 yo female with PMH of osteoarthritis, endometrial cancer, DVT, ?breast cancer, HFpEF, and complete heart block s/p BiV ICD presenting d/t vomiting. Vomiting - per pt's daughter, noted dark emesis w/o bright red blood - lab work significant for leukocytosis to 15.26, Hgb 11.2, CMP WNL aside from minimally elevated BUN/Cr ratio - CXR w/o signs of PNA or pulmonary edema; KUB showing distention of the bladder - blood cultures negative to date. - suspect symptoms secondary to viral illness - will continue with IV PPI - EGD benign, will restart diet. Hx of HFpEF - last echo 12/2022 showed EF 60-65%, normal left ventricular function, and elevated PA pressures - negative stress echo 05/2023 - d/t increased SOB, will recheck echo, - pt and pt's daughter unsure of why pt takes lasix (which she hasn't been taking for at least the last week); per record review, lasix appears to have been added 01/2023 d/t hypervolemia - home lasix will be started in the AM. Urinary symptoms - pt endorses symptoms over the past 3-4 days including burning and frequency - UA w/o signs of infection; however, pt on chronic amoxicillin for suppression of a prosthetic joint infection which could alter UA results- will check urine cx - continue coverage with ceftriaxone (will hold watermaster ppx amoxicillin in the setting of ceftriaxone tx) ICD in place - paced rhythm Hx of afib and DVT - initially held eliquis in the setting of dark vomit - hemoglobin remained stable. - EGD benign, Eliquis restarted. Hx of infected prosthetic joint - on chronic amoxicillin suppression therapy; will hold in the setting of UTI tx as above Diet: regular VTE ppx: Eliquis restarted Code: DNR/DNI Dispo: admit to med/tele (2) ICD (implantable cardioverter-defibrillator) in place: (3) Infection of total right knee replacement: (4) CHF (NYHA class II, ACC/AHA stage C): (5) Dark emesis: (6) Burning with urination: Admission and Anticipated Discharge Date Admission Date: January 02, 2024 Supervising Physician Co-Signing Physician Notes Attending attestation Pt seen and examined in concert with Dr. Camarena. In agreement with the documented findings as noted in the resident documentation with any exceptions or additions as noted here. Significantly diminished nausea controlled with current medication. On examination, S1/S2 nl RRR no MCG. CTAB. Abd NT/ND BS+ve Vomiting with concern for UGIB - GI consult - negative EGD today without recurrence of symptom. Continue IV PPI and consider transition to PO regimen in AM. Advance diet. CBC daily in AM unless sx change. Concern for UTI - UCx pending - continue ceftriaxone and narrow vs. return to ppx amoxicillin HFpEF w/ exacerbation - return to euvolemia - resume baseline furosemide, trend BMP daily AF in NSR, h/o DVT - resume apixaban and monitor CBC daily Else see resident documentation as noted. Subjective Patient seen bedside this AM. SOB improving. no abdominal pain. No more episodes of vomiting. Review of Systems Review of Systems: All systems reviewed & are unremarkable except as noted in Subjective Physical Exam Constitutional: NAD, vitals WNL. Respiratory: decreased breath sounds in bilateral bases. Non labored breathing. No rhonchi, wheezing, or crackles. Cardiovascular: RRR. No murmurs noted. No LE edema. Gastrointestinal (Abdomen): Nontender, +BS. No masses noted. Skin: No rashes or skin lesions noted. Neurologic: Sensation grossly intact. No FND appreciated. Psychiatric: Speech of normal pace and content. Mood and affect congruent. Results & Data Results & Data Vital Signs (Past 12 Hours) Vital Signs Temp Pulse Pulse Resp BP BP Pulse Ox 01/02/24 08:04 36.3 C L 71 18 120/68 97 01/02/24 07:25 76 01/02/24 06:33 80 18 109/66 98 01/02/24 05:42 36.8 C 87 18 98 01/02/24 05:23 81 18 124/72 98 01/02/24 03:55 75 01/02/24 02:00 77 12 121/51 L 97 01/02/24 01:00 86 L 01/02/24 01:00 73 22 115/70 91 01/02/24 00:04 71 18 93 01/02/24 00:00 103 H 19 114/55 L 92 01/01/24 23:38 94 H 01/01/24 23:20 37.9 C H 100 H 18 122/86 93 O2 Del Method O2 Flow Rate 01/02/24 08:04 Room Air 2 01/02/24 07:25 01/02/24 06:33 Nasal Cannula 2 01/02/24 05:42 Room Air 01/02/24 05:23 Nasal Cannula 2 01/02/24 03:55 01/02/24 02:00 Nasal Cannula 2 01/02/24 01:00 Room Air 01/02/24 01:00 Nasal Cannula 2 01/02/24 00:04 Room Air 01/02/24 00:00 Room Air 01/01/24 23:38 01/01/24 23:20 Room Air (3) Infection of total right knee replacement Encounter type: sequela Qualified Code(s): T84.53XS - Infection and inflammatory reaction due to internal right knee prosthesis, sequela
--- NOTE | 2024-01-02 08:53 | Electrocardiogram Report ---
Test Reason : Blood Pressure : / mmHG Vent. Rate : 067 BPM Atrial Rate : 070 BPM P-R Int : 140 ms QRS Dur : 136 ms QT Int : 474 ms P-R-T Axes : 084 259 086 degrees QTc Int : 500 ms Normal sinus rhythm demand atrial pacing and sequential V-pacing When compared with ECG of 04-JUN-2023 19:38, Confirmed by Zan Nice ([id number]) on 01/02/2024 8:53:32 AM Referred By: REFERRED SELF Confirmed By:Twin Nice
--- NOTE | 2024-01-02 11:25 | Gastrointestinal Consultation ---
Date of Consultation January 02, 2024 Assessment & Plan (1) Dark emesis: (2) Microcytic anemia: Plan -Keep NPO. She has been NPO since 01/01/24. -Proceed with EGD on 01/02/24. -Continue IV Protonix at present. Can adjust dosing pending EGD result. -Will give one dose of IV Reglan prior to EGD. -Continue to monitor H/H. Supervising Physician Co-Signing Physician Notes Agree with LISSET Parra as above Abd: Soft, NT, ND, +BS Continue current therapy and supportive care Proceed with EGD now History of Present Illness Reason for Consultation: Upper GI Bleed Attending Physician: Zan Wade MD History of Present Illness Patient is an 83 yo female with PMH of osteoarthritis, endometrial cancer, DVT, breast cancer, HFpEF, and complete heart block s/p BiV ICD who presented to the ED on 01/01/24 with hematemesis. She notes that she had been feeling poorly for several days then developed vomiting on 12/31. She notes she vomited a brown/red emesis and presented to the hospital. Last episode of vomiting around 6 PM on 01/01/24. She notes improvement of nausea/vomiting now. H/H 10.2/31.0. She is on Eliquis. No pertinent GI history for Tasneem or family. She does not take a PPI at home. She notes heartburn & reflux issues and uses occasional Zantac that she has leftover. Allergies Allergy/AdvReac Type Severity Reaction Status Date / Time adhesive Allergy Intermediate "Adhesive Verified 01/02/24 12:33 tape" -- blisters sulfamethoxazole Allergy Intermediate MOUTH SORES Verified 01/02/24 12:33 trimethoprim Allergy Intermediate MOUTH SORES Verified 01/02/24 12:33 Home Medications Medication Instructions Recorded Confirmed Type acetaminophen 500 mg tablet 500 mg PO QID PRN Back Pain 11/27/22 01/02/24 History (Acetaminophen Extra Strength) multivitamin 1 tab PO QPM 11/27/22 01/02/24 History melatonin 10 mg tablet 10 mg PO HS Sleep 03/02/23 01/02/24 History cholecalciferol (vitamin D3) 25 50 mcg PO QAM 03/21/23 01/02/24 History mcg (1,000 unit) capsule apixaban 5 mg tablet (Eliquis) 5 mg PO BID #180 tabs 06/20/23 01/02/24 Rx potassium chloride 20 mEq 20 meq PO BID #60 tabs 07/27/23 01/02/24 Rx tablet,extended release amoxicillin 875 mg tablet 875 mg PO QAM 01/01/24 01/01/24 History Lactobacillus 40-Bifidobact 1 cap PO HS 01/02/24 01/02/24 History 3-S.thermophilus 100 billion cell capsule (Probiotic) furosemide 20 mg tablet (Lasix) 40 mg PO QAM 01/02/24 01/02/24 History Patient History Medical History Chest pain Infection of prosthetic joint Weakness Chest pain History of colon polyps Hearing deficit Narrow angle glaucoma suspect of both eyes PURVIS (dyspnea on exertion) Osteoarthritis History of kidney stones History of endometrial cancer diagnosed 20yrs ago--sx History of deep vein thrombosis (DVT) of lower extremity was just torn muscle, not clot per pt SNHL (sensorineural hearing loss) Breast cancer ?? 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 Pt made ASA3. Given 2mg versed. History of dilatation and curettage History of total right knee replacement (TKR) x2 History of colonoscopy with polypectomy S/P thyroid biopsy benign History of tooth extraction History of wisdom tooth extraction History of tonsillectomy History of cardiac cath no stents History of breast biopsy per pt benign History of total abdominal hysterectomy and bilateral salpingo-oophorectomy History of permanent cardiac pacemaker placement meditronic ICD placed by Dr. Webber at [facility] > last checked in Apr 2021 Family History Father Family hx of colon cancer Colorectal cancer Mother Family hx of colon cancer Colorectal cancer Aunt Family hx of colon cancer Other Family history non-contributory No family history of adverse response to anesthesia No significant family history Denies family history of Ovarian cancer Prostate cancer Myocardial infarction Breast cancer Social History Smoking Status: Never smoker Second Hand Exposure: No; Do You Dip or Chew Tobacco: No; Hx Alcohol Use: No Hx Substance Use: No Preferred Language: Lao Communication Ability: Effective Communication Ability Comment: [place] Visual Impairment: No Limitations Hearing Ability: Use of Hearing Aid Pmo Consultant Required: No Beliefs That Will Affect Care: None marital status: Current Living Situation: Spouse Current Living Situation Comment: Lives with , daughter, grandchild current occupational status: retired 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 Feels Safe at Home: Yes Childhood Exposure to Second-Hand Smoke: Yes Diet: regular Dental Care, Regularly: Yes Physical Activity Frequency: Does not Exercise Seatbelt Use: always Sunscreen Use: No Assistive Devices: CPAP, Hearing Aid - Bilateral and Walker Review of Systems Constitutional: no fever and no chills Respiratory: no cough and no dyspnea Gastrointestinal: + nausea, + vomiting (resolved now) and + hematemesis; no abdominal pain and no melena Physical Exam Constitutional: well developed Respiratory: normal respiratory effort Cardiovascular: Rate/Rhythm: regular rate Gastrointestinal (Abdomen): normal bowel sounds, soft, nontender, no hepatosplenomegaly Psychiatric: Orientation: alert and oriented x 3 Results & Data Vital Signs (Past 12 Hours) Vital Signs Temp Pulse Pulse Resp BP BP Pulse Ox 01/02/24 11:11 36.8 C 72 16 119/72 97 01/02/24 10:11 68 01/02/24 08:04 36.3 C L 71 18 120/68 97 01/02/24 07:25 76 01/02/24 06:33 80 18 109/66 98 01/02/24 05:42 36.8 C 87 18 98 01/02/24 05:23 81 18 124/72 98 01/02/24 03:55 75 01/02/24 02:00 77 12 121/51 L 97 01/02/24 01:00 86 L 01/02/24 01:00 73 22 115/70 91 01/02/24 00:04 71 18 93 01/02/24 00:00 103 H 19 114/55 L 92 01/01/24 23:38 94 H 01/01/24 23:20 37.9 C H 100 H 18 122/86 93 O2 Del Method O2 Flow Rate 01/02/24 11:11 Room Air 01/02/24 10:11 01/02/24 08:04 Room Air 2 01/02/24 07:25 01/02/24 06:33 Nasal Cannula 2 01/02/24 05:42 Room Air 01/02/24 05:23 Nasal Cannula 2 01/02/24 03:55 01/02/24 02:00 Nasal Cannula 2 01/02/24 01:00 Room Air 01/02/24 01:00 Nasal Cannula 2 01/02/24 00:04 Room Air 01/02/24 00:00 Room Air 01/01/24 23:38 01/01/24 23:20 Room Air PG Care Time/CCT Total # of Minutes Spent Total Time Spent with Patient: Total time spent is greater than 50% in coordination of care (as documented) at patient's floor/unit and/or counseling patient: Coding Level of Care Code 06422 INT INP/OBS CARE 3/75MIN Diagnoses Dark emesis K92.0 Microcytic anemia D50.9
[2024-01-02] MEDS: PANTOprazole 40 MG in SYRINGE 0 ML IV SCH (11:41)
[2024-01-02] MEDS: METOCLOPRAMIDE HCL INJ 5 MG/ML 2 ML VIAL IV ONE (11:43)
--- NOTE | 2024-01-02 11:48 | Anesthesiology Consultation ---
Date of Service January 02, 2024 Assessment & Plan Chart Review Chart Review: Acceptable Risk for Surgery and Patient NOT seen in Pre Admission Testing Consults Requested none ASA ASA4 Proposed Anesthesia Anesthesia Type: MAC History Height/Weight Height: 5 ft 2 in Weight: 74.162 kg Allergies Allergy/AdvReac Type Severity Reaction Status Date / Time adhesive Allergy Intermediate "Adhesive Verified 01/02/24 00:07 tape" -- blisters sulfamethoxazole Allergy Intermediate MOUTH SORES Verified 01/02/24 00:07 trimethoprim Allergy Intermediate MOUTH SORES Verified 01/02/24 00:07 Medications Home Medications Medication Instructions Recorded Confirmed Last Taken acetaminophen 500 mg tablet 500 mg PO QID PRN Back Pain 11/27/22 01/02/24 02/05/23 (Acetaminophen Extra Strength) multivitamin 1 tab PO QPM 11/27/22 01/02/24 12/31/23 melatonin 10 mg tablet 10 mg PO HS Sleep 03/02/23 01/02/24 12/31/23 cholecalciferol (vitamin D3) 25 50 mcg PO QAM 03/21/23 01/02/24 12/31/23 mcg (1,000 unit) capsule apixaban 5 mg tablet (Eliquis) 5 mg PO BID #180 tabs 06/20/23 01/02/24 01/01/24 am dose potassium chloride 20 mEq 20 meq PO BID #60 tabs 07/27/23 01/02/24 01/01/24 tablet,extended release am amoxicillin 875 mg tablet 875 mg PO QAM 01/01/24 01/01/24 01/01/24 Lactobacillus 40-Bifidobact 1 cap PO HS 01/02/24 01/02/24 12/31/23 3-S.thermophilus 100 billion cell capsule (Probiotic) furosemide 20 mg tablet (Lasix) 40 mg PO QAM 01/02/24 01/02/24 12/29/23 Active Medications Generic Name Dose Route Start Last Admin Trade Name Freq PRN Reason Stop Dose Admin Pantoprazole Sodium 40 mg/ 10 mls @ 5 mls/min 01/02/24 11:00 01/02/24 11:41 Syringe IV 02/01/24 10:59 5 mls/min DAILY@1100 STEPHEN Administration Past Medical History Medical History Chest pain Infection of prosthetic joint Weakness Chest pain History of colon polyps Hearing deficit Narrow angle glaucoma suspect of both eyes PURVIS (dyspnea on exertion) Osteoarthritis History of kidney stones History of endometrial cancer diagnosed 20yrs ago--sx History of deep vein thrombosis (DVT) of lower extremity was just torn muscle, not clot per pt SNHL (sensorineural hearing loss) Breast cancer ?? 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 Nonischemic cardiomyopathy Mitral valve insufficiency Complex sleep apnea syndrome does not use cpap as ordered CHF (NYHA class II, ACC/AHA stage C) Aortic regurgitation residential current use of anticoagulant warfarin daily Left bundle branch block Complete heart block (10/28/14) ICD/pacer Deep venous thrombosis of left upper extremity several yrs ago > post surgical Exercise / Class Metabolic Activity III < 4 Walking/Shop/Light housework Past Family History Family History Father Family hx of colon cancer Colorectal cancer Mother Family hx of colon cancer Colorectal cancer Aunt Family hx of colon cancer Other Family history non-contributory No family history of adverse response to anesthesia No significant family history Denies family history of Ovarian cancer Prostate cancer Myocardial infarction Breast cancer Past Surgical History Surgical History History of cataract surgery B/L done 06/2021 and 08/2021 History of right cataract extraction 07/08/21 at [facility]. Pt made ASA3. Given 2mg versed. History of dilatation and curettage History of total right knee replacement (TKR) x2 History of colonoscopy with polypectomy S/P thyroid biopsy benign History of tooth extraction History of wisdom tooth extraction History of tonsillectomy History of cardiac cath no stents History of breast biopsy per pt benign History of total abdominal hysterectomy and bilateral salpingo-oophorectomy History of permanent cardiac pacemaker placement meditronic ICD placed by Dr. Webber at [facility] > last checked in Apr 2021 Past Anesthesia History No Hx of Anesthesia Complications and No Family Hx of Anesthesia Complications History of PONV No Hx of PONV and No Hx of Motion Sickness Social History Smoking Status: Never smoker Do You Dip or Chew Tobacco: No Hx Alcohol Use: No Hx Substance Use: No substance use type: does not use Physical Exam Vital Signs Last Vital Signs Temp 36.8 C 01/02/24 11:11 Pulse 72 01/02/24 11:11 Resp 16 01/02/24 11:11 BP 119/72 01/02/24 11:11 Pulse Ox 97 01/02/24 11:11 O2 Del Method Room Air 01/02/24 11:11 O2 Flow Rate 2 01/02/24 08:04 Testing Laboratory Results 01/02/24 07:07 01/01/24 23:26 Urine Color Yellow 01/02/24 00:55 Urine Appearance Clear (Clear) 01/02/24 00:55 Urine pH 6.0 (4.5-7.5) 01/02/24 00:55 Ur Specific [place] 1.024 (1.000-1.030) 01/02/24 00:55 Urine Protein Trace (Negative) H 01/02/24 00:55 Urine Glucose (UA) Negative (Negative) 01/02/24 00:55 Urine Ketones Trace (Negative) H 01/02/24 00:55 Urine Nitrite Negative (Negative) 01/02/24 00:55 Ur Leukocyte Esterase Negative (Negative) 01/02/24 00:55 Urine WBC (Auto) 0-5 /hpf (0-5) 01/02/24 00:55 Urine RBC (Auto) 0-2 /hpf (0-2) 01/02/24 00:55 U Hyaline Cast (Auto) 0-2 /lpf (0-2) 01/02/24 00:55 U Epithel Cells (Auto) 0-2 /hpf (0-2) 01/02/24 00:55 Urine Bacteria (Auto) None Seen (None Seen) 01/02/24 00:55 Electrocardiogram Date: 01/02/24 demand atrial paced w/ v pacing Chest X-Ray Date: 01/02/24 Findings: + NAD, + cardiomegaly and + other (left sided pacemaker) Echocardiogram Date: 01/14/23 EF: 60% LV Function: normal RWMA: + none Valvular Disease: + AI (mild) mod. TR Mod Pulm HTN 45 Torr RV severely dilated w/ nl Fxn Stress Test Date: 05/30/23 Type: DSE Findings: + WNL
[2024-01-02 12:20] LABS: Hematocrit (blood only) 31.9 % (37.0-47.0); Hemoglobin 10.2 g/dl (12.0-16.0); Mean Corpuscular Hemoglobin 25.7 pg (25.0-34.0); Mean Corpuscular Volume 80.4 fL (80.0-100.0); Mean Platelet Volume 9.3 fL (9.4-12.4); Platelet Count 181 K/uL (130-400); RDW Coefficient of Variation 15.9 % (11.5-14.5); RDW Standard Deviation 46.7 fL (36.4-46.3); Red Blood Count 3.97 M/uL (4.20-5.40); White Blood Count 10.37 K/ul (4.8-10.8)
--- NOTE | 2024-01-02 12:27 | XCELERA ---
[id number]
[2024-01-02] MEDS ORDERED: ATROPINE SULFATE 0.1 MG/ML 10ML SYR IV PRN (12:43)
[2024-01-02] MEDS ORDERED: ePHEDrine sulfate 50 MG/ML AMP IV PRN (12:43)
[2024-01-02] MEDS: SODIUM CHLORIDE 0.9% 500 ML IV SCH (12:45)
--- NOTE | 2024-01-02 13:11 | GI REPORT ---
Patient Name: Tasneem Kingsley Procedure Date: 01/02/2024 12:55 PM Date of : 1940 Admit Type: Inpatient Age: 83 Gender: Female Attending MD: Jong Zazueta DO, Procedure: Upper GI endoscopy Providers: Jong Zazueta DO Referring MD: Zan Wade Indications: Coffee-ground emesis Medicines: Monitored Anesthesia Care Complications: No immediate complications. Estimated Blood Loss: Estimated blood loss: none. Procedure: Pre-Anesthesia Assessment: - Prior to the procedure, a History and Physical was performed, and patient medications and allergies were reviewed. The patient's tolerance of previous anesthesia was also reviewed. The risks and benefits of the procedure and the sedation options and risks were discussed with the patient. All questions were answered, and informed consent was obtained. Prior Anticoagulants: The patient has taken Eliquis (apixaban), last dose was 1 day prior to procedure. ASA Grade Assessment: IV - A patient with severe systemic disease that is a constant threat to life. After reviewing the risks and benefits, the patient was deemed in satisfactory condition to undergo the procedure. After obtaining informed consent, the endoscope was passed under direct vision. Throughout the procedure, the patient's blood pressure, pulse, and oxygen saturations were monitored continuously. The Endoscope was introduced through the mouth, and advanced to the second part of duodenum. The upper GI endoscopy was accomplished without difficulty. The patient tolerated the procedure well. Findings: The esophagus was normal. A small hiatal hernia was present. The examined duodenum was normal. Impression: - Normal esophagus. - Small hiatal hernia. - Normal examined duodenum. - No specimens collected. Recommendation: - Return patient to hospital [facility] for ongoing care. - Advance diet as tolerated. - Continue present medications. - Return to primary care physician as previously scheduled. Jong Zazueta DO 01/02/2024 1:11:25 PM This report has been signed electronically. Note Initiated On: 01/02/2024 12:55 PM Number of Addenda: 0 I attest to the content of the Intraoperative Record and orders documented therein, exceptions below {[id number]}
--- NOTE | 2024-01-02 13:19 | Anesthesiology Progress Note ---
Date of Service January 02, 2024 Anesthesia Post Procedure Vital Signs Vital Signs: Temp Pulse Pulse Pulse Resp BP BP 01/02/24 13:03 86 15 128/65 01/02/24 12:35 36.9 C 85 16 141/68 H 01/02/24 11:11 36.8 C 72 16 119/72 01/02/24 10:11 68 01/02/24 08:04 36.3 C L 71 18 120/68 01/02/24 07:25 76 01/02/24 06:33 80 18 109/66 01/02/24 05:42 36.8 C 87 18 01/02/24 05:23 81 18 124/72 01/02/24 03:55 75 01/02/24 02:00 77 12 121/51 L 01/02/24 01:00 01/02/24 01:00 73 22 115/70 01/02/24 00:04 71 18 01/02/24 00:00 103 H 19 114/55 L 01/01/24 23:38 94 H 01/01/24 23:20 37.9 C H 100 H 18 122/86 Pulse Ox O2 Del Method O2 Flow Rate 01/02/24 13:03 97 Room Air 01/02/24 12:35 96 Room Air 01/02/24 11:11 97 Room Air 01/02/24 10:11 01/02/24 08:04 97 Room Air 2 01/02/24 07:25 01/02/24 06:33 98 Nasal Cannula 2 01/02/24 05:42 98 Room Air 01/02/24 05:23 98 Nasal Cannula 2 01/02/24 03:55 01/02/24 02:00 97 Nasal Cannula 2 01/02/24 01:00 86 L Room Air 01/02/24 01:00 91 Nasal Cannula 2 01/02/24 00:04 93 Room Air 01/02/24 00:00 92 Room Air 01/01/24 23:38 01/01/24 23:20 93 Room Air Transfer of Care Handoff Completed per policy Notes Mental Status: alert / awake / arousable Patient Amnestic to Procedure: Yes Nausea / Vomiting: adequately controlled Pain: adequately controlled Airway Patency, RR, SpO2: stable & adequate BP & HR: stable & adequate Hydration State: stable & adequate Anesthetic Complications: no major complications apparent
[2024-01-02] MEDS: PROPOFOL IV EMULSION 10 MG/ML 20 ML VIAL IV ONE (14:06)
[2024-01-02] MEDS: LIDOCAINE 2% 2 ML VIAL/AMP(20MG/ML) INFIL ONE (14:06)
[2024-01-02] MEDS: ONDANSETRON INJ 2 MG/ML 2 ML VIAL ONE (14:07)
[2024-01-02] MEDS: MELATONIN 3 MG TAB PO SCH (21:12)
[2024-01-02] MEDS: APIXABAN 5 MG TABLET PO SCH (21:12)
[2024-01-02] MEDS: cefTRIAXone SODIUM 2,000 MG in DEXTROSE 5 % MINI-B 50 ML IV SCH (21:13)
[2024-01-03 06:55] LABS: Hematocrit (blood only) 29.9 % (37.0-47.0); Mean Corpuscular Hgb Conc 33.4 g/dL (32.0-36.0); Mean Corpuscular Volume 77.9 fL (80.0-100.0); Mean Platelet Volume 9.8 fL (9.4-12.4); Platelet Count 190 K/uL (130-400); RDW Coefficient of Variation 16.1 % (11.5-14.5); RDW Standard Deviation 46.1 fL (36.4-46.3); Red Blood Count 3.84 M/uL (4.20-5.40); White Blood Count 8.95 K/ul (4.8-10.8)
[2024-01-03] MEDS: PANTOprazole 40 MG TAB PO SCH (07:26)
[2024-01-03] MEDS: FUROSEMIDE 40 MG TAB PO SCH (07:27)
[2024-01-03 07:29] LABS: Calcium 9.1 mg/dl (8.6-10.3); Creatinine Clr Calc Pharmacy 47.2 ml/min; Est GFR (Non-African American) 63.8 ml/min; Potassium 4.1 mmol/L (3.5-5.1)
--- NOTE | 2024-01-03 07:39 | Discharge Summary ---
Date of Service January 03, 2024 Admission HPI Per Admitting Provider Pt is a 83 yo female with PMH of osteoarthritis, endometrial cancer, DVT, ?breast cancer, HFpEF, and complete heart block s/p BiV ICD presenting d/t vomiting. Pt states for the last few days she has been feeling ill- generally tired and unwell and more SOB with activity. Last evening after dinner she began vomiting. She/her daughter noticed dark vomit but no bright red blood. Pt denies chest pain, diarrhea, or melena. Pt denies eating anything out of the ordinary. Pt also notes 3-4 days of urinary symptoms including frequency and burning. Pt's daughter notes that pt has not been taking her lasix for probably at least the last week as the pt does not like that it makes her urinate more. In the ER, pt was given 4 mg zofran x1, ceftriaxone x1, pantoprazole 80 mg x1, 1L NS, and tylenol x1. She felt better after Admission Exam Per Admitting Provider Constitutional: NAD, vitals WNL. Respiratory: CTA bilaterally with decreased breath sounds in bilateral bases. Non labored breathing. No rhonchi, wheezing, or crackles. Cardiovascular: RRR. No murmurs noted. No LE edema. Gastrointestinal (Abdomen): Nontender, +BS. No masses noted. Skin: No rashes or skin lesions noted. Neurologic: Sensation grossly intact. No FND appreciated. Psychiatric: Speech of normal pace and content. Mood and affect congruent. Principal Diagnosis Vomiting Discharge Exam Constitutional: well-appearing, no acute distress HEENT: NCAT, no conjunctival injection CV: regular rhythm, no murmur appreciated, extremities well-perfused, no LE edema Resp: CTABL, no wheezes/rales/rhonchi appreciated, no increased work of breathing GI: soft, nondistended, nontender, BS normoactive MSK: no gross deformities appreciated Skin: warm, dry, no rash appreciated Neuro: alert, oriented, no focal neurologic deficit appreciated Discharge Data Allergies Allergy/AdvReac Type Severity Reaction Status Date / Time adhesive Allergy Intermediate "Adhesive Verified 01/02/24 12:33 tape" -- blisters sulfamethoxazole Allergy Intermediate MOUTH SORES Verified 01/02/24 12:33 trimethoprim Allergy Intermediate MOUTH SORES Verified 01/02/24 12:33 Consultations 01/02/24 03:17 ED Decision to Admit Stat 01/02/24 10:47 Consult Gastroenterology Routine Procedures Performed Operation Date: 01/02/24 16:45 Actual Procedures p Esophagogastroduodenoscopy - Jong Betancourt Case, DO Ordered Studies Chest X-Ray 01/02/24 01:18 XR chest 1V portable HISTORY: vomiting, fever COMPARISON: Chest CT 06/04/2023. FINDINGS: No pneumothorax. No pleural effusions. The heart is mildly enlarged. Is left-sided dual-chamber pacemaker. Mild interstitial thickening most pronounced within the lung bases. This is similar to prior study and is likely chronic. Hazy appearance left lateral lung base may be due to overlapping soft tissues. A developing pneumonia could also have a similar appearance. IMPRESSION: Hazy appearance left lateral lung base may be due to overlapping soft tissues. A developing pneumonia could also have a similar appearance. ACT 112: Negative or not required by law. Electronically signed by: Jaxson Velasco M.D. 01/02/2024 6:52 AM KUB X-Ray 01/02/24 01:18 KUB CLINICAL HISTORY: Vomiting. COMPARISON STUDY: CT of the abdomen and pelvis June 04, 2023. FINDINGS: Left subclavian pacer is incidentally noted. The bowel gas pattern is normal. There is a moderate amount of stool within the colon and rectum. No evidence for free air on supine exam. IMPRESSION: No evidence for a bowel obstruction. ACT 112: Negative or not required by law. Electronically signed by: Bart Monique M.D. 01/02/2024 7:12 AM Hospital Course (1) Vomiting: Pt is a 83 yo female with PMH of osteoarthritis, endometrial cancer, DVT, ?breast cancer, HFpEF, and complete heart block s/p BiV ICD presenting d/t vomiting. Vomiting - per pt's daughter, noted dark emesis w/o bright red blood - lab work significant for leukocytosis to 15.26, Hgb 11.2, CMP WNL aside from minimally elevated BUN/Cr ratio - CXR w/o signs of PNA or pulmonary edema; KUB showing distention of the bladder - blood cultures negative to date. - suspect symptoms secondary to viral illness - EGD benign, will send home on Protonix 40mg QAM. Hx of HFpEF - last echo 12/2022 showed EF 60-65%, normal left ventricular function, and elevated PA pressures - negative stress echo 05/2023 - ECHO showed moderate mitral annular calcification, moderate TR, and mild aortic root dilatation. - pt and pt's daughter unsure of why pt takes lasix (which she hasn't been taking for at least the last week); per record review, lasix appears to have been added 01/2023 d/t hypervolemia - f/u as outpatient. Urinary symptoms - pt endorses symptoms over the past 3-4 days including burning and frequency - UA w/o signs of infection; however, pt on chronic amoxicillin for suppression of a prosthetic joint infection which could alter UA results- will check urine cx - was on ceftriaxone, will switch to PO cefdinir 300mg BID for [address] - paced rhythm Hx of afib and DVT - initially held eliquis in the setting of dark vomit - hemoglobin remained stable. - EGD benign, Eliquis restarted. 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 (2) ICD (implantable cardioverter-defibrillator) in place: (3) Infection of total right knee replacement: (4) CHF (NYHA class II, ACC/AHA stage C): (5) Dark emesis: (6) Burning with urination: Total Time Total Time Spent Total Time Spent (In Minutes): <3o mins Discharge Plan Discharge Items Patient Disposition: Home - Self-Care Reason For Visit: VOMITING Discharge Diagnosis: Vomiting Activity: Resume your previous activity Non-emergency contact: Primary Care Provider Call non-emergency contact if: you have any medication questions, your symptoms worsen and you have a fever Follow-up/Referrals: Say Garcia III, CRNP [Primary Care Provider] - 01/10/24 9:20 am Diet: Regular Addtl Attending Provider Instructions: You were admitted to the hospital for a likely viral gastroenteritis with the possibility of a gastrointestinal bleed. An esophagogastroduodenoscopy (EGD) was done and was normal. A discharge summary will be sent to your primary care physician to ensure continuity of care. Please bring this discharge summary with you to your next office appointment so that your provider can review it at that time. Follow-up appointments: * Make a follow-up appointment with your PCP within the next week. It is very important that you follow up with them shortly after discharge from the hospital. * Keep all your follow-up appointments as already scheduled. If you cannot make an appointment, notify your provider. Medications: Your medication list has been reviewed and reconciled upon discharge to ensure accuracy and continuity of care. An updated list of all your medications is included with your hospital discharge paperwork. Please review this list closely, and make note of any changes. * We sent a new medication called cefdinir to your pharmacy. Take cefdinir 300 mg twice a day for 5 days. * We sent a new medication called pantoprazole to your pharmacy. Take pantoprazole 40 mg once a day. * You should hold your amoxicillin for at least 1 week. Follow-up with your PCP about when to restart this medication. * If you have any issues filling these prescriptions, please call [phone] and ask to leave a message for Dr. Camarena. * Take your medications as instructed; do not skip a dose of your medicines. Make sure all of your doctors know every medicine you are taking (including tgsb-ivd-vfsmipi medicines, vitamins, and supplements). Call your primary care provider before taking any new medicines (including over- the-counter medicines, vitamins, and supplements), because some of these may interact with your current medications, or may make your symptoms worse. Tell your primary care provider if you cannot afford your medications. CONTACT YOUR PRIMARY CARE PROVIDER if you experience any of the following: * Worsening of symptoms * Fever, chills, or fatigue * Difficulty following your treatment plan, or difficulty taking medications CALL 911 OR GO TO THE EMERGENCY DEPARTMENT if you experience any of the foll owing: * Sudden, severe abdominal pain or nausea/vomiting * Severe chest pain, or chest pain that radiates (moves) to your jaw or arm * Sudden, severe shortness of breath or difficulty breathing Thank you for allowing us to participate in your care. Pending Studies at Discharge: No Stand-Alone Forms: [facility], Smoking Cessation Medications and DC Order Prescriptions: New pantoprazole 40 mg Tablet,Delayed Release (Dr/Ec) 40 mg PO QAM 30 Days Qty: 30 0RF cefdinir 300 mg capsule 300 mg PO BID 5 Days Qty: 10 0RF Continued melatonin 10 mg tablet 10 mg PO HS cholecalciferol (vitamin D3) 25 mcg (1,000 unit) capsule 50 mcg PO QAM Eliquis 5 mg tablet 5 mg PO BID Qty: 180 3RF potassium chloride 20 mEq tablet extended release 20 meq PO BID Qty: 60 5RF multivitamin Tablet 1 tab PO QPM acetaminophen [Acetaminophen Extra Strength] 500 mg Tablet 500 mg PO QID PRN (Reason: Back Pain) furosemide [Lasix] 20 mg tablet 40 mg PO QAM Probiotic 100 billion cell Capsule 1 cap PO HS Held amoxicillin 875 mg tablet 875 mg PO QAM Hold Instructions: Resume on 01/10/24. Discharge Orders: Discharge Order (Routine); Ordered 01/03/24 Ordered By: Venkat Camarena Admission Data Admit Date/Time: 01/02/24 04:08 Attending Provider: Zan Wade Admit Provider: Ayala Govea Primary Care Provider: Say Garcia III Other Providers: Ruma Bryson; Corazon Almazan; Jong Zazueta; Neelima Ortiz; Jodie Gaitan; Dominique Glasgow; Rula Covington; Ashlyn Tim; Paolo Cabral; Robi Ruboi; Talha Omalley; Jose uRiz; Medardo Arora; Vanessa Alonso; Meagan Max; Dalila Rodríguez; Malia Espinoza; Karen Chu; Donovan Mckeon; Juan Fernandez; Cassandra Dennis; Catherine Beck Jr Other Interventions: Discharge Summary Assessment (RN) Last Done: 01/03/24 11:50 Supervising Physician Co-Signing Physician Notes Attending attestation Pt seen and examined in concert with Dr. Camarena. In agreement with the documented findings as noted in the resident documentation with any exceptions or additions as noted here. Feeling clinically at her baseline without complaint of nausea or urinary symptoms. On examination, S1/S2 nl RRR no MCG. CTAB. Abd NT/ND BS+ve Vomiting with concern for UGIB - GI consult - negative EGD with resolution of symptoms. Continue PPI as PO and follow up with primary care with precautions re: further symptoms Concern for UTI - UCx pending - considering significant clinical improvement, will transition to PO abx therapy and monitor culture on discharge with instructions to complete course. HFpEF w/ exacerbation - returned to euvolemia - resume baseline furosemide AF in NSR, h/o DVT - resume apixaban and monitor CBC daily Else see resident documentation as noted. Total attending physician time spent with this patient's care on the day of discharge: 35 minutes.
[2024-01-03 20:26] LABS: A calco-baum cmplx NotReported Not Detected (NotDetected); Bact fragilis Not Reported Not Detected (NotDetected); Blood Culture Id Panel See PCR Comment (NotDetected); C auris Not Reported Not Detected (NotDetected); Calbicans Not Reported Not Detected (NotDetected); Candida glabrata Not Reported Not Detected (NotDetected); Candida krusei Not Reported Not Detected (NotDetected); Cneoformans/gatti Not Reported Not Detected (NotDetected); Cparapsilosis Not Reported Not Detected (NotDetected); E cloacae compx Not Reported Not Detected (NotDetected); Efaecalis Not Reported Not Detected (NotDetected); Efaecium Not Reported Not Detected (NotDetected); Enterobacterales Not Reported Not Detected (NotDetected); Escherichia coli Not Reported Not Detected (NotDetected); H influenzae Not Reported Not Detected (NotDetected); K aerogenes Not Reported Not Detected (NotDetected); Koxytoca Not Reported Not Detected (NotDetected); Kpneumoniae grp Not Reported Not Detected (NotDetected); Lmonocyt Not Reported Not Detected (NotDetected); N meningitidis Not Reported Not Detected (NotDetected); P aeruginosa Not Reported Not Detected (NotDetected); Proteus spp Not Reported Not Detected (NotDetected); Salmonella spp Not Reported Not Detected (NotDetected); Smarcescens Not Reported Not Detected (NotDetected); Staph lugdunensis Not Reported Not Detected (NotDetected); Staph spp. Not Reported Not Detected (NotDetected); Staphaureus Not Reported Not Detected (NotDetected); Staphepi Not Reported Not Detected (NotDetected); Stenmaltophilia Not Reported Not Detected (NotDetected); Strep agal(GrpB) Not Reported Not Detected (NotDetected); Strep pneum Not Reported Not Detected (NotDetected); Strep pyog (GrpA) Not Reported Not Detected (NotDetected); Strep spp Not Reported DETECTED (NotDetected)
[2024-01-03 20:43] LABS: Streptococcus spp DETECTED (NotDetected)
--- NOTE | 2024-01-03 21:24 | Communication Note ---
Date of Service: January 03, 2024 I was contacted by the lab to inform me of pt's blood cultures from grew gram positive cocci in chains, PCR positive for strep, in 1/4 tubes. Pt has a hx significant for infected right knee replacement on chronic amoxicillin suppressive therapy. Pt has a hx of gram pos (strep) bacteremia in 12/2022. Pt was discharged today 01/03/2024 with cefdinir 300 mg BID to treat a UTI. She was instructed to hold her amoxicillin while using the cefdinir. Called and discussed case with pt's daughter, Mariela (who is an EMT). Overall, since discharge, pt feeling well other than fatigued/tired. Discussed options moving forward including coming back to the ER fo re-evaluation tonight or watchful waiting at home with close PCP f/u. Since pt is stable, doing well, and there is a possibility this blood culture represents contamination, pt's daughter opted to discuss the care further with her mother (who is extremely hard of hearing, making it difficult for myself to communicate directly via phone with her) but proceed with taking the cefdinir as prescribed and being evaluated by pt's PCP tomorrow. I discussed warning signs and reasons for return to the ER including fevers, chills, vomiting, AMS, confusion, etc. Pt's daughter understands and agrees to bring the pt if any significant changes occur in her status. As discussed with the pt's daughter, if more blood culture bottles grow bacteria, she will need to come back to the hospital for evaluation. Resident Activity Tracking Resident Involvement: Resident Care Provided Care Provided: Adult Hospital Medicine
== END 2024-01-03 12:59 | disposition home or self-care (01) | DRG 392 ==
LOC: ED 23:11 → EDINP 01-02 04:08 → SUATTDRO 01-02 04:08 → 2N 01-02 04:56

== ENCOUNTER 2024-01-03 23:35 | Inpatient (IN) ==
[2024-01-04 01:18] LABS: Basophils # (auto) 0.07 K/uL (0.00-0.20); Basophils % (auto) 0.9 %; Eosinophils % (auto) 2.5 %; Hematocrit (blood only) 32.1 % (37.0-47.0); Hemoglobin 10.3 g/dl (12.0-16.0); Immature Granulocytes # (auto) 0.03 K/uL (0.01-0.20); Immature Granulocytes % (auto) 0.4 %; Lymphocytes # (auto) 1.37 K/uL (1.20-3.40); Lymphocytes % (auto) 16.9 %; Mean Corpuscular Hemoglobin 25.4 pg (25.0-34.0); Mean Corpuscular Hgb Conc 32.1 g/dL (32.0-36.0); Mean Corpuscular Volume 79.3 fL (80.0-100.0); Mean Platelet Volume 9.6 fL (9.4-12.4); Monocytes # (auto) 1.02 K/uL (0.11-0.59); Monocytes % (auto) 12.6 %; Neutrophils % (auto) 66.7 %; Platelet Count 197 K/uL (130-400); RDW Coefficient of Variation 15.8 % (11.5-14.5); RDW Standard Deviation 46.1 fL (36.4-46.3); Red Blood Count 4.05 M/uL (4.20-5.40); White Blood Count 8.09 K/ul (4.8-10.8)
--- NOTE | 2024-01-04 01:25 | Emergency Department Note ---
Impression & Plan Blood bacterial culture positive ED Provider Note NAME: MARIPOSA CANNON AGE: 83 SEX: F : 1940 ARRIVES VIA: Walk-In INFORMANT: Patient, ED PROVIDER(S): Meeta Martinez MD CHIEF COMPLAINT: Positive blood cultures HPI: This is a 83-year-old female presenting for positive blood cultures. Patient was recently in the hospital, admitted and discharged. She had a call today stating that her blood cultures have been positive. Patient 1 of 2 blood cultures was positive on record review. Patient with a daughter states that she has had significant fatigue ever since being discharged. Feeling "washed out ". Unable to do her daily activities including cooking for herself. Has felt chilled as well having fevers but unclear what temperature. No shortness of breath, chest pain, nausea or vomiting. ROS: See above HPI for pertinent positives & negatives. A total of 10 systems reviewed and were otherwise negative. PHYSICAL EXAMINATION: General: resting comfortably in no acute distress Head: Normocephalic and atraumatic Eyes: Normal inspection, extraocular muscles intact Ear, nose, throat: Normal external exam Neck: Normal range of motion Respiratory: lungs clear to auscultation bilaterally Cardiovascular: Regular rate/rhythm, no murmur GI: soft, nontender, no guarding or rebound Extremities: nontender, moves all extremities Neuro: The patient awake and alert, appropriately conversive, no focal deficits, symmetric faces Skin: Warm, dry, and intact MEDICAL DECISION MAKING: This is an 83-year-old female presenting for positive blood cultures. Will do lactic acid to cover her blood cultures and basic blood work. The patient having a 1/2 positive blood cultures, will admit to the hospitalist at this time. Patient has been clinically well, with no present actual sepsis at this time. Blood work was reviewed showing no leukocytosis, stable hemoglobin, no electrolyte disturbances. Lactic acid 1.4 Past Med/Surg History Medical History (Updated 01/04/24 @ 07:11 by Meeta Martinez MD) Chest pain Infection of prosthetic joint Weakness Chest pain History of colon polyps Hearing deficit Narrow angle glaucoma suspect of both eyes PURVIS (dyspnea on exertion) Osteoarthritis History of kidney stones History of endometrial cancer diagnosed 20yrs ago--sx History of deep vein thrombosis (DVT) of lower extremity was just torn muscle, not clot per pt SNHL (sensorineural hearing loss) Breast cancer ?? 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 Pt made ASA3. Given 2mg versed. History of dilatation and curettage History of total right knee replacement (TKR) x2 History of colonoscopy with polypectomy S/P thyroid biopsy benign History of tooth extraction History of wisdom tooth extraction History of tonsillectomy History of cardiac cath no stents History of breast biopsy per pt benign History of total abdominal hysterectomy and bilateral salpingo-oophorectomy History of permanent cardiac pacemaker placement meditronic ICD placed by Dr. Webber at [facility] > last checked in Apr 2021 Family History Father Family hx of colon cancer Colorectal cancer Mother Family hx of colon cancer Colorectal cancer Aunt Family hx of colon cancer Other Family history non-contributory No family history of adverse response to anesthesia No significant family history Denies family history of Ovarian cancer Prostate cancer Myocardial infarction Breast cancer Social History Smoking Status: Never smoker Second Hand Exposure: No; Do You Dip or Chew Tobacco: No; Hx Alcohol Use: No Hx Substance Use: No Preferred Language: Bermudian Communication Ability: Effective Communication Ability Comment: [place] Visual Impairment: No Limitations Hearing Ability: Use of Hearing Aid Receptionist Clerk Required: No Beliefs That Will Affect Care: None marital status: Current Living Situation: Spouse Current Living Situation Comment: Lives with , daughter, grandchild current occupational status: retired 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 Feels Safe at Home: Yes Safety Concerns: Feels Safe At This Time Childhood Exposure to Second-Hand Smoke: Yes Diet: regular Dental Care, Regularly: Yes Physical Activity Frequency: Does not Exercise Seatbelt Use: always Sunscreen Use: No Assistive Devices: CPAP, Hearing Aid - Bilateral and Walker Allergies Allergies Allergy/AdvReac Type Severity Reaction Status Date / Time adhesive Allergy Intermediate "Adhesive Verified 01/04/24 00:44 tape" -- blisters sulfamethoxazole Allergy Intermediate MOUTH SORES Verified 01/04/24 00:44 trimethoprim Allergy Intermediate MOUTH SORES Verified 01/04/24 00:44 Home Meds Home Medications Medication Instructions Recorded Confirmed acetaminophen 500 mg tablet 500 mg PO QID PRN Back Pain 11/27/22 01/04/24 (Acetaminophen Extra Strength) multivitamin 1 tab PO QPM 11/27/22 01/04/24 melatonin 10 mg tablet 10 mg PO HS Sleep 03/02/23 01/04/24 cholecalciferol (vitamin D3) 25 50 mcg PO QAM 03/21/23 01/04/24 mcg (1,000 unit) capsule amoxicillin 875 mg tablet 875 mg PO QAM 01/01/24 01/04/24 Lactobacillus 40-Bifidobact 1 cap PO HS 01/02/24 01/04/24 3-S.thermophilus 100 billion cell capsule (Probiotic) furosemide 20 mg tablet (Lasix) 40 mg PO QAM 01/02/24 01/04/24 Previous Rx's Medication Instructions Recorded apixaban 5 mg tablet (Eliquis) 5 mg PO BID #180 tabs 06/20/23 potassium chloride 20 mEq 20 meq PO BID #60 tabs 07/27/23 tablet,extended release cefdinir 300 mg capsule 300 mg PO BID 5 days #10 caps 01/03/24 pantoprazole 40 mg tablet,delayed 40 mg PO QAM 30 days #30 tabs 01/03/24 release Results & Data (ED) Vital Signs Vital Signs - 24 hr 01/03/24 23:43 01/04/24 02:26 Temperature 36.9 C Temperature Source Oral Pulse Rate 88 Pulse Rate [Right Finger] 69 Pulse Rhythm Regular Pulse Strength Normal Respiratory Rate 18 19 Respiratory Effort / Characteristics Non-Labored Spontaneous Respiratory Depth Normal Respiratory Pattern Regular Blood Pressure 163/73 H Blood Pressure [Right Arm] 145/72 H Blood Pressure Mean 103 Blood Pressure Mean [Right Arm] 96 Blood Pressure Position Sitting Pulse Oximetry 97 97 Oxygen Delivery Method Room Air Room Air Sepsis Recent Fever Within 48 Hours No Sepsis New/Unexplained Change in Mental Status N/A Sepsis Action Taken by Nursing No Action Required Laboratory Data 01/04/24 00:45 01/04/24 00:45 Lab Results 01/04/24 Range/Units 00:45 WBC 8.09 (4.8-10.8) K/ul RBC 4.05 L (4.20-5.40) M/uL Hgb 10.3 L (12.0-16.0) g/dl Hct 32.1 L (37.0-47.0) % MCV 79.3 L (80.0-100.0) fL MCH 25.4 (25.0-34.0) pg MCHC 32.1 (32.0-36.0) g/dL RDW Std Deviation 46.1 (36.4-46.3) fL RDW Coeff of Blaise 15.8 H (11.5-14.5) % Plt Count 197 (130-400) K/uL MPV 9.6 (9.4-12.4) fL Immature Gran % (Auto) 0.4 % Neut % (Auto) 66.7 % Lymph % (Auto) 16.9 % [place] % (Auto) 12.6 % Eos % (Auto) 2.5 % Baso % (Auto) 0.9 % Neut # (Auto) 5.40 (1.40-6.50) K/uL Lymph # (Auto) 1.37 (1.20-3.40) K/uL [place] # (Auto) 1.02 H (0.11-0.59) K/uL Eos # (Auto) 0.20 (0.00-0.50) K/uL Baso # (Auto) 0.07 (0.00-0.20) K/uL Immature Gran # (Auto) 0.03 (0.01-0.20) K/uL Sodium 134 L (136-145) mmol/L Potassium 3.6 (3.5-5.1) mmol/L Chloride 101 (98-107) mmol/L Carbon Dioxide 23 (21-32) mmol/L Anion Gap 10 (3-11) BUN 30 H (6-23) mg/dl Creatinine 0.90 (0.6-1.2) mg/dl Est Cr Clr Drug Dosing 44.5 ml/min Est GFR ( Amer) 68.1 ml/min Est GFR (Non-Af Amer) 58.7 ml/min BUN/Creatinine Ratio 33.3 H (10-20) Glucose 105 H (70-99(Fasting)) mg/dl Lactate 1.4 (0.4-2.0) mmol/L Calcium 9.2 (8.6-10.3) mg/dl Administered Medications Discontinued Medications Apixaban (Apixaban 5 Mg Tablet) 5 mg PO BID ONE Stop: 01/04/24 01:04 Last Admin: 01/04/24 01:36 Dose: 5 mg Documented By: DOMINIQUE Vancomycin HCl 1,500 mg/ (Sodium Chloride) 530 mls @ 200 mls/hr IV NOW ONE Stop: 01/04/24 04:16 Last Infusion: 01/04/24 05:30 Dose: Infused Documented By: Admin: 01/04/24 02:26 Dose: 200 mls/hr Documented By: ASW Discharge Plan Visit Data Chief Complaint: Abnormal Labs/Diagnostic Testing Stated Complaint: CALLED BACK - BLOOD CULTURE ED Provider: Meeta Martinez Discharge Problem: Blood bacterial culture positive Patient Disposition: Admitted As Inpatient Discharge Instructions Interventions: ED Discharge Assessment Last Done: 01/04/24 03:29
[2024-01-04 01:35] LABS: BUN Creatinine Ratio 33.3 (10-20); Calcium 9.2 mg/dl (8.6-10.3); Creatinine Clr Calc Pharmacy 44.5 ml/min; Est GFR (African American) 68.1 ml/min; Est GFR (Non-African American) 58.7 ml/min; Potassium 3.6 mmol/L (3.5-5.1)
[2024-01-04] MEDS: APIXABAN 5 MG TABLET PO ONE (01:36)
[2024-01-04] MEDS ORDERED: VANCOMYCIN CONSULT ACTIVE PRN ×2 (01:38→03:53)
[2024-01-04] MEDS: VANCOMYCIN HCL 1,500 MG in SODIUM CHLORIDE 0.9% 500 ML IV ONE (02:26)
[2024-01-04] MEDS ORDERED: ONDANSETRON INJ 2 MG/ML 2 ML VIAL IV PRN (02:33)
[2024-01-04] MEDS ORDERED: POLYETHYLENE (MIRALAX) 17 GM PACK PO PRN (02:33)
--- NOTE | 2024-01-04 02:38 | History & Physical Report ---
Date of Service January 04, 2024 Assessment & Plan (1) Positive blood culture: Plan: Pt is a 83 yo female with PMH of osteoarthritis, endometrial cancer, DVT, ?breast cancer, HFpEF, and complete heart block s/p BiV ICD presenting secondary to a + blood culture from recent admission. Positive blood culture - pt called by myself to discuss a positive blood culture result from her prior admission (01/01/2024) - as only 1/4 bottles grew gram positive cocci in chains (PCR positive for strep), this could be a contaminant - however, pt has PMH significant for infection of her replaced right knee for which she takes chronic suppressive amoxicillin; pt was tx for strep bacteremia secondary to this 12/2022 - no acute signs of joint infection upon admission - d/t pt hx and current symptoms, pt and pt's daughter decided to present back to the ER for further management of these positive blood cultures - blood cultures redrawn in ER and pt started on vanco; will continue vanco upon admission - if 12/31 blood cultures grow more bottles positive for strep, would consider pt to have active gram pos bacteremia; however, if no more bottles grow, 1/4 growth most likely a contaminant and pt would not need further tx Urinary symptoms - urine cx from prior admission negative; however, not surprising in the setting of chronic amoxicillin use - d/c cefdinir that pt was on; antibiotics as above Hx of HFpEF - daughter notes that pt has been increasingly SOB mostly while talking - echo 01/02/2024 showed EF 55-60%, LV function normal, normal RV pressure - do not suspect an acute exacerbation of pt's HF - as discussed at last visit, unsure if pt needs senior living lasix; will continue during this admission but recommend f/u as outpatient to discuss further ICD in place - paced rhythm Hx of afib and DVT - continue home eliquis Diet: heart healthy VTE ppx: home eliquis Code: conditional- pt does NOT want CPR/intubation. She is ok with medications (such as atropine, epi, etc) and defibrillation. Her daughter, Mariela, and son, Eagle, are her decisions makers if she is unable. Dispo: admit to med/surg (2) Paroxysmal atrial fibrillation: (3) ICD (implantable cardioverter-defibrillator) in place: (4) CHF (NYHA class II, ACC/AHA stage C): (5) Burning with urination: History of Present Illness Chief Complaint: + blood culture Primary Care Provider: Say Garcia, III, [employer] Pt is a 83 yo female with PMH of osteoarthritis, endometrial cancer, DVT, ?breast cancer, HFpEF, and complete heart block s/p BiV ICD presenting secondary to a + blood culture. Pt was recently admitted 01/01-01/02 d/t vomiting. She underwent an EGD d/t bloody emesis which was negative. She was discharged home 01/02 with cefdinir for a presumed UTI (pt symptomatic, culture negative) and her chronic amoxicillin was to be on hold d/t her being treated with cefdinir. Pt was called on the evening of 01/02 by myself after being informed by the lab that one of her blood cultures from the prior admission was positive for gram positive cocci (PCR showing strep). I discussed options with the pt's daughter, Mariela, who opted to follow up with the pt's PCP the next day. Return precautions were discussed. Pt and her daughter then presented to the ER. Mariela explains to me that after further discussion with the pt, they decided it was better to come back to the ER for more prompt treatment. Pt's main symptoms include feeling fatigued and tired over the last week with her daughter also noting her to be more SOB. No fevers or chills. No further vomiting since last admission. In the ER, pt was given her evening dose of eliquis and started on vancomycin. Allergies Allergy/AdvReac Type Severity Reaction Status Date / Time adhesive Allergy Intermediate "Adhesive Verified 01/04/24 00:44 tape" -- blisters sulfamethoxazole Allergy Intermediate MOUTH SORES Verified 01/04/24 00:44 trimethoprim Allergy Intermediate MOUTH SORES Verified 01/04/24 00:44 Home Medications Medication Instructions Recorded Confirmed Type acetaminophen 500 mg tablet 500 mg PO QID PRN Back Pain 11/27/22 01/04/24 History (Acetaminophen Extra Strength) multivitamin 1 tab PO QPM 11/27/22 01/04/24 History melatonin 10 mg tablet 10 mg PO HS Sleep 03/02/23 01/04/24 History cholecalciferol (vitamin D3) 25 50 mcg PO QAM 03/21/23 01/04/24 History mcg (1,000 unit) capsule apixaban 5 mg tablet (Eliquis) 5 mg PO BID #180 tabs 06/20/23 01/04/24 Rx potassium chloride 20 mEq 20 meq PO BID #60 tabs 07/27/23 01/04/24 Rx tablet,extended release amoxicillin 875 mg tablet 875 mg PO QAM 01/01/24 01/04/24 History Lactobacillus 40-Bifidobact 1 cap PO HS 01/02/24 01/04/24 History 3-S.thermophilus 100 billion cell capsule (Probiotic) furosemide 20 mg tablet (Lasix) 40 mg PO QAM 01/02/24 01/04/24 History cefdinir 300 mg capsule 300 mg PO BID 5 days #10 caps 01/03/24 01/04/24 Rx pantoprazole 40 mg tablet,delayed 40 mg PO QAM 30 days #30 tabs 01/03/24 01/04/24 Rx release Past Med/Surg History Medical History Chest pain Infection of prosthetic joint Weakness Chest pain History of colon polyps Hearing deficit Narrow angle glaucoma suspect of both eyes PURVIS (dyspnea on exertion) Osteoarthritis History of kidney stones History of endometrial cancer diagnosed 20yrs ago--sx History of deep vein thrombosis (DVT) of lower extremity was just torn muscle, not clot per pt SNHL (sensorineural hearing loss) Breast cancer ?? 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 Pt made ASA3. Given 2mg versed. History of dilatation and curettage History of total right knee replacement (TKR) x2 History of colonoscopy with polypectomy S/P thyroid biopsy benign History of tooth extraction History of wisdom tooth extraction History of tonsillectomy History of cardiac cath no stents History of breast biopsy per pt benign History of total abdominal hysterectomy and bilateral salpingo-oophorectomy History of permanent cardiac pacemaker placement meditronic ICD placed by Dr. Webber at [facility] > last checked in Apr 2021 Family History Father Family hx of colon cancer Colorectal cancer Mother Family hx of colon cancer Colorectal cancer Aunt Family hx of colon cancer Other Family history non-contributory No family history of adverse response to anesthesia No significant family history Denies family history of Ovarian cancer Prostate cancer Myocardial infarction Breast cancer Social History Smoking Status: Never smoker Second Hand Exposure: No; Do You Dip or Chew Tobacco: No; Hx Alcohol Use: No Hx Substance Use: No Preferred Language: Korean Communication Ability: Effective Communication Ability Comment: [place] Visual Impairment: No Limitations Hearing Ability: Use of Hearing Aid Cement Breaker Required: No Beliefs That Will Affect Care: None marital status: Current Living Situation: Spouse Current Living Situation Comment: Lives with , daughter, grandchild current occupational status: retired 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 Respiratory: CTA bilaterally. Non labored breathing. No rhonchi, wheezing, or crackles. Cardiovascular: RRR. No murmurs noted. No LE edema. Gastrointestinal (Abdomen): Nontender, nondistended, +BS. No masses noted. Skin: No rashes or skin lesions noted. Neurologic: Sensation grossly intact. No FND appreciated. Psychiatric: Speech of normal pace and content. Mood and affect congruent. Results & Data Results & Data Vital Signs (Past 12 Hours) Vital Signs Temp Pulse Pulse Resp BP BP Pulse Ox 01/04/24 02:26 69 19 145/72 H 97 01/03/24 23:43 36.9 C 88 18 163/73 H 97 O2 Del Method 01/04/24 02:26 Room Air 04/16/24 23:43 Room Air Supervising Physician Co-Signing Physician Notes Attending addendum: I have physically seen this patient, have supervised the medical residents activities, and agree with the H&P unless as otherwise noted. Assessment and Plan: Positive blood culture- Patient returned to the emergency department, after having a blood culture drawn during the previous admission returned positive this day, and was called by hospital medicine resident At this point 1 out of 4 bottles are growing gram-positive cocci in chains, with PCR positive for strep The patient had been on amoxicillin chronic suppressive therapy for strep infection of right knee 01/09 , and was recently discharged on cefdinir, which we discontinued at this time Continue vancomycin IV begun in the ED and follow culture and sensitivity results Consult infectious disease History of atrial fibrillation/DVT- Continue Eliquis Remaining orders and notations as noted Resident Activity Tracking Resident Involvement: Resident Care Provided Care Provided: Adult Hospital Medicine
--- NOTE | 2024-01-04 08:01 | Hospitalist Progress Note ---
Date of Service January 04, 2024 Assessment & Plan (1) Positive blood culture: Plan: Pt is a 83 yo female with PMH of osteoarthritis, endometrial cancer, DVT, ?breast cancer, HFpEF, and complete heart block s/p BiV ICD presenting secondary to a + blood culture from recent admission. Positive blood culture - Patient discharged on 01/03/2024 and returned to the ED after blood cultures on 01/01/2024 were + for strep. - blood cultures grew gram positive cocci in chains (PCR positive for strep), - pt has PMH significant for infection of her replaced right knee for which she takes chronic suppressive amoxicillin; pt was tx for strep bacteremia secondary to this 12/2022 - no acute signs of joint infection upon admission - d/t pt hx and current symptoms, pt and pt's daughter decided to present back to the ER for further management of these positive blood cultures - blood cultures redrawn in ER and pt started on vanco; will switch to Unasyn at time of admission. - will consult ID, appreciate recommendations. Urinary symptoms - urine cx from prior admission negative; though on chronic amoxicillin - d/c cefdinir that pt was on; antibiotics as above Hx of HFpEF - daughter notes that pt has been increasingly SOB mostly while talking - echo 01/02/2024 showed EF 55-60%, LV function normal, normal RV pressure - do not suspect an acute exacerbation of pt's HF - as discussed at last visit, unsure if pt needs manager intermediate lasix; will continue during this admission but recommend f/u as outpatient to discuss further ICD in place - paced rhythm Hx of afib and DVT - continue home eliquis Diet: heart healthy VTE ppx: home eliquis Code: conditional- pt does NOT want CPR/intubation. She is ok with medications (such as atropine, epi, etc) and defibrillation. Her daughter, Mariela, and son, Eagle, are her decisions makers if she is unable. Dispo: admit to med/surg (2) Paroxysmal atrial fibrillation: (3) ICD (implantable cardioverter-defibrillator) in place: (4) CHF (NYHA class II, ACC/AHA stage C): (5) Burning with urination: Admission and Anticipated Discharge Date Admission Date: January 04, 2024 Supervising Physician Co-Signing Physician Notes Attending attestation Pt seen and examined in concert with Dr. Camarena. In agreement with the documented findings as noted in the resident documentation with any exceptions or additions as noted here. Resting comfortably in bed without acute complaint at present - no urinary symptoms, cough, fever, n/v/d/c reported. On examination, S1/S2 nl RRR no MCG. CTAB. Abd NT/ND BS+ve Gram +ve +ve blood culture in the setting of h/o septic joint, urinary symptoms - will continue IV abx therapy and follow up sensitivities. ID consult for clarity on course, source. Else see resident documentation as noted. Subjective Patient seen bedside this AM. No issues or concerns. Denies any fever, chiils, cp, or N/V. Review of Systems Review of Systems: All systems reviewed & are unremarkable except as noted in Subjective Physical Exam Physical Exam: Constitutional: well-appearing, no acute distress HEENT: NCAT, no conjunctival injection CV: regular rhythm, no murmur appreciated, extremities well-perfused, no LE edema Resp: CTABL, no wheezes/rales/rhonchi appreciated, no increased work of breathing GI: soft, nondistended, nontender, BS normoactive MSK: no gross deformities appreciated, R knee slight swelling w/o erythema Skin: warm, dry, no rash appreciated Neuro: alert, oriented, no focal neurologic deficit appreciated Results & Data Results & Data Vital Signs (Past 12 Hours) Vital Signs Temp Pulse Pulse Resp BP BP BP 01/04/24 07:15 101 H 20 170/76 H 01/04/24 04:02 36.6 C 84 16 135/82 01/04/24 03:29 36.9 C 90 20 140/73 01/04/24 02:40 86 01/04/24 02:26 69 19 145/72 H 01/03/24 23:43 36.9 C 88 18 163/73 H Pulse Ox O2 Del Method 01/04/24 07:15 98 CPAP 01/04/24 04:02 94 Room Air 01/04/24 03:29 95 Room Air 01/04/24 02:40 01/04/24 02:26 97 Room Air 01/03/24 23:43 97 Room Air
[2024-01-04] MEDS: APIXABAN 5 MG TABLET PO SCH (08:46)
[2024-01-04] MEDS: CEFDINIR 300 MG CAP PO SCH (08:46)
[2024-01-04] MEDS: FUROSEMIDE 40 MG TAB PO SCH (08:47)
[2024-01-04] MEDS: POTASSIUM CHLORIDE CRTAB 20 MEQ TABCR PO SCH (08:47)
[2024-01-04] MEDS: PANTOprazole 40 MG TAB PO SCH (08:47)
--- NOTE | 2024-01-04 09:28 | Pharmacy Report ---
Pharmacy PK ABX Note - Date of Service January 04, 2024 - Assessment and Plan Assessment 83 year old F started on vancomycin empirically for positive blood cultures. 09/22 bottles on 12/31 growing Gm positive cocci in chains (PCR positive for strep species). PMHx significant for endometrial cancer, DVT, hx of right knee replacement and on chronic suppressive amoxicillin. History of strep bacteremia 2022. Recently admitted 01/01-01/02 for vomiting and then was called back to hospital for positive blood cultures. Patient continues on cefdinir which was added on last admission for possible UTI. Plan Vancomycin * Loading dose: 1500 mg IV x 1 * Maintenance dose: 1000 mg IV every 18 hours * Regimen is predicted to achieve target AUC/MAINOR of 400-600 mg/L.hr * Random level will be ordered if planning on continuing >48 hours Pharmacy will continue to follow and will adjust dose/frequency as necessary. Thank you. Pharmacy has transitioned to AUC monitoring for vancomycin. AUC/MAINOR is the preferred PK/PD target and is associated with decreased risk of nephrotoxicity compared to traditional trough targets.
[2024-01-04] MEDS ORDERED: AMPICILLIN SOD/SULBACTAM SOD 3 GM VIAL IV SCH (10:30)
[2024-01-04] MEDS: AMPICILLIN/SULBACTAM SOD 3,000 MG in SODIUM CHLOR 0.9% MINI-B 100 ML IV SCH (11:08)
--- NOTE | 2024-01-04 13:21 | Infectious Disease Consult ---
Date of Consultation January 04, 2024 Assessment & Plan (1) Blood bacterial culture positive: (2) ICD (implantable cardioverter-defibrillator) in place: Plan #Strep bacteremia #H/O TKA with PJI VGS on 01/12/23 on oral suppressive therapy 83 yo F with h/o osteoarthritis, R TKA c/b PJI with VGS on 01/12/23 was on oral suppressive abx (amoxicillin BID, qdaily then cefdinir), h/o endometrial cancer, DVT, ?breast cancer, HFpEF, and complete heart block s/p BiV ICD admitted with positive blood cultures after presenting with N/V. Patient with URI, headaches, sinus pressure, and chills who had sudden onset of emesis, She was seen in ED and diagnosed for presumed UTI. 01/02 Blood cultures taken. She was discharged on cefdinir. Patient returned when Blood cultures positive. Her PMH notable for TKA with PJI with VGS s/p 6wk therapy then on Amoxicillin for joint BID, platelets decreased changed to once a day. Also with PPM. 2DE 01/01 showed no vegetation, normal EF. 01/01 labs showed WBC 12.15, platelets 200, Cr 0.84. UA on 01/01 without pyuria. 12/31 Blood cx GPC in chain, BCID detected strep species. She is on Unasyn and Cefdinir Today patient states she is feeling better. ROS is negative- no pulm/cardiac/GI/ symptoms. No pain in Knee. Unclear source but she c/o URI in days leading up to ED, which possibly could be souce. Her knee appears w/o issue. RECOMMEND Follow repeat blood cultures Follow sensi She doesnt need both unasyn and cefdinir, will dc and start Ceftriaxone 2G IV daily Id will follow Ginger Morrow MD Infectious Diseases Consultation Information Consultation was provided via telemedicine using two-way real-time interactive telecommunication between the patient and the telemedicine provider. For the duration of the visit, the provider was performing the assessment from a different facility than the patient. This includesuse of bluetooth stethoscope forauscultationperformed by the telepresenter that the telemedicine provider can hear if described in the physical exam. Staff [employer] Officer contact information: Please call [facility] . (Phone Number For Physician Use Only) After establishing a telemedicine visit, patient was: Patient was verified with two unique identifiers, Patient/authorized rep acknowledged consent and understanding and Gave permission to continue telehealth session Time Spent with Patient: Initial => 55 min History of Present Illness Reason for Consultation: Strep bacteremia Requesting Physician: Dr Wade Attending Physician: Zan Wade MD History of Present Illness 83 yo F with h/o osteoarthritis, R TKA c/b PJI with VGS on 01/12/23 was on oral suppressive abx (amoxicillin BID, qdaily then cefdinir), h/o endometrial cancer, DVT, ?breast cancer, HFpEF, and complete heart block s/p BiV ICD admitted with positive blood cultures after presenting with N/V. Patient with URI, headaches, sinus pressure, and chills who had sudden onset of emesis, She was seen in ED and diagnosed for presumed UTI. 01/02 Blood cultures taken. She was discharged on cefdinir. Patient returned when Blood cultures positive. Her PMH notable for TKA with PJI with VGS s/p 6wk therapy then on Amoxicillin for joint BID, platelets decreased changed to once a day. Also with PPM. 2DE 01/01 showed no vegetation, normal EF. 01/01 labs showed WBC 12.15, platelets 200, Cr 0.84. UA on 01/01 without pyuria. 12/31 Blood cx GPC in chain, BCID detected strep species. She is on Unasyn and Cefdinir Today patient states she is feeling better. ROS is negative- no pul m/cardiac/GI/ symptoms. No pain in Knee. Allergies Allergy/AdvReac Type Severity Reaction Status Date / Time adhesive Allergy Intermediate "Adhesive Verified 01/04/24 00:44 tape" -- blisters sulfamethoxazole Allergy Intermediate MOUTH SORES Verified 01/04/24 00:44 trimethoprim Allergy Intermediate MOUTH SORES Verified 01/04/24 00:44 Home Medications Medication Instructions Recorded Confirmed Type acetaminophen 500 mg tablet 500 mg PO QID PRN Back Pain 11/27/22 01/04/24 History (Acetaminophen Extra Strength) multivitamin 1 tab PO QPM 11/27/22 01/04/24 History melatonin 10 mg tablet 10 mg PO HS Sleep 03/02/23 01/04/24 History cholecalciferol (vitamin D3) 25 50 mcg PO QAM 03/21/23 01/04/24 History mcg (1,000 unit) capsule apixaban 5 mg tablet (Eliquis) 5 mg PO BID #180 tabs 06/20/23 01/04/24 Rx potassium chloride 20 mEq 20 meq PO BID #60 tabs 07/27/23 01/04/24 Rx tablet,extended release amoxicillin 875 mg tablet 875 mg PO QAM 01/01/24 01/04/24 History Lactobacillus 40-Bifidobact 1 cap PO HS 01/02/24 01/04/24 History 3-S.thermophilus 100 billion cell capsule (Probiotic) furosemide 20 mg tablet (Lasix) 40 mg PO QAM 01/02/24 01/04/24 History cefdinir 300 mg capsule 300 mg PO BID 5 days #10 caps 01/03/24 01/04/24 Rx pantoprazole 40 mg tablet,delayed 40 mg PO QAM 30 days #30 tabs 01/03/24 01/04/24 Rx release Patient History Medical History Chest pain Infection of prosthetic joint Weakness Chest pain History of colon polyps Hearing deficit Narrow angle glaucoma suspect of both eyes PURVIS (dyspnea on exertion) Osteoarthritis History of kidney stones History of endometrial cancer diagnosed 20yrs ago--sx History of deep vein thrombosis (DVT) of lower extremity was just torn muscle, not clot per pt SNHL (sensorineural hearing loss) Breast cancer ?? 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 Pt made ASA3. Given 2mg versed. History of dilatation and curettage History of total right knee replacement (TKR) x2 History of colonoscopy with polypectomy S/P thyroid biopsy benign History of tooth extraction History of wisdom tooth extraction History of tonsillectomy History of cardiac cath no stents History of breast biopsy per pt benign History of total abdominal hysterectomy and bilateral salpingo-oophorectomy History of permanent cardiac pacemaker placement meditronic ICD placed by Dr. Webber at [facility] > last checked in Apr 2021 Family History Father Family hx of colon cancer Colorectal cancer Mother Family hx of colon cancer Colorectal cancer Aunt Family hx of colon cancer Other Family history non-contributory No family history of adverse response to anesthesia No significant family history Denies family history of Ovarian cancer Prostate cancer Myocardial infarction Breast cancer Social History Smoking Status: Never smoker Second Hand Exposure: No; Do You Dip or Chew Tobacco: No; Hx Alcohol Use: No Hx Substance Use: No Preferred Language: Mohawk Communication Ability: Effective Communication Ability Comment: [place] Visual Impairment: No Limitations Hearing Ability: Use of Hearing Aid Belt Changer Required: No Beliefs That Will Affect Care: None marital status: Current Living Situation: Spouse Current Living Situation Comment: Lives with , daughter, grandchild current occupational status: retired 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 Feels Safe at Home: Yes Safety Concerns: Feels Safe At This Time Childhood Exposure to Second-Hand Smoke: Yes Diet: regular Dental Care, Regularly: Yes Physical Activity Frequency: Does not Exercise Seatbelt Use: always Sunscreen Use: No Assistive Devices: CPAP, Hearing Aid - Bilateral and Walker Physical Exam Physical Exam: NAD R knee swelling but stable per patient Soft NT ND PIVs Pacemaker non tender not swollen No spinal TTP Results & Data Vital Signs (Past 12 Hours) Vital Signs Temp Pulse Pulse Resp BP BP BP 01/04/24 08:51 01/04/24 08:44 37.0 C 102 H 18 150/87 H 01/04/24 07:15 101 H 20 170/76 H 01/04/24 04:02 36.6 C 84 16 135/82 01/04/24 03:29 36.9 C 90 20 140/73 01/04/24 02:40 86 01/04/24 02:26 69 19 145/72 H Pulse Ox O2 Del Method 01/04/24 08:51 Room Air, CPAP 01/04/24 08:44 94 Room Air 04/17/24 07:15 98 CPAP 01/04/24 04:02 94 Room Air 01/04/24 03:29 95 Room Air 01/04/24 02:40 01/04/24 02:26 97 Room Air Laboratory Results Laboratory Results - last 48 hr 01/04/24 00:45 WBC 8.09 RBC 4.05 L Hgb 10.3 L Hct 32.1 L MCV 79.3 L MCH 25.4 MCHC 32.1 RDW Std Deviation 46.1 RDW Coeff of Blaise 15.8 H Plt Count 197 MPV 9.6 Immature Gran % (Auto) 0.4 Neut % (Auto) 66.7 Lymph % (Auto) 16.9 [place] % (Auto) 12.6 Eos % (Auto) 2.5 Baso % (Auto) 0.9 Neut # (Auto) 5.40 Lymph # (Auto) 1.37 [place] # (Auto) 1.02 H Eos # (Auto) 0.20 Baso # (Auto) 0.07 Immature Gran # (Auto) 0.03 Sodium 134 L Potassium 3.6 Chloride 101 Carbon Dioxide 23 Anion Gap 10 BUN 30 H Creatinine 0.90 Est Cr Clr Drug Dosing 44.5 Est GFR ( Amer) 68.1 Est GFR (Non-Af Amer) 58.7 BUN/Creatinine Ratio 33.3 H Glucose 105 H Lactate 1.4 Calcium 9.2 Medications Administered Current Inpatient Medications Acetaminophen (Acetaminophen 325 Mg Tab) 650 mg PO Q4H PRN PRN Reason: pain/fever Stop: 02/03/24 02:32 Apixaban (Apixaban 5 Mg Tablet) 5 mg PO BID [facility] Stop: 02/03/24 08:59 Last Admin: 01/04/24 08:46 Dose: 5 mg Cefdinir (Cefdinir 300 Mg Cap) 300 mg PO BID [facility]; Protocol Stop: 01/18/24 08:59 Last Admin: 01/04/24 08:46 Dose: 300 mg Furosemide (Furosemide 40 Mg Tab) 40 mg PO QAM [facility] Stop: 02/03/24 08:59 Last Admin: 01/04/24 08:47 Dose: 40 mg Ampicillin Sodium/Sulbactam Sodium 3,000 mg/ Sodium Chloride 100 mls @ 200 mls/hr IV Q6H [facility] Stop: 01/18/24 10:59 Last Infusion: 01/04/24 11:51 Dose: Infused Melatonin (Melatonin 3 Mg Tab) 3 mg PO HS PRN PRN Reason: Insomnia Stop: 02/03/24 02:32 Ondansetron HCl (Ondansetron Inj 2 Mg/Ml 2 Ml Vial) 4 mg IV Q6H PRN PRN Reason: Nausea Stop: 02/03/24 02:32 Pantoprazole Sodium (Pantoprazole 40 Mg Tab) 40 mg PO QAM [facility] Stop: 02/03/24 08:59 Last Admin: 01/04/24 08:47 Dose: 40 mg Polyethylene Glycol (Polyethylene (Miralax) 17 Gm Pack) 17 gm PO DAILY PRN PRN Reason: Constipation Stop: 02/03/24 02:32 Potassium Chloride (Potassium Chloride Crtab 20 Meq Tabcr) 20 meq PO BID [facility] Stop: 02/03/24 08:59 Last Admin: 01/04/24 08:47 Dose: 20 meq
[2024-01-04] MEDS ORDERED: VANCOMYCIN HCL 1,000 MG in SODIUM CHLORIDE 0.9% 500 ML IV SCH (15:00)
[2024-01-04] MEDS: cefTRIAXone SODIUM 2,000 MG in DEXTROSE 5 % MINI-B 50 ML IV SCH (15:56)
[2024-01-04] MEDS ORDERED: VANCOMYCIN HCL 1,000 MG in SODIUM CHLORIDE 0.9% 250 ML IV SCH (18:00)
[2024-01-04] MEDS: MELATONIN 3 MG TAB PO PRN (21:20)
--- NOTE | 2024-01-05 02:54 | Billing Data ---
Date of Service January 05, 2024 Coding Level of Care Code 05988 INT INP/OBS CARE
[2024-01-05 05:51] LABS: Hematocrit (blood only) 30.2 % (37.0-47.0); Mean Corpuscular Hemoglobin 25.4 pg (25.0-34.0); Mean Corpuscular Hgb Conc 33.1 g/dL (32.0-36.0); Mean Corpuscular Volume 76.6 fL (80.0-100.0); Mean Platelet Volume 9.6 fL (9.4-12.4); Platelet Count 201 K/uL (130-400); RDW Coefficient of Variation 15.4 % (11.5-14.5); RDW Standard Deviation 42.7 fL (36.4-46.3); Red Blood Count 3.94 M/uL (4.20-5.40); White Blood Count 5.83 K/ul (4.8-10.8)
[2024-01-05 06:09] LABS: BUN Creatinine Ratio 27.2 (10-20); Calcium 9.1 mg/dl (8.6-10.3); Creatinine Clr Calc Pharmacy 49.2 ml/min; Est GFR (African American) 77.3 ml/min; Est GFR (Non-African American) 66.7 ml/min; Potassium 3.9 mmol/L (3.5-5.1)
--- NOTE | 2024-01-05 07:15 | Hospitalist Progress Note ---
Date of Service January 05, 2024 Assessment & Plan (1) Positive blood culture: Plan: Pt is a 83 yo female with PMH of osteoarthritis, endometrial cancer, DVT, ?breast cancer, HFpEF, and complete heart block s/p BiV ICD presenting secondary to a + blood culture from recent admission. Positive blood culture - Patient discharged on 01/03/2024 and returned to the ED after blood cultures on 01/01/2024 were + for strep. 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 No significant abnormality seen on labs. -Continue with current plan while awaiting sensitivities. -Anticipate DC tomorrow. Urinary symptoms - urine cx from prior admission negative; though on chronic amoxicillin - d/c cefdinir that pt was on; antibiotics as above Hx of HFpEF - daughter notes that pt has been increasingly SOB mostly while talking - echo 01/02/2024 showed EF 55-60%, LV function normal, normal RV pressure - do not suspect an acute exacerbation of pt's HF - as discussed at last visit, unsure if pt needs emt intermediate lasix; will continue during this admission but recommend f/u as outpatient to discuss further ICD in place - paced rhythm Hx of afib and DVT - continue home eliquis Diet: heart healthy VTE ppx: home eliquis Code: conditional- pt does NOT want CPR/intubation. She is ok with medications (such as atropine, epi, etc) and defibrillation. Her daughter, Mariela, and son, Eagle, are her decisions makers if she is unable. Dispo: admit to med/surg (2) Paroxysmal atrial fibrillation: (3) ICD (implantable cardioverter-defibrillator) in place: (4) CHF (NYHA class II, ACC/AHA stage C): (5) Burning with urination: Admission and Anticipated Discharge Date Admission Date: January 04, 2024 Supervising Physician Co-Signing Physician Notes Attending attestation Pt seen and examined in concert with Dr. Camarena. In agreement with the documented findings as noted in the resident documentation with any exceptions or additions as noted here. Complains of increased malaise today without specific complaint - no urinary symptoms, cough, fever, n/v/d/c, joint pain reported On examination, S1/S2 nl RRR no MCG. CTAB. Abd NT/ND BS+ve. no apparent swelling, erythema or warmth of the bilateral knees. Gram +ve +ve blood culture in the setting of h/o septic joint, urinary symptoms - labs as noted in PM WNL, sensitivities pending - ID consult - continue IV abx therapy. Discussion with daughter re: course of management to be based on symptoms and lab studies, consider imaging of R knee if symptoms persist. Else see resident documentation as noted. Subjective Patient was seen bedside. Patient having bouts of feeling feverish, nauseous, and some abdominal pain. Denies any vomiting. States that she feels that something is wrong. Review of Systems Review of Systems: All systems reviewed & are unremarkable except as noted in Subjective Physical Exam Physical Exam: Constitutional: well-appearing, mild distress HEENT: NCAT, no conjunctival injection CV: regular rhythm, no murmur appreciated, extremities well-perfused, no LE edema Resp: CTABL, no wheezes/rales/rhonchi appreciated, no increased work of breathi ng GI: soft, nondistended, nontender, BS normoactive MSK: no gross deformities appreciated, R knee slight swelling and slight warmth, w/o erythema Skin: warm, dry, no rash appreciated Neuro: alert, oriented, no focal neurologic deficit appreciated Results & Data Results & Data Vital Signs (Past 12 Hours) Vital Signs Temp Pulse Resp BP Pulse Ox O2 Del Method 01/05/24 07:09 37 C 86 18 138/95 96 Room Air 01/04/24 19:40 Room Air
--- NOTE | 2024-01-05 10:36 | Infectious Disease Progress Nt ---
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 Patient with URI, headaches, sinus pressure, and chills who had sudden onset of emesis, She was seen in ED and diagnosed for presumed UTI. 01/02 Blood cultures taken. She was discharged on cefdinir. Patient returned when Blood cultures positive. Her PMH notable for TKA with PJI with VGS s/p 6wk therapy then on Amoxicillin for joint BID, platelets decreased changed to once a day. Also with PPM. 2DE 01/01 showed no vegetation, normal EF. 01/01 labs showed WBC 12.15, platelets 200, Cr 0.84. UA on 01/01 without pyuria. 12/31 Blood cx GPC in chain, BCID detected strep species. She is on Unasyn and Cefdinir Today patient states she is feeling better. ROS is negative- no pulm/cardiac/GI/ symptoms. No pain in Knee. Unclear source but she c/o URI in days leading up to ED, which possibly could be souce. Her knee appears w/o issue. RECOMMEND Follow repeat blood cultures, 01/03 are in lab, if these are negative at 48 hours then can outline duration Follow sensi CW Ceftriaxone 2G IV daily Anticipate dc tomorrow Ginger Morrow MD Infectious Diseases Admission and Anticipated Discharge Date Admission Date: January 04, 2024 Subjective This patient recommendation is based on a telemedicine consult request which was completed asynchronously through chart review and information provided by the primary physician. The patient was not seen or examined today. The evaluation is consultative in nature and all patient care and treatment decisions can either be accepted or rejected by the patient's primary hospital-based treating physician using their own independent medical judgment for their patient. Time Spent Reviewing Chart: 21 - 30 minutes Results & Data Vital Signs (Past 12 Hours) Vital Signs Temp Pulse Resp BP Pulse Ox O2 Del Method 01/05/24 07:28 Room Air 01/05/24 07:09 37 C 86 18 138/95 96 Room Air Laboratory Results Short CBC 01/05/24 Range/Units 05:25 WBC 5.83 (4.8-10.8) K/ul Hgb 10.0 L (12.0-16.0) g/dl Hct 30.2 L (37.0-47.0) % Plt Count 201 (130-400) K/uL BMP 01/05/24 05:25 Sodium 137 Potassium 3.9 Chloride 106 Carbon Dioxide 24 BUN 22 Creatinine 0.81 Glucose 112 H Calcium 9.1 Microbiology 01/04/24 00:45 Blood Aerobic Blood Culture - Preliminary No growth in Aerobic bottle after 24 hours. 01/04/24 00:45 Blood Anaerobic Blood Culture - Preliminary No growth in Anaerobic bottle after 24 hours. 01/04/24 00:45 Blood Aerobic Blood Culture - Preliminary No growth in Aerobic bottle after 24 hours. 01/04/24 00:45 Blood Anaerobic Blood Culture - Preliminary No growth in Anaerobic bottle after 24 hours.
[2024-01-05] MEDS: SODIUM CHLORIDE 0.9% 1,000 ML IV SCH (15:07)
[2024-01-05] MEDS: ACETAMINOPHEN 325 MG TAB PO PRN (15:08)
[2024-01-05 15:41] LABS: Basophils # (auto) 0.05 K/uL (0.00-0.20); Basophils % (auto) 0.8 %; Eosinophils # (auto) 0.11 K/uL (0.00-0.50); Eosinophils % (auto) 1.7 %; Hematocrit (blood only) 31.8 % (37.0-47.0); Hemoglobin 10.5 g/dl (12.0-16.0); Immature Granulocytes # (auto) 0.08 K/uL (0.01-0.20); Immature Granulocytes % (auto) 1.3 %; Lymphocytes # (auto) 1.01 K/uL (1.20-3.40); Lymphocytes % (auto) 15.9 %; Mean Corpuscular Hemoglobin 25.5 pg (25.0-34.0); Mean Corpuscular Volume 77.2 fL (80.0-100.0); Mean Platelet Volume 9.6 fL (9.4-12.4); Monocytes % (auto) 12.6 %; Neutrophils # (auto) 4.29 K/uL (1.40-6.50); Neutrophils % (auto) 67.7 %; Platelet Count 216 K/uL (130-400); RDW Coefficient of Variation 15.4 % (11.5-14.5); RDW Standard Deviation 43.2 fL (36.4-46.3); Red Blood Count 4.12 M/uL (4.20-5.40); White Blood Count 6.34 K/ul (4.8-10.8)
[2024-01-05 15:56] LABS: Albumin Globulin Ratio 1.1 (0.9-2); Albumin Level 3.6 gm/dl (3.4-5.0); BUN Creatinine Ratio 20.7 (10-20); Bilirubin,Total 0.3 mg/dl (0.2-1.0); C Reactive Protein 1.89 mg/dl (0-0.5); Calcium 9.2 mg/dl (8.6-10.3); Creatinine Clr Calc Pharmacy 35.9 ml/min; Est GFR (African American) 52.8 ml/min; Est GFR (Non-African American) 45.6 ml/min; Globulin 3.2 gm/dl (2.5-4.0); Total Protein 6.8 gm/dl (6.0-8.3)
[2024-01-06 07:33] LABS: Hematocrit (blood only) 31.8 % (37.0-47.0); Hemoglobin 10.2 g/dl (12.0-16.0); Mean Corpuscular Hemoglobin 25.3 pg (25.0-34.0); Mean Corpuscular Hgb Conc 32.1 g/dL (32.0-36.0); Mean Corpuscular Volume 78.9 fL (80.0-100.0); Mean Platelet Volume 10.8 fL (9.4-12.4); Platelet Count 176 K/uL (130-400); RDW Coefficient of Variation 15.4 % (11.5-14.5); RDW Standard Deviation 44.7 fL (36.4-46.3); Red Blood Count 4.03 M/uL (4.20-5.40); White Blood Count 5.66 K/ul (4.8-10.8)
--- NOTE | 2024-01-06 07:35 | Hospitalist Progress Note ---
Date of Service January 06, 2024 Assessment & Plan (1) Positive blood culture: Plan: Pt is a 83 yo female with PMH of osteoarthritis, endometrial cancer, DVT, ?breast cancer, HFpEF, and complete heart block s/p BiV ICD presenting secondary to a + blood culture from recent admission. Positive blood culture - Patient discharged on 01/03/2024 and returned to the ED after blood cultures on 01/01/2024 were + for strep. 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 Urinary symptoms - urine cx from prior admission negative; though on chronic amoxicillin - d/c cefdinir that pt was on; antibiotics as above Hx of HFpEF - daughter notes that pt has been increasingly SOB mostly while talking - echo 01/02/2024 showed EF 55-60%, LV function normal, normal RV pressure - do not suspect an acute exacerbation of pt's HF - as discussed at last visit, unsure if pt needs buttermaker continuous churn lasix; will continue during this admission but recommend f/u as outpatient to discuss further ICD in place - paced rhythm Hx of afib and DVT - continue home eliquis Diet: heart healthy VTE ppx: home eliquis Code: conditional- pt does NOT want CPR/intubation. She is ok with medications (such as atropine, epi, etc) and defibrillation. Her daughter, Mariela, and son, Eagle, are her decisions makers if she is unable. Dispo: admit to med/surg (2) Paroxysmal atrial fibrillation: (3) ICD (implantable cardioverter-defibrillator) in place: (4) CHF (NYHA class II, ACC/AHA stage C): (5) Burning with urination: Admission and Anticipated Discharge Date Admission Date: January 04, 2024 Supervising Physician Co-Signing Physician Notes ATTESTATION I also saw the patient and confirmed ortega portions of the history and exam. I agree with the impression and plan in the resident documentation, and as summarized below. EXAM 117/69, 86, 16, 37.6, 96 on room air Pleasant alert. Seated in bedside chair. She has no complaints. Heart regular rate and rhythm Lungs clear with nonlabored respirations DATA Labs Hemoglobin 10.2 Sodium 136, potassium 4.2, BUN 20, creatinine 0.79 Micro Blood cultures collected 01/04/2024 showed no growth at 48 hours Blood cultures collected 01/01/2024 demonstrate alpha strep not strep pneumonia/enterococci IMPRESSION & PLAN Strep bacteremia Appreciate ID consultation Case management working on logistics for dissipate discharge tomorrow with home antibiotics Additional per resident documentation Subjective Patient seen at bedside, calm comfortable cooperative. Discussed with patient midline outpatient abx treatment, patient agrees, questions answered appropriately Physical Exam Constitutional: WD/WN, vitals as above Eyes: PERRL, conjunctivae normal, anicteric sclerae ENMT: external ear and nose normal, oropharynx normal Neck: trachea midline, no thyromegaly Respiratory: normal respiratory effort, lungs clear to auscultation Cardiovascular: RRR, no murmur, no edema Gastrointestinal (Abdomen): Inspection/Auscultation: abdomen normal to inspection Skin: no rashes, warm and dry Results & Data Results & Data Vital Signs (Past 12 Hours) Vital Signs Temp Pulse Resp BP Pulse Ox O2 Del Method 01/06/24 02:11 Room Air 01/05/24 20:15 36.9 C 104 H 18 120/75 94 Room Air Resident Activity Tracking Resident Involvement: Resident Care Provided Care Provided: Adult Hospital Medicine
[2024-01-06 07:52] LABS: Calcium 9.2 mg/dl (8.6-10.3); Potassium 4.2 mmol/L (3.5-5.1)
[2024-01-06 08:00] LABS: BUN Creatinine Ratio 25.3 (10-20); Creatinine Clr Calc Pharmacy 50.4 ml/min; Est GFR (African American) 79.7 ml/min; Est GFR (Non-African American) 68.7 ml/min
--- NOTE | 2024-01-06 16:57 | Infectious Disease Progress Nt ---
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 Patient with URI, headaches, sinus pressure, and chills who had sudden onset of emesis, She was seen in ED and diagnosed for presumed UTI. 01/02 Blood cultures taken. She was discharged on cefdinir. Patient returned when Blood cultures positive. Her PMH notable for TKA with PJI with VGS s/p 6wk therapy then on Amoxicillin for joint BID, platelets decreased changed to once a day. Also with PPM. 2DE 01/01 showed no vegetation, normal EF. 01/01 labs showed WBC 12.15, platelets 200, Cr 0.84. UA on 01/01 without pyuria. 12/31 Blood cx GPC in chain, BCID detected strep species. She is on Unasyn and Cefdinir Today patient states she is feeling better. ROS is negative- no pulm/cardiac/GI/ symptoms. No pain in Knee. Unclear source but she c/o URI in days leading up to ED, which possibly could be souce. Her knee appears w/o issue. I suspect her source is her URI but unclear why she "broke through" her ppx, I wonder if once daily amox was too low for her. in this case will plan to give her 10 days of IV [employer] from first neg blood culture when she is done then start oral suppressive therapy with cefadroxil 500mg po BID until she sees her ID specialist 01/03 Blood cx are ng RECOMMEND Can place midline given short duration Plan for Ceftriaxone 2G IV daily through 01/13/24 On 01/13 start Cefadroxil 500mg po BID suppressive therapy given her recent PJI indefinitely until she sees her Infectious Diseases doctor. Please ensure patient has follow up scheduled ID will s/o please call w questions Ginger Morrow MD Infectious Diseases Admission and Anticipated Discharge Date Admission Date: January 06, 2024 Subjective This patient recommendation is based on a telemedicine consult request which was completed asynchronously through chart review and information provided by the primary physician. The patient was not seen or examined today. The evaluation is consultative in nature and all patient care and treatment decisions can either be accepted or rejected by the patient's primary hospital-based treating physician using their own independent medical judgment for their patient. Time Spent Reviewing Chart: 31+ minutes Results & Data Vital Signs (Past 12 Hours) Vital Signs Temp Pulse Resp BP Pulse Ox O2 Del Method 01/06/24 16:09 37.6 C H 86 16 117/69 96 Room Air 01/06/24 07:40 Nasal Cannula 01/06/24 07:00 36.7 C 102 H 20 122/73 94 Room Air Laboratory Results Laboratory Results - last 48 hr 01/05/24 01/05/24 01/05/24 05:25 10:37 15:18 WBC 5.83 6.34 RBC 3.94 L 4.12 L Hgb 10.0 L 10.5 L Hct 30.2 L 31.8 L MCV 76.6 L 77.2 L MCH 25.4 25.5 MCHC 33.1 33.0 RDW Std Deviation 42.7 43.2 RDW Coeff of Blaise 15.4 H 15.4 H Plt Count 201 216 MPV 9.6 9.6 Immature Gran % (Auto) 1.3 Neut % (Auto) 67.7 Lymph % (Auto) 15.9 Stark % (Auto) 12.6 Eos % (Auto) 1.7 Baso % (Auto) 0.8 Neut # (Auto) 4.29 Lymph # (Auto) 1.01 L Stark # (Auto) 0.80 H Eos # (Auto) 0.11 Baso # (Auto) 0.05 Immature Gran # (Auto) 0.08 Sodium 137 137 Potassium 3.9 4.0 Chloride 106 103 Carbon Dioxide 24 29 Anion Gap 7 5 BUN 22 23 Creatinine 0.81 1.11 D Est Cr Clr Drug Dosing 49.2 35.9 Est GFR ( Amer) 77.3 52.8 Est GFR (Non-Af Amer) 66.7 45.6 BUN/Creatinine Ratio 27.2 H 20.7 H Glucose 112 H 106 H POC Glucose 102 H Calcium 9.1 9.2 Total Bilirubin 0.3 AST 17 ALT 12 Alkaline Phosphatase 70 C-Reactive Protein 1.89 H Total Protein 6.8 Albumin 3.6 Globulin 3.2 Albumin/Globulin Ratio 1.1 Procalcitonin 0.38 01/06/24 06:31 WBC 5.66 RBC 4.03 L Hgb 10.2 L Hct 31.8 L MCV 78.9 L MCH 25.3 MCHC 32.1 RDW Std Deviation 44.7 RDW Coeff of Blaise 15.4 H Plt Count 176 MPV 10.8 Immature Gran % (Auto) Neut % (Auto) Lymph % (Auto) Stark % (Auto) Eos % (Auto) Baso % (Auto) Neut # (Auto) Lymph # (Auto) Stark # (Auto) Eos # (Auto) Baso # (Auto) Immature Gran # (Auto) Sodium 136 Potassium 4.2 Chloride 106 Carbon Dioxide 24 Anion Gap 6 BUN 20 Creatinine 0.79 D Est Cr Clr Drug Dosing 50.4 Est GFR ( Amer) 79.7 Est GFR (Non-Af Amer) 68.7 BUN/Creatinine Ratio 25.3 H Glucose 104 H POC Glucose Calcium 9.2 Total Bilirubin AST ALT Alkaline Phosphatase C-Reactive Protein Total Protein Albumin Globulin Albumin/Globulin Ratio Procalcitonin Medications Administered Current Inpatient Medications Acetaminophen (Acetaminophen 325 Mg Tab) 650 mg PO Q4H PRN PRN Reason: pain/fever Stop: 02/03/24 02:32 Last Admin: 01/05/24 15:08 Dose: 650 mg Apixaban (Apixaban 5 Mg Tablet) 5 mg PO BID [facility] Stop: 02/03/24 08:59 Last Admin: 01/06/24 08:06 Dose: 5 mg Cefdinir (Cefdinir 300 Mg Cap) 300 mg PO BID [facility]; Protocol Stop: 01/18/24 08:59 Last Admin: 01/04/24 08:46 Dose: 300 mg Furosemide (Furosemide 40 Mg Tab) 40 mg PO QAM [facility] Stop: 02/03/24 08:59 Last Admin: 01/06/24 08:06 Dose: 40 mg Ceftriaxone Sodium 2,000 mg/ (Dextrose) 50 mls @ 100 mls/hr IV Q24H [facility]; Protocol Stop: 01/18/24 15:59 Last Infusion: 04/18/24 16:25 Dose: Infused Melatonin (Melatonin 3 Mg Tab) 3 mg PO HS PRN PRN Reason: Insomnia Stop: 02/03/24 02:32 Last Admin: 01/05/24 20:35 Dose: 3 mg Ondansetron HCl (Ondansetron Inj 2 Mg/Ml 2 Ml Vial) 4 mg IV Q6H PRN PRN Reason: Nausea Stop: 02/03/24 02:32 Pantoprazole Sodium (Pantoprazole 40 Mg Tab) 40 mg PO QAM [facility] Stop: 02/03/24 08:59 Last Admin: 01/06/24 08:06 Dose: 40 mg Polyethylene Glycol (Polyethylene (Miralax) 17 Gm Pack) 17 gm PO DAILY PRN PRN Reason: Constipation Stop: 02/03/24 02:32 Potassium Chloride (Potassium Chloride Crtab 20 Meq Tabcr) 20 meq PO BID [facility] Stop: 02/03/24 08:59 Last Admin: 01/06/24 08:06 Dose: 20 meq
[2024-01-07 07:06] LABS: Hematocrit (blood only) 32.2 % (37.0-47.0); Hemoglobin 10.6 g/dl (12.0-16.0); Mean Corpuscular Hemoglobin 25.9 pg (25.0-34.0); Mean Corpuscular Hgb Conc 32.9 g/dL (32.0-36.0); Mean Corpuscular Volume 78.5 fL (80.0-100.0); Mean Platelet Volume 9.9 fL (9.4-12.4); Platelet Count 210 K/uL (130-400); RDW Coefficient of Variation 15.2 % (11.5-14.5); RDW Standard Deviation 43.6 fL (36.4-46.3); White Blood Count 6.21 K/ul (4.8-10.8)
[2024-01-07 07:24] LABS: BUN Creatinine Ratio 24.7 (10-20); Calcium 9.3 mg/dl (8.6-10.3); Creatinine Clr Calc Pharmacy 46.9 ml/min; Est GFR (African American) 72.9 ml/min; Est GFR (Non-African American) 62.9 ml/min; Potassium 4.1 mmol/L (3.5-5.1)
[2024-01-07] MEDS: cefTRIAXone SODIUM 2,000 MG in DEXTROSE 5 % MINI-B 50 ML IV ONE (12:37)
--- NOTE | 2024-01-07 15:19 | Discharge Summary ---
Date of Service January 07, 2024 Admission HPI Per Admitting Provider Pt is a 83 yo female with PMH of osteoarthritis, endometrial cancer, DVT, ?breast cancer, HFpEF, and complete heart block s/p BiV ICD presenting secondary to a + blood culture. Pt was recently admitted 01/01-01/02 d/t vomiting. She underwent an EGD d/t bloody emesis which was negative. She was discharged home 01/02 with cefdinir for a presumed UTI (pt symptomatic, culture negative) and her chronic amoxicillin was to be on hold d/t her being treated with cefdinir. Pt was called on the evening of 01/02 by myself after being informed by the lab that one of her blood cultures from the prior admission was positive for gram positive cocci (PCR showing strep). I discussed options with the pt's daughter, Mariela, who opted to follow up with the pt's PCP the next day. Return precautions were discussed. Pt and her daughter then presented to the ER. Mariela explains to me that after further discussion with the pt, they decided it was better to come back to the ER for more prompt treatment. Pt's main symptoms include feeling fatigued and tired over the last week with her daughter also noting her to be more SOB. No fevers or chills. No further vomiting since last admission. In the ER, pt was given her evening dose of eliquis and started on vancomycin. Principal Diagnosis Bacteremia Discharge Exam Constitutional: well-appearing, mild distress HEENT: NCAT, no conjunctival injection CV: regular rhythm, no murmur appreciated, extremities well-perfused, no LE edema Resp: CTABL, no wheezes/rales/rhonchi appreciated, no increased work of breathing GI: soft, nondistended, nontender, BS normoactive MSK: no gross deformities appreciated, R knee slight swelling and slight warmth, w/o erythema Skin: warm, dry, no rash appreciated Neuro: alert, oriented, no focal neurologic deficit appreciated Discharge Data Allergies Allergy/AdvReac Type Severity Reaction Status Date / Time adhesive Allergy Intermediate "Adhesive Verified 01/04/24 00:44 tape" -- blisters sulfamethoxazole Allergy Intermediate MOUTH SORES Verified 01/04/24 00:44 trimethoprim Allergy Intermediate MOUTH SORES Verified 01/04/24 00:44 Consultations 01/04/24 02:20 ED Decision to Admit Stat 01/04/24 10:40 Consult Infectious Diseases Routine Hospital Course (1) Positive blood culture: Pt is a 83 yo female with PMH of osteoarthritis, endometrial cancer, DVT, ?breast cancer, HFpEF, and complete heart block s/p BiV ICD presenting secondary to a + blood culture from recent admission. Positive blood culture - Patient discharged on 01/03/2024 and returned to the ED after blood cultures on 01/01/2024 were + for strep. 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 for which she takes chronic suppressive amoxicillin; pt was tx for strep bacteremia secondary to this 12/2022 - repeat Bcx negative 48hr - will consult ID, appreciate recommendations: -recommend midline, ceftriaxone 2g IV daily for 10 days, then switch to cefadroxil 500mg PO BID indefinitely consent for midline signed -CBC, CRP, Pro-Sb, and CMP wnl Hospitalization Summary: Patient was admitted to the hospital for concern of blood cultures returning positive on patient for alpha Streptococcus species despite being on chronic amoxicillin for infection prophylaxis which were taken on a previous admission. Source of this infection is not currently clear but infectious disease suspects possibly due to URI for which she had symptoms present on admission. After much discussion with infectious disease, patient was planned to have 2 g of IV Rocephin daily for a total of 10 days. Patient received 4 days worth of Rocephin in the hospital and is to begin outpatient IV therapy started on 01/08/2024 with which her last dose will be on 01/13/2024 outpatient. It was recommended she discontinue her amoxicillin prophylaxis and that prophylaxis be switched to cefadroxil 500 mg twice daily starting on 01/14/2024 (after completion of Rocephin treatment). It was recommended that this would be continued until discussion with her infectious disease doctor. Patient already has an appointment set up in March (per her history) for which this can be brought up. 1 month worth of cefadroxil with 3 refills was sent to the pharmacy which should get her to this appointment. Patient has PCP follow- up with Dr. Garcia on 01/10/2024 at 9:20 AM. Urinary symptoms - urine cx from prior admission negative; though on chronic amoxicillin - d/c cefdinir that pt was on; antibiotics as above Hx of HFpEF - daughter notes that pt has been increasingly SOB mostly while talking - echo 01/02/2024 showed EF 55-60%, LV function normal, normal RV pressure - do not suspect an acute exacerbation of pt's HF - as discussed at last visit, unsure if pt needs alf lasix; will continue during this admission but recommend f/u as outpatient to discuss further ICD in place - paced rhythm Hx of afib and DVT - continue home eliquis (2) Paroxysmal atrial fibrillation: (3) ICD (implantable cardioverter-defibrillator) in place: (4) CHF (NYHA class II, ACC/AHA stage C): (5) Burning with urination: Total Time Total Time Spent Total Time Spent (In Minutes): I spent 25 minutes seeing the patient, reviewing data, and completing documentation. Discharge Plan Discharge Items Patient Disposition: Home - Self-Care Reason For Visit: + BLOOD CULTURE Discharge Diagnosis: Bacteremia Activity: Per Instructions section Non-emergency contact: Primary Care Provider Call non-emergency contact if: you have any medication questions, your symptoms worsen and your temperature is above 101 Follow-up/Referrals: Say Garcia III, CRNP [Primary Care Provider] - Diet: Regular Addtl Attending Provider Instructions: You were seen in the hospital for concern related to a recent blood culture that returned positive for alpha Streptococcus species. We are concerned because you became bacteremic despite you being on suppressive/chronic antibiotic therapy with amoxicillin to help prevent infection. To treat your bacteremia, you were started on a broad-spectrum antibiotic called ceftriaxone. This seems to be working well as your repeat blood cultures have been negative indicating there is no longer any bacteria in your blood. We will continue providing you with ceftriaxone for a total of 10 days. You received a dose on the day of your discharge and you will need a dose of ceftriaxone every day with the last a being 01/13/2024. This will be provided to you at the [facility]. You are being sent with an IV line called a midline so that you may receive these antibiotics. This will be removed once your IV antibiotic therapy is completed. After that, starting on 01/14/2024, you will be taking a new prophylactic antibiotic called cefadroxil. You are to take 1 tablet twice a day until you follow-up with your infectious disease doctor for which you already have an appointment in March as we discussed. This has been sent to [facility] in [place]. You will no longer be taking your prophylactic amoxicillin that you were previously on to prevent infection. Otherwise there are no other changes in your medications. Please follow-up with your primary care provider within 1 week of discharge. It has been a pleasure to be a part of your care and we wish you the best in both your recovery and health. Pending Studies at Discharge: No Stand-Alone Forms: My [facility], Smoking Cessation Medications and DC Order Prescriptions: New cefadroxil 500 mg capsule 500 mg PO BID Qty: 60 3RF Rx Instructions: Patient is to not start this medication until 01/14/24 ceftriaxone 2 gram recon soln 2 g IV DAILY Rx Instructions: To be started outpatient on 01/08/24. Last dose is on 01/13/24 Continued melatonin 10 mg tablet 10 mg PO HS cholecalciferol (vitamin D3) 25 mcg (1,000 unit) capsule 50 mcg PO QAM Eliquis 5 mg tablet 5 mg PO BID Qty: 180 3RF potassium chloride 20 mEq tablet extended release 20 meq PO BID Qty: 60 5RF multivitamin Tablet 1 tab PO QPM acetaminophen [Acetaminophen Extra Strength] 500 mg Tablet 500 mg PO QID PRN (Reason: Back Pain) furosemide [Lasix] 20 mg tablet 40 mg PO QAM Probiotic 100 billion cell Capsule 1 cap PO HS pantoprazole 40 mg Tablet,Delayed Release (Dr/Ec) 40 mg PO QAM 30 Days Qty: 30 0RF Discontinued amoxicillin 875 mg tablet 875 mg PO QAM Hold Instructions: Resume on 01/10/24. cefdinir 300 mg capsule 300 mg PO BID 5 Days Qty: 10 0RF Rx Instructions: PER PT'S DAUGHTER "DID NOT START YET". Discharge Orders: Discharge Order (Routine); Ordered 01/07/24 Ordered By: Harley Andrea Admission Data Admit Date/Time: 01/06/24 09:26 Attending Provider: Juan Ayers Admit Provider: Ayala Govea Primary Care Provider: Say Garcia III Other Providers: Ellis Mark; Kira Silva; Eduard Hdez; Ginger Morrow; Melva Church; Itlaia Thompson; Randi Feliz; Anette Rivera; [facility],Home Health; [facility],Home Healthcare; [facility],Referral Center Other Interventions: Discharge Summary Assessment (RN) Last Done: 01/07/24 12:44 Supervising Physician Co-Signing Physician Notes ATTESTATION I also saw the patient and confirmed ortega portions of the history and exam. I agree with the impression and plan in the resident documentation, and as summ arized below. Reviewed the ID recommendations and home health logistics with the patient. She has previously had home health and antibiotics for infusion, so she feels quite comfortable with the plan. She also has family members who had assisted her previously and will be available to do this again. EXAM 142/81, 82, 18, 36.5, 97 send room air Pleasant alert. Seated in bedside chair. She has no complaints. Heart regular rate and rhythm Lungs clear with nonlabored respirations IMPRESSION & PLAN Strep bacteremia I agree with the plan as delineated in Dr. Andrea's discharge summary. Additional per resident documentation
== END 2024-01-07 13:56 | disposition home health service (06) | DRG 872 ==
LOC: ED 23:35 → 3E 23:35 → SUATTDRO 01-04 02:33 → 3E 01-04 03:29
DX: Z95.810 Presence of automatic (implantable) cardiac defibrillator; R30.0 Dysuria; J06.9 Acute upper respiratory infection, unspecified; Z86.718 Personal history of other venous thrombosis and embolism; T84.53XD Infection and inflammatory reaction due to internal right knee prosthesis, subsequent encounter; Z79.01 Long term (current) use of anticoagulants; Z79.2 Long term (current) use of antibiotics; I44.2 Atrioventricular block, complete; R78.81 Bacteremia; Z66 Do not resuscitate; I48.0 Paroxysmal atrial fibrillation; B95.4 Other streptococcus as the cause of diseases classified elsewhere; I50.32 Chronic diastolic (congestive) heart failure

== ENCOUNTER 2024-03-29 07:26 | Inpatient (IN) ==
--- NOTE | 2024-03-29 07:42 | Emergency Department Note ---
Impression & Plan Shortness of breath, CHF (congestive heart failure), Hypoxic ED Provider Note NAME: MARIPOSA CANNON AGE: 83 SEX: F : 1940 ARRIVES VIA: Ambulance INFORMANT: Patient ED PROVIDER(S): Margarito Cobb DO CHIEF COMPLAINT: shortness of breath HPI: Patient is an 83-year-old female with a past medical history of mitral valve insufficiency, CHF class II, aortic regurg, pulmonary hypertension, ICD with infection with removal and reimplantation as well as pleural effusion with drainage at [facility] who presents the ER for worsening shortness of breath. This been present for the past several days. It got worse this morning around 6 AM and consequently she came in. She notes she chronically wears oxygen and CPAP at night. Denies any headache or change in vision. Admits to chest pain which started around 6 AM. No abdominal pain, nausea, vomiting or diarrhea. No dysuria, urgency or frequency. No other exacerbating or remitting factors. ADDITIONAL HISTORY OBTAINED: Additional history obtained from daughter who is present at bedside he notes that shortness of breath has been getting worse over the past week. Chronic Medical/Social Conditions Affecting Care: Per HPI PAST MEDICAL HISTORY:See Below PAST SURGICAL HISTORY:See Below FAMILY HISTORY:See Below SOCIAL HISTORY:See Below HOME MEDICATIONS:See Below ALLERGIES:See Below VITALS:See Below PHYSICAL EXAMINATION: GENERAL: Sitting up in bed, alert, ill-appearing, disheveled on nasal cannula EYE EXAM: normal conjunctiva. OROPHARYNX: no exudate, no erythema, lips, buccal mucosa, and tongue normal and mucous membranes are moist NECK: supple, no nuchal rigidity, no adenopathy, non-tender LUNGS: Diminished bilaterally. Normal chest wall mechanics HEART: no murmurs, S1 normal and S2 normal ABDOMEN: abdomen soft, non-tender, normo-active bowel sounds, no masses, no rebound or guarding. BACK: Back is symmetrical on inspection and there is no deformity, no midline tenderness, no CVA tenderness. SKIN: no rashes and no bruising UPPER EXTREMITIES: upper extremities are grossly normal. LOWER EXTREMITIES: Diffuse pitting edema NEURO EXAM: Normal sensorium, cranial nerves II-XII grossly intact, normal speech, no gross weakness of arms, no gross weakness of legs. MEDICAL DECISION MAKING: Patient is an 83-year-old female with extensive past medical history as described above who presents the ER for shortness of breath. She was brought in on CPAP and switched to nasal cannula was placed on 6 L. She normally wears 3-4 per daughter. IV was established medicals obtained. Labs show no significant leukocytosis. Mild anemia at 8.8 fairly consistent with previous. VBG was unremarkable. BMP with a glucose of 107. LFTs bilirubin was unremarkable. Lipase was normal. Troponin mildly elevated at 19. Chest x-ray with bilateral effusions right worse than left. Patient was given IV Lasix. She was updated bedside. Discussed case with hospitalist for further evaluation management and treatment. Consults/Care Managements Discussions: Per [facility] Triage Nursing notes reviewed. Limited review of prior medical records performed Vital Signs: reviewed and remarkable for no significant abnormalities Differential diagnosis: Differential diagnoses includes but is not limited to pneumonia, bronchitis, COPD/Asthma exacerbation, pneumothorax, pulmonary embolism, congestive heart failure, acute coronary syndrome ER treatment provided: See below Diagnostics interpreted by me include EKG and cardiac monitoring as listed below: -Cardiac Monitoring: An order was placed for continuous cardiac monitoring. The monitor shows a rate of 75 with ventricularly paced rhythm. -ECG: Ventricularly paced rate of 75 Normal axis PVC T wave changes in the lateral leads are new in comparison to old on the ninth -Laboratory studies:Interpreted by me as stated above in MDM and shown below. Imaging studies: Xrays: As interpreted by me: Portable AP upright 1 view of the chest shows bilateral effusions right greater than 1 left CTs show: none Procedures:none Critical Care: I have personally spent 33 minutes of critical care time in the direct management of this patient. This includes bedside care, interpretation of diagnostic studies, and testing, discussion with consultants, patient, and family members, and other required patient management activities. This 33 minutes is in excess of all separately billable procedures. Past Med/Surg History Problem List (Updated 03/29/24 @ 13:19 by Margarito Cobb DO) Hypoxic (Acute) CHF (congestive heart failure) (Acute) Shortness of breath (Acute) Anemia (Acute) Cardiac pacemaker (Acute) Pleural effusion on right (Acute) SOB (shortness of breath) (Acute) Urinary retention Caregiver role strain ZBI 14 Blood bacterial culture positive (Acute) Microcytic anemia Paroxysmal atrial fibrillation ICD (implantable cardioverter-defibrillator) in place placed 03/18/2016 @ [facility] by Dr. Webber Pulmonary hypertension Extensor mechanism malalignment of knee long term current use of anticoagulant (Chronic) apixaban Aortic regurgitation (Chronic) CHF (NYHA class II, ACC/AHA stage C) (Chronic) Complex sleep apnea syndrome (Chronic) does not use cpap as ordered Insomnia (Chronic) Asymmetrical left sensorineural hearing loss (Chronic) Mitral valve insufficiency (Chronic) Superior vena cava syndrome (Chronic) SNHL (sensorineural hearing loss) Multinodular goiter Pulmonary nodule Narrow angle glaucoma suspect of both eyes History of colon polyps Osteopenia Medical History Chest pain Infection of prosthetic joint Weakness Chest pain History of colon polyps Hearing deficit PURVIS (dyspnea on exertion) Osteoarthritis History of kidney stones History of endometrial cancer diagnosed 20yrs ago--sx History of deep vein thrombosis (DVT) of lower extremity was just torn muscle, not clot per pt Breast cancer ?? pt denies Third degree heart block Nonischemic cardiomyopathy Left bundle branch block Complete heart block (10/28/14) ICD/pacer Deep venous thrombosis of left upper extremity several yrs ago > post surgical Surgical History History of cataract surgery B/L done 06/2021 and 08/2021 History of right cataract extraction 07/08/21 at [facility] [place]. Pt made ASA3. Given 2mg versed. History of dilatation and curettage History of total right knee replacement (TKR) x2 History of colonoscopy with polypectomy S/P thyroid biopsy benign History of tooth extraction History of wisdom tooth extraction History of tonsillectomy History of cardiac cath no stents History of breast biopsy per pt benign History of total abdominal hysterectomy and bilateral salpingo-oophorectomy History of permanent cardiac pacemaker placement meditronic ICD placed by Dr. Webber at [facility] > last checked in Apr 2021 Family History Father Family hx of colon cancer Colorectal cancer Mother Family hx of colon cancer Colorectal cancer Aunt Family hx of colon cancer Other Family history non-contributory No family history of adverse response to anesthesia No significant family history Denies family history of Ovarian cancer Prostate cancer Myocardial infarction Breast cancer Social History Smoking Status: Never smoker Second Hand Exposure: No; Do You Dip or Chew Tobacco: No; Hx Alcohol Use: No Hx Substance Use: No Preferred Language: Kazakh Communication Ability: Effective Communication Ability Comment: KOBUK Visual Impairment: No Limitations Hearing Ability: Use of Hearing Aid Differential Specialist Required: No Beliefs That Will Affect Care: None marital status: Current Living Situation: Spouse Current Living Situation Comment: Lives with , daughter, grandchild current occupational status: retired 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 Feels Safe at Home: Yes Childhood Exposure to Second-Hand Smoke: Yes Diet: regular Dental Care, Regularly: Yes Physical Activity Frequency: Does not Exercise Seatbelt Use: always Sunscreen Use: No Assistive Devices: CPAP and Hearing Aid - Left Allergies Allergies Allergy/AdvReac Type Severity Reaction Status Date / Time adhesive Allergy Intermediate "Adhesive Verified 03/29/24 11:07 tape" -- blisters sulfamethoxazole Allergy Intermediate MOUTH SORES Verified 03/29/24 11:07 trimethoprim Allergy Intermediate MOUTH SORES Verified 03/29/24 11:07 Home Meds Home Medications Medication Instructions Recorded Confirmed multivitamin 1 tab PO QPM 11/27/22 03/29/24 melatonin 10 mg tablet 10 mg PO HS Sleep 03/02/23 03/29/24 Lactobacillus 40-Bifidobact 1 cap PO HS 01/02/24 03/29/24 3-S.thermophilus 100 billion cell capsule (Probiotic) aspirin 81 mg tablet,delayed 81 mg PO DAILY 02/21/24 03/29/24 release atorvastatin 40 mg tablet 40 mg PO QAM 02/21/24 03/29/24 calcium carbonate 1,000 mg PO TID 02/21/24 03/29/24 acetaminophen 500 mg tablet 1,000 mg PO QID PRN Back Pain 03/05/24 03/29/24 (Acetaminophen Extra Strength) cholecalciferol (vitamin D3) 50 50 mcg PO DAILY 03/05/24 03/29/24 mcg (2,000 unit) capsule guaifenesin 600 mg tablet, 600 mg PO BID 03/05/24 03/29/24 extended release 12 hr metoprolol succinate 25 mg 25 mg PO DAILY 03/05/24 03/29/24 tablet,extended release 24 hr albuterol sulfate 2.5 mg/3 mL 2.5 mg inhalation Q4H PRN 03/29/24 03/29/24 (0.083 %) solution for nebulization SOB/WHEEZING albuterol sulfate 90 mcg/actuation 1 puff inhalation QID PRN 03/29/24 03/29/24 aerosol inhaler SOB/WHEEZING bumetanide 2 mg tablet 2 mg PO QAM 03/29/24 03/29/24 Previous Rx's Medication Instructions Recorded apixaban 5 mg tablet (Eliquis) 5 mg PO BID #180 tabs 06/20/23 ondansetron 8 mg disintegrating 8 mg PO Q8H PRN nausea and 01/26/24 tablet vomiting #20 tabs pantoprazole 40 mg tablet,delayed 40 mg PO QAM #90 tabs 02/29/24 release Results & Data (ED) Vital Signs Vital Signs - 24 hr 03/29/24 07:35 03/29/24 07:39 03/29/24 07:41 Temperature 36.8 C Temperature Source Oral Pulse Rate 68 78 Pulse Rate [Finger] Pulse Rate from SpO2 Sensor 74 Pulse Rhythm [Finger] Pulse Strength [Finger] Respiratory Rate 23 34 H Respiratory Effort / Characteristics Respiratory Depth Respiratory Pattern Blood Pressure 166/89 H Blood Pressure [Left Arm] Blood Pressure Mean 114 Blood Pressure Mean [Left Arm] Blood Pressure Position [Left Arm] Pulse Oximetry 96 95 94 Oxygen Delivery Method Nasal Cannula Nasal Cannula Nasal Cannula Oxygen Flow Rate 6 6 6 Sepsis Recent Fever Within 48 Hours No Sepsis New/Unexplained Change in Mental Status N/A Sepsis Action Taken by Nursing No Action Required 03/29/24 07:41 03/29/24 07:45 03/29/24 07:57 Temperature Temperature Source Pulse Rate 73 72 Pulse Rate [Finger] Pulse Rate from SpO2 Sensor 75 74 Pulse Rhythm [Finger] Pulse Strength [Finger] Respiratory Rate 25 H 28 H Respiratory Effort / Characteristics Respiratory Depth Respiratory Pattern Blood Pressure Blood Pressure [Left Arm] Blood Pressure Mean Blood Pressure Mean [Left Arm] Blood Pressure Position [Left Arm] Pulse Oximetry 93 91 92 Oxygen Delivery Method Nasal Cannula Oxygen Flow Rate 6 Sepsis Recent Fever Within 48 Hours Sepsis New/Unexplained Change in Mental Status Sepsis Action Taken by Nursing 03/29/24 08:02 03/29/24 08:03 03/29/24 08:18 Temperature Temperature Source Pulse Rate 71 72 Pulse Rate [Finger] Pulse Rate from SpO2 Sensor 71 72 Pulse Rhythm [Finger] Pulse Strength [Finger] Respiratory Rate 28 H 23 Respiratory Effort / Characteristics Respiratory Depth Respiratory Pattern Blood Pressure 116/70 Blood Pressure [Left Arm] Blood Pressure Mean 81 Blood Pressure Mean [Left Arm] Blood Pressure Position [Left Arm] Pulse Oximetry 94 94 Oxygen Delivery Method Oxygen Flow Rate Sepsis Recent Fever Within 48 Hours Sepsis New/Unexplained Change in Mental Status Sepsis Action Taken by Nursing 03/29/24 09:13 03/29/24 09:19 Temperature Temperature Source Pulse Rate 67 Pulse Rate [Finger] 62 Pulse Rate from SpO2 Sensor Pulse Rhythm [Finger] Regular Pulse Strength [Finger] Normal Respiratory Rate 20 Respiratory Effort / Characteristics Non-Labored Respiratory Depth Normal Respiratory Pattern Regular Blood Pressure Blood Pressure [Left Arm] 144/81 H Blood Pressure Mean Blood Pressure Mean [Left Arm] 102 Blood Pressure Position [Left Arm] Lying Pulse Oximetry 96 Oxygen Delivery Method Room Air Oxygen Flow Rate Sepsis Recent Fever Within 48 Hours Sepsis New/Unexplained Change in Mental Status Sepsis Action Taken by Nursing Laboratory Data 03/29/24 07:56 03/29/24 08:40 Lab Results 03/29/24 03/29/24 Range/Units 07:56 08:40 WBC 5.50 (4.8-10.8) K/ul RBC 3.68 L (4.20-5.40) M/uL Hgb 8.8 L (12.0-16.0) g/dl Hct 28.9 L (37.0-47.0) % MCV 78.5 L (80.0-100.0) fL MCH 23.9 L (25.0-34.0) pg MCHC 30.4 L (32.0-36.0) g/dL RDW Std Deviation 53.6 H (36.4-46.3) fL RDW Coeff of Blaise 18.8 H (11.5-14.5) % Plt Count 357 (130-400) K/uL MPV 10.1 (9.4-12.4) fL Immature Gran % (Auto) 0.2 % Neut % (Auto) 70.2 % Lymph % (Auto) 16.5 % [place] % (Auto) 10.7 % Eos % (Auto) 1.3 % Baso % (Auto) 1.1 % Neut # (Auto) 3.86 (1.40-6.50) K/uL Lymph # (Auto) 0.91 L (1.20-3.40) K/uL [place] # (Auto) 0.59 (0.11-0.59) K/uL Eos # (Auto) 0.07 (0.00-0.50) K/uL Baso # (Auto) 0.06 (0.00-0.20) K/uL Immature Gran # (Auto) 0.01 (0.01-0.20) K/uL VBG pH 7.39 (7.36-7.41) VBG pCO2 46 (38-50) mmHg VBG pO2 32 mmHg VBG HCO3 28 mmol/L VBG O2 Saturation < 60.0 % VBG Base Excess 2.2 mEq/L Sodium 137 (136-145) mmol/L Potassium TNP 3.7 Chloride 103 (98-107) mmol/L Carbon Dioxide 28 (21-32) mmol/L Anion Gap 6 (3-11) BUN 18 (6-23) mg/dl Creatinine 1.06 (0.6-1.2) mg/dl Est Cr Clr Drug Dosing 40.2 ml/min Est GFR ( Amer) 55.8 ml/min Est GFR (Non-Af Amer) 48.2 ml/min BUN/Creatinine Ratio 17.0 (10-20) Glucose 107 H (70-99(Fasting)) mg/dl Calcium 8.1 L (8.6-10.3) mg/dl Total Bilirubin 0.4 (0.2-1.0) mg/dl AST TNP 25 ALT 20 (7-52) U/L Alkaline Phosphatase 100 (34-104) U/L Troponin I High Sens 19.2 H (0-14) pg/ml B-Natriuretic Peptide 575 H (0-100) pg/ml Total Protein 6.5 (6.0-8.3) gm/dl Albumin 3.1 L (3.4-5.0) gm/dl Globulin 3.4 (2.5-4.0) gm/dl Albumin/Globulin Ratio 0.9 (0.9-2) Lipase 40 (11-82) U/L Administered Medications Albuterol (Albuterol 0.083% Nebu Soln 3 Ml Vial) 2.5 mg NEB Q6H PRN; Protocol PRN Reason: Shortness Of Breath Or Wheezing Stop: 04/28/24 12:27 Last Admin: 03/29/24 13:02 Dose: 2.5 mg Documented By: MARGRET Discontinued Medications Albuterol (Albuterol 0.083% Nebu Soln 3 Ml Vial) Confirm Administered Dose 2.5 mg .ROUTE .STK-MED ONE Stop: 03/29/24 12:44 Last Admin: 03/29/24 13:02 Dose: Not Given Documented By: ADINE Furosemide (Furosemide 40 Mg/4 Ml Vial) 40 mg IV NOW STA Stop: 03/29/24 08:35 Last Admin: 03/29/24 08:57 Dose: 40 mg Documented By: MARGRET Imaging Data Radiologist's Impression: Chest X-Ray 03/29/24 07:34 SINGLE VIEW CHEST CLINICAL HISTORY: Atypical chest pain. FINDINGS: An AP, portable, upright chest radiograph is compared to study dated 03/27/2024 and correlated with chest CT dated 06/04/2023. The examination is degraded by portable technique and patient rotation. The heart is enlarged noting atherosclerotic calcification of the thoracic aorta. There is pulmonary vascular congestion. There are right larger than left pleural effusions with dependent consolidation. No pneumothorax is seen. The skeletal structures are osteopenic. The bony thorax is grossly intact. Arthritic change is seen in the shoulders. Degenerative change and scoliosis is noted in the spine. An electronic device projects over the left lower chest. IMPRESSION: 1. Right larger than left pleural effusions with dependent consolidation. There is similar to the 03/05/2024 examination. Radiographic follow-up to resolution is recommended. 2. Cardiomegaly with pulmonary vascular congestion. ACT 112: Negative or not required by law. ' Electronically signed by: Venkat Cole M.D. 03/29/2024 8:08 AM Discharge Plan Visit Data Chief Complaint: Shortness of Breath/Dyspnea Stated Complaint: SOB ED Provider: Margarito Cobb Discharge Problem: Shortness of breath, CHF (congestive heart failure), Hypoxic Forms Stand Alone Forms: My [facility] Prescriptions Prescriptions: No Action melatonin 10 mg tablet 10 mg PO HS Eliquis 5 mg tablet 5 mg PO BID Qty: 180 3RF ondansetron 8 mg tablet,disintegrating 8 mg PO Q8H PRN (Reason: nausea and vomiting) Qty: 20 0RF pantoprazole 40 mg tablet,delayed release (DR/EC) 40 mg PO QAM Qty: 90 3RF Rx Instructions: TAKE 1 TABLET BY MOUTH EVERY MORNING cholecalciferol (vitamin D3) 50 mcg (2,000 unit) capsule 50 mcg PO DAILY guaifenesin 600 mg tablet extended release 12hr 600 mg PO BID metoprolol succinate 25 mg tablet extended release 24 hr 25 mg PO DAILY multivitamin Tablet 1 tab PO QPM acetaminophen [Acetaminophen Extra Strength] 500 mg tablet 1,000 mg PO QID PRN (Reason: Back Pain) bumetanide [Bumex] 2 mg Tablet 2 mg PO QAM Rx Instructions: Pt hasn't started medication yet. Did take Lasix 40mg twice daily until 03/28/24 when it was discontinued. Pt is supposed to start Bumetanide on 03/29/24 albuterol sulfate 2.5 mg /3 mL (0.083 %) Solution For Nebulization 2.5 mg INHALATION Q4H PRN (Reason: SOB/WHEEZING) albuterol sulfate 90 mcg/actuation Hfa Aerosol Inhaler 1 puff INHALATION QID PRN (Reason: SOB/WHEEZING) Probiotic 100 billion cell Capsule 1 cap PO HS atorvastatin 40 mg tablet 40 mg PO QAM aspirin 81 mg Tablet,Delayed Release (Dr/Ec) 81 mg PO DAILY calcium carbonate [Calcium 500] 500 mg calcium (1,250 mg) Tablet 1,000 mg PO TID Referrals Referrals: Say Garcia III, CRNP [Primary Care Provider] - Discharge Problem: CHF (congestive heart failure) Qualifiers: Heart failure type: unspecified Heart failure chronicity: unspecified Qualified Code(s): I50.9 - Heart failure, unspecified
[2024-03-29 08:03] LABS: Base Excess VBG 2.2 mEq/L; HCO3 VBG 28 mmol/L; Oxygen Saturation VBG < 60.0 %; PCO2 VBG 46 mmHg (38-50); PO2 VBG 32 mmHg; pH VBG 7.39 (7.36-7.41)
--- NOTE | 2024-03-29 08:09 | XRay Report ---
SINGLE VIEW CHEST CLINICAL HISTORY: Atypical chest pain. FINDINGS: An AP, portable, upright chest radiograph is compared to study dated 03/27/2024 and correlate d with chest CT dated 06/04/2023. The examination is degraded by portable technique and patient rotati on. The heart is enlarged noting atherosclerotic calcification of the thoracic aorta. There is pulmo nary vascular congestion. There are right larger than left pleural effusions with dependent consolida tion. No pneumothorax is seen. The skeletal structures are osteopenic. The bony thorax is grossly int act. Arthritic change is seen in the shoulders. Degenerative change and scoliosis is noted in the spi ne. An electronic device projects over the left lower chest. IMPRESSION: 1. Right larger than left pleural effusions with dependent consolidation. There is similar to the 02/17 examination. Radiographic follow-up to resolution is recommended. 2. Cardiomegaly with pulmonary vascular congestion. ACT 112: Negative or not required by law. ' Electronically signed by: Venkat Cole M.D. 03/29/2024 8:08 AM
[2024-03-29 08:10] LABS: Basophils # (auto) 0.06 K/uL (0.00-0.20); Basophils % (auto) 1.1 %; Eosinophils # (auto) 0.07 K/uL (0.00-0.50); Eosinophils % (auto) 1.3 %; Hematocrit (blood only) 28.9 % (37.0-47.0); Hemoglobin 8.8 g/dl (12.0-16.0); Immature Granulocytes # (auto) 0.01 K/uL (0.01-0.20); Immature Granulocytes % (auto) 0.2 %; Lymphocytes # (auto) 0.91 K/uL (1.20-3.40); Lymphocytes % (auto) 16.5 %; Mean Corpuscular Hemoglobin 23.9 pg (25.0-34.0); Mean Corpuscular Hgb Conc 30.4 g/dL (32.0-36.0); Mean Corpuscular Volume 78.5 fL (80.0-100.0); Mean Platelet Volume 10.1 fL (9.4-12.4); Monocytes # (auto) 0.59 K/uL (0.11-0.59); Monocytes % (auto) 10.7 %; Neutrophils # (auto) 3.86 K/uL (1.40-6.50); Neutrophils % (auto) 70.2 %; Platelet Count 357 K/uL (130-400); RDW Coefficient of Variation 18.8 % (11.5-14.5); RDW Standard Deviation 53.6 fL (36.4-46.3); Red Blood Count 3.68 M/uL (4.20-5.40)
[2024-03-29 08:29] LABS: Alanine Aminotransferase 20 U/L (7-52); Albumin Globulin Ratio 0.9 (0.9-2); Albumin Level 3.1 gm/dl (3.4-5.0); Alkaline Phosphatase 100 U/L (34-104); Anion Gap 6 (3-11); Bilirubin,Total 0.4 mg/dl (0.2-1.0); Blood Urea Nitrogen 18 mg/dl (6-23); Calcium 8.1 mg/dl (8.6-10.3); Carbon Dioxide 28 mmol/L (21-32); Chloride 103 mmol/L (98-107); Creatinine Clr Calc Pharmacy 40.2 ml/min; Est GFR (African American) 55.8 ml/min; Est GFR (Non-African American) 48.2 ml/min; Globulin 3.4 gm/dl (2.5-4.0); Glucose 107 mg/dl (70-99(Fasting)); Lipase 40 U/L (11-82); Sodium 137 mmol/L (136-145); Total Protein 6.5 gm/dl (6.0-8.3)
[2024-03-29 08:38] LABS: Troponin I High Sensitivity 19.2 pg/ml (0-14)
[2024-03-29] MEDS: FUROSEMIDE 40 MG/4 ML VIAL IV STA (08:57)
[2024-03-29 09:17] LABS: Potassium 3.7 mmol/L (3.5-5.1)
--- NOTE | 2024-03-29 09:26 | History & Physical Report ---
Date of Service March 29, 2024 Assessment & Plan (1) Acute and chronic respiratory failure with hypoxia: (2) Acute on chronic diastolic (congestive) heart failure: (3) Pleural effusion, bilateral: (4) Cough productive of purulent sputum: (5) Pulmonary hypertension: Plan 83-year-old woman with complex recent medical history admitted with acute on chronic hypoxic respiratory failure likely related to acute on chronic diastolic heart failure. She appears volume overloaded on exam and seems to have had some improvement with IV Lasix. differential diagnosis includes pulmonary infection, enlarging pleural effusions, recurrent pulmonary embolism Acute on chronic hypoxic respiratory failure Acute on chronic diastolic heart failure Continued cough with production of thick purulent sputum - completed course of ertapenem for enterobacter bacteremia/endocarditis/pacer infection 03/21. On po augmentin for chronic R knee PJI (strep viridans). No hx chronic lung disease. Pseudomonas infection is a possibility Since would not be covered by ertapenem or Augmentin. Persistent R>L pleural effusions. The R effusion was exudative and thought to have been parapneumonic. Hemothroax was ruled out. She was positive for parainfluenza virus 02/21. Pleural fluid cultures were negative. Effusions reaccumulated rapidly and have persisted however so there is likely a component of heart failure or other etiology Chest pain this AM, resolved - EKG vpaced. possibly was esophageal pain as was associated with vomiting. PE and UE DVTs, SVC thrombosis on apixaban. no further chest pain and appears to be responding to diuresis so my suspicion for recurrent/worsening PE is relatively low plan: -continue diuresis with bumex 2 mg IV bid, monitor weight and I/O. Has recent Echo. Serial trop, minimal elevation doubt ACS. Consult cardiology -evaluate for pneumonia - CXR not helpful, get sputum culture, procalcitonin, consider chest CT or CTA. Albuterol and saline nebs, continue guaifenesin. Flutter valve. Consult pulmonary -continue augmentin ppx only for now, add broader spectrum antibiotics if clinically worsening -check C. diff if recurrent diarrhea, oral vancomycin ppx when on IV antibiotics -continue apixaban Recent active issues: Bilateral R>L pleural effusions - see above. R effusion treated with chest tube and lytics on 02/21 at [facility], cultures were negative and thought to be parapneumonic. Effusions have recurred/persisted Chronic hypoxic respiratory failure - recently discharged from [facility] on 3L home O2, had improved to needing only 1.5L a week and a half ago Takutsubo cardiomyopathy with chronic HFpEF - EF recently 45%. Hx CAD, had angiogram recently at [facility] when pacer/ICD removed, daughter says nonobstructive CAD Urinary retention since last discharge, seen recently at [facility] [place] and failed voiding trial - continue hampton catheter and urology follow up PE and bilateral UE DVT with SVC syndrome - continue apixaban with which she has been compliant. Hypercoag workup at [facility] with low protein C/S/antithrombin but was drawn at time of acute clot. Lupus anticoagulant neg. 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 Was seen in ED for same on 03/27. Unclear whether IV diuretics given, she wished to return home and was discharged from the ED. I completed review of extensive outside records from [facility] and outpatient clinic records: Admitted at [facility] recently 02/04-02/17 and 02/21-03/01/24, transferred there with R hydropneumothorax requiring chest tube, 3L were removed then she became hypotensive and third-spaced back into chest. Pleural fluid cultures reported to be negative, effusion was thought to be parapneumonic. She required high flow O2 during that stay but improved and discharged on 3L home O2. No chronic lung disease. She was also recently treated at [facility] for enterobacter cloacae bacteremia and infected Biventricular pacer/ICD, device and leads removed and replaced with leadless pacemaker. Was on ertapenem 1q q24h last dose 03/21 and PICC removed 03/23. Chronic hypoxic respiratory failure on 2-3L O2 and noctrunal CPAP Heart failure last echo 02/12/2024 EF 45%, hypokinetic apex, ant-sept, mid-distal anterior wall; indeterminate diastolic fxn; nl RV; mild MR; mild-mod TR; no pericardial effusion -lasix increased to 40 bid at previous discharge. Has had IV lasix at ED visits Hx R TKA with chronic PJI in 12/2022 - was strep viridans. s/p TKR revision with explant and placement of articulating spacer with antibiotic cement treated with 6 weeks IV ceftriaxone, amoxicillin suppressive abx Strep mitis bacteremia 01/01/24 treated with 2 weeks IV ceftriaxone RLL PE 01/2024 thought embolic from pacer lead vegetation, SVC occlusion, occlusive L cephalic vein DVT on apixaban Urinary retention since last admission - seen recently in Urology clinic and failed voiding trial, still has hampton catheter C. diff diarrhea 01/25/24 Recent history per patient and her daughter: home O2 had gotten down to 1.5-2L and ambulating 5 steps with walker as of a week ago, was steadily improving until last 3-4 days then started to get worse. No F/C continues to have cough productive of yellow "slime" ever since admission at [facility]. Breathing progressively worse over last 3d and getting weaker as well. No abdominal pain. Sole episode of diarrhea was this AM, did have C. diff diarrhea 01/25/24. Episode of vomiting and diarrhea in ED this AM associated with very focal SSCP and feeling of squeezing, radiating to both arms now completely resolved, nausea this AM also resolved and feels hungry. Lasix IV given in ED and shortnes of breath somewhat improved since then. UOP of 1400 mL after lasix. Allergies Allergy/AdvReac Type Severity Reaction Status Date / Time adhesive Allergy Intermediate "Adhesive Verified 03/29/24 11:07 tape" -- blisters sulfamethoxazole Allergy Intermediate MOUTH SORES Verified 03/29/24 11:07 trimethoprim Allergy Intermediate MOUTH SORES Verified 03/29/24 11:07 Home Medications Medication Instructions Recorded Confirmed Type multivitamin 1 tab PO QPM 11/27/22 03/29/24 History melatonin 10 mg tablet 10 mg PO HS Sleep 03/02/23 03/29/24 History apixaban 5 mg tablet (Eliquis) 5 mg PO BID #180 tabs 06/20/23 03/29/24 Rx Lactobacillus 40-Bifidobact 1 cap PO HS 01/02/24 03/29/24 History 3-S.thermophilus 100 billion cell capsule (Probiotic) ondansetron 8 mg disintegrating 8 mg PO Q8H PRN nausea and 01/26/24 03/29/24 Rx tablet vomiting #20 tabs aspirin 81 mg tablet,delayed 81 mg PO DAILY 02/21/24 03/29/24 History release atorvastatin 40 mg tablet 40 mg PO QAM 02/21/24 03/29/24 History calcium carbonate 1,000 mg PO TID 02/21/24 03/29/24 History pantoprazole 40 mg tablet,delayed 40 mg PO QAM #90 tabs 02/29/24 03/29/24 Rx release acetaminophen 500 mg tablet 1,000 mg PO QID PRN Back Pain 03/05/24 03/29/24 History (Acetaminophen Extra Strength) cholecalciferol (vitamin D3) 50 50 mcg PO DAILY 03/05/24 03/29/24 History mcg (2,000 unit) capsule guaifenesin 600 mg tablet, 600 mg PO BID 03/05/24 03/29/24 History extended release 12 hr metoprolol succinate 25 mg 25 mg PO DAILY 03/05/24 03/29/24 History tablet,extended release 24 hr albuterol sulfate 2.5 mg/3 mL 2.5 mg inhalation Q4H PRN 03/29/24 03/29/24 History (0.083 %) solution for nebulization SOB/WHEEZING albuterol sulfate 90 mcg/actuation 1 puff inhalation QID PRN 03/29/24 03/29/24 History aerosol inhaler SOB/WHEEZING bumetanide 2 mg tablet 2 mg PO QAM 03/29/24 03/29/24 History Past Med/Surg History Problem List Cough productive of purulent sputum Acute on chronic diastolic (congestive) heart failure Acute and chronic respiratory failure with hypoxia Hypoxic (Acute) CHF (congestive heart failure) (Acute) Shortness of breath (Acute) Anemia (Acute) Cardiac pacemaker (Acute) Pleural effusion on right (Acute) SOB (shortness of breath) (Acute) Urinary retention Caregiver role strain ZBI 14 Blood bacterial culture positive (Acute) Microcytic anemia Paroxysmal atrial fibrillation ICD (implantable cardioverter-defibrillator) in place placed 03/18/2016 @ [facility] by Dr. 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 (Chronic) apixaban Aortic regurgitation (Chronic) CHF (NYHA class II, ACC/AHA stage C) (Chronic) Complex sleep apnea syndrome (Chronic) does not use cpap as ordered Insomnia (Chronic) Asymmetrical left sensorineural hearing loss (Chronic) Mitral valve insufficiency (Chronic) Superior vena cava syndrome (Chronic) SNHL (sensorineural hearing loss) Multinodular goiter Pulmonary nodule Narrow angle glaucoma suspect of both eyes History of colon polyps Osteopenia Medical History Chest pain Infection of prosthetic joint Weakness Chest pain History of colon polyps Hearing deficit PURVIS (dyspnea on exertion) Osteoarthritis History of kidney stones History of endometrial cancer diagnosed 20yrs ago--sx History of deep vein thrombosis (DVT) of lower extremity was just torn muscle, not clot per pt Breast cancer ?? pt denies Third degree heart block Nonischemic cardiomyopathy Left bundle branch block Complete heart block (10/28/14) ICD/pacer Deep venous thrombosis of left upper extremity several yrs ago > post surgical Surgical History History of cataract surgery B/L done 06/2021 and 08/2021 History of right cataract [place] [facility] Pt made ASA3. Given 2mg versed. History of dilatation and curettage History of total right knee replacement (TKR) x2 History of colonoscopy with polypectomy S/P thyroid biopsy benign History of tooth extraction History of wisdom tooth extraction History of tonsillectomy History of cardiac cath no stents History of breast biopsy per pt benign History of total abdominal hysterectomy and bilateral salpingo-oophorectomy History of permanent cardiac pacemaker placement meditronic ICD placed by Dr. Webber at [facility] > last checked in Apr 2021 Family History Father Family hx of colon cancer Colorectal cancer Mother Family hx of colon cancer Colorectal cancer Aunt Family hx of colon cancer Other Family history non-contributory No family history of adverse response to anesthesia No significant family history Denies family history of Ovarian cancer Prostate cancer Myocardial infarction Breast cancer Social History Smoking Status: Never smoker Second Hand Exposure: No; Do You Dip or Chew Tobacco: No; Hx Alcohol Use: No Hx Substance Use: No Preferred Language: Azeri Communication Ability: Effective Communication Ability Comment: [place] Visual Impairment: No Limitations Hearing Ability: Use of Hearing Aid Stone Belt Sander Required: No Beliefs That Will Affect Care: None marital status: Current Living Situation: Spouse and Family Current Living Situation Comment: Lives with , daughter, grandchild current occupational status: retired 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 Other Information That Helps Us Care for You: No Feels Safe at Home: Yes Safety Concerns: Feels Safe At This Time Childhood Exposure to Second-Hand Smoke: Yes Diet: regular Dental Care, Regularly: Yes Physical Activity Frequency: Does not Exercise Seatbelt Use: always Sunscreen Use: No Assistive Devices: Walker and Wheelchair Review of Systems 2 Review of Systems: All systems reviewed & are unremarkable except as noted in HPI & below Physical Exam 2 Physical Exam: PHYSICAL EXAMINATION Last 24h vital signs reviewed, see documentation in flowsheet General: no distress but appears short of breath, appears younger than her age HEENT: Normocephalic, atraumatic, pupils round and equal, sclerae anicteric, no conjunctival injection, moist mucus membranes, face and head does appear somewhat swollen and EJ's are distended Lungs: increased respiratory effort. breath sounds absent in bases bilateral posterior crackles Heart: Regular rate and rhythm, systolic murmur. JVD present Abdomen: Soft, nontender, nondistended. Bowel sounds present. Extremities: Warm, dry, well-perfused. left greater than right mild lower extremity edema. Neuro: Alert and oriented x 4, face symmetric, moves 4 extremities well Psych: Normal affect and behavior Results & Data Results & Data Vital Signs (Past 12 Hours) Vital Signs Temp Pulse Resp BP Pulse Ox O2 Del Method O2 Flow Rate 03/29/24 09:19 67 03/29/24 08:18 72 23 94 03/29/24 08:03 71 28 H 94 03/29/24 08:02 116/70 03/29/24 07:57 72 28 H 92 03/29/24 07:45 73 25 H 91 03/29/24 07:41 93 Nasal Cannula 6 03/29/24 07:41 94 Nasal Cannula 03/29/24 07:39 78 34 H 95 Nasal Cannula 03/29/24 07:35 36.8 C 68 23 166/89 H 96 Nasal Cannula 6 Laboratory Results 03/29/24 07:56 03/29/24 08:40 Diagnostic Findings Chest X-Ray 03/29/24 07:34 SINGLE VIEW CHEST CLINICAL HISTORY: Atypical chest pain. FINDINGS: An AP, portable, upright chest radiograph is compared to study dated 03/27/2024 and correlated with chest CT dated 06/04/2023. The examination is degraded by portable technique and patient rotation. The heart is enlarged noting atherosclerotic calcification of the thoracic aorta. There is pulmonary vascular congestion. There are right larger than left pleural effusions with dependent consolidation. No pneumothorax is seen. The skeletal structures are osteopenic. The bony thorax is grossly intact. Arthritic change is seen in the shoulders. Degenerative change and scoliosis is noted in the spine. An electronic device projects over the left lower chest. IMPRESSION: 1. Right larger than left pleural effusions with dependent consolidation. There is similar to the 03/05/2024 examination. Radiographic follow-up to resolution is recommended. 2. Cardiomegaly with pulmonary vascular congestion. ACT 112: Negative or not required by law. ' Electronically signed by: Venkat Cole M.D. 03/29/2024 8:08 AM Code Status & VTE Plan VTE Prophylaxis Plan VTE Prophylaxis will be ordered: Yes PG Care Time/CCT Total # of Minutes Spent Total Time Spent with Patient: Total time spent is greater than 50% in coordination of care (as documented) at patient's floor/unit and/or counseling patient: Coding Level of Care Code 61550 INT INP/OBS CARE 3/75MIN Diagnoses Acute and chronic respiratory failure with hypoxia J96.21 Acute on chronic diastolic (congestive) heart failure I50.33 Pleural effusion, bilateral J90 Cough productive of purulent sputum R05.8 Pulmonary hypertension I27.20
[2024-03-29] MEDS: ALBUTEROL 0.083% NEBU SOLN 3 ML VIAL ONE (13:02)
[2024-03-29] MEDS: ALBUTEROL 0.083% NEBU SOLN 3 ML VIAL NEB PRN (13:02)
--- NOTE | 2024-03-29 13:38 | Electrocardiogram Report ---
Test Reason : Blood Pressure : / mmHG Vent. Rate : 075 BPM Atrial Rate : 089 BPM P-R Int : 000 ms QRS Dur : 144 ms QT Int : 436 ms P-R-T Axes : 000 080 268 degrees QTc Int : 486 ms Ventricular-paced rhythm with occasional Premature ventricular complexes Abnormal ECG When compared with ECG of 27-MAR-2024 17:04, Previous ECG has undetermined rhythm, needs review Confirmed by Zan Nice ([id number]) on 03/29/2024 1:37:37 PM Referred By: REFERRED SELF Confirmed By:Twin Nice
[2024-03-29] MEDS: AMOXICILLIN/CLAVULANATE 875 MG TAB PO ONE (14:34)
[2024-03-29] MEDS: APIXABAN 5 MG TABLET PO ONE (14:34)
[2024-03-29] MEDS ORDERED: MAGNESIUM HYDROXIDE SUSP 30 ML UDC PO PRN (15:53)
[2024-03-29] MEDS ORDERED: ALUMINUM/MAGNESIUM SUSP 30 ML UDC PO PRN (15:53)
[2024-03-29] MEDS ORDERED: ONDANSETRON INJ 2 MG/ML 2 ML VIAL IV PRN (15:53)
[2024-03-29] MEDS ORDERED: POLYETHYLENE (MIRALAX) 17 GM PACK PO PRN (15:53)
[2024-03-29] MEDS ORDERED: ONDANSETRON 4 MG OD TAB PO PRN (15:58)
[2024-03-29] MEDS: ATORVASTATIN 40 MG TAB PO SCH (17:09)
[2024-03-29] MEDS: ASPIRIN 81 MG ECTAB PO SCH (17:09)
[2024-03-29] MEDS: APIXABAN 5 MG TABLET PO SCH (17:10)
[2024-03-29] MEDS: guaiFENesin 600 MG TABCR PO SCH (17:11)
[2024-03-29] MEDS: CHOLECALCIFEROL 25 MCG (1000 UNITS) TAB PO SCH (17:11)
[2024-03-29] MEDS: METOPROLOL SUCC 25MG EXT REL TAB PO SCH (17:13)
[2024-03-29] MEDS: PANTOprazole 40 MG TAB PO SCH (17:14)
[2024-03-29] MEDS: BUMETANIDE 2 MG in SYRINGE 0 ML IV SCH (17:15)
[2024-03-29] MEDS: ACETAMINOPHEN 500 MG TAB PO PRN (17:15)
[2024-03-29] MEDS: AMOXICILLIN/CLAVULANATE 875 MG TAB PO SCH (19:17)
[2024-03-29] MEDS: ALBUTEROL 0.083% NEBU SOLN 3 ML VIAL NEB SCH (19:29)
[2024-03-29] MEDS: SODIUM CHLOR 7% 4 ML NEB NEB SCH (19:43)
[2024-03-29] MEDS: ADVANCED PROBIOTIC 625 MG CAPSULE PO SCH (20:41)
[2024-03-29] MEDS: MULTIVITAMIN TAB PO SCH (20:42)
[2024-03-29] MEDS: CALCIUM CARBONATE 1250MG TAB PO SCH (20:42)
[2024-03-30] MEDS: SODIUM CHLORIDE 0.9% NEBU SOLN 3 ML NEB SCH (01:24)
[2024-03-30 06:26] LABS: Hematocrit (blood only) 28.8 % (37.0-47.0); Hemoglobin 8.9 g/dl (12.0-16.0); Mean Corpuscular Hemoglobin 24.1 pg (25.0-34.0); Mean Corpuscular Hgb Conc 30.9 g/dL (32.0-36.0); Mean Corpuscular Volume 77.8 fL (80.0-100.0); Mean Platelet Volume 9.8 fL (9.4-12.4); Platelet Count 336 K/uL (130-400); RDW Standard Deviation 52.8 fL (36.4-46.3); White Blood Count 5.84 K/ul (4.8-10.8)
[2024-03-30 06:45] LABS: BUN Creatinine Ratio 17.2 (10-20); Calcium 8.3 mg/dl (8.6-10.3); Est GFR (African American) 65.4 ml/min; Est GFR (Non-African American) 56.4 ml/min; Magnesium 1.9 mg/dl (1.7-2.4); Potassium 3.2 mmol/L (3.5-5.1)
[2024-03-30 06:49] LABS: Troponin I High Sensitivity 26.2 pg/ml (0-14)
--- NOTE | 2024-03-30 08:54 | Hospitalist Progress Note ---
Date of Service March 30, 2024 Assessment & Plan (1) Acute and chronic respiratory failure with hypoxia: (2) Acute on chronic diastolic (congestive) heart failure: (3) Pleural effusion, bilateral: (4) Cough productive of purulent sputum: (5) Pulmonary hypertension: Plan 83-year-old woman with complex recent medical history admitted with acute on chronic hypoxic respiratory failure likely related to acute on chronic diastolic heart failure. She appears volume overloaded on exam and seems to have had some improvement with IV Lasix. differential diagnosis includes pulmonary infection, enlarging pleural effusions, recurrent pulmonary embolism Acute on chronic hypoxic respiratory failure - hypoxia did not improve yet despite significant diuresis. Evaluated pleural effusions with chest CT as below. Added cefepime. Continue HF treatment, diuresis. Bilateral pleural effusions -consulted Dr. Coelho - POCUS showed loculated R effusion. Consulted with [facility] spoke with thoracic surgeon, interventional family court counsellor regarding need for chest tube/lytics or VATS. Obtained noncontrast chest CT showing loculated effusion on right. Discussed with interventional family court counsellor who reviewed the images. Amount of loculated effusion fairly small, she did not think would benefit from VATS and would not be safe to interrupt anticoagulation that long, previously was managed there had chest tube and only half dose of thrombolytics so was essentially a thoracentesis - met exudative criterial by LDH only, cell count / cytology / culture negative. She recommended further diuresis, did not recommend transfer. I discussed this with the patient, her daughter, Dr. Coelho. Continued cough with production of thick purulent sputum - completed course of ertapenem for enterobacter bacteremia/endocarditis/pacer infection 03/21. On po augmentin for chronic R knee PJI (strep viridans). No hx chronic lung disease. Pseudomonas infection is a possibility Since would not be covered by ertapenem or Augmentin. MRSA nares negative. Some pulmonary infiltrates present on chest CT - infectious vs atelectasis. Difficult to determine whether lung infection or not. -discussed with Dr. Coelho - short course IV cefepime. resume augmentin ppx once off cefepime. -reordered sputum culture Acute on chronic diastolic heart failure, pulmonary hypertension -previously was BiV paced, current vpacing will make HF harder to manage -continue diuresis with bumex 2 mg IV bid, monitor weight and I/O. Has recent Echo. Replace hypokalemia and mild low magnesium. Consulted cardiology - discussed with Dr. Barrios, started entresto Chest pain 7 AM, resolved - EKG vpaced. possibly was esophageal pain as was associated with vomiting. Mildly elevated HS-troponin with flat trend x 3. Consistent with mild demand ischemia, no evidence of ACS. 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 no further chest pain, suspicion for recurrent/worsening PE is relatively low. Apixaban currently held in case she needs thoracentesis or chest tube, continue treatment dose enoxaparin. -check C. diff if recurrent diarrhea, oral vancomycin ppx when on IV antibiotics Recent history: Bilateral R>L pleural effusions - see above. R effusion treated with chest tube and lytics on 02/21 at [facility], cultures were negative and thought to be parapneumonic. Effusions have recurred/persisted Chronic hypoxic respiratory failure - recently discharged from [facility] on 3L home O2, had improved to needing only 1.5L a week and a half ago Takutsubo cardiomyopathy with chronic HFpEF - EF recently 45%. 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 on chronic suppression with augmentin KHADRA - continue nocturnal CPAP Admission and Anticipated Discharge Date Admission Date: March 29, 2024 Subjective good diuresis overnight -3L and weight down apx 1 kg apixaban held by pulm still on 6L O2 and dyspneic but edema (including facial) has improved, good urine output no further chest pain/tightness or N/V/D Physical Exam 2 Physical Exam: PHYSICAL EXAMINATION Last 24h vital signs reviewed, see documentation in flowsheet General: appears short of breath but looks improved compared to yesterday HEENT: MMM face/head no longer edematous Lungs: increased respiratory effort. breath sounds absent in bases bilateral posterior crackles - unchanged. no wheezing Heart: Regular rate and rhythm, systolic murmur. JVD present Abdomen: Soft, nontender, nondistended. Abdomen is less full. Bowel sounds present. Extremities: Warm, dry, well-perfused. minimal LLE calf edema, improved Neuro: Alert and oriented x 4, face symmetric, moves 4 extremities well Psych: Normal affect and behavior Results & Data Results & Data Vital Signs (Past 12 Hours) Vital Signs Temp Pulse Pulse Resp BP Pulse Ox O2 Del Method 03/30/24 07:54 37.0 C 75 22 155/56 H 95 BiPAP 03/30/24 07:23 73 20 94 03/30/24 07:19 73 20 94 BiPAP 03/30/24 02:32 73 24 98 03/30/24 02:22 71 03/30/24 02:22 36.7 C 72 19 126/76 97 CPAP 03/29/24 22:46 36.6 C 96 H 18 128/74 96 CPAP 03/29/24 22:00 72 30 H 97 03/29/24 22:00 Nasal Cannula, BiPAP O2 Flow Rate 03/30/24 07:54 03/30/24 07:23 4 03/30/24 07:19 4 03/30/24 02:32 6 03/30/24 02:22 03/30/24 02:22 03/29/24 22:46 03/29/24 22:00 6 03/29/24 22:00 6 Laboratory Results 03/30/24 05:56 03/30/24 05:56 PG Care Time/CCT Total # of Minutes Spent Total Time Spent with Patient: I personally spent: 65 minutes today on clinical care activities including: reviewing chart notes and vital signs reviewing labs reviewing studies discussion with fundraising consultant(s) examining and counseling the patient counseling the patient's family writing orders documentation Coding Level of Care Code 53268 SUB INP/OBS CARE 3/50MIN Diagnoses Acute and chronic respiratory failure with hypoxia J96.21 Acute on chronic diastolic (congestive) heart failure I50.33 Pleural effusion, bilateral J90 Cough productive of purulent sputum R05.8 Pulmonary hypertension I27.20
[2024-03-30] MEDS: POTASSIUM CHLORIDE CRTAB 20 MEQ TABCR PO SCH (09:16)
[2024-03-30] MEDS: MAGNESIUM SULFATE / D5W 1 GM/100 ML BAG IV SCH (09:16)
--- NOTE | 2024-03-30 09:19 | Cardiology Consultation ---
Date of Consultation March 30, 2024 History of Present Illness Reason for Consultation: Acute on chronic systolic heart failure, recurrent right-sided pleural effusion Attending Physician: Randi Caceres MD History of Present Illness She is a very pleasant 83-year-old female with a very complex recent history. When I last saw her the end of February and as an outpatient she was actually doing relatively well and was stable. Her oxygen needs were improving. She was able to be more physically active. They had contacted us early in the week with worsening shortness of breath and higher O2 needs. Chest x-ray revealed recurrence of her right-sided pleural effusion. We switched her furosemide to Bumex and asked for an urgent pulmonary consultation given her previous complex right-sided pleural effusions. She was seen in the ER 2 days ago and ultimately with worsening oxygen needs and increasing shortness of breath was admitted yesterday. She is diuresed about 3500 cc on 2 mg of Bumex twice a day. Her abdominal distention is improving and her lower extremity edema is improving. She has no lightheadedness or dizziness. She has no chest pain or chest pressure. She is not aware of any palpitations or fluttering. She was seen together today with the hospitalist service and pulmonary medicine was already in today and with ultrasound suggested that she has multiple loculated effusions that would require her to return to [facility]. Allergies Allergy/AdvReac Type Severity Reaction Status Date / Time adhesive Allergy Intermediate "Adhesive Verified 03/29/24 11:07 tape" -- blisters sulfamethoxazole Allergy Intermediate MOUTH SORES Verified 03/29/24 11:07 trimethoprim Allergy Intermediate MOUTH SORES Verified 03/29/24 11:07 Home Medications Medication Instructions Recorded Confirmed Type multivitamin 1 tab PO QPM 11/27/22 03/29/24 History melatonin 10 mg tablet 10 mg PO HS Sleep 03/02/23 03/29/24 History apixaban 5 mg tablet (Eliquis) 5 mg PO BID #180 tabs 06/20/23 03/29/24 Rx Lactobacillus 40-Bifidobact 1 cap PO HS 01/02/24 03/29/24 History 3-S.thermophilus 100 billion cell capsule (Probiotic) ondansetron 8 mg disintegrating 8 mg PO Q8H PRN nausea and 01/26/24 03/29/24 Rx tablet vomiting #20 tabs aspirin 81 mg tablet,delayed 81 mg PO DAILY 02/21/24 03/29/24 History release atorvastatin 40 mg tablet 40 mg PO QAM 02/21/24 03/29/24 History calcium carbonate 1,000 mg PO TID 02/21/24 03/29/24 History pantoprazole 40 mg tablet,delayed 40 mg PO QAM #90 tabs 02/29/24 03/29/24 Rx release acetaminophen 500 mg tablet 1,000 mg PO QID PRN Back Pain 03/05/24 03/29/24 History (Acetaminophen Extra Strength) cholecalciferol (vitamin D3) 50 50 mcg PO DAILY 03/05/24 03/29/24 History mcg (2,000 unit) capsule guaifenesin 600 mg tablet, 600 mg PO BID 03/05/24 03/29/24 History extended release 12 hr metoprolol succinate 25 mg 25 mg PO DAILY 03/05/24 03/29/24 History tablet,extended release 24 hr albuterol sulfate 2.5 mg/3 mL 2.5 mg inhalation Q4H PRN 03/29/24 03/29/24 History (0.083 %) solution for nebulization SOB/WHEEZING albuterol sulfate 90 mcg/actuation 1 puff inhalation QID PRN 03/29/24 03/29/24 History aerosol inhaler SOB/WHEEZING bumetanide 2 mg tablet 2 mg PO QAM 03/29/24 03/29/24 History Patient History Medical History Chest pain Infection of prosthetic joint Weakness Chest pain History of colon polyps Hearing deficit PURVIS (dyspnea on exertion) Osteoarthritis History of kidney stones History of endometrial cancer diagnosed 20yrs ago--sx History of deep vein thrombosis (DVT) of lower extremity was just torn muscle, not clot per pt Breast cancer ?? pt denies Third degree heart block Nonischemic cardiomyopathy Left bundle branch block Complete heart block (10/28/14) ICD/pacer Deep venous thrombosis of left upper extremity several yrs ago > post surgical Surgical History History of cataract surgery B/L done 06/2021 and 08/2021 History of right cataract extraction 07/08/21 at [facility] [place]. Pt made ASA3. Given 2mg versed. History of dilatation and curettage History of total right knee replacement (TKR) x2 History of colonoscopy with polypectomy S/P thyroid biopsy benign History of tooth extraction History of wisdom tooth extraction History of tonsillectomy History of cardiac cath no stents History of breast biopsy per pt benign History of total abdominal hysterectomy and bilateral salpingo-oophorectomy History of permanent cardiac pacemaker placement meditronic ICD placed by Dr. Webber at [facility] > last checked in Apr 2021 Family History Father Family hx of colon cancer Colorectal cancer Mother Family hx of colon cancer Colorectal cancer Aunt Family hx of colon cancer Other Family history non-contributory No family history of adverse response to anesthesia No significant family history Denies family history of Ovarian cancer Prostate cancer Myocardial infarction Breast cancer Social History Smoking Status: Never smoker Second Hand Exposure: No; Do You Dip or Chew Tobacco: No; Hx Alcohol Use: No Hx Substance Use: No Preferred Language: Uzbek Communication Ability: Effective Communication Ability Comment: [place] Visual Impairment: No Limitations Hearing Ability: Use of Hearing Aid Salon Designer Required: No Beliefs That Will Affect Care: None marital status: Current Living Situation: Spouse and Family Current Living Situation Comment: Lives with , daughter, grandchild current occupational status: retired 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 Other Information That Helps Us Care for You: No Feels Safe at Home: Yes Safety Concerns: Feels Safe At This Time Childhood Exposure to Second-Hand Smoke: Yes Diet: regular Dental Care, Regularly: Yes Physical Activity Frequency: Does not Exercise Seatbelt Use: always Sunscreen Use: No Assistive Devices: Walker and Wheelchair Results & Data Vital Signs (Past 12 Hours) Vital Signs Temp Pulse Pulse Resp BP Pulse Ox O2 Del Method 03/30/24 07:54 37.0 C 75 22 155/56 H 95 BiPAP 03/30/24 07:23 73 20 94 03/30/24 07:19 73 20 94 BiPAP 03/30/24 02:32 73 24 98 03/30/24 02:22 71 03/30/24 02:22 36.7 C 72 19 126/76 97 CPAP 03/29/24 22:46 36.6 C 96 H 18 128/74 96 CPAP 03/29/24 22:00 72 30 H 97 03/29/24 22:00 Nasal Cannula, BiPAP O2 Flow Rate 03/30/24 07:54 03/30/24 07:23 4 03/30/24 07:19 4 03/30/24 02:32 6 03/30/24 02:22 03/30/24 02:22 03/29/24 22:46 03/29/24 22:00 6 03/29/24 22:00 6 She is awake alert and oriented x 3 she is mildly short of breath talking in sentences HEENT: Mildly reduced carotid upstrokes Lungs: Decreased breath sounds greater on the right compared to the left there were no rales rhonchi or wheezing Heart: Regular rate and rhythm no appreciable murmurs Abdomen: Mildly distended soft nontender positive bowel sounds Extremities: Trace to mild lower extremity edema Psychiatric affect appeared appropriate All her inpatient diagnostic studies were reviewed as well as her outpatient notes Impressions: 1. Acute on chronic systolic heart failure 2. Cardiac catheterization February 05 with mild CAD 3. History of Takotsubo's cardiomyopathy 4. Nonischemic cardiomyopathy with ejection fraction range of 40% 5. 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 Complete heart block status postplacement of a Micra pacemaker status post SANDSTONE INSPECTOR REPAIRER-P removal 7. 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 History of strep mitis bacteremia 01/01/2024 9. History of a right lower lobe pulmonary embolism, SVC occlusion, and upper extremity thrombus in the left proximal and mid subclavian vein It sounds like pulmonary feels her best option is to go to [facility]. The question is does she need decortication as treatment of her right-sided loculated effusions. From a cardiac standpoint she is diuresed well without bouncing her creatinine. I would continue with her current diuresis and add Entresto low-dose to her medical regimen. I would avoid an SGLT2 inhibitor given the fact that she is in bed and there is an increased risk of infection with excretion of the glucose.(Although she has a Mills catheter in right now) At least today she has lots of blood pressure room to uptitrate her Entresto. Of note when she was in [facility] and they drained her right-sided chest effusion she third space that fluid back into her chest and was hypotensive for a number of days afterwards. I agree with the hospital service and holding her Eliquis and switching her over to Lovenox given the potential for planned procedure in the coming days. I would continue to diurese her until her creatinine bumps. She will have her potassium and magnesium replaced today. All this was discussed with the hospitalist service.
[2024-03-30] MEDS ORDERED: ENOXAPARIN 1 MG/KG SC SCH (10:00)
[2024-03-30] MEDS: VALSARTAN/SACUBITRIL 26/24MG TAB PO SCH (10:46)
[2024-03-30] MEDS: ENOXAPARIN 80 MG/0.8 ML SYR SQ SCH (10:47)
--- NOTE | 2024-03-30 12:19 | Procedure Note ---
Procedure Note Date of Service March 30, 2024 Note Bedside Ultrasound: Lung: Left:-Small left-sided pleural effusion with B-lines appreciated posteriorly anteriorly Right:-Moderate loculated right-sided pleural effusion with significant loculations, B-lines anteriorly and posteriorly Please note the above document was generated using voice recognition software. It may contain grammatical, syntax or spelling errors.Any formal questions or concerns about the content, text or information contained within the body of this dictation should be directly addressed to the provider for clarification. Coding CPT Codes Pulmonary/Thoracic - Pulmonary and Thoracic: 86042 US, Chest, real time with imaging documentation ([id number]) [facility] [place] Procedure Codes (Charges) Pulmonary/Thoracic Procedure 1: Pulmonary and Thoracic: 06297 US, Chest, real time with imaging documentation
--- NOTE | 2024-03-30 12:32 | Pulmonary Consultation ---
Date of Consultation March 30, 2024 Assessment & Plan (1) Acute on chronic diastolic (congestive) heart failure: (2) Acute and chronic respiratory failure with hypoxia: (3) Loculated pleural effusion: (4) SOB (shortness of breath): (5) Complex sleep apnea syndrome: Plan --Acute on chronic hypoxic respiratory failure Likely secondary to CHF with bilateral pleural effusion Latest EF 45% with chronic diastolic dysfunction BNP 512 Respiratory bio fire negative for everything, procalcitonin 0.09 --Pulmonary hypertension --> Resolved on latest echo 12/2023 Moderate, appreciated on echo 01/14/2023 This is new compared to the echo which was done in November 2022 Likely type II Spirometry 12/22/2022 personally reviewed: No obstructive lung dysfunction FVC 2.29 L 97%, FEV1 1.89 L or 88%, FEV1/FVC 82% CT chest 11/27/2022 personally reviewed: Dependent atelectasis bilateral lower lobes Motion degraded study Cardiomegaly Minimal but no significant mediastinal lymphadenopathy -- KHADRA On CPAP at home -- History of SVC clot Occured post pacemaker placement On eliquis at home -- Recent history of parapneumonic effusion S/p right-sided chest tube with mist 2 protocol Completed the course of antibiotic Patient had traumatic experience with the chest tube and would not like chest tube to be placed again. Plan: On bedside ultrasound patient seems to have a right-sided pleural effusion with multiple loculations 3-4 weeks ago patient had a right-sided chest tube and mist 2 protocol which did not result in complete resolution of the loculated effusion, recommendation would be to have VATS to get rid of the loculated fluid. Putting another chest tube in and repeating mist 2 protocol would not be appropriate especially in patient who is on blood thinner and has high risk of bleeding into the pleura. Left-sided pleural effusion is small and clear. Would still recommend to continue with diuretics to keep the patient negative balance. Continue with antibiotics, follow-up nasal MRSA Recommend holding Eliquis BiPAP nightly and as needed shortness of breath Case was discussed with primary team All questions inquiries of the patient as well as patient's daughter were answered in depth Please note the above document was generated using voice recognition software. It may contain grammatical, syntax or spelling errors.Any formal questions or concerns about the content, text or information contained within the body of this dictation should be directly addressed to the provider for clarification. History of Present Illness Attending Physician: Randi Caceres MD History of Present Illness 82-year-old female was admitted to hospital because of worsening shortness of breath Past medical history: Hypertension, chronic clot on the left subclavian on Eliquis Patient does follow-up with me in the clinic and I was saw her last on 02/02/2023 Patient daughter was in the room at the time of examination. At the time of examination patient was saturating 89-90% on 6 L nasal cannula She was in mild respiratory distress. Patient had multiple bouts of hospitalization in the recent couple of months for infected pacemaker lead. Recently in February 2024 she had parapneumonic effusion on the right side which led to chest tube placement and dornase alpha. Patient was still having loculated effusion which was not able to get and get off Since the last 3-4 days she has been complaining of worsening shortness of breath. Chest x-ray does show bilateral pleural effusion Denies any fever or chills right now No nausea vomiting No diarrhea prior to coming to the hospital No unusual headache or blurry vision No hematuria, no hematochezia, no epistaxis Social history: Lifetime non-smoker. 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, no alcohol, denies any illicit drug use Pets: Dogs at home Allergies: Denies Asthma: No family history of asthma Lung cancer: No history of lung cancer in the family Allergies Allergy/AdvReac Type Severity Reaction Status Date / Time adhesive Allergy Intermediate "Adhesive Verified 03/29/24 11:07 tape" -- blisters sulfamethoxazole Allergy Intermediate MOUTH SORES Verified 03/29/24 11:07 trimethoprim Allergy Intermediate MOUTH SORES Verified 03/29/24 11:07 Home Medications Medication Instructions Recorded Confirmed Type multivitamin 1 tab PO QPM 11/27/22 03/29/24 History melatonin 10 mg tablet 10 mg PO HS Sleep 03/02/23 03/29/24 History apixaban 5 mg tablet (Eliquis) 5 mg PO BID #180 tabs 06/20/23 03/29/24 Rx Lactobacillus 40-Bifidobact 1 cap PO HS 01/02/24 03/29/24 History 3-S.thermophilus 100 billion cell capsule (Probiotic) ondansetron 8 mg disintegrating 8 mg PO Q8H PRN nausea and 01/26/24 03/29/24 Rx tablet vomiting #20 tabs aspirin 81 mg tablet,delayed 81 mg PO DAILY 02/21/24 03/29/24 History release atorvastatin 40 mg tablet 40 mg PO QAM 02/21/24 03/29/24 History calcium carbonate 1,000 mg PO TID 02/21/24 03/29/24 History pantoprazole 40 mg tablet,delayed 40 mg PO QAM #90 tabs 02/29/24 03/29/24 Rx release acetaminophen 500 mg tablet 1,000 mg PO QID PRN Back Pain 03/05/24 03/29/24 History (Acetaminophen Extra Strength) cholecalciferol (vitamin D3) 50 50 mcg PO DAILY 03/05/24 03/29/24 History mcg (2,000 unit) capsule guaifenesin 600 mg tablet, 600 mg PO BID 03/05/24 03/29/24 History extended release 12 hr metoprolol succinate 25 mg 25 mg PO DAILY 03/05/24 03/29/24 History tablet,extended release 24 hr albuterol sulfate 2.5 mg/3 mL 2.5 mg inhalation Q4H PRN 03/29/24 03/29/24 History (0.083 %) solution for nebulization SOB/WHEEZING albuterol sulfate 90 mcg/actuation 1 puff inhalation QID PRN 03/29/24 03/29/24 History aerosol inhaler SOB/WHEEZING bumetanide 2 mg tablet 2 mg PO QAM 03/29/24 03/29/24 History Patient History Medical History Chest pain Infection of prosthetic joint Weakness Chest pain History of colon polyps Hearing deficit PURVIS (dyspnea on exertion) Osteoarthritis History of kidney stones History of endometrial cancer diagnosed 20yrs ago--sx History of deep vein thrombosis (DVT) of lower extremity was just torn muscle, not clot per pt Breast cancer ?? pt denies Third degree heart block Nonischemic cardiomyopathy Left bundle branch block Complete heart block (10/28/14) ICD/pacer Deep venous thrombosis of left upper extremity several yrs ago > post surgical Surgical History History of cataract surgery B/L done 06/2021 and 08/2021 History of right cataract extraction 07/08/21 at [facility] [place]. Pt made ASA3. Given 2mg versed. History of dilatation and curettage History of total right knee replacement (TKR) x2 History of colonoscopy with polypectomy S/P thyroid biopsy benign History of tooth extraction History of wisdom tooth extraction History of tonsillectomy History of cardiac cath no stents History of breast biopsy per pt benign History of total abdominal hysterectomy and bilateral salpingo-oophorectomy History of permanent cardiac pacemaker placement meditronic ICD placed by Dr. Webber at [facility] > last checked in Apr 2021 Family History Father Family hx of colon cancer Colorectal cancer Mother Family hx of colon cancer Colorectal cancer Aunt Family hx of colon cancer Other Family history non-contributory No family history of adverse response to anesthesia No significant family history Denies family history of Ovarian cancer Prostate cancer Myocardial infarction Breast cancer Social History Smoking Status: Never smoker Second Hand Exposure: No; Do You Dip or Chew Tobacco: No; Hx Alcohol Use: No Hx Substance Use: No Preferred Language: Kazakh Communication Ability: Effective Communication Ability Comment: [place] Visual Impairment: No Limitations Hearing Ability: Use of Hearing Aid Gray Tender Required: No Beliefs That Will Affect Care: None marital status: Current Living Situation: Spouse and Family Current Living Situation Comment: Lives with , daughter, grandchild current occupational status: retired 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 Other Information That Helps Us Care for You: No Feels Safe at Home: Yes Safety Concerns: Feels Safe At This Time Childhood Exposure to Second-Hand Smoke: Yes Diet: regular Dental Care, Regularly: Yes Physical Activity Frequency: Does not Exercise Seatbelt Use: always Sunscreen Use: No Assistive Devices: CPAP Review of Systems 2 Review of Systems: All systems reviewed & are unremarkable except as noted in HPI & below Physical Exam 2 Physical Exam: Constitutional: No acute distress HEENT: EOMI, PERRLA, hard to hear Respiratory system: Decreased air entry bilaterally, more decreased on the right, no wheeze, rhonchi, positive crackles bilaterally CVS: S1-S2 positive, no murmurs or gallops Abdomen: Soft, nontender, nondistended, positive bowel sounds x4 Extremities: +2 pulses bilaterally radialis/ dorsalis pedis, no cyanosis, positive pitting edema bilateral lower extremity Neuro: Awake alert oriented x3 Psych: Normal mood and affect G/U: Positive for Skin: no rashes, warm and dry Lymphatic: no cervical or axillary lymphadenopathy Results & Data Results & Data Vital Signs (Past 12 Hours) Vital Signs Temp Pulse Pulse Resp BP Pulse Ox O2 Del Method 03/30/24 07:54 37.0 C 75 22 155/56 H 95 BiPAP 03/30/24 07:23 73 20 94 03/30/24 07:19 73 20 94 BiPAP 03/30/24 02:32 73 24 98 03/30/24 02:22 71 03/30/24 02:22 36.7 C 72 19 126/76 97 CPAP 03/29/24 22:46 36.6 C 96 H 18 128/74 96 CPAP 03/29/24 22:00 72 30 H 97 03/29/24 22:00 Nasal Cannula, BiPAP O2 Flow Rate 03/30/24 07:54 03/30/24 07:23 4 03/30/24 07:19 4 03/30/24 02:32 6 03/30/24 02:22 03/30/24 02:22 03/29/24 22:46 03/29/24 22:00 6 03/29/24 22:00 6 Laboratory Results 03/30/24 05:56 03/30/24 05:56 PG Care Time/CCT Total # of Minutes Spent Total Time Spent with Patient: Total time spent is greater than 50% in coordination of care (as documented) at patient's floor/unit and/or counseling patient: Coding Level of Care Code 18632 INT INP/OBS CARE 3/75MIN Diagnoses Acute on chronic diastolic (congestive) heart failure I50.33 Acute and chronic respiratory failure with hypoxia J96.21 Loculated pleural effusion J90 SOB (shortness of breath) R06.02 Complex sleep apnea syndrome G47.31
--- NOTE | 2024-03-30 14:12 | CT Scan Report ---
CT chest diagnostic wo con CT DOSE: 294.27 mGy.cm CLINICAL HISTORY: 83 years-old Female with loculated right pleural effusion, dyspnea, hypoxia. Acute shortness of breath TECHNIQUE: Multiaxial CT images of the chest were performed without contrast. A dose lowering techni que was utilized adhering to the principles of ALARA. COMPARISON: Chest radiograph 03/29/2024, chest CT 06/04/2023 FINDINGS: Thyroid goiter. Chronic calcified thrombus in the left subclavian, brachiocephalic vein and SVC. Moderate cardiomegaly with trace pericardial effusion. An electronic device projects over the r ight ventricle. Atherosclerosis of the aorta without aneurysm. Dilated pulmonary artery suggestive of pulmonary arterial hypertension. Mediastinal lymphadenopathy includes lymph nodes measuring up to 1. 3 cm. Borderline enlarged hilar lymph nodes. Moderate sized pleural effusion with loculation on the right. Right greater left intralobular septal thickening with dependent bibasilar consolidation, right greater than left. Mild ground glass/consoli dative left upper lobe opacities. 6 mm nodular density of the left upper lobe. The airways are patent . No acute upper abdominal abnormality. Moderate body wall edema, greatest in the right chest wall. No acute fracture or destructive bone lesion identified. IMPRESSION: 1. Cardiomegaly with pulmonary edema, moderate pleural effusions with anasarca. 2. The right pleural effusion is loculated and there is asymmetric right basilar predominant consolid ation which may represent atelectasis versus pneumonia. 3. Mild mediastinal lymphadenopathy. 4. Status post removal of the previously seen left subclavian pacer. There is chronic associated veno us calcifications/thrombus as above. 5. 6 mm nodular density of the left upper lobe. Attention at follow-up recommended. ACT 112: Negative or not required by law. Electronically signed by: Caden Sloan M.D. 03/30/2024 2:11 PM
[2024-03-30] MEDS: CEFEPIME 2,000 MG in SYRINGE 0 ML IV SCH (16:14)
[2024-03-30] MEDS: CHERRY SYRUP 5 ML UDP PO SCH (17:04)
[2024-03-30] MEDS: VANCOMYCIN HCL 125 MG/2.5ML SOLN PO SCH (17:04)
[2024-03-30] MEDS: MELATONIN 3 MG TAB PO PRN (21:42)
[2024-03-31] MEDS: ALBUTEROL 0.083% NEBU SOLN 3 ML VIAL INH PRN (06:44)
[2024-03-31 08:55] LABS: BUN Creatinine Ratio 17.3 (10-20); Calcium 8.5 mg/dl (8.6-10.3); Creatinine Clr Calc Pharmacy 41.2 ml/min; Est GFR (African American) 61.4 ml/min; Potassium 3.2 mmol/L (3.5-5.1)
--- NOTE | 2024-03-31 11:50 | Pulmonology Progress Note ---
Date of Service March 31, 2024 Assessment & Plan (1) Acute on chronic diastolic (congestive) heart failure: (2) Acute and chronic respiratory failure with hypoxia: (3) Loculated pleural effusion: (4) SOB (shortness of breath): (5) Complex sleep apnea syndrome: Plan CT chest 03/30/2024 personally reviewed: Loculated right-sided pleural effusion, small left-sided pleural effusion Interlobular thickening appreciated bilaterally Consolidative process versus atelectasis of the right lower lobe Minimal mediastinal and right hilar lymphadenopathy --Acute on chronic hypoxic respiratory failure Likely secondary to CHF with bilateral pleural effusion Latest EF 45% with chronic diastolic dysfunction BNP 512 Respiratory bio fire negative for everything, procalcitonin 0.09 Nasal MRSA negative --Loculated right-sided pleural effusion S/p right-sided chest tube with incomplete mist 2 protocol mid February 2024, as per the forms builder from [place] she got dornase john only for a day Completed the course of antibiotic Patient had traumatic experience with the chest tube and would not like chest tube to be placed again. Case was discussed with IP at [place] by primary team and they recommended no intervention. I still think the effusion is unlikely to resolve on its own especially the loculations which I saw on the bedside ultrasound --Pulmonary hypertension --> Resolved on latest echo 12/2023 Moderate, appreciated on echo 01/14/2023 This is new compared to the echo which was done in November 2022 Likely type II Spirometry 12/22/2022 personally reviewed: No obstructive lung dysfunction FVC 2.29 L 97%, FEV1 1.89 L or 88%, FEV1/FVC 82% CT chest 11/27/2022 personally reviewed: Dependent atelectasis bilateral lower lobes Motion degraded study Cardiomegaly Minimal but no significant mediastinal lymphadenopathy -- KHADRA On CPAP at home -- History of SVC clot Occured post pacemaker placement On eliquis at home -- Recent history of parapneumonic effusion Plan: In/out: -6.8 L since coming to the hospital Options for the patient includes 1. Continue with diuretics and repeat a chest x-ray in the next 48 hours to see how the fluid looks like especially on the right side 2. VATS to get rid of the loculated fluid, I think this will still be the best approach. Can consider another hospital like [place] 3. Putting a pigtail catheter and doing MIST 2 protocol, keeping in mind she is high risk for pleural hemorrhage BiPAP nightly and as needed shortness of breath Case was discussed with primary team Patient daughter was called and made aware of the recommendations. They want to think about it and let us know by Tuesday Please note the above document was generated using voice recognition software. It may contain grammatical, syntax or spelling errors.Any formal questions or concerns about the content, text or information contained within the body of this dictation should be directly addressed to the provider for clarification. Admission and Anticipated Discharge Date Admission Date: March 29, 2024 Subjective Patient was seen and examined at bedside. No acute distress, no adverse events overnight She is still complaining of shortness of breath on minimal exertion. She was saturating 94% on 4 L nasal cannula, I went down to 3 L She is is coughing but not bringing up any phlegm Denies any nausea or vomiting Appetite is poor Has been afebrile Review of Systems 2 Review of Systems: All systems reviewed & are unremarkable except as noted in Subjective Physical Exam 2 Physical Exam: Constitutional: No acute distress HEENT: EOMI, PERRLA, hard to hear Respiratory system: Decreased air entry bilaterally, more decreased on the right, no wheeze, rhonchi, positive crackles bilaterally CVS: S1-S2 positive, no murmurs or gallops Abdomen: Soft, nontender, nondistended, positive bowel sounds x4 Extremities: +2 pulses bilaterally radialis/ dorsalis pedis, no cyanosis, positive pitting edema bilateral lower extremity Neuro: Awake alert oriented x3 Psych: Normal mood and affect G/U: Positive [place] Skin: no rashes, warm and dry Lymphatic: no cervical or axillary lymphadenopathy Results & Data Results & Data Vital Signs (Past 12 Hours) Vital Signs Temp Pulse Pulse Resp BP BP Pulse Ox 03/31/24 11:22 66 20 98 03/31/24 08:00 03/31/24 08:00 72 03/31/24 07:24 36.3 C L 70 22 133/77 97 03/31/24 06:53 74 20 98 03/31/24 02:57 72 32 H 97 03/31/24 02:35 36.9 C 78 24 133/64 95 03/31/24 00:00 73 O2 Del Method O2 Flow Rate 03/31/24 11:22 Nasal Cannula 6 03/31/24 08:00 Nasal Cannula 6 03/31/24 08:00 03/31/24 07:24 BiPAP 03/31/24 06:53 CPAP 03/31/24 02:57 4 03/31/24 02:35 BiPAP 03/31/24 00:00 Laboratory Results 03/30/24 05:56 03/31/24 08:25 PG Care Time/CCT Total # of Minutes Spent Total Time Spent with Patient: Total time spent is greater than 50% in coordination of care (as documented) at patient's floor/unit and/or counseling patient: Coding Level of Care Code 20038 SUB INP/OBS CARE 3/50MIN Diagnoses Acute on chronic diastolic (congestive) heart failure I50.33 Acute and chronic respiratory failure with hypoxia J96.21 Loculated pleural effusion J90 SOB (shortness of breath) R06.02 Complex sleep apnea syndrome G47.31
--- NOTE | 2024-03-31 13:08 | XRay Report ---
SINGLE VIEW CHEST CLINICAL HISTORY: Pleural effusions. FINDINGS: An AP, portable, upright chest radiograph is compared to study dated 03/29/2024 and correlat ed with chest CT dated 03/30/2024. The heart is enlarged noting atherosclerotic calcification of the t horacic aorta. There is pulmonary vascular congestion. There are right larger than left pleural effus ions with dependent consolidation. No pneumothorax is seen. The skeletal structures are osteopenic. T he bony thorax is grossly intact. Arthritic change is seen in the shoulders. Degenerative change and scoliosis is noted in the spine. An electronic device projects over the left lower chest. IMPRESSION: 1. Cardiomegaly with evidence of congestive failure. 2. Right larger than left pleural effusions with dependent consolidation. This is similar to yesterda y. Radiographic follow-up to resolution is recommended. ACT 112: Negative or not required by law. Electronically signed by: Venkat Cole M.D. 03/31/2024 1:07 PM
--- NOTE | 2024-03-31 14:44 | Hospitalist Progress Note ---
Date of Service March 31, 2024 Assessment & Plan (1) Acute and chronic respiratory failure with hypoxia: (2) Acute on chronic diastolic (congestive) heart failure: (3) Pleural effusion, bilateral: (4) Cough productive of purulent sputum: (5) Pulmonary hypertension: Plan 83-year-old woman with complex recent medical history admitted with acute on chronic hypoxic respiratory failure and acute on chronic diastolic heart failure. She was volume overloaded on exam and seems to have had some improvement with IV Lasix. Bilateral pleural effusions - loculated on right, and possibly pulmonary infection may also be playing a role. Acute on chronic hypoxic respiratory failure - hypoxia has improved a bit after significant diuresis. she certainly appears a lot more comfortable today. Chest x-ray 03/31 stable to improved with persistent pulmonary edema and right greater than left pleural effusions. I discussed plan of care with the patient and her daughter and Dr. Roa will continue diuresis this as well as IV antibiotics, reassess with chest x-ray or ultrasound Tuesday Bilateral pleural effusions - persistent loculated pleural effusion on R -consulted Dr. Coelho - POCUS showed loculated R effusion. Consulted with [facility] 03/31 and obtained noncontrast chest CT. See prog note 03/30. Interventional measurement advisor did not recommend transfer. Recommended continued diuresis. Thoracic surgeon said VATS would be last resort because of significant risk of interrupting her anticoagulation. Continued cough with production of thick purulent sputum - MRSA nares negative. three attempts at sputum culture = spit. Some pulmonary infiltrates present on chest CT - infectious vs atelectasis. Difficult to determine whether lung infection or not. -continue short course IV cefepime (end evening of 04/03). resume augmentin ppx once off cefepime. Acute on chronic diastolic heart failure, pulmonary hypertension -previously was BiV paced, current vpacing will make HF harder to manage -continue diuresis with bumex 2 mg IV bid, monitor weight and I/O. Has recent Echo. Replace hypokalemia - increased to 40 po bid, mag ok. Consulted cardiology - discussed with Dr. Barrios, started entresto Chest pain 711 AM, resolved - EKG vpaced. possibly was esophageal pain as was associated with vomiting. Mildly elevated HS-troponin with flat trend x 3. Consistent with mild demand ischemia, no evidence of ACS. 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 no further chest pain, suspicion for recurrent/worsening PE is relatively low. Apixaban currently held in case she needs thoracentesis or chest tube, continue treatment dose enoxaparin. -check C. 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 Loculated R effusion treated with chest tube and half-dose lytics on 02/21 at [facility]. Was +parainfluenza at the time. 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 Hx CAD, had angiogram recently at [facility] when pacer/ICD removed, daughter says nonobstructive CAD. I do not have cath report. Urinary retention since last discharge, seen recently at [facility] [place] and failed voiding trial - continue hampton catheter and urology follow up PE and bilateral UE DVT, SVC thrombosis with SVC syndrome - occurred at time of infected pacer removal. 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 Notices much less leg edema, resolution of facial swelling, reduction in abdominal swelling. cough is about the same. continues to have significant dyspnea on exertion Physical Exam 2 Physical Exam: PHYSICAL EXAMINATION Last 24h vital signs reviewed, see documentation in flowsheet General: appears much less short of breath at rest HEENT: MMM face/head no longer edematous Lungs: slightly increased respiratory effort. clear anteriorly, clear posteriorly without crackles or wheezing, lung sounds in bases improved, remains dull to percussion one quarter way up on left and one third way up on right Heart: Regular rate and rhythm, systolic murmur. EJ's remain plump Abdomen: Soft, nontender, nondistended. Abdomen is same as yesterday but much less distended than on admission. Bowel sounds present. Extremities: Warm, dry, well-perfused. minimal LLE calf edema, improved Neuro: Alert and oriented x 4, face symmetric, moves 4 extremities well Psych: Normal affect and behavior Results & Data Results & Data Vital Signs (Past 12 Hours) Vital Signs Temp Pulse Pulse Resp BP BP Pulse Ox 03/31/24 12:09 36.9 C 72 20 125/62 94 03/31/24 11:22 66 20 98 03/31/24 08:00 03/31/24 08:00 72 03/31/24 07:24 36.3 C L 70 22 133/77 97 03/31/24 06:53 74 20 98 03/31/24 02:57 72 32 H 97 03/31/24 02:35 36.9 C 78 24 133/64 95 O2 Del Method O2 Flow Rate 03/31/24 12:09 Nasal Cannula 4.0 03/31/24 11:22 Nasal Cannula 6 03/31/24 08:00 Nasal Cannula 6 03/31/24 08:00 03/31/24 07:24 BiPAP 03/31/24 06:53 CPAP 03/31/24 02:57 4 03/31/24 02:35 BiPAP Laboratory Results 03/30/24 05:56 03/31/24 08:25 PG Care Time/CCT Total # of Minutes Spent Total Time Spent with Patient: I personally spent: 50 minutes today on clinical care activities including: reviewing chart notes and vital signs reviewing labs reviewing studies discussion with safety and health consultant(s) examining and counseling the patient counseling the patient's family writing orders documentation Coding Level of Care Code 46002 SUB INP/OBS CARE 3/50MIN Diagnoses Acute and chronic respiratory failure with hypoxia J96.21 Acute on chronic diastolic (congestive) heart failure I50.33 Pleural effusion, bilateral J90 Cough productive of purulent sputum R05.8 Pulmonary hypertension I27.20
[2024-03-31] MEDS: POTASSIUM CHLORIDE CRTAB 20 MEQ TABCR PO SCH (16:26)
--- NOTE | 2024-03-31 16:33 | Communication Note ---
Date of Service: March 31, 2024 Breathing more labored and tachypneic this afternoon, feels wiped out and uncomfortable but no specific pain BP/hr are good. UOP 1400 after bumex this AM Placed on bipap On exam AOx4, tachypneic and labored, clear anteriorly, fine crackles posteriorly mid and lower lora (was clear this am). Not wheezing. Extremities are warm. Most likely having some acute pulmonary edema -bumex 2 mg IV and potassium 40 mg (which are due now) -continue bipap -check some stat labs - CBC BMP mag Tn and vbg -discussed with bedside RN
[2024-03-31 17:11] LABS: Base Excess VBG 8.3 mEq/L; HCO3 VBG 33 mmol/L; Oxygen Saturation VBG 60.8 %; PCO2 VBG 47 mmHg (38-50); PO2 VBG 34 mmHg; pH VBG 7.46 (7.36-7.41)
[2024-03-31 17:28] LABS: Hematocrit (blood only) 30.8 % (37.0-47.0); Hemoglobin 9.3 g/dl (12.0-16.0); Mean Corpuscular Hemoglobin 23.8 pg (25.0-34.0); Mean Corpuscular Hgb Conc 30.2 g/dL (32.0-36.0); Mean Corpuscular Volume 78.8 fL (80.0-100.0); Mean Platelet Volume 9.7 fL (9.4-12.4); Platelet Count 367 K/uL (130-400); RDW Coefficient of Variation 19.1 % (11.5-14.5); RDW Standard Deviation 54.1 fL (36.4-46.3); Red Blood Count 3.91 M/uL (4.20-5.40)
[2024-03-31 17:32] LABS: BUN Creatinine Ratio 17.9 (10-20); Calcium 8.5 mg/dl (8.6-10.3); Creatinine Clr Calc Pharmacy 36.1 ml/min; Est GFR (African American) 52.2 ml/min; Est GFR (Non-African American) 45.1 ml/min; Magnesium 1.8 mg/dl (1.7-2.4); Potassium 3.6 mmol/L (3.5-5.1)
[2024-03-31 17:40] LABS: Troponin I High Sensitivity 40.4 pg/ml (0-14)
[2024-03-31] MEDS: MAGNESIUM SULFATE / D5W 1 GM/100 ML BAG IV SCH (17:48)
[2024-04-01 05:41] LABS: Calcium 8.4 mg/dl (8.6-10.3); Creatinine Clr Calc Pharmacy 42.5 ml/min; Est GFR (African American) 63.7 ml/min; Magnesium 2.1 mg/dl (1.7-2.4); Potassium 3.5 mmol/L (3.5-5.1)
--- NOTE | 2024-04-01 08:40 | XRay Report ---
XR chest 1V portable HISTORY: Respiratory distress. COMPARISON: Chest 03/31/2024. FINDINGS: The heart is enlarged noting atherosclerotic calcification of the thoracic aorta. There is pulmonary vascular congestion. There are right larger than left pleural effusions with dependent cons olidation. No pneumothorax is seen. The skeletal structures are osteopenic. The bony thorax is grossl y intact. Arthritic change is seen in the shoulders. Degenerative change and scoliosis is noted in th e spine. An electronic device projects over the left lower chest. IMPRESSION: 1. Cardiomegaly with mild congestive change. This has improved. 2. Right larger than left pleural effusions with dependent consolidation. This is similar to yesterda y. Radiographic follow-up to resolution is recommended. ACT 112: Negative or not required by law. Electronically signed by: Jaxson Velasco M.D. 04/01/2024 8:38 AM
[2024-04-01] MEDS ORDERED: HEPARIN SOD (PORCINE) 1000 UNIT/ML IV ONE (09:17)
--- NOTE | 2024-04-01 09:24 | Hospitalist Progress Note ---
Date of Service April 01, 2024 Assessment & Plan (1) Acute and chronic respiratory failure with hypoxia: (2) Acute on chronic diastolic (congestive) heart failure: (3) Pleural effusion, bilateral: (4) Cough productive of purulent sputum: (5) Pulmonary hypertension: (6) Hematochezia: Plan 83-year-old woman with complex recent medical history admitted with acute on chronic hypoxic respiratory failure and acute on chronic diastolic heart failure. She was volume overloaded on exam and seems to have had some improvement with IV Lasix. Bilateral pleural effusions - loculated on right, and possibly pulmonary infection may also be playing a role. Acute on chronic hypoxic respiratory failure - hypoxia has improved a bit after significant diuresis. -continue diuresis with IV bumex and continue cefepime reassess tomorrow by CXR/POCUS Hematochezia - AM 04/01 had blood tinged diarrhea stool with maroon clots. Has history of C. diff and has been on po vancomycin prophylaxis. Appearance of bloody stool consistent with a colitis vs slow diverticular or other LGI source. Color not consistent with hemorrhoidal bleeding. Abdomen not painful or tender. -could be ischemic colitis or C. difficile colitis. Increase po vancomycin to treatment dose qid, contact iso, check stool C. diff assay -stop enoxaparin and start no-bolus heparin drip, check Xa INR H/H T&S and iron panel for microcytic anemia. Monitor stools and Hct -try to avoid stopping anticoagulation if at all possible, high risk due to SVC thrombosis -consult gastroenterology Bilateral pleural effusions - persistent loculated pleural effusion on R -consulted Dr. Coelho - POCUS showed loculated R effusion. Consulted with PS 03/31 and obtained noncontrast chest CT. See prog note 03/30. Interventional reporting consultant did not recommend transfer. Recommended continued diuresis. Thoracic surgeon said VATS would be last resort because of significant risk of interrupting her anticoagulation. Continued cough with production of thick purulent sputum - MRSA nares negative. three attempts at sputum culture = spit. Some pulmonary infiltrates present on chest CT - infectious vs atelectasis. Difficult to determine whether lung infection or not. -continue short course IV cefepime (end evening of 04/03). resume augmentin ppx once off cefepime. Acute on chronic diastolic heart failure, pulmonary hypertension -previously was BiV paced, current vpacing will make HF harder to manage -continue diuresis with bumex 2 mg IV bid, monitor weight and I/O. Has recent Echo. Replace hypokalemia - increased to 40 po bid, mag ok. Consulted cardiology - discussed with Dr. 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 no further chest pain, suspicion for recurrent/worsening PE is relatively low. Apixaban currently held in case she needs thoracentesis or chest tube and because of GI bleeding - currently heparin drip, see above Chest pain 03/29 AM, resolved - EKG vpaced. possibly was esophageal pain as was associated with vomiting. Mildly elevated HS-troponin with flat trend x 3. Consistent with mild demand ischemia, no evidence of ACS. 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 Loculated R effusion treated with chest tube and half-dose lytics on 02/21 at [facility]. Was +parainfluenza at the time. 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 Hx CAD, had angiogram recently at [facility] when pacer/ICD removed, daughter says nonobstructive CAD. I do not have cath report. Urinary retention since last discharge, seen recently at [facility] [place] and failed voiding trial - continue hampton catheter and urology follow up PE and bilateral UE DVT, SVC thrombosis with SVC syndrome - occurred at time of infected pacer removal. Has been on apixaban C. diff spring 2023, needs oral vancomycin ppx when on IV antibiotics and for at least 7 days after completing. Has been on at least ppx dose for about 2 months because of IV antibiotics was due to complete soon. Probiotic. 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 Did well overnight was on bipap. Had bloody diarrhea stool this am, large amount of brownish-reddish loose stool with maroon color/clots No abdominal pain Physical Exam 2 Physical Exam: PHYSICAL EXAMINATION Last 24h vital signs reviewed, see documentation in flowsheet General: appears much less short of breath at rest HEENT: MMM face/head no longer edematous Lungs: more comfortable respiratory effort. clear anteriorly, clear posteriorly except slight bibasilar crackles, no wheezing, diminished R>Lbase Heart: Regular rate and rhythm, systolic murmur. EJ's remain plump Abdomen: Soft, nontender, nondistended. Abdomen is mildly distended and nontender. hyperactive BT. maroon stool/clots in diaper, brown liquid stool in toilet with blood tinge Extremities: Warm, dry, well-perfused. no LE edema Neuro: Alert and oriented x 4, face symmetric, moves 4 extremities well Psych: Normal affect and behavior Results & Data Results & Data Vital Signs (Past 12 Hours) Vital Signs Temp Pulse Pulse Resp BP Pulse Ox O2 Del Method 04/01/24 07:39 36.2 C L 74 26 H 155/58 H 98 BiPAP 04/01/24 06:55 71 22 96 CPAP 04/01/24 02:58 36.7 C 74 24 116/69 98 CPAP 04/01/24 02:43 73 27 H 98 03/31/24 23:45 75 03/31/24 22:53 73 24 132/74 96 CPAP O2 Flow Rate 04/01/24 07:39 04/01/24 06:55 4 04/01/24 02:58 04/01/24 02:43 4 03/31/24 23:45 03/31/24 22:53 Laboratory Results 03/31/24 17:04 04/01/24 04:20 PG Care Time/CCT Total # of Minutes Spent Total Time Spent with Patient: Total time spent is greater than 50% in coordination of care (as documented) at patient's floor/unit and/or counseling patient: Coding Level of Care Code 07057 SUB INP/OBS CARE 3/50MIN Diagnoses Acute and chronic respiratory failure with hypoxia J96.21 Acute on chronic diastolic (congestive) heart failure I50.33 Pleural effusion, bilateral J90 Cough productive of purulent sputum R05.8 Pulmonary hypertension I27.20 Hematochezia K92.1
[2024-04-01 09:27] LABS: Ferritin 61.3 ng/ml (8-388)
[2024-04-01] MEDS ORDERED: HEPARIN SODIUM/DEXTROSE 25,000 UNITS/500 ML BAG IV SCH (09:30)
[2024-04-01 09:40] LABS: Hematocrit (blood only) 30.7 % (37.0-47.0); Hemoglobin 9.2 g/dl (12.0-16.0)
[2024-04-01 10:03] LABS: ANTI-Xa, LMWH(Low Molecular Wt 0.51 IU/ML (< 0.10)
--- NOTE | 2024-04-01 10:03 | Pulmonology Progress Note ---
Date of Service April 01, 2024 Assessment & Plan (1) Acute on chronic diastolic (congestive) heart failure: (2) Acute and chronic respiratory failure with hypoxia: (3) Loculated pleural effusion: (4) SOB (shortness of breath): (5) Complex sleep apnea syndrome: Plan CT chest 03/30/2024 personally reviewed: Loculated right-sided pleural effusion, small left-sided pleural effusion Interlobular thickening appreciated bilaterally Consolidative process versus atelectasis of the right lower lobe Minimal mediastinal and right hilar lymphadenopathy --Acute on chronic hypoxic respiratory failure Likely secondary to CHF with bilateral pleural effusion Latest EF 45% with chronic diastolic dysfunction BNP 512 Respiratory bio fire negative for everything, procalcitonin 0.09 Nasal MRSA negative --Loculated right-sided pleural effusion S/p right-sided chest tube with incomplete mist 2 protocol mid February 2024, as per the stainless steel finisher from [facility] she got dornase john only for a day Completed the course of antibiotic Patient had traumatic experience with the chest tube and would not like chest tube to be placed again. Case was discussed with IP at [facility] by primary team and they recommended no intervention. I still think the effusion is unlikely to resolve on its own especially the loculations which I saw on the bedside ultrasound Options for the patient includes 1. Continue with diuretics and repeat a chest x-ray in the next 48 hours to see how the fluid looks like especially on the right side 2. VATS to get rid of the loculated fluid. Can consider another hospital like [facility] 3. Putting a pigtail catheter and doing MIST 2 protocol, keeping in mind she is high risk for pleural hemorrhage --Pulmonary hypertension --> Resolved on latest echo 12/2023 Moderate, appreciated on echo 01/14/2023 This is new compared to the echo which was done in November 2022 Likely type II Spirometry 12/22/2022 personally reviewed: No obstructive lung dysfunction FVC 2.29 L 97%, FEV1 1.89 L or 88%, FEV1/FVC 82% CT chest 11/27/2022 personally reviewed: Dependent atelectasis bilateral lower lobes Motion degraded study Cardiomegaly Minimal but no significant mediastinal lymphadenopathy -- KHADRA On CPAP at home -- History of SVC clot Occured post pacemaker placement On eliquis at home -- Recent history of parapneumonic effusion Plan: In/out: -9.7 L since coming to the hospital Chest x-ray from today does not show any significant change compared to yesterday. Oxygen requirement has significantly improved. She is only on 2 L right now. Recommend out of the bed to chair Continue with diuretics. Will reassess the right-sided pleural effusion in the next 24-48 hours. BiPAP nightly and as needed shortness of breath Case was discussed with primary team Please note the above document was generated using voice recognition software. It may contain grammatical, syntax or spelling errors.Any formal questions or concerns about the content, text or information contained within the body of this dictation should be directly addressed to the provider for clarification. Admission and Anticipated Discharge Date Admission Date: March 29, 2024 Subjective Patient seen and examined at bedside. No acute distress, no adverse events overnight Patient daughter as well as son was in the room at the time of examination She was saturating 97% on 4 L, we had gone down to 2 L She says she is feeling better. Coughing up clear phlegm. Denies any hemoptysis Making good amount of urine Has been afebrile Review of Systems 2 Review of Systems: All systems reviewed & are unremarkable except as noted in Subjective Physical Exam 2 Physical Exam: Constitutional: No acute distress HEENT: EOMI, PERRLA, hard to hear Respiratory system: Decreased air entry bilaterally, more decreased on the right, no wheeze, rhonchi, positive crackles bilaterally CVS: S1-S2 positive, no murmurs or gallops Abdomen: Soft, nontender, nondistended, positive bowel sounds x4 Extremities: +2 pulses bilaterally radialis/ dorsalis pedis, no cyanosis, no edema Neuro: Awake alert oriented x3 Psych: Normal mood and affect G/U: Positive Mills Skin: no rashes, warm and dry Lymphatic: no cervical or axillary lymphadenopathy Results & Data Results & Data Vital Signs (Past 12 Hours) Vital Signs Temp Pulse Pulse Resp BP Pulse Ox O2 Del Method 04/01/24 07:39 36.2 C L 74 26 H 155/58 H 98 BiPAP 04/01/24 06:55 71 22 96 CPAP 04/01/24 02:58 36.7 C 74 24 116/69 98 CPAP 04/01/24 02:43 73 27 H 98 03/31/24 23:45 75 03/31/24 22:53 73 24 132/74 96 CPAP O2 Flow Rate 04/01/24 07:39 04/01/24 06:55 4 04/01/24 02:58 04/01/24 02:43 4 03/31/24 23:45 03/31/24 22:53 Laboratory Results 04/01/24 09:24 04/01/24 04:20 PG Care Time/CCT Total # of Minutes Spent Total Time Spent with Patient: Total time spent is greater than 50% in coordination of care (as documented) at patient's floor/unit and/or counseling patient: Coding Level of Care Code 37859 SUB INP/OBS CARE 2/35MIN Diagnoses Acute on chronic diastolic (congestive) heart failure I50.33 Acute and chronic respiratory failure with hypoxia J96.21 Loculated pleural effusion J90 SOB (shortness of breath) R06.02 Complex sleep apnea syndrome G47.31
[2024-04-01 10:06] LABS: INR 1.1 (0.9-1.1); Prothrombin Time 11.5 Seconds (9.0-12.0)
[2024-04-01] MEDS: HEPARIN SODIUM/DEXTROSE 25,000 UNITS/500 ML BAG IV SCH (10:54)
[2024-04-01] MEDS: PANTOprazole 40 MG TAB PO SCH (10:57)
[2024-04-01] MEDS: Heparin IV Adult Wt-Based Standard *NO* INITIAL Bolus Protocol IV STA (10:58)
--- NOTE | 2024-04-01 11:11 | Gastrointestinal Consultation ---
Date of Consultation April 01, 2024 Assessment & Plan (1) Hematochezia: Unclear etiology but fortunately hemodynamically insignificant at this point. Given the multiple and prolonged antibiotic courses she has had could be an antibiotic associated colitis vs other. Currently she has significant comorbid problems that are acute and severe. We discussed colonoscopy but given the fact that she is hemodynamically stable with stable Hgb and has other acute, more serious medical problems, I would advise just supportive care and transfuse as needed. As far as anticoagulation - if needed - there is only a relative contraindication from GI standpoint and clinical judgement will need to be employed by treating team. Also - patient is reluctant to undergo colonoscopy at this point. If she bleeds acutely, likely the best option would be CTA followed by mesenteric angiogram by IR although not certain that is available here and if not patient may need to be transferred to a facility that has these capabilities. (2) CHF (congestive heart failure): Per medicine Plan Treatment per medicine History of Present Illness Reason for Consultation: Hematochezia Requesting Physician: Randi Caceres Attending Physician: Randi Caceres MD History of Present Illness 83 yo WF admitted with respiratory distress. She has a complicated recent medical history including several admissions here and at other facilities for sepsis/septic shock with infected pacemaker wires. She has pulmonary effusions and CHF. She was noted to have some hematochezia and clots with BMs and consultation was requested. Allergies Allergy/AdvReac Type Severity Reaction Status Date / Time adhesive Allergy Intermediate "Adhesive Verified 03/29/24 11:07 tape" -- blisters sulfamethoxazole Allergy Intermediate MOUTH SORES Verified 03/29/24 11:07 trimethoprim Allergy Intermediate MOUTH SORES Verified 03/29/24 11:07 Home Medications Medication Instructions Recorded Confirmed Type multivitamin 1 tab PO QPM 11/27/22 03/29/24 History melatonin 10 mg tablet 10 mg PO HS Sleep 03/02/23 03/29/24 History apixaban 5 mg tablet (Eliquis) 5 mg PO BID #180 tabs 06/20/23 03/29/24 Rx Lactobacillus 40-Bifidobact 1 cap PO HS 01/02/24 03/29/24 History 3-S.thermophilus 100 billion cell capsule (Probiotic) ondansetron 8 mg disintegrating 8 mg PO Q8H PRN nausea and 01/26/24 03/29/24 Rx tablet vomiting #20 tabs aspirin 81 mg tablet,delayed 81 mg PO DAILY 02/21/24 03/29/24 History release atorvastatin 40 mg tablet 40 mg PO QAM 02/21/24 03/29/24 History calcium carbonate 1,000 mg PO TID 02/21/24 03/29/24 History pantoprazole 40 mg tablet,delayed 40 mg PO QAM #90 tabs 02/29/24 03/29/24 Rx release acetaminophen 500 mg tablet 1,000 mg PO QID PRN Back Pain 03/05/24 03/29/24 History (Acetaminophen Extra Strength) cholecalciferol (vitamin D3) 50 50 mcg PO DAILY 03/05/24 03/29/24 History mcg (2,000 unit) capsule guaifenesin 600 mg tablet, 600 mg PO BID 03/05/24 03/29/24 History extended release 12 hr metoprolol succinate 25 mg 25 mg PO DAILY 03/05/24 03/29/24 History tablet,extended release 24 hr albuterol sulfate 2.5 mg/3 mL 2.5 mg inhalation Q4H PRN 03/29/24 03/29/24 History (0.083 %) solution for nebulization SOB/WHEEZING albuterol sulfate 90 mcg/actuation 1 puff inhalation QID PRN 03/29/24 03/29/24 History aerosol inhaler SOB/WHEEZING bumetanide 2 mg tablet 2 mg PO QAM 03/29/24 03/29/24 History Patient History Medical History (Updated 04/01/24 @ 09:17 by Randi Caceres MD) Chest pain Infection of prosthetic joint Weakness Chest pain History of colon polyps Hearing deficit PURVIS (dyspnea on exertion) Osteoarthritis History of kidney stones History of endometrial cancer diagnosed 20yrs ago--sx History of deep vein thrombosis (DVT) of lower extremity was just torn muscle, not clot per pt Breast cancer ?? pt denies Third degree heart block Nonischemic cardiomyopathy Left bundle branch block Complete heart block (10/28/14) ICD/pacer Deep venous thrombosis of left upper extremity several yrs ago > post surgical Surgical History History of cataract surgery B/L done 06/2021 and 08/2021 [place] [facility] [place] made ASA3. Given 2mg versed. History of dilatation and curettage History of total right knee replacement (TKR) x2 History of colonoscopy with polypectomy S/P thyroid biopsy benign History of tooth extraction History of wisdom tooth extraction History of tonsillectomy History of cardiac cath no stents History of breast biopsy per pt benign History of total abdominal hysterectomy and bilateral salpingo-oophorectomy History of permanent cardiac pacemaker placement meditronic ICD placed by Dr. Webber at [facility] > last checked in Apr 2021 Family History Father Family hx of colon cancer Colorectal cancer Mother Family hx of colon cancer Colorectal cancer Aunt Family hx of colon cancer Other Family history non-contributory No family history of adverse response to anesthesia No significant family history Denies family history of Ovarian cancer Prostate cancer Myocardial infarction Breast cancer Social History Smoking Status: Never smoker Second Hand Exposure: No; Do You Dip or Chew Tobacco: No; Hx Alcohol Use: No Hx Substance Use: No Preferred Language: Turkish Communication Ability: Effective Communication Ability Comment: LOWER ELWHA Visual Impairment: No Limitations Hearing Ability: Use of Hearing Aid Barrel Waterer Required: No Beliefs That Will Affect Care: None marital status: Current Living Situation: Spouse and Family Current Living Situation Comment: Lives with , daughter, grandchild current occupational status: retired 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 Other Information That Helps Us Care for You: No Feels Safe at Home: Yes Safety Concerns: Feels Safe At This Time Childhood Exposure to Second-Hand Smoke: Yes Diet: regular Dental Care, Regularly: Yes Physical Activity Frequency: Does not Exercise Seatbelt Use: always Sunscreen Use: No Assistive Devices: CPAP Review of Systems Gastrointestinal: She had some self limited abdominal cramping after a BM Denies vomiting Physical Exam Constitutional: WD WN WF Afebrile VSS Eyes: Sclera anicteric Conjunctiva pale Respiratory: Clear but decreased BS at bases Cardiovascular: Distant but seems reg Gastrointestinal (Abdomen): NL BS, soft, nontender Musculoskeletal: Neg cyanosis Neurologic: A/O Results & Data Vital Signs (Past 12 Hours) Vital Signs Temp Pulse Pulse Resp BP Pulse Ox O2 Del Method 04/01/24 07:39 36.2 C L 74 26 H 155/58 H 98 BiPAP 04/01/24 06:55 71 22 96 CPAP 04/01/24 02:58 36.7 C 74 24 116/69 98 CPAP 04/01/24 02:43 73 27 H 98 03/31/24 23:45 75 O2 Flow Rate 04/01/24 07:39 04/01/24 06:55 4 04/01/24 02:58 04/01/24 02:43 4 03/31/24 23:45 PG Care Time/CCT Total # of Minutes Spent Total Time Spent with Patient: Total time spent is greater than 50% in coordination of care (as documented) at patient's floor/unit and/or counseling patient: Coding Level of Care Code 39635 IN/OBS CONSULT LVL 4,60M Diagnoses Hematochezia K92.1 CHF (congestive heart failure) I50.9 Heart failure chronicity: unspecified Heart failure type: unspecified (2) CHF (congestive heart failure) Heart failure chronicity: unspecified Heart failure type: unspecified Qualified Code(s): I50.9 - Heart failure, unspecified
[2024-04-01] MEDS: POTASSIUM CHLORIDE CRTAB 20 MEQ TABCR PO ONE (12:41)
[2024-04-01] MEDS ORDERED: CHERRY SYRUP 5 ML UDP PO SCH (13:00)
[2024-04-01] MEDS ORDERED: VANCOMYCIN HCL 125 MG/2.5ML SOLN PO SCH (13:00)
--- NOTE | 2024-04-01 15:49 | Communication Note ---
Date of Service: April 01, 2024 Checking back in, I spoke with Tasneem, her daughter and bedside Rn. Only a few small loose stools since this am and not very bloody. Tasneem feels like she's "had it" and doesn't want any aggressive interventions. They have been talking about home with hospice, and her daughter is supportive of this. She wants to keep her current treatments going right now and diurese off as much fluid as possible. She has been using bipap on/off this weekend, usually at home only needs HS CPAP.
[2024-04-01 17:13] LABS: ANTI-Xa, UFH(UnfractionatedHep 0.53 IU/ml (0.3-0.7)
[2024-04-01] MEDS: VANCOMYCIN HCL 125 MG/2.5ML SOLN PO SCH (20:22)
[2024-04-01] MEDS: CHERRY SYRUP 5 ML UDP PO SCH (20:22)
[2024-04-01] MEDS: Heparin IV Adult Wt-Based Standard w/ INITIAL Bolus Protocol IV STA (22:06)
[2024-04-02 06:12] LABS: Hematocrit (blood only) 29.3 % (37.0-47.0); Hemoglobin 8.8 g/dl (12.0-16.0); Mean Corpuscular Hemoglobin 23.5 pg (25.0-34.0); Mean Corpuscular Volume 78.1 fL (80.0-100.0); Mean Platelet Volume 9.6 fL (9.4-12.4); Platelet Count 348 K/uL (130-400); RDW Coefficient of Variation 18.2 % (11.5-14.5); RDW Standard Deviation 51.5 fL (36.4-46.3); Red Blood Count 3.75 M/uL (4.20-5.40); White Blood Count 4.96 K/ul (4.8-10.8)
[2024-04-02 06:36] LABS: BUN Creatinine Ratio 21.4 (10-20); Calcium 8.8 mg/dl (8.6-10.3); Creatinine Clr Calc Pharmacy 40.9 ml/min; Est GFR (African American) 61.4 ml/min; Magnesium 1.9 mg/dl (1.7-2.4); Potassium 4.3 mmol/L (3.5-5.1)
[2024-04-02 06:57] LABS: ANTI-Xa, UFH(UnfractionatedHep 0.28 IU/ml (0.3-0.7)
--- NOTE | 2024-04-02 09:31 | Pulmonology Progress Note ---
Date of Service April 02, 2024 Assessment & Plan (1) Loculated pleural effusion: Plan: Patient with loculated RIGHT-sided effusion with incomplete mist 2 protocol last month. She only got dornase. She a lot of discomfort with the initial chest tube placement and is not interested in having this performed again. Previous discussions were had by off going printed circuit board designer with community health facility for intervention including VATS. At that point, not felt to be necessary at that point. I did reiterate previously outlined options with the patient and daughter at great length including finishing current treatment plan, referral for VATS procedure, versus placement of pigtail catheter at this institution with trial of mist 2 protocol. At this point, patient and daughter are more comfortable with not undergoing any invasive interventions at this time. C ertainly this is understandable given her recent extensive hospital stay, lengthy recovery, and desire to not undergo any other invasive interventions. Certainly, this was all outlined and offered to the family. Despite this, they would rather undergo conservative treatment at this time and are leaning towards hospice care. They will confirm this with the primary service moving forward. (2) Acute on chronic diastolic (congestive) heart failure: Plan: Continue with diuresis as tolerated. (3) Acute and chronic respiratory failure with hypoxia: Plan: Likely secondary to above. Continue to titrate down supplemental oxygen as able. (4) SOB (shortness of breath): Plan: Secondary to above (5) Complex sleep apnea syndrome: Plan: Patient on CPAP at home. Apparently, she has been tolerating BiPAP well and has been improving her breathing with sleep. Certainly, this can be arranged at home. Plan Thank you for allowing us to participate in the care of this pleasant patient. Pulmonary medicine will sign off at this time. Please feel free to reach out to us directly if there is a change in patient's clinical status and/or she changes her further intervention/management. Admission and Anticipated Discharge Date Admission Date: March 29, 2024 Subjective Patient was seen and evaluated this morning. Her daughter was at bedside and provides some helpful insight as well. The patient reports that she is feeling okay, but does get short of breath with any exertion. She offers no complaints of pain. She complains of her Mills catheter and wishes for it to be discontinued. Otherwise, she is hopeful to be discharged home. Review of Systems Review of Systems: Unchanged from prior Physical Exam Physical Exam: VITAL SIGNS - Vital signs and nursing notes were reviewed. GENERAL - 83-year-old female appearing her stated age who is in no acute distress. Communicates well with provider and answers questions appropriately. NOSE - Midline and without cyanosis. MOUTH/OROPHARYNX - Without perioral cyanosis. NECK - Neck with FROM. LUNGS - Chest wall evaluation demonstrates normal chest wall A:P diameter. Auscultation reveals diminished breath sounds at the LEFT sided lung base. No wheezes. CARDIAC - RRR with S1/S2. No murmur, rubs, or gallops appreciated. EXTREMITIES - Nail clubbing not present. No peripheral cyanosis. No pretibial edema present. +3/5 radial palpated throughout. PSYCH - A&Ox3 and cooperates fully with examiner. Pt is very pleasant and interacts well with examiner. Results & Data Results & Data Vital Signs (Past 12 Hours) Vital Signs Temp Pulse Pulse Resp BP BP Pulse Ox 04/02/24 07:48 36.7 C 71 20 163/64 H 96 04/02/24 06:58 73 19 98 04/02/24 03:02 37.0 C 85 20 138/82 96 04/02/24 02:31 73 32 H 96 04/01/24 22:42 36.7 C 71 18 125/76 96 04/01/24 22:39 69 30 H 95 04/01/24 22:00 73 O2 Del Method O2 Flow Rate 04/02/24 07:48 CPAP 04/02/24 06:58 BiPAP 4 04/02/24 03:02 BiPAP 04/02/24 02:31 4 04/01/24 22:42 BiPAP 04/01/24 22:39 4 04/01/24 22:00 PG Care Time/CCT Total # of Minutes Spent Total Time Spent with Patient: Total time spent is greater than 50% in coordination of care (as documented) at patient's floor/unit and/or counseling patient: Coding Level of Care Code 35351 SUB INP/OBS CARE 2/35MIN Diagnoses Loculated pleural effusion J90 Acute on chronic diastolic (congestive) heart failure I50.33 Acute and chronic respiratory failure with hypoxia J96.21 SOB (shortness of breath) R06.02 Complex sleep apnea syndrome G47.31
--- NOTE | 2024-04-02 09:58 | Gastroenterology Progress Note ---
<Statement entered by Robles Jensen MD - 04/02/24 19:42> Patient is feeling improved and eating well. No further blood in stool. Hemodynamically stable and Hgb relatively stable. Continue supportive care. No plan for endoscopic studies at this point. IP GI Service will sign off. Date of Service April 02, 2024 Assessment & Plan (1) Hematochezia: Plan: Patient has not had any further hematochezia per nursing. hgb is relatively sta ble. Per communication note in chart from 04/01, patient considering home with hospice and does not want aggressive interventions. - continue to folllow hgb/hct. transfuse as needed. - continue with supportive care. Admission and Anticipated Discharge Date Admission Date: March 29, 2024 Subjective Patient sleeping this morning. she was difficult to awaken and was I was unable to get her to stay awake for discussion. I spoke with nursing, there has not been any further blood in the stools. no current GI issues of concern. 04/02/24 HGB 8.8 (previously was 9.2) Review of Systems Review of Systems: All systems reviewed & are unremarkable except as noted in HPI & below Physical Exam Constitutional: WD/WN, vitals as above Gastrointestinal (Abdomen): normal bowel sounds, soft, nontender, no organomegaly. Results & Data Results & Data Vital Signs (Past 12 Hours) Vital Signs Temp Pulse Pulse Resp BP BP Pulse Ox 04/02/24 07:48 98.1 F 71 20 163/64 H 96 04/02/24 06:58 73 19 98 04/02/24 03:02 98.6 F 85 20 138/82 96 04/02/24 02:31 73 32 H 96 04/01/24 22:42 98.1 F 71 18 125/76 96 04/01/24 22:39 69 30 H 95 04/01/24 22:00 73 O2 Del Method O2 Flow Rate 04/02/24 07:48 CPAP 04/02/24 06:58 BiPAP 4 04/02/24 03:02 BiPAP 04/02/24 02:31 4 04/01/24 22:42 BiPAP 04/01/24 22:39 4 04/01/24 22:00 Coding Level of Care Code 84497 SUB INP/OBS CARE Diagnoses Hematochezia K92.1
--- NOTE | 2024-04-02 12:36 | XRay Report ---
XR chest 1V portable CLINICAL HISTORY: hypoxia TECHNIQUE: Single frontal radiograph of the chest was obtained. Comparison: Comparison is made to chest radiograph 04/01/2024 FINDINGS: No lines and tubes are seen. Calcified aortic knob is seen. The lungs are clear. Small bilateral pleu ral effusions are seen. IMPRESSION: Small bilateral pleural effusions. ACT 112: Negative or not required by law. Electronically signed by: Yrn Rinaldi M.D. 04/02/2024 12:35 PM
[2024-04-02 16:03] LABS: ANTI-Xa, UFH(UnfractionatedHep 0.28 IU/ml (0.3-0.7)
--- NOTE | 2024-04-02 17:19 | Hospitalist Progress Note ---
Date of Service April 02, 2024 Assessment & Plan (1) Acute and chronic respiratory failure with hypoxia: (2) Acute on chronic diastolic (congestive) heart failure: (3) Pleural effusion, bilateral: (4) Cough productive of purulent sputum: (5) Pulmonary hypertension: (6) Hematochezia: Plan 83-year-old woman with complex recent medical history admitted with acute on chronic hypoxic respiratory failure and acute on chronic diastolic heart failure. She was volume overloaded on exam and has had improvement with diuresis IV bumex. Bilateral pleural effusions - loculated on right, and possibly pulmonary infection may also be playing a role. Acute on chronic hypoxic respiratory failure - hypoxia has after significant diuresis. -continue diuresis with IV bumex and continue cefepime -CXR today - reviewed film, I see improvement in pulmonary edema and the effusions are smaller -seems to benefit from the bipap (has cpap at home) -discussed with pulmonary Hematochezia - AM 04/01 had blood tinged diarrhea stool with maroon clots. Has history of C. diff and has been on po vancomycin prophylaxis. Appearance of bloody stool consistent with a colitis vs slow diverticular or other LGI source. Color not consistent with hemorrhoidal bleeding. Abdomen not painful or tender. -consulted gastroenterology -could be ischemic colitis or other source like diverticular. had colonoscopy a year ago. C. diff assay was negative. 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 Coelho - POCUS showed loculated R effusion. Consulted with PS 03/31 and obtained noncontrast chest CT. See prog note 03/30. Interventional weighing station operator did not recommend transfer. Recommended continued diuresis. Thoracic surgeon said VATS would be last resort because of significant risk of interrupting her anticoagulation. -currently she does not want any procedural interventions such as chest tube or VATS. she had a bad, very painful experience with her last chest tube. Continued cough with production of thick purulent sputum - MRSA nares negative. three attempts at sputum culture = spit. Some pulmonary infiltrates present on chest CT - infectious vs atelectasis. Difficult to determine whether lung infection or not. -continue short course IV cefepime (end evening of 04/03). resume augmentin ppx once off cefepime. Acute on chronic diastolic heart failure, pulmonary hypertension -previously was BiV paced, current vpacing will make HF harder to manage -continue diuresis with bumex 2 mg IV bid, monitor weight and I/O. Has recent Echo. Replaced hypokalemia. Seems to hide her edema in abdomen, ascites, pleural spaces and doesn't get a lot of peripheral edema. EJs are chronically distended because of SVC syndrome. Plan to continue diuresis until BUN/Cr increase -Consulted cardiology - discussed with Dr. 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 no further chest pain, suspicion for recurrent/worsening PE is relatively low. Apixaban currently held in case she needs thoracentesis or chest tube and because of GI bleeding - currently heparin drip, see above Chest pain 7/11 AM, resolved - EKG vpaced. possibly was esophageal pain as was associated with vomiting. Mildly elevated HS-troponin with flat trend x 3. Consistent with mild demand ischemia, no evidence of ACS. considering home with home health vs hospice. requested palliative care consultation - I spoke with Dr. Mccarty who will see her tomorrow. her daughter is supportive of whatever Tasneem wants to do she does not want any more procedures such as chest tube or VATS. Symptomatic management of dyspnea will be important. Obtaining bipap for home might be helpful - has CPAP and home O2 currently. 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 Loculated R effusion treated with chest tube and half-dose lytics on 02/21 at [facility]. Was +parainfluenza at the time. Effusions have recurred/persisted -met exudative criteria only by LDH, culture and cytology was negative Chronic hypoxic respiratory failure - recently discharged from [facility] on 3L home O2, had improved to needing only 1.5L a week and a half [employer] and was ambulating short distances [place] cardiomyopathy with chronic HFpEF - EF recently 45%. Hx CAD, had angiogram recently at [facility] when pacer/ICD removed, daughter says nonobstructive CAD. I do not have cath report. Urinary retention since last discharge, seen recently at [facility] [facility] and failed voiding trial - continue hampton catheter and urology follow up PE and bilateral UE DVT, SVC thrombosis with SVC syndrome - occurred at time of infected pacer removal. Has been on apixaban C. diff spring 2023, needs oral vancomycin ppx when on IV antibiotics and for at least 7 days after completing. Has been on at least ppx dose for about 2 months because of IV antibiotics was due to complete soon. Probiotic. 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 edema much improved as well, seems to have been holding fluid in abdomen was able to stand and walk with PT today which was a big improvement considering home with home health vs hospice. requested palliative care consultation. her daughter is supportive of whatever Tasneem wants to do she does not want any more procedures such as chest tube or VATS wants to continue current care to optimize - antibiotics, diuretics, then home in a few days seems to do well with the bipap (has cpap at home) no bloody stools overnight/this am Physical Exam 2 Physical Exam: PHYSICAL EXAMINATION Last 24h vital signs reviewed, see documentation in flowsheet General: looks much better, sitting EOB HEENT: MMM face/head no longer edematous Lungs: more comfortable respiratory effort. breath sounds clear posteriorly, diminished and DTP in bases R>L. no wheezing Heart: Regular rate and rhythm, systolic murmur. EJ's remain plump from SVC syndrome Abdomen: Soft, nontender, nondistended. Abdomen is no longer distended, and nontender. normal BT. maroon stool/clots in diaper, brown liquid stool in toilet with blood tinge Extremities: Warm, dry, well-perfused. no LE edema Neuro: Alert and oriented x 4, face symmetric, moves 4 extremities well Psych: Normal affect and behavior Results & Data Results & Data Vital Signs (Past 12 Hours) Vital Signs Temp Pulse Pulse Resp BP BP Pulse Ox 04/02/24 15:46 74 29 H 97 04/02/24 15:46 74 29 H 97 04/02/24 15:31 36.6 C 72 19 113/70 98 04/02/24 15:00 04/02/24 11:09 36.5 C 73 20 114/66 97 04/02/24 09:58 19 97 04/02/24 09:58 19 97 04/02/24 07:48 36.7 C 71 20 163/64 H 96 04/02/24 06:58 73 19 98 Pulse Ox O2 Del Method O2 Del Method O2 Flow Rate O2 Flow Rate 04/02/24 15:46 BiPAP 4 04/02/24 15:46 4.5 04/02/24 15:31 Nasal Cannula 4 04/02/24 15:00 97 CPAP 4 04/02/24 11:09 Nasal Cannula 4 04/02/24 09:58 BiPAP 4 04/02/24 09:58 04/02/24 07:48 CPAP 04/02/24 06:58 BiPAP 4 Laboratory Results 04/02/24 05:57 04/02/24 05:56 PG Care Time/CCT Total # of Minutes Spent Total Time Spent with Patient: Total time spent is greater than 50% in coordination of care (as documented) at patient's floor/unit and/or counseling patient: Coding Level of Care Code 96432 SUB INP/OBS CARE 2/35MIN Diagnoses Acute and chronic respiratory failure with hypoxia J96.21 Acute on chronic diastolic (congestive) heart failure I50.33 Pleural effusion, bilateral J90 Cough productive of purulent sputum R05.8 Pulmonary hypertension I27.20 Hematochezia K92.1
[2024-04-03] LABS: ANTI-Xa, UFH(UnfractionatedHep 0.39 IU/ml (0.3-0.7)
[2024-04-03 07:45] LABS: Hematocrit (blood only) 29.4 % (37.0-47.0); Hemoglobin 8.9 g/dl (12.0-16.0); Mean Corpuscular Hemoglobin 23.7 pg (25.0-34.0); Mean Corpuscular Hgb Conc 30.3 g/dL (32.0-36.0); Mean Corpuscular Volume 78.2 fL (80.0-100.0); Platelet Count 375 K/uL (130-400); RDW Coefficient of Variation 18.3 % (11.5-14.5); RDW Standard Deviation 51.8 fL (36.4-46.3); Red Blood Count 3.76 M/uL (4.20-5.40); White Blood Count 4.61 K/ul (4.8-10.8)
[2024-04-03 08:05] LABS: BUN Creatinine Ratio 20.4 (10-20); Calcium 9.1 mg/dl (8.6-10.3); Creatinine Clr Calc Pharmacy 42.9 ml/min; Est GFR (African American) 65.4 ml/min; Est GFR (Non-African American) 56.4 ml/min; Magnesium 1.8 mg/dl (1.7-2.4)
[2024-04-03 08:12] LABS: ANTI-Xa, UFH(UnfractionatedHep 0.35 IU/ml (0.3-0.7)
--- NOTE | 2024-04-03 15:30 | Palliative Care Consultation ---
Date of Consultation April 03, 2024 Assessment & Plan (1) Dyspnea and respiratory abnormalities: (2) Weakness generalized: (3) Cough: (4) Advanced care planning/counseling discussion: 45-minute [id number] advance care planning discussion was held with the bedside with patient and her daughter Mariela. She expresses a desire not to pursue any further aggressive or invasive care. She does not want any escalation, does not wish to be placed on life support, and does not wish to pursue any further investigation into her pulmonary issues. She is not interested in thoracic surgery, biopsies or further specialty evaluation at outside centers. 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 She was offered transfer to [facility] for decortication of the right-sided loculated effusions which she has declined. She is no longer desiring an aggressive or invasive plan of care. She wishes to transition her focus to be more about comfort, pleasure and quality time with her family. To this end, they are inquiring about hospice which we discussed at length. Her daughter lives with her now and is her primary caregiver along with her and son. She has additional support from her 2 sons, their partners and their adult children. She feels that she has adequate support to be at home safely. It is noted that her has advancing dementia and is likely stage VIIc. He was previously placed on hospice about a year ago but then his condition significantly improved with the care from hospice so much so that they revoked him from hospice and he now remains at home with a caregiver. He continues to have issues with wandering, falls, incontinence and behavioral changes. They work closely with their PCP to help manage his issues. She feels that it is important to have this time at home with her as well as her family. She is looking forward to spending time with them and building additional memories. She has no regrets and feels she has had a full and rewarding life. She asked about keeping follow-up appointments and we discussed that once enrolled in hospice, these appointments are not necessary to keep unless she w ishes to. She also asked about being able to follow-up in outpatient palliative medicine clinic and contact information was provided. Advised patient she is free to schedule appointment to see me if and when she wants as well, I encouraged her and her family to call with any additional questions or concerns that may arise even when she is enrolled in hospice. (5) Encounter for hospice care discussion: I provided education about the hospice benefit: an interdisciplinary program offered by nurses, nurses aides, social workers, chaplains and a medical staff services manager for patients with a terminal condition and a life expectancy of less than 6 months. This is covered by Medicare at 100%/no out of pocket expense to patient and all meds/supplies needed by patient for the reason they are on hospice are paid for/covered by hospice. The goal is assure quality of life of the patient in their home setting (home, senior living, inpatient hospice setting) by providing symptoms management, psychosocial and spiritual support. However, they cannot offer 24 hours care and if the family is unable to provide that care, they will have to consider personal care with out of pocket cost vs. senior living placement. We discussed the goals of hospice as a patient service and the goals of care; we discussed EOL trajectories and transitions carmen the emotional impact of realizing mortality as a concrete reality from prior abstract considerations. Pt was reassured that no matter where they are along this trajectory, they are not alone - their medical team will remain by their side through their journey. Discussed the pros/cons of accepting help when especially weakened and distressed by pain-which would also help provide relief/decrease caregiver burden/strain. (6) Palliative care by specialist: Discussed Palliative Medicine provides specialized medical care for patients with a serious illness. We offer a focus on quality of life through reduction of symptom burden/more control over their illness, for patients and their family. Palliative Medicine interventions can be given along with curative treatment. I specifically clarified we are not hospice, which is a visiting nurse service that focuses on care delivered at the very end of life. Plan As above Thank you for allowing us to participate in the ongoing care of this patient. Please page with any additional concerns. Romario Mccarty DNP Director, Palliative Medicine History of Present Illness Reason for Consultation: [facility] hospice Attending Physician: Philippe Franklin MD History of Present Illness Son who was admitted 03/29/2024 after experiencing worsening dyspnea at home for several days. She has a medical history significant for mitral valve insufficiency, CHF class II-III, aortic regurgitation, pulmonary hypertension, ICD with recurrent infection/removal/reimplantation of hardware as well as a recurring pleural effusion that has been drained previously at [facility]. She is chronically on oxygen and uses a CPAP or BiPAP at night. She denies nausea vomiting or diarrhea. She has incomplete bladder emptying by r eport. She is seen at the bedside together with her daughter Mariela who is an EMT and pursuing a nursing degree. Allergies Allergy/AdvReac Type Severity Reaction Status Date / Time adhesive Allergy Intermediate "Adhesive Verified 03/29/24 11:07 tape" -- blisters sulfamethoxazole Allergy Intermediate MOUTH SORES Verified 03/29/24 11:07 trimethoprim Allergy Intermediate MOUTH SORES Verified 03/29/24 11:07 Home Medications Medication Instructions Recorded Confirmed Type multivitamin 1 tab PO QPM 11/27/22 03/29/24 History melatonin 10 mg tablet 10 mg PO HS Sleep 03/02/23 03/29/24 History apixaban 5 mg tablet (Eliquis) 5 mg PO BID #180 tabs 06/20/23 03/29/24 Rx Lactobacillus 40-Bifidobact 1 cap PO HS 01/02/24 03/29/24 History 3-S.thermophilus 100 billion cell capsule (Probiotic) ondansetron 8 mg disintegrating 8 mg PO Q8H PRN nausea and 01/26/24 03/29/24 Rx tablet vomiting #20 tabs aspirin 81 mg tablet,delayed 81 mg PO DAILY 02/21/24 03/29/24 History release atorvastatin 40 mg tablet 40 mg PO QAM 02/21/24 03/29/24 History calcium carbonate 1,000 mg PO TID 02/21/24 03/29/24 History pantoprazole 40 mg tablet,delayed 40 mg PO QAM #90 tabs 02/29/24 03/29/24 Rx release acetaminophen 500 mg tablet 1,000 mg PO QID PRN Back Pain 03/05/24 03/29/24 History (Acetaminophen Extra Strength) cholecalciferol (vitamin D3) 50 50 mcg PO DAILY 03/05/24 03/29/24 History mcg (2,000 unit) capsule guaifenesin 600 mg tablet, 600 mg PO BID 03/05/24 03/29/24 History extended release 12 hr metoprolol succinate 25 mg 25 mg PO DAILY 03/05/24 03/29/24 History tablet,extended release 24 hr albuterol sulfate 2.5 mg/3 mL 2.5 mg inhalation Q4H PRN 03/29/24 03/29/24 History (0.083 %) solution for nebulization SOB/WHEEZING albuterol sulfate 90 mcg/actuation 1 puff inhalation QID PRN 03/29/24 03/29/24 History aerosol inhaler SOB/WHEEZING bumetanide 2 mg tablet 2 mg PO QAM 03/29/24 03/29/24 History Patient History Medical History Chest pain Infection of prosthetic joint Weakness Chest pain History of colon polyps Hearing deficit PURVIS (dyspnea on exertion) Osteoarthritis History of kidney stones History of endometrial cancer diagnosed 20yrs ago--sx History of deep vein thrombosis (DVT) of lower extremity was just torn muscle, not clot per pt Breast cancer ?? pt denies Third degree heart block Nonischemic cardiomyopathy Left bundle branch block Complete heart block (10/28/14) ICD/pacer Deep venous thrombosis of left upper extremity several yrs ago > post surgical Surgical History History of cataract surgery B/L done 06/2021 and 08/2021 History of right cataract [place] [facility] ASA3. Given 2mg versed. History of dilatation and curettage History of total right knee replacement (TKR) x2 History of colonoscopy with polypectomy S/P thyroid biopsy benign History of tooth extraction History of wisdom tooth extraction History of tonsillectomy History of cardiac cath no stents History of breast biopsy per pt benign History of total abdominal hysterectomy and bilateral salpingo-oophorectomy History of permanent cardiac pacemaker placement meditronic ICD placed by Dr. Webber at [facility] > last checked in Apr 2021 Family History Father Family hx of colon cancer Colorectal cancer Mother Family hx of colon cancer Colorectal cancer Aunt Family hx of colon cancer Other Family history non-contributory No family history of adverse response to anesthesia No significant family history Denies family history of Ovarian cancer Prostate cancer Myocardial infarction Breast cancer Social History Smoking Status: Never smoker Second Hand Exposure: No; Do You Dip or Chew Tobacco: No; Hx Alcohol Use: No Hx Substance Use: No Preferred Language: Wallisian Communication Ability: Effective Communication Ability Comment: [place] Visual Impairment: No Limitations Hearing Ability: Use of Hearing Aid Geologic Technician Required: No Beliefs That Will Affect Care: None marital status: Current Living Situation: Spouse and Family Current Living Situation Comment: Lives with , daughter, grandchild current occupational status: retired 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 Other Information That Helps Us Care for You: No Feels Safe at Home: Yes Safety Concerns: Feels Safe At This Time Childhood Exposure to Second-Hand Smoke: Yes Diet: regular Dental Care, Regularly: Yes Physical Activity Frequency: Does not Exercise Seatbelt Use: always Sunscreen Use: No Assistive Devices: CPAP Review of Systems Review of Systems: All systems reviewed & are unremarkable except as noted in Subjective Physical Exam Physical Exam: Awake alert and oriented x 3 [place]+, right worse than left Sitting at the edge of the bed, mild bitemporal wasting noted PERRLA, EOMI's Pharynx pink, no obvious thrush, dentition intact. Neck supple, no gross JVD No stridor Respiratory effort increased with prolonged conversation, use of accessory muscles noted RRR Abdomen no tenderness Generalized weakness, trace edema BLE Pleasant and cooperative. Results & Data Vital Signs (Past 12 Hours) Vital Signs Temp Pulse Pulse Resp BP Pulse Ox O2 Del Method 04/03/24 15:04 36.3 C L 73 22 160/92 H 100 Nebulizer 04/03/24 15:01 74 18 98 Nasal Cannula 04/03/24 14:51 71 04/03/24 10:50 76 16 97 Nasal Cannula 04/03/24 10:23 36.7 C 72 20 117/70 100 Nasal Cannula 04/03/24 07:32 64 20 143/80 H 97 Nebulizer 04/03/24 07:19 76 18 94 Nasal Cannula 04/03/24 03:20 67 27 H 97 04/03/24 03:19 36.4 C L 71 16 118/77 96 BiPAP O2 Flow Rate 04/03/24 15:04 04/03/24 15:01 3 04/03/24 14:51 04/03/24 10:50 4 04/03/24 10:23 4 04/03/24 07:32 04/03/24 07:19 4 04/03/24 03:20 4 04/03/24 03:19 Laboratory Results 04/03/24 04/02/24 04/02/24 Range/Units 06:58 22:47 14:25 WBC 4.61 L (4.8-10.8) K/ul RBC 3.76 L (4.20-5.40) M/uL Hgb 8.9 L (12.0-16.0) g/dl Hct 29.4 L (37.0-47.0) % MCV 78.2 L (80.0-100.0) fL MCH 23.7 L (25.0-34.0) pg MCHC 30.3 L (32.0-36.0) g/dL RDW Std Deviation 51.8 H (36.4-46.3) fL RDW Coeff of Blaise 18.3 H (11.5-14.5) % Plt Count 375 (130-400) K/uL MPV 10.0 (9.4-12.4) fL Immature Gran % (Auto) % Neut % (Auto) % Lymph % (Auto) % [place] % (Auto) % Eos % (Auto) % Baso % (Auto) % Neut # (Auto) (1.40-6.50) K/uL Lymph # (Auto) (1.20-3.40) K/uL [place] # (Auto) (0.11-0.59) K/uL Eos # (Auto) (0.00-0.50) K/uL Baso # (Auto) (0.00-0.20) K/uL Immature Gran # (Auto) (0.01-0.20) K/uL PT (9.0-12.0) Seconds INR (0.9-1.1) Heparin Anti-Xa, LM Wt (< 0.10) IU/ML Heparin Anti-Xa, Unfract 0.35 0.39 0.28 L (0.3-0.7) IU/ml VBG pH (7.36-7.41) VBG pCO2 (38-50) mmHg VBG pO2 mmHg VBG HCO3 mmol/L VBG O2 Saturation % VBG Base Excess mEq/L Sodium 136 (136-145) mmol/L Potassium 4.0 Chloride 98 (98-107) mmol/L Carbon Dioxide 32 (21-32) mmol/L Anion Gap 6 (3-11) BUN 19 (6-23) mg/dl Creatinine 0.93 (0.6-1.2) mg/dl Est Cr Clr Drug Dosing 42.9 ml/min Est GFR ( Amer) 65.4 ml/min Est GFR (Non-Af Amer) 56.4 ml/min BUN/Creatinine Ratio 20.4 H (10-20) Glucose 106 H (70-99(Fasting)) mg/dl Calcium 9.1 (8.6-10.3) mg/dl Magnesium 1.8 (1.7-2.4) mg/dl Iron (35-150) mcg/dl Transferrin (200-360) mg/dl Ferritin (8-388) ng/ml Total Bilirubin (0.2-1.0) mg/dl AST ALT (7-52) U/L Alkaline Phosphatase (34-104) U/L Troponin I High Sens (0-14) pg/ml B-Natriuretic Peptide (0-100) pg/ml Total Protein (6.0-8.3) gm/dl Albumin (3.4-5.0) gm/dl Globulin (2.5-4.0) gm/dl Albumin/Globulin Ratio (0.9-2) Lipase (11-82) U/L Procalcitonin (0-0.5) ng/ml Nasal Screen MRSA (PCR) (Negative) Stl C. diff Tox B Gene (Neg) Blood Type Antibody Screen 04/02/24 04/02/24 04/01/24 Range/Units 05:57 05:56 16:32 WBC 4.96 (4.8-10.8) K/ul RBC 3.75 L (4.20-5.40) M/uL Hgb 8.8 L (12.0-16.0) g/dl Hct 29.3 L (37.0-47.0) % MCV 78.1 L (80.0-100.0) fL MCH 23.5 L (25.0-34.0) pg MCHC 30.0 L (32.0-36.0) g/dL RDW Std Deviation 51.5 H (36.4-46.3) fL RDW Coeff of Blaise 18.2 H (11.5-14.5) % Plt Count 348 (130-400) K/uL MPV 9.6 (9.4-12.4) fL Immature Gran % (Auto) % Neut % (Auto) % Lymph % (Auto) % [place] % (Auto) % Eos % (Auto) % Baso % (Auto) % Neut # (Auto) (1.40-6.50) K/uL Lymph # (Auto) (1.20-3.40) K/uL [place] # (Auto) (0.11-0.59) K/uL Eos # (Auto) (0.00-0.50) K/uL Baso # (Auto) (0.00-0.20) K/uL Immature Gran # (Auto) (0.01-0.20) K/uL PT (9.0-12.0) Seconds INR (0.9-1.1) Heparin Anti-Xa, LM Wt (< 0.10) IU/ML Heparin Anti-Xa, Unfract 0.28 L 0.53 (0.3-0.7) IU/ml VBG pH (7.36-7.41) VBG pCO2 (38-50) mmHg VBG pO2 mmHg VBG HCO3 mmol/L VBG O2 Saturation % VBG Base Excess mEq/L Sodium 137 (136-145) mmol/L Potassium 4.3 D Chloride 101 (98-107) mmol/L Carbon Dioxide 31 (21-32) mmol/L Anion Gap 5 (3-11) BUN 21 (6-23) mg/dl Creatinine 0.98 (0.6-1.2) mg/dl Est Cr Clr Drug Dosing 40.9 ml/min Est GFR ( Amer) 61.4 ml/min Est GFR (Non-Af Amer) 53.0 ml/min BUN/Creatinine Ratio 21.4 H (10-20) Glucose 113 H (70-99(Fasting)) mg/dl Calcium 8.8 (8.6-10.3) mg/dl Magnesium 1.9 (1.7-2.4) mg/dl Iron (35-150) mcg/dl Transferrin (200-360) mg/dl Ferritin (8-388) ng/ml Total Bilirubin (0.2-1.0) mg/dl AST ALT (7-52) U/L Alkaline Phosphatase (34-104) U/L Troponin I High Sens (0-14) pg/ml B-Natriuretic Peptide (0-100) pg/ml Total Protein (6.0-8.3) gm/dl Albumin (3.4-5.0) gm/dl Globulin (2.5-4.0) gm/dl Albumin/Globulin Ratio (0.9-2) Lipase (11-82) U/L Procalcitonin (0-0.5) ng/ml Nasal Screen MRSA (PCR) (Negative) Stl C. diff Tox B Gene (Neg) Blood Type Antibody Screen 04/01/24 04/01/24 04/01/24 Range/Units 09:24 09:00 04:20 WBC (4.8-10.8) K/ul RBC (4.20-5.40) M/uL Hgb 9.2 L (12.0-16.0) g/dl Hct 30.7 L (37.0-47.0) % MCV (80.0-100.0) fL MCH (25.0-34.0) pg MCHC (32.0-36.0) g/dL RDW Std Deviation (36.4-46.3) fL RDW Coeff of Blaise (11.5-14.5) % Plt Count (130-400) K/uL MPV (9.4-12.4) fL Immature Gran % (Auto) % Neut % (Auto) % Lymph % (Auto) % [place] % (Auto) % Eos % (Auto) % Baso % (Auto) % Neut # (Auto) (1.40-6.50) K/uL Lymph # (Auto) (1.20-3.40) K/uL [place] # (Auto) (0.11-0.59) K/uL Eos # (Auto) (0.00-0.50) K/uL Baso # (Auto) (0.00-0.20) K/uL Immature Gran # (Auto) (0.01-0.20) K/uL PT 11.5 (9.0-12.0) Seconds INR 1.1 (0.9-1.1) Heparin Anti-Xa, LM Wt 0.51 (< 0.10) IU/ML Heparin Anti-Xa, Unfract (0.3-0.7) IU/ml VBG pH (7.36-7.41) VBG pCO2 (38-50) mmHg VBG pO2 mmHg VBG HCO3 mmol/L VBG O2 Saturation % VBG Base Excess mEq/L Sodium 138 (136-145) mmol/L Potassium 3.5 Chloride 100 (98-107) mmol/L Carbon Dioxide 31 (21-32) mmol/L Anion Gap 7 (3-11) BUN 19 (6-23) mg/dl Creatinine 0.95 (0.6-1.2) mg/dl Est Cr Clr Drug Dosing 42.5 ml/min Est GFR ( Amer) 63.7 ml/min Est GFR (Non-Af Amer) 55.0 ml/min BUN/Creatinine Ratio 20.0 (10-20) Glucose 102 H (70-99(Fasting)) mg/dl Calcium 8.4 L (8.6-10.3) mg/dl Magnesium 2.1 (1.7-2.4) mg/dl Iron 16 L (35-150) mcg/dl Transferrin 240 (200-360) mg/dl Ferritin 61.3 (8-388) ng/ml Total Bilirubin (0.2-1.0) mg/dl AST ALT (7-52) U/L Alkaline Phosphatase (34-104) U/L Troponin I High Sens (0-14) pg/ml B-Natriuretic Peptide (0-100) pg/ml Total Protein (6.0-8.3) gm/dl Albumin (3.4-5.0) gm/dl Globulin (2.5-4.0) gm/dl Albumin/Globulin Ratio (0.9-2) Lipase (11-82) U/L Procalcitonin (0-0.5) ng/ml Nasal Screen MRSA (PCR) (Negative) Stl C. diff Tox B Gene Negative Cdiff Gene (Neg) Blood Type O Positive Antibody Screen NEGATIVE 03/31/24 03/31/24 03/30/24 Range/Units 17:04 08:25 13:00 WBC 6.10 (4.8-10.8) K/ul RBC 3.91 L (4.20-5.40) M/uL Hgb 9.3 L (12.0-16.0) g/dl Hct 30.8 L (37.0-47.0) % MCV 78.8 L (80.0-100.0) fL MCH 23.8 L (25.0-34.0) pg MCHC 30.2 L (32.0-36.0) g/dL RDW Std Deviation 54.1 H (36.4-46.3) fL RDW Coeff of Blaise 19.1 H (11.5-14.5) % Plt Count 367 (130-400) K/uL MPV 9.7 (9.4-12.4) fL Immature Gran % (Auto) % Neut % (Auto) % Lymph % (Auto) % [place] % (Auto) % Eos % (Auto) % Baso % (Auto) % Neut # (Auto) (1.40-6.50) K/uL Lymph # (Auto) (1.20-3.40) K/uL [place] # (Auto) (0.11-0.59) K/uL Eos # (Auto) (0.00-0.50) K/uL Baso # (Auto) (0.00-0.20) K/uL Immature Gran # (Auto) (0.01-0.20) K/uL PT (9.0-12.0) Seconds INR (0.9-1.1) Heparin Anti-Xa, LM Wt (< 0.10) IU/ML Heparin Anti-Xa, Unfract (0.3-0.7) IU/ml VBG pH 7.46 H (7.36-7.41) VBG pCO2 47 (38-50) mmHg VBG pO2 34 mmHg VBG HCO3 33 mmol/L VBG O2 Saturation 60.8 % VBG Base Excess 8.3 mEq/L Sodium 138 138 (136-145) mmol/L Potassium 3.6 3.2 L Chloride 100 101 (98-107) mmol/L Carbon Dioxide 31 31 (21-32) mmol/L Anion Gap 7 6 (3-11) BUN 20 17 (6-23) mg/dl Creatinine 1.12 0.98 (0.6-1.2) mg/dl Est Cr Clr Drug Dosing 36.1 41.2 ml/min Est GFR ( Amer) 52.2 61.4 ml/min Est GFR (Non-Af Amer) 45.1 53.0 ml/min BUN/Creatinine Ratio 17.9 17.3 (10-20) Glucose 109 H 109 H (70-99(Fasting)) mg/dl Calcium 8.5 L 8.5 L (8.6-10.3) mg/dl Magnesium 1.8 2.0 (1.7-2.4) mg/dl Iron (35-150) mcg/dl Transferrin (200-360) mg/dl Ferritin (8-388) ng/ml Total Bilirubin (0.2-1.0) mg/dl AST ALT (7-52) U/L Alkaline Phosphatase (34-104) U/L Troponin I High Sens 40.4 H D (0-14) pg/ml B-Natriuretic Peptide (0-100) pg/ml Total Protein (6.0-8.3) gm/dl Albumin (3.4-5.0) gm/dl Globulin (2.5-4.0) gm/dl Albumin/Globulin Ratio (0.9-2) Lipase (11-82) U/L Procalcitonin (0-0.5) ng/ml Nasal Screen MRSA (PCR) Negative (Negative) Stl C. diff Tox B Gene (Neg) Blood Type Antibody Screen 03/30/24 03/29/24 03/29/24 Range/Units 05:56 15:11 08:40 WBC 5.84 (4.8-10.8) K/ul RBC 3.70 L (4.20-5.40) M/uL Hgb 8.9 L (12.0-16.0) g/dl Hct 28.8 L (37.0-47.0) % MCV 77.8 L (80.0-100.0) fL MCH 24.1 L (25.0-34.0) pg MCHC 30.9 L (32.0-36.0) g/dL RDW Std Deviation 52.8 H (36.4-46.3) fL RDW Coeff of Blaise 19.0 H (11.5-14.5) % Plt Count 336 (130-400) K/uL MPV 9.8 (9.4-12.4) fL Immature Gran % (Auto) % Neut % (Auto) % Lymph % (Auto) % [place] % (Auto) % Eos % (Auto) % Baso % (Auto) % Neut # (Auto) (1.40-6.50) K/uL Lymph # (Auto) (1.20-3.40) K/uL [place] # (Auto) (0.11-0.59) K/uL Eos # (Auto) (0.00-0.50) K/uL Baso # (Auto) (0.00-0.20) K/uL Immature Gran # (Auto) (0.01-0.20) K/uL PT (9.0-12.0) Seconds INR (0.9-1.1) Heparin Anti-Xa, LM Wt (< 0.10) IU/ML Heparin Anti-Xa, Unfract (0.3-0.7) IU/ml VBG pH (7.36-7.41) VBG pCO2 (38-50) mmHg VBG pO2 mmHg VBG HCO3 mmol/L VBG O2 Saturation % VBG Base Excess mEq/L Sodium 139 (136-145) mmol/L Potassium 3.2 L 3.7 Chloride 102 (98-107) mmol/L Carbon Dioxide 29 (21-32) mmol/L Anion Gap 8 (3-11) BUN 16 (6-23) mg/dl Creatinine 0.93 (0.6-1.2) mg/dl Est Cr Clr Drug Dosing 44.0 ml/min Est GFR ( Amer) 65.4 ml/min Est GFR (Non-Af Amer) 56.4 ml/min BUN/Creatinine Ratio 17.2 (10-20) Glucose 104 H (70-99(Fasting)) mg/dl Calcium 8.3 L (8.6-10.3) mg/dl Magnesium 1.9 (1.7-2.4) mg/dl Iron (35-150) mcg/dl Transferrin (200-360) mg/dl Ferritin (8-388) ng/ml Total Bilirubin (0.2-1.0) mg/dl AST 25 ALT (7-52) U/L Alkaline Phosphatase (34-104) U/L Troponin I High Sens 26.2 H 25.7 H (0-14) pg/ml B-Natriuretic Peptide (0-100) pg/ml Total Protein (6.0-8.3) gm/dl Albumin (3.4-5.0) gm/dl Globulin (2.5-4.0) gm/dl Albumin/Globulin Ratio (0.9-2) Lipase (11-82) U/L Procalcitonin 0.09 0.08 (0-0.5) ng/ml Nasal Screen MRSA (PCR) (Negative) Stl C. diff Tox B Gene (Neg) Blood Type Antibody Screen 03/29/24 Range/Units 07:56 WBC 5.50 (4.8-10.8) K/ul RBC 3.68 L (4.20-5.40) M/uL Hgb 8.8 L (12.0-16.0) g/dl Hct 28.9 L (37.0-47.0) % MCV 78.5 L (80.0-100.0) fL MCH 23.9 L (25.0-34.0) pg MCHC 30.4 L (32.0-36.0) g/dL RDW Std Deviation 53.6 H (36.4-46.3) fL RDW Coeff of Blaise 18.8 H (11.5-14.5) % Plt Count 357 (130-400) K/uL MPV 10.1 (9.4-12.4) fL Immature Gran % (Auto) 0.2 % Neut % (Auto) 70.2 % Lymph % (Auto) 16.5 % [place] % (Auto) 10.7 % Eos % (Auto) 1.3 % Baso % (Auto) 1.1 % Neut # (Auto) 3.86 (1.40-6.50) K/uL Lymph # (Auto) 0.91 L (1.20-3.40) K/uL [place] # (Auto) 0.59 (0.11-0.59) K/uL Eos # (Auto) 0.07 (0.00-0.50) K/uL Baso # (Auto) 0.06 (0.00-0.20) K/uL Immature Gran # (Auto) 0.01 (0.01-0.20) K/uL PT (9.0-12.0) Seconds INR (0.9-1.1) Heparin Anti-Xa, LM Wt (< 0.10) IU/ML Heparin Anti-Xa, Unfract (0.3-0.7) IU/ml VBG pH 7.39 (7.36-7.41) VBG pCO2 46 (38-50) mmHg VBG pO2 32 mmHg VBG HCO3 28 mmol/L VBG O2 Saturation < 60.0 % VBG Base Excess 2.2 mEq/L Sodium 137 (136-145) mmol/L Potassium TNP Chloride 103 (98-107) mmol/L Carbon Dioxide 28 (21-32) mmol/L Anion Gap 6 (3-11) BUN 18 (6-23) mg/dl Creatinine 1.06 (0.6-1.2) mg/dl Est Cr Clr Drug Dosing 40.2 ml/min Est GFR ( Amer) 55.8 ml/min Est GFR (Non-Af Amer) 48.2 ml/min BUN/Creatinine Ratio 17.0 (10-20) Glucose 107 H (70-99(Fasting)) mg/dl Calcium 8.1 L (8.6-10.3) mg/dl Magnesium (1.7-2.4) mg/dl Iron (35-150) mcg/dl Transferrin (200-360) mg/dl Ferritin (8-388) ng/ml Total Bilirubin 0.4 (0.2-1.0) mg/dl AST TNP ALT 20 (7-52) U/L Alkaline Phosphatase 100 (34-104) U/L Troponin I High Sens 19.2 H (0-14) pg/ml B-Natriuretic Peptide 575 H (0-100) pg/ml Total Protein 6.5 (6.0-8.3) gm/dl Albumin 3.1 L (3.4-5.0) gm/dl Globulin 3.4 (2.5-4.0) gm/dl Albumin/Globulin Ratio 0.9 (0.9-2) Lipase 40 (11-82) U/L Procalcitonin (0-0.5) ng/ml Nasal Screen MRSA (PCR) (Negative) Stl C. diff Tox B Gene (Neg) Blood Type Antibody Screen Diagnostic Findings Chest X-Ray 03/29/24 07:34 SINGLE VIEW CHEST CLINICAL HISTORY: Atypical chest pain. FINDINGS: An AP, portable, upright chest radiograph is compared to study dated 03/27/2024 and correlated with chest CT dated 06/04/2023. The examination is de graded by portable technique and patient rotation. The heart is enlarged noting atherosclerotic calcification of the thoracic aorta. There is pulmonary vascular congestion. There are right larger than left pleural effusions with dependent consolidation. No pneumothorax is seen. The skeletal structures are osteopenic. The bony thorax is grossly intact. Arthritic change is seen in the shoulders. De generative change and scoliosis is noted in the spine. An electronic device projects over the left lower chest. IMPRESSION: 1. Right larger than left pleural effusions with dependent consolidation. There is similar to the 03/05/2024 examination. Radiographic follow-up to resolution is recommended. 2. Cardiomegaly with pulmonary vascular congestion. ACT 112: Negative or not required by law. ' Electronically signed by: Venkat Cole M.D. 03/29/2024 8:[address] 03/30/24 12:08 CT chest diagnostic wo con CT DOSE: 294.27 mGy.cm CLINICAL HISTORY: 83 years-old Female with loculated right pleural effusion, dyspnea, hypoxia. Acute shortness of breath TECHNIQUE: Multiaxial CT images of the chest were performed without contrast. A dose lowering technique was utilized adhering to the principles of ALARA. COMPARISON: Chest radiograph 03/29/2024, chest CT 06/04/2023 FINDINGS: Thyroid goiter. Chronic calcified thrombus in the left subclavian, brachiocephalic vein and SVC. Moderate cardiomegaly with trace pericardial effusion. An electronic device projects over the right ventricle. Atherosclerosis of the aorta without aneurysm. Dilated pulmonary artery suggestive of pulmonary arterial hypertension. Mediastinal lymphadenopathy includes lymph nodes measuring up to 1.3 cm. Borderline enlarged hilar lymph nodes. Moderate sized pleural effusion with loculation on the right. Right greater left intralobular septal thickening with dependent bibasilar consolidation, right greater than left. Mild ground glass/consolidative left upper lobe opacities. 6 mm nodular density of the left upper lobe. The airways are patent. No acute upper abdominal abnormality. Moderate body wall edema, greatest in the right chest wall. No acute fracture or destructive bone lesion identified. IMPRESSION: 1. Cardiomegaly with pulmonary edema, moderate pleural effusions with anasarca. 2. The right pleural effusion is loculated and there is asymmetric right basilar predominant consolidation which may represent atelectasis versus pneumonia. 3. Mild mediastinal lymphadenopathy. 4. Status post removal of the previously seen left subclavian pacer. There is chronic associated venous calcifications/thrombus as above. 5. 6 mm nodular density of the left upper lobe. Attention at follow-up recommended. ACT 112: Negative or not required by law. Electronically signed by: Caden Sloan M.D. 03/30/2024 2:11 PM Chest X-Ray 03/31/24 12:32 SINGLE VIEW CHEST CLINICAL HISTORY: Pleural effusions. FINDINGS: An AP, portable, upright chest radiograph is compared to study dated 03/29/2024 and correlated with chest CT dated 03/30/2024. The heart is enlarged noting atherosclerotic calcification of the thoracic aorta. There is pulmonary vascular congestion. There are right larger than left pleural effusions with dependent consolidation. No pneumothorax is seen. The skeletal structures are osteopenic. The bony thorax is grossly intact. Arthritic change is seen in the shoulders. Degenerative change and scoliosis is noted in the spine. An electronic device projects over the left lower chest. IMPRESSION: 1. Cardiomegaly with evidence of congestive failure. 2. Right larger than left pleural effusions with dependent consolidation. This is similar to yesterday. Radiographic follow-up to resolution is recommended. ACT 112: Negative or not required by law. Electronically signed by: Venkat Cole M.D. 03/31/2024 1:07 PM Chest X-Ray 04/01/24 07:00 XR chest 1V portable HISTORY: Respiratory distress. COMPARISON: Chest 03/31/2024. FINDINGS: The heart is enlarged noting atherosclerotic calcification of the thoracic aorta. There is pulmonary vascular congestion. There are right larger than left pleural effusions with dependent consolidation. No pneumothorax is seen. The skeletal structures are osteopenic. The bony thorax is grossly intact. Arthritic change is seen in the shoulders. Degenerative change and scoliosis is noted in the spine. An electronic device projects over the left lower chest. IMPRESSION: 1. Cardiomegaly with mild congestive change. This has improved. 2. Right larger than left pleural effusions with dependent consolidation. This is similar to yesterday. Radiographic follow-up to resolution is recommended. ACT 112: Negative or not required by law. Electronically signed by: Jaxson Velasco M.D. 04/01/2024 8:38 AM Chest X-Ray 04/02/24 12:17 XR chest 1V portable CLINICAL HISTORY: hypoxia TECHNIQUE: Single frontal radiograph of the chest was obtained. Comparison: Comparison is made to chest radiograph 04/01/2024 FINDINGS: No lines and tubes are seen. Calcified aortic knob is seen. The lungs are clear. Small bilateral pleural effusions are seen. IMPRESSION: Small bilateral pleural effusions. ACT 112: Negative or not required by law. Electronically signed by: Yrn Rinaldi M.D. 04/02/2024 12:35 PM PG Care Time/CCT Total # of Minutes Spent Total Time Spent with Patient: Total time spent is greater than 50% in coordination of care (as documented) at patient's floor/unit and/or counseling patient: I spent 95 minutes overall addressing this case: 10 min in medical data review/discussion with referring provider(s) and/or preparation for the visit 15 min in direct interaction with the patient/exam 45 min in Advance Care Planning/Goals of Care discussions as detailed above in note (must be >16min) 10 min in subsequent review and synthesis of assessment and plan 15 min communicating with other providers regarding the patient's case: Advanced Care Planning 71464 Advanced Care Planning 30 Min 79633 Advanced Care Planning Additional 30 [place] [address] IN/OBS CONSULT LVL 3,45M (25 - SIGNIFICANT, SEPARATELY IDENTIFIABLE ) Patient Type New Medical Decision Making High Complexity Diagnoses Dyspnea and respiratory abnormalities R06.00; R06.89 Weakness generalized R53.1 Cough R05.9 Advanced care planning/counseling discussion Z71.89 Encounter for hospice care discussion Z Palliative care by specialist Z51.5 Additional Codes Advanced Care Planning - 57304 Advanced Care Planning 30 Min: 31129 Advanced Care Planning 30 Min ([id number]) Advanced Care Planning - 12605 Advanced Care Planning Additional 30 Min: 89343 Advanced Care Planning Additional 30 Min ([id number])
--- NOTE | 2024-04-03 17:51 | Hospitalist Progress Note ---
Date of Service April 03, 2024 Assessment & Plan (1) Acute and chronic respiratory failure with hypoxia: Plan: acute component 2nd to #2 can't rule out element of infectious process but less likely continue bumex diuresis continue cefepime IV - day #5 of such NC O2 requirement is back down to basal requirements of 3 L continuously (2) Acute on chronic systolic heart failure: Plan: improving very nicely with bumex 2mg IV BID continue such BMP am cont meto succ cont Entresto (3) Pleural effusion, bilateral: Plan: 2nd CHF h/o right-sided chest tube placement February 2024 2nd to Loculated R effusion only received half-dose lytics on 02/21 at [facility] for such Had Parainfluenza at the time cxr yesterday showed the effusions are small b/l at this time (4) Hematochezia: Plan: none in 48 hours - last episode AM of 04/01 (had blood tinged diarrhea stool with maroon clots) Prior history of C. diff and has been on po vancomycin prophylaxis this admission. Appearance of bloody stool consistent with a colitis vs slow diverticular or other LGI source. Color not consistent with hemorrhoidal bleeding. 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 occurred at time of infected pacer removal resume Eliquis tonight stop heparin drip (6) Deep vein thrombosis of upper extremity: Plan: with PEs occurred at time of infected pacer removal resume Eliquis stop heparin drip (7) Urinary retention: Plan: [place] d/c this admission but is having incomplete bladder emptying PVRs are not optimal but remain <350cc If PVRs worsen (400cc or more) then place hampton back Plan Recent history: 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 and replacement with articulating spacer, on chronic suppression with augmentin KHADRA - continue nocturnal CPAP daughter updated at bedside home when all hospice arrangements have been made Admission and Anticipated Discharge Date Admission Date: March 29, 2024 Subjective patient overall is feeling better - especially her breathing edema of legs much improved bladder scans have been performed to track PVRs - some as little as 100-200cc, others have been 300cc+ no dysuria or other LUTS, however she met with Dr Mccarty from palliative care and pt/family have elected to return home with hospice she does report mild back pain and asks about lidoderm patches Review of Systems Review of Systems: gen - no fevers cv - no orthopnea pulm - no dyspnea at rest GI - no further hematochezia Physical Exam Physical Exam: gen - NAD, very pleasant neck - EJ veins are distended, no JVD however mouth - MMM heart - RRR, s1 s2 lungs - decreased BS R base, no rales, no wheezes, no increased work of breathing abd - soft NT ND BS+ ext - no edema, pulses 2+ b/l psych - a/o x 3 Results & Data Results & Data Vital Signs (Past 12 Hours) Vital Signs Temp Pulse Pulse Resp BP Pulse Ox O2 Del Method 04/03/24 15:04 36.3 C L 73 22 160/92 H 100 Nebulizer 04/03/24 15:01 74 18 98 Nasal Cannula 04/03/24 14:51 71 04/03/24 10:50 76 16 97 Nasal Cannula 04/03/24 10:23 36.7 C 72 20 117/70 100 Nasal Cannula 04/03/24 07:32 64 20 143/80 H 97 Nebulizer 04/03/24 07:19 76 18 94 Nasal Cannula O2 Flow Rate 04/03/24 15:04 04/03/24 15:01 3 04/03/24 14:51 04/03/24 10:50 4 04/03/24 10:23 4 04/03/24 07:32 04/03/24 07:19 4 Laboratory Results Laboratory Results 04/02/24 04/03/24 22:47 06:58 WBC 4.61 L RBC 3.76 L Hgb 8.9 L Hct 29.4 L MCV 78.2 L MCH 23.7 L MCHC 30.3 L RDW Std Deviation 51.8 H RDW Coeff of Blaise 18.3 H Plt Count 375 MPV 10.0 Heparin Anti-Xa, Unfract 0.39 0.35 Sodium 136 Potassium 4.0 Chloride 98 Carbon Dioxide 32 Anion Gap 6 BUN 19 Creatinine 0.93 Est Cr Clr Drug Dosing 42.9 Est GFR ( Amer) 65.4 Est GFR (Non-Af Amer) 56.4 BUN/Creatinine Ratio 20.4 H Glucose 106 H Calcium 9.1 Magnesium 1.8 PG Care Time/CCT Total # of Minutes Spent Total Time Spent with Patient: Total time spent is greater than 50% in coordination of care (as documented) at patient's floor/unit and/or counseling patient: Coding Level of Care Code 59703 SUB INP/OBS CARE 2/35MIN Diagnoses Acute and chronic respiratory failure with hypoxia J96.21 Acute on chronic systolic heart failure I50.23 Pleural effusion, bilateral J90 Hematochezia K92.1 Chronic thrombosis of superior vena cava I82.211 Deep vein thrombosis of upper extremity I82.629 Urinary retention R33.9
[2024-04-03] MEDS: LIDOCAINE 5% 1 PATCH TD SCH (18:15)
[2024-04-03] MEDS: ACETAMINOPHEN 500 MG TAB PO SCH (20:42)
[2024-04-03] MEDS: APIXABAN 5 MG TABLET PO SCH (20:43)
[2024-04-04 07:38] LABS: Hematocrit (blood only) 29.6 % (37.0-47.0); Mean Corpuscular Hemoglobin 23.4 pg (25.0-34.0); Mean Corpuscular Hgb Conc 30.4 g/dL (32.0-36.0); Mean Corpuscular Volume 76.9 fL (80.0-100.0); Mean Platelet Volume 10.1 fL (9.4-12.4); Platelet Count 382 K/uL (130-400); RDW Coefficient of Variation 18.1 % (11.5-14.5); RDW Standard Deviation 50.4 fL (36.4-46.3); Red Blood Count 3.85 M/uL (4.20-5.40); White Blood Count 3.88 K/ul (4.8-10.8)
[2024-04-04 07:58] LABS: BUN Creatinine Ratio 21.8 (10-20); Calcium 9.4 mg/dl (8.6-10.3); Creatinine Clr Calc Pharmacy 45.8 ml/min; Est GFR (African American) 70.9 ml/min; Est GFR (Non-African American) 61.2 ml/min; Magnesium 1.9 mg/dl (1.7-2.4); Potassium 4.5 mmol/L (3.5-5.1)
--- NOTE | 2024-04-04 19:19 | Discharge Summary ---
Date of Service April 04, 2024 Admission HPI Per Admitting Provider 83 y/o woman with history of heart failure and complete heart block, recent ICD/pacemaker infection with enterobacter, bilateral pleural effusions came to ED with increasing shortness of breath. Was seen in ED for same on 03/27. Unclear whether IV diuretics given, she wished to return home and was discharged from the ED. I completed review of extensive outside records from [facility] and outpatient clinic records: Admitted at [facility] recently 02/04-02/17 and 02/21-03/01/24, transferred there with R hydropneumothorax requiring chest tube, 3L were removed then she became hypotensive and third-spaced back into chest. Pleural fluid cultures reported to be negative, effusion was thought to be parapneumonic. She required high flow O2 during that stay but improved and discharged on 3L home O2. No chronic lung disease. She was also recently treated at [facility] for enterobacter cloacae bacteremia and infected Biventricular pacer/ICD, device and leads removed and replaced with leadless pacemaker. Was on ertapenem 1q q24h last dose 03/21 and PICC removed 03/23. Chronic hypoxic respiratory failure on 2-3L O2 and noctrunal CPAP Heart failure last echo 02/12/2024 EF 45%, hypokinetic apex, ant-sept, mid-distal anterior wall; indeterminate diastolic fxn; nl RV; mild MR; mild-mod TR; no pericardial effusion -lasix increased to 40 bid at previous discharge. Has had IV lasix at ED visits Hx R TKA with chronic PJI in 12/2022 - was strep viridans. s/p TKR revision with explant and placement of articulating spacer with antibiotic cement treated with 6 weeks IV ceftriaxone, amoxicillin suppressive abx Strep mitis bacteremia 01/01/24 treated with 2 weeks IV ceftriaxone RLL PE 01/2024 thought embolic from pacer lead vegetation, SVC occlusion, occlusive L cephalic vein DVT on apixaban Urinary retention since last admission - seen recently in Urology clinic and failed voiding trial, still has hampton catheter C. diff diarrhea 01/25/24 Recent history per patient and her daughter: home O2 had gotten down to 1.5-2L and ambulating 5 steps with walker as of a week ago, was steadily improving until last 3-4 days then started to get worse. No F/C continues to have cough productive of yellow "slime" ever since admission at [facility]. Breathing progressively worse over last 3d and getting weaker as well. No abdominal pain. Sole episode of diarrhea was this AM, did have C. diff diarrhea 01/25/24. Episode of vomiting and diarrhea in ED this AM associated with very focal SSCP and feeling of squeezing, radiating to both arms now completely resolved, nausea this AM also resolved and feels hungry. Lasix IV given in ED and shortnes of breath somewhat improved since then. UOP of 1400 mL after lasix. Discharge Exam gen - NAD, very pleasant neck - EJ veins are distended, no JVD however mouth - MMM heart - RRR, s1 s2 lungs - decreased BS R base, no rales, no wheezes, no increased work of breathing abd - soft NT ND BS+ ext - no edema, pulses 2+ b/l psych - a/o x 3 Discharge Data Allergies Allergy/AdvReac Type Severity Reaction Status Date / Time adhesive Allergy Intermediate "Adhesive Verified 03/29/24 11:07 tape" -- blisters sulfamethoxazole Allergy Intermediate MOUTH SORES Verified 03/29/24 11:07 trimethoprim Allergy Intermediate MOUTH SORES Verified 03/29/24 11:07 Consultations 03/29/24 08:40 ED Decision to Admit Stat 03/29/24 14:26 Consult Cardiology Routine Consult Pulmonology Routine 04/01/24 09:24 Consult Gastroenterology Routine 04/02/24 14:10 Consult Palliative Care Routine Ordered Studies 03/30/24 08:41 US point of care ultrasound Urgent 03/30/24 12:08 CT chest diagnostic wo con Urgent Hospital Course (1) Acute and chronic respiratory failure with hypoxia: acute component 2nd to #2 can't rule out element of infectious process but less likely continue bumex diuresis continue cefepime IV - day #5 of such NC O2 requirement is back down to basal requirements of 3 L continuously (2) Acute on chronic systolic heart failure: improving very nicely with bumex 2mg IV BID continue such BMP am cont meto succ cont Entresto (3) Pleural effusion, bilateral: 2nd CHF h/o right-sided chest tube placement February 2024 2nd to Loculated R effusion only received half-dose lytics on 02/21 at [facility] for such Had Parainfluenza at the time cxr yesterday showed the effusions are small b/l at this time (4) Hematochezia: none in 48 hours - last episode AM of 04/01 (had blood tinged diarrhea stool with maroon clots) Prior history of C. diff and has been on po vancomycin prophylaxis this admission. Appearance of bloody stool consistent with a colitis vs slow divert icular or other LGI source. Color not consistent with hemorrhoidal bleeding. 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 occurred at time of infected pacer removal resume Eliquis tonight stop heparin drip (6) Deep vein thrombosis of upper extremity: with PEs occurred at time of infected pacer removal resume Eliquis stop heparin drip (7) Urinary retention: hampton d/c this admission but is having incomplete bladder emptying PVRs are not optimal but remain <350cc If PVRs worsen (400cc or more) then place hampton back Plan Recent history: 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 Hx CAD, had angiogram recently at [facility] when pacer/ICD removed - nonobstructive CAD by verbal report R knee strep viridans joint infection s/p explantation and replacement with articulating spacer, on chronic suppression with augmentin KHADRA - continue nocturnal CPAP daughter updated at bedside home when all hospice arrangements have been made Home Health Attestation I certify that this patient is under my care and that I, or a physicians food and beverage assistant working with me, had a face to-face encounter that meets the home health bonc-ky-tvao encounter requirements with this patient. The encounter with the patient was in whole, or in part, for the following medical condition, which is the primary reason for home health care (list medical condition): I certify that, based on my findings, the following services are medically necessary home health services: My clinical findings support the need for the above services because: OT Assess ADL Status and Restore Function w ADLs PT Assessment for Endurance / Balance / Strength Skilled Nsg Assessment Further, I certify that my clinical findings support that this patient is homebound (i.e. absences from home require considerable and taxing effort and are for medical reasons or bahai services or infrequently or of short duration when for other reasons) because: Certification for Home Health Services: Based on the above findings, I certify that this patient is confined to the home and needs intermittent fdc care, physical therapy and/or speech therapy or continues to need occupational therapy. The patient is under my care, and I have initiated the establishment of the plan of care. This patient will be followed by a physician who will periodically review the plan of care. Discharge Plan Discharge Items Patient Disposition: Hospice - Home Reason For Visit: ACUTE ON CHRONIC HEART FAILURE Discharge Diagnosis: 1. acute on chronic congestive heart failure 2. recent blood in stool - resolved 3. history of pulmonary embolus and DVT blood clots 4. history of bacteremia (bloodstream infection) 5. history of pacemaker infection 6. transition to hospice at home 7. urinary retention with placement of new hampton - 04/04/24 Activity: As commented below Activity Comment: activity as tolerated/as desired Non-emergency contact: Primary Care Provider Call non-emergency contact if: you have any medication questions, your symptoms worsen, your pain is not controlled and your pain is worsening Follow-up/Referrals: Hospice & Home Care, [facility] [Other] Say Garcia III, CRNP [Primary Care Provider] - 04/16/24 4:00 pm (1 week Hospital follow up scheduled April 16 (first available) at 4:00. Please call the office for a sooner appointment.) Vanesa Mccarty, HEATHER [Nurse Practitioner] - (for any palliative care needs may see Dr Mccarty as desired ) Diet: Heart Healthy Addtl Attending Provider Instructions: Dr Kingsley, You were hospitalized due to severe difficulty breathing. This was due to fluid build-up in the lungs from congestive heart failure. There was a possibility that you also had infection in the lungs but this was not fully certain. During your stay you received IV diuretics to remove the unwanted fluid. You also received IV antibiotics in the event you had an element of infection/pneumonia in the lungs. You have lost a significant amount of fluid weight while here. Your weight today, 04/04/24, is 68kg (149.5 pounds). This is your lowest weight you have been in several months. Dr Shirley Mccarty from [facility] saw you in consult. After much discussion you and your family expressed a desire to return home with hospice services in place. [facility] will be the agency that will provide you hospice services at your home. Recommendations - 1. diuretics (to keep unwanted fluid out of your lungs/legs/etc) - * bumex (bumetanide) - take 2 mg every morning and 1 mg every afternoon 2. antibiotics - * starting tonight, 04/04, take cefdinir 300mg twice daily x 2 days then stop * after the 2 days of cefdinir switch back to amoxicillin and take every day (as previous) for chronic prophylaxis/suppressive therapy 3. for pain - * lidoderm patches (if you don't fill this prescription you can purchase [id number] "Salonpas") - may use up to 3 patches at site(s) of pain; leave on for 12 hours, remove for 12 hours * tylenol (acetaminophen) 1000mg every 6 hours as needed, maximum 3000mg in 24 hours * liquid morphine -- 5mg (0.25ml) every 6 hours as needed for pain * know that the morphine will cause constipation * the morphine can make you drowsy * there are times the morphine can make you feel fuzzy/confused as well 4. for nausea/vomiting - * ondansetron 8mg every 8 hours as needed 5. for prevention of c diff stool infection take vancomycin capsules - 125mg twice daily x 7 days, first dose tonight on 04/04/24 6. continue your oxygen 3 liters continuously as previous 7. continue routine hampton care; your hampton was inserted 04/04/24; it will need to be exchanged in 30 days; [facility] can do this for you 8. you can certainly check your weight periodically at home if desired, especially if you are seeing worsening edema/fluid in your legs or you are having worsening breathing. If you notice these symptoms/signs and your weight is rising above your dry weight (about 68 kg / 149.5 pounds) you can increase your afternoon bumetanide to 2mg. The hospice agency can monitor some of these things for you. For any questions, concerns, problems, needs, uncontrolled pain, worsening breathing, etc -- please contact [facility]. They will be able to address the majority of your needs right in the comforts of your own home. It was our pleasure to care for you! Enjoy being home :) Dr Franklin Pending Studies at Discharge: No Stand-Alone Forms: My [facility] Medications and DC Order Prescriptions: New potassium chloride 20 mEq Tablet,Er Particles/Crystals 20 meq PO QAM Qty: 30 1RF lidocaine 5 % Adhesive Patch,Medicated 3 patch transdermal HS Qty: 60 2RF Rx Instructions: apply to site(s) of pain for 12 hours, remove for 12 hours vancomycin 125 mg capsule 125 mg PO BID 7 Days Qty: 14 0RF morphine concentrate 100 mg/5 mL (20 mg/mL) solution 5 mg PO Q6H PRN (Reason: pain) Qty: 30 0RF cefdinir 300 mg capsule 300 mg PO BID 2 Days Qty: 4 0RF Rx Instructions: first dose PM of 04/04/24 amoxicillin 875 mg tablet 875 mg PO DIRECTED Qty: 60 0RF Rx Instructions: take every day as directed for chronic prophylaxis Continued melatonin 10 mg tablet 10 mg PO HS Eliquis 5 mg tablet 5 mg PO BID Qty: 180 3RF pantoprazole 40 mg tablet,delayed release (DR/EC) 40 mg PO QAM Qty: 90 3RF Rx Instructions: TAKE 1 TABLET BY MOUTH EVERY MORNING guaifenesin 600 mg tablet extended release 12hr 600 mg PO BID metoprolol succinate 25 mg tablet extended release 24 hr 25 mg PO DAILY albuterol sulfate 90 mcg/actuation Hfa Aerosol Inhaler 1 puff INHALATION QID PRN (Reason: SOB/WHEEZING) albuterol sulfate 2.5 mg /3 mL (0.083 %) Solution For Nebulization 2.5 mg INHALATION Q4H PRN (Reason: SOB/WHEEZING) Qty: 1 0RF acetaminophen [Acetaminophen Extra Strength] 500 mg tablet 1,000 mg PO QID PRN (Reason: Back Pain) Qty: 0 0RF Rx Instructions: maximum 3000mg in 24 hours ondansetron 8 mg tablet,disintegrating 8 mg PO Q8H PRN (Reason: nausea and vomiting) Qty: 20 0RF Probiotic 100 billion cell Capsule 1 cap PO HS calcium carbonate 500 mg calcium (1,250 mg) Tablet 1,000 mg PO TID Changed bumetanide 2 mg Tablet 2 mg PO DIRECTED Qty: 0 0RF Rx Instructions: take 2mg every morning and 1mg every afternoon. Discontinued cholecalciferol (vitamin D3) 50 mcg (2,000 unit) capsule 50 mcg PO DAILY multivitamin Tablet 1 tab PO QPM atorvastatin 40 mg tablet 40 mg PO QAM aspirin 81 mg Tablet,Delayed Release (Dr/Ec) 81 mg PO DAILY Discharge Orders: Discharge Order (Routine); Ordered 04/04/24 Ordered By: Philippe Franklin Admission Data Admit Date/Time: 03/29/24 12:35 Attending Provider: Philippe Franklin Admit Provider: Randi Caceres Primary Care Provider: Say Garcia III Other Providers: Randi Caceres; Walter Monterroso; Harjeet Gold; Josué Mayo; Yaya Up; Milton Webber; Jean Pierre Reyna Jr; Kayden Matson; Anahi Tang; Heather Ordoñez; Zan Newman; Zan Nice; Shilo Hahn; Hetal Balderas; Mauricio Espinal; Shante Davies; Yanick El; Braydon Durham Henry C.; Vik Olivera; Chandan Moody; Jose Sandoval; Thierry Vora; Lainey Coelho; Tori Cantu; Holley Velasquez; Obinna Pacheco; Olivier Sanchez; Ines Alexander; Corazon Almazan; Jong Zazueta; Neelima Ortiz; Jodie Gaitan; Dominique Glasgow; Rula Covington; Ashlyn Tim; Robi Rubio; Talha Omalley; Jose Ruiz; Medardo Arora; Vanessa Alonos; Meagan Max; Dalila Rodríguez; Malia Espinoza; Karen Chu; Donovan Mckeon; Juan Fernandez; Cassandra Dennis; Catherine Beck Jr; Junior Alvarado; Brian Church; Abram Parsons; Robles Jensen; Binta Sesay; [facility]; Vanesa Mccarty Other Interventions: Discharge Summary Assessment (RN) Last Done: 04/04/24 16:46 Coding Diagnoses Acute and chronic respiratory failure with hypoxia J96.21 Acute on chronic systolic heart failure I50.23 Pleural effusion, bilateral J90 Hematochezia K92.1 Chronic thrombosis of superior vena cava I82.211 Deep vein thrombosis of upper extremity I82.629 Urinary retention R33.9
== END 2024-04-04 17:45 | disposition hospice, home (50) | DRG 291 ==
LOC: ED 07:26 → SUATTDRO 12:35 → 4W 12:35